=== PATIENT | female | born 1940 | race Caucasian/White ===

== ENCOUNTER → 2016-08-16 | Outpatient (CLI) | payer MEDICARE, BC ==
--- NOTE | 2016-08-18 11:50 | P.ARTDOP ---
Arterial Doppler LOWER EXTREMITY ARTERIAL DOPPLER: DATE OF SERVICE: 08/16/2016 Reason for study: Leg pain. Doppler waveforms: Multiphasic bilaterally throughout. Pulse volume recording: Normal configuration. Pressure gradients: None. Ankle-brachial indices: Greater than 1 bilaterally. Toe pressures: 134 on the right, 131 on the left Impression: Normal study.
== END | disposition home or self-care (01) ==
LOC: RADUSWWP 10:51
PROVIDERS: ATTEND Internal Medicine
DX: M79.662 Pain in left lower leg (principal)
CPT/HCPCS: 93923

== ENCOUNTER 2016-09-02 19:05 | Emergency (ER) | payer MEDICARE, BC ==
[2016-09-02 19:17] VITALS: BP 125/58; PULSE 71; RESP 16; TEMP 98.4
--- NOTE | 2016-09-02 19:45 | ED ---
Extremity Problem HPI - General Chief complaint: Extremity Problem,Nontraumatic Stated complaint: fluid on knee Time Seen by Provider: 09/02/16 19:34 Source: patient, RN notes reviewed Mode of arrival: wheelchair Limitations: no limitations - History of Present Illness Initial comments: 75-year-old female presents emergency Department chief complaint left knee pain. Patient has had ongoing left knee pain and states that she had it drained one week ago by her primary care physician. Patient was diagnosed with pseudogout that time. Patient states that she overdid it today while she was cutting her grass. 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 Patient states that she cannot tolerate the pain and states that she noticed increased swelling. Denies any redness, fever or chills. Patient states that she's had lab work done in the past, x-rays and ultrasound. He states those were all within normal limits. Patient states that she does have tramadol at home though she did not take it. She did chest my Profen with no relief. - Related Data Home Medications Medication Instructions Recorded Confirmed ALPRAZolam [Xanax] 0.5 mg PO DAILY 08/22/13 09/02/16 Aspirin 81 mg PO DAILY 08/22/13 09/02/16 Isosorbide Mononitrate [Imdur] 30 mg PO DAILY 08/22/13 09/02/16 Vit A,C & E/Lutein/Minerals 1 tab PO DAILY 08/24/13 09/02/16 [Ocuvite Tablet] PARoxetine [Paxil] 10 mg PO DAILY 11/02/13 09/02/16 Cholecalciferol [Vitamin D3] 2,000 unit PO DAILY 12/28/15 09/02/16 Losartan/Hydrochlorothiazide 1 tab PO DAILY 09/02/16 09/02/16 [Losartan-Hctz 100-12.5 mg Tab] Allergies Allergy/AdvReac Type Severity Reaction Status Date / Time cyclobenzaprine HCl Allergy Unknown Rash/Hives Verified 09/02/16 19:17 [From Flexeril] Iodinated Contrast Media - Allergy Rash/Hives Verified 09/02/16 19:26 Oral and [Iodinated Contrast Media - IV Dye] TRIPLE DYE Allergy Unknown Rash/Hives Uncoded 09/02/16 19:17 Review of Systems ROS Statement: Those systems with pertinent positive or pertinent negative responses have been documented in the HPI. ROS Other: All systems not noted in ROS Statement are negative. Past Medical History Past Medical History: Chest Pain / Angina, COPD, Eye Disorder, Hypertension Additional Past Medical History / Comment(s): KIDNEY STONES ,POLYPS, HIATAL HERNIA, BACK PAIN, constipation. History of Any Multi-Drug Resistant Organisms: None Reported Additional Past Surgical History / Comment(s): TERENCE CATARACTS , COLONSCOPY, EGD, BREAST BX, LITHOTRIPSY, PAIN CLINIC PROCEDURES. Past Anesthesia/Blood Transfusion Reactions: Motion Sickness Past Psychological History: Anxiety Smoking Status: Current every day smoker Past Alcohol Use History: None Reported Past Drug Use History: None Reported General Exam Limitations: no limitations General appearance: alert, in no apparent distress Respiratory exam: Present: normal lung sounds bilaterally. Absent: respiratory distress, wheezes, rales, rhonchi, stridor Cardiovascular Exam: Present: regular rate, normal rhythm, normal heart sounds. Absent: systolic murmur, diastolic murmur, rubs, gallop, clicks Extremities exam: Present: other (Left knee full range of motion with mild discomfort there is no warmth no erythema noted to the left knee there is no open lesions or sores. Patient does have mild joint effusion /swelling. Leg is neurovascularly intact joint above and below within normal limits) Course Vital Signs 09/02/16 19:11 Temperature 98.4 F Pulse Rate 71 Respiratory 16 Rate Blood Pressure 125/58 O2 Sat by Pulse 98 Oximetry Medical Decision Making - Medical Decision Making 75 show female presented for left knee pain. This is ongoing knee pain. Patient was diagnosed with pseudogout. Patient referred to orthopedics at this time. Patient does have pain medication and advised that she can take that. Return parameters were discussed. There is no evidence of infection at this time. Disposition Clinical Impression: Knee pain Disposition: HOME SELF-CARE Condition: Stable Instructions: Swollen Knee Joint (ED), Knee Pain (ED) Additional Instructions: Please return to the Emergency Department if symptoms worsen or any other concerns. Referrals: Marcie Varma MD [Primary Care Provider] - 1-2 days Jean Pierre Baptiste MD [Medical Doctor] - 1-2 days Time of Disposition: 19:45
== END 2016-09-02 19:51 | disposition home or self-care (01) ==
LOC: EC 19:05
DX: M25.562 Pain in left knee (principal); J44.9 Chronic obstructive pulmonary disease, unspecified; I10 Essential (primary) hypertension; F41.9 Anxiety disorder, unspecified; F17.200 Nicotine dependence, unspecified, uncomplicated; Z79.82 Long term (current) use of aspirin; Z79.899 Other long term (current) drug therapy; Z91.041 Radiographic dye allergy status; Z88.8 Allergy status to other drugs, medicaments and biological substances; Z91.048 Other nonmedicinal substance allergy status
CPT/HCPCS: 99283

== ENCOUNTER → 2017-11-23 | Outpatient (CLI) | payer MEDICARE, BC ==
--- NOTE | 2017-11-23 16:41 | NM ---
EXAMINATION TYPE: NM hepatobiliary w CCK DATE OF EXAM: 11/23/2017 COMPARISON: NONE INDICATION: Abdomen pain TECHNIQUE: After the intravenous administration of 5.33 mCi Tc 99m Mebrofenin hepatobiliary scintigra phy is performed. Images were obtained immediately post injection. FINDINGS: There is prompt uptake and excretion of radiotracer by the liver. Extrahepatic ducts are identified at 3 minutes. The gallbladder is visualized within 3 minutes. Small bowel activity is noted within 18 minutes. At one hour CCK was administered, patient was injected with 1.2 mcg of Kinevac, and gallbladder eject ion fraction is calculated at 66 %, which is in the normal range.. (Normal >35% and <80%.). IMPRESSION: 1. Normal hepatobiliary scan.
== END | disposition home or self-care (01) ==
LOC: RADNMMAIN 06:49
PROVIDERS: ATTEND Surgery
DX: R10.84 Generalized abdominal pain (principal); K21.9 Gastro-esophageal reflux disease without esophagitis
CPT/HCPCS: 78227; A9537; J2805

== ENCOUNTER 2017-12-06 09:29 | Day surgery (SDC) | payer MEDICARE, BC ==
[2017-12-05 09:24] VITALS: BMI 25.4
[~2017-12-06 09:29] MED LIST: LACTATED RINGERS 1,000 ML IV SCH
[2017-12-06 09:59] VITALS: TEMP 98.1
[2017-12-06] MEDS ORDERED: LIDOCAINE 1% 20 ML VIAL (10MG/ML) FOR IV START INTRADERMA ONE (10:05)
[2017-12-06] MEDS ORDERED: PROPOFOL 10 MG/ML 20 ML VIAL IV ONE (10:51)
[2017-12-06] MEDS ORDERED: LIDOCAINE 1% INJ 10MG/ML (20 ML MDV) ONE (10:51)
--- NOTE | 2017-12-06 11:03 | P.GSHP ---
History of Present Illness H&P Date: 12/06/17 Chief Complaint: GERD, constipation This is a 69-year-old female has completed GERD and consultation. Patient presents today for EGD and colonoscopy. Past Medical History Past Medical History: Chest Pain / Angina, COPD, Eye Disorder, Hypertension, Musculoskeletal Disorder Additional Past Medical History / Comment(s): Hx of Kidney stones, hiatal hernia , chronic back pain, polyps History of Any Multi-Drug Resistant Organisms: None Reported Additional Past Surgical History / Comment(s): TERENCE CATARACTS , COLONSCOPY, EGD, BREAST BX, LITHOTRIPSY, PAIN CLINIC PROCEDURES. Past Anesthesia/Blood Transfusion Reactions: Motion Sickness Smoking Status: Current every day smoker - Past Family History Mother Family Medical History: No Reported History Medications and Allergies Home Medications Medication Instructions Recorded Confirmed Type ALPRAZolam [Xanax] 0.5 mg PO DAILY 08/22/13 12/05/17 History Aspirin 81 mg PO DAILY 08/22/13 12/05/17 History Isosorbide Mononitrate [Imdur] 30 mg PO DAILY 08/22/13 12/05/17 History PARoxetine [Paxil] 10 mg PO DAILY 11/02/13 12/05/17 History Cholecalciferol [Vitamin D3] 2,000 unit PO DAILY 12/28/15 12/05/17 History Losartan/Hydrochlorothiazide 1 tab PO DAILY 09/02/16 12/05/17 History [Losartan-Hctz 100-12.5 mg Tab] Vit C/E/Zn/Coppr/Lutein/Zeaxan 1 each PO DAILY 12/05/17 12/05/17 History [Preservision Areds 2 Softgel] Allergies Allergy/AdvReac Type Severity Reaction Status Date / Time cyclobenzaprine HCl Allergy Unknown Rash/Hives Verified 12/06/17 09:47 [From Flexeril] Iodinated Contrast- Oral and Allergy Rash/Hives Verified 12/06/17 09:47 IV Dye [Iodinated Contrast Media - IV Dye] TRIPLE DYE Allergy Unknown Rash/Hives Uncoded 12/06/17 09:47 Surgical - Exam Vital Signs Temp Pulse Resp BP Pulse Ox 98.1 F 77 18 130/76 97 12/06/17 09:58 12/06/17 09:58 12/06/17 09:58 12/06/17 09:58 12/06/17 09:58 - General well developed, no distress - Eyes PERRL - ENT normal pinna - Neck no masses - Respiratory normal expansion - Cardiovascular Rhythm: regular - Abdomen Abdomen: soft, non tender Assessment and Plan Assessment: GERD, constipation. We'll perform EGD and colonoscopy.
--- NOTE | 2017-12-06 11:23 | P.OP ---
Date of Procedure: 12/06/17 Preoperative Diagnosis: GERD Constipation Postoperative Diagnosis: Mild antral gastritis No evidence of hiatal hernia Mild esophagitis Normal colon Procedure(s) Performed: EGD Colonoscopy Anesthesia: MAC Surgeon: Elkin Beckett Pathology: none sent Condition: stable Disposition: PACU Description of Procedure: PROCEDURE: The patient was placed on the endoscopy table in the lateral position. Digital rectal examination was performed which revealed no abnormalities. . Flexible colonoscope was then placed in the patient's anus and passed throughout the entire colon. The ileocecal valve was visualized. The cecum, ascending, transverse, descending and sigmoid colon were normal. The rectum was normal as well. There were no masses, polyps or diverticula noted in the entire colon. Next, the patient's placed in the lateral position and the gastroscope placed oropharynx. The scope was placed into the stomach and through the pylorus. The first second portion of duodenum appeared normal. Scope was then brought back the antrum this was mildly inflamed. A biopsies performed. The scope was then retroflexed and the remainder of the stomach appeared normal. There is no significant hiatal hernia. GE junction was at 40 cm. The distal esophagus appeared minimally inflamed a biopsies performed. The proximal esophagus appeared normal.. Patient.
[2017-12-06 11:27] VITALS: RESP 16
[2017-12-06 11:58] VITALS: BP 118/67; PULSE 72
== END 2017-12-06 12:23 | disposition home or self-care (01) ==
LOC: ORWHC2ENDO 09:29
PROVIDERS: ATTEND Surgery
DX: K20.9 Esophagitis, unspecified (principal); K29.70 Gastritis, unspecified, without bleeding; K59.00 Constipation, unspecified; J44.9 Chronic obstructive pulmonary disease, unspecified; I10 Essential (primary) hypertension; M54.9 Dorsalgia, unspecified; G89.29 Other chronic pain; I25.10 Atherosclerotic heart disease of native coronary artery without angina pectoris; Z79.82 Long term (current) use of aspirin; Z79.899 Other long term (current) drug therapy; Z91.041 Radiographic dye allergy status; Z88.8 Allergy status to other drugs, medicaments and biological substances; Z91.09 Other allergy status, other than to drugs and biological substances; F17.210 Nicotine dependence, cigarettes, uncomplicated; Z87.442 Personal history of urinary calculi
CPT/HCPCS: 88305; 45378; 43239; J2001; J2704

== ENCOUNTER → 2018-01-18 | Outpatient (CLI) | payer MEDICARE, BC ==
--- NOTE | 2018-01-18 15:30 | CT ---
EXAMINATION TYPE: CT lumbar spine wo con DATE OF EXAM: 01/18/2018 1:12 PM COMPARISON: None HISTORY: Pt c/o pain radiating down right leg, pain in lumbosacral region. CT DLP: 933 mGycm Automated exposure control for dose reduction was used. TECHNIQUE: Unenhanced CT of the lumbar spine was performed. Bone and soft tissue window settings are submitted as well as coronal and sagittal reconstructions. FINDINGS: The lumbar spine vertebral bodies maintain normal vertebral body height and alignment. Mode rate multilevel degenerative changes are seen as small anterior osteophytes, intervertebral disc spac e narrowing, multilevel degenerative disc disease, and facet arthropathy. No evidence of acute fractu re of the lumbar spine. Mild sacroiliac joint thickened disc disease and sclerosis is seen. Moderate atherosclerosis of the abdominal aorta is noted. Nonobstructing 3 mm left renal calculus is seen. L1-L2: There is a broad-based disc bulge and facet arthropathy resulting in minimal bilateral neural foraminal narrowing. No spinal canal stenosis. L2-L3: There is a broad-based disc bulge and facet arthropathy resulting in mild spinal canal stenosi s and mild bilateral neural foraminal narrowing. L3-L4: There is a broad-based disc bulge and ligamentum flavum buckling as well as facet arthropathy resulting in moderate bilateral neural foraminal narrowing and mild spinal canal stenosis. L4-L5: There is a broad-based disc bulge, ligamentum flavum buckling and facet arthropathy resulting in moderate to severe bilateral neural foraminal narrowing and moderate spinal canal stenosis. L5-S1: There is a broad-based disc bulge without significant spinal canal stenosis nor neural foramin al narrowing. IMPRESSION: 1. Multilevel moderate degenerative disc disease of the lumbar spine most significant at L3-L4 and L4 -L5 creating moderate spinal canal stenosis at L4-L5 and mild spinal canal stenosis at L3-L4 as well as at L2-L3. Better degree of spinal canal stenosis or neuroforaminal narrowing could be assessed wit h MRI. 2. No evidence of vertebral body height loss.
== END ==
LOC: RADCTMAIN 12:51
PROVIDERS: ATTEND Internal Medicine
DX: M48.061 Spinal stenosis, lumbar region without neurogenic claudication (principal); M51.36 Other intervertebral disc degeneration, lumbar region
CPT/HCPCS: 72131

== ENCOUNTER → 2018-02-21 | Outpatient (CLI) | payer MEDICARE, BC ==
[2018-02-21 14:13] VITALS: BP 147/81; PULSE 77; RESP 18
--- NOTE | 2018-02-22 10:16 | P.PAINCN ---
History of Present Illness - Reason for Consult Consult date: 02/21/18 - History of Present Illness This is initial consultation visit for this 77 years FEMALE with a chronic history of low back pain, pain started 4 years ago she denies any initiating event, intensity of the pain increased over the last 2 months, the pain is constant, with intensity of 7 over 10 increased with any activity , interfering with her ability to do activities of daily livings, she is under physical therapy without any benefit, she tried the Neurontin without any benefit, she described her pain that is located in the low back area with radiation to the right lower extremity, mostly towards the posterior lateral aspect of the right leg , she denies any fever or night sweats she denies any motor or sensory deficit, Past Medical History Past Medical History: Chest Pain / Angina, COPD, Eye Disorder, Hypertension Additional Past Medical History / Comment(s): KIDNEY STONES ,POLYPS, BACK PAIN , constipation. History of Any Multi-Drug Resistant Organisms: None Reported Additional Past Surgical History / Comment(s): TERENCE CATARACTS , COLONSCOPY, EGD, BREAST BX, LITHOTRIPSY, PAIN CLINIC PROCEDURES. Past Anesthesia/Blood Transfusion Reactions: Motion Sickness Past Psychological History: Anxiety Smoking Status: Current every day smoker Past Alcohol Use History: None Reported Past Drug Use History: None Reported Medications and Allergies Home Medications Medication Instructions Recorded Confirmed Type ALPRAZolam [Xanax] 0.5 mg PO DAILY 08/22/13 02/21/18 History Aspirin 81 mg PO DAILY 08/22/13 02/21/18 History Isosorbide Mononitrate [Imdur] 30 mg PO DAILY 08/22/13 02/21/18 History PARoxetine [Paxil] 10 mg PO DAILY 11/02/13 02/21/18 History Cholecalciferol [Vitamin D3] 2,000 unit PO DAILY 12/28/15 02/21/18 History Losartan/Hydrochlorothiazide 50 mg PO DAILY 09/02/16 12/05/17 History [Losartan-Hctz 100-12.5 mg Tab] Cholecalciferol (Vitamin D3) 1 tab PO DAILY 02/21/18 02/21/18 History [Vitamin D3] Vit C/E/Zn/Coppr/Lutein/Zeaxan 1 tab PO DAILY 02/21/18 02/21/18 History [Preservision Areds 2 Softgel] Allergies Allergy/AdvReac Type Severity Reaction Status Date / Time cyclobenzaprine HCl Allergy Unknown Rash/Hives Verified 02/21/18 13:52 [From Flexeril] Iodinated Contrast- Oral and Allergy Rash/Hives Verified 02/21/18 13:52 IV Dye [Iodinated Contrast Media - IV Dye] TRIPLE DYE Allergy Unknown Rash/Hives Uncoded 02/21/18 13:52 Physical Exam Vitals: Vital Signs Pulse Resp BP Pulse Ox 02/21/18 13:58 77 18 147/81 97 Social history : smoker , NO ETOH , NO Illegal drugs use . Review of Systems : 1- Constitutional : no chills , no fever , no night sweats , 2- Ears : no ear discharge , no change in hearing 3-Nose, Mouth ,Throat ; no bleeding gums, no sore throat , no epistaxis , 4-Cardiovascular : Denies chest pain, , no orthopnea , no palpitation 5-Respiratory : Denies cough , no dyspnea , no hemoptysis 6-Gastrointestinal :, no change in bowel habits , no coffee- ground emesis . 7-Genitourinary : No hematuria , no discharge , no incontinence, 8-Musculoskeletal : No gait dysfunction , report low back pain , 9- Neurological : no ataxia , no tremor , no sezure , 10-Psychatric , no suicidal ideation no hallucination 11- Endocrine : no cold intolerence , no polyuria , no polydypsia , 12-Hematologic : no easy bleeding , no easy brusing , 13-Allergic / immunology : no angioedema , no wheezing ,no allergic rhinitis 14-Integumentary : no brttle nails , no change hair / nails , no foot/leg ulcers . Physical Examinations : 1-Constitutional : Cooperative , not in acute distress . 2-HEENT : nech ; supple , no Lymphadenopathy , no Thyromegaly , :eyes , no icterus, no photophobia . ENT : , normal oropharynx , no Thrush 3- Respiratory : Chest clear to auscultations Bilaterally , no wheezing . 4- Cardiovascular : regular rate and rhythem , S1 , S2 , no S3 , no S4. 5- Gastrointestinal: abdomen soft no tenderness , no organomegally . 6- Genitourinary : Defferred . 7-Integumentary : No cellulitis , no ulcers , normal skin turgor , no cyanotic . 8- neurologic : Cranial nerve II to XII intact , no focal neurological deffecit 9-psychatric : alert , oriented X 3 , appropriate affect , intact judgment and insight . 10-Lymphatic : no Lymphadenopathy. 11- musculoskeltal: antalgic gait Lumber spine moter stegnth lower extremities ,thigh and legs 5/5 Right side , 5/5 Left side deep tendon reflexes : normal Knee Jerk , normal ankle Jerk positive lumber facet Loading Test Range of motion of the lumbar spine Flexion 30 degrees, extension 10 degrees strait leg raising test , positive at 30 degree right side ,and it is negative on the left side Fabere test positive RT and negative LT . Results Comments: MRI of the lumbar spine= L3 4 spinal stenosis L2-3 and L3 4 lumbar facet L4 5 lumbar bulging disc disease and facet arthropathy Assessment and Plan Plan: Assessment and plan= chronic low back pain secondary to lumbar degenerative disc disease , lumbar spondylosis with lumbar facet arthropathy The narcotic consent was signed and patient agreed and understood the side effects and complications of opioid treatment. Patient signed the narcotic agreement, and was orally counseled, not to overuse, not to abuse, not to Divert , not tp sell pain medication, and to take it as prescribed only, Patient was counseled not to drive or operate heavy equipment while using narcotic medication, and advised not to use alcohol or any Illicit drugs while using the narcotis. understanding that lack of compliance with any of the above instructions, will likely to cause discharge from, the pain service, not to renew his narcotic prescriptions [facility] Reviwed and it was apropriate . Medication managements= patient given prescription for Ultram 50 mg half to 1 tablet by mouth every 8 hours when necessary dispense 30 no refill. Interventions= patient will be good candidate to have lumbar epidural steroid injections under fluoroscopy guidance SERGEY. Description is leaving on the state in the next couple days we will schedule it when she comes back, if she continued to have pain after the lumbar epidural steroid injection, then we will consider doing diagnostic medial branch block , Time with Patient: Greater than 30 PQRS Measure Charge Sheet Measure #130: Documentation of Current Meds in Medical Chart: Patient's medications documented in chart Measure #226: Tobacco Use: Screen & Cessation Intervention: Pt screened for tobacco use AND intervention given Measure #111: Pneumonia Vaccination: Pneumococcal vaccine administered or previously received Measure #47: Advance Care Plan: Advance care planning discussed & documented, pt chose/unable to give Measure #412: Opioid Treatment Agreement: Documented signed opioid trtmnt agreemnt min once during opioid trtmnt Measure #408: Opioid Therapy Follow-up Evaluation: Patient had f/u eval minimum every 3 months during opioid therapy Measure #317: Preventitive Care & Scrn High Bld Press & F/U: Pre-hypertensive or hypertensive BP documented, pt will f/u with PCP Measure #128: Body Mass Index (BMI) Screening & Follow-up: BMI documented ABOVE normal parameters - f/u documented Measure #131: Pain Assessment & Follow-up: Pain positive & plan documented, Follow-up scheduled Measure #431: Unhealthy Alcohol Use Preventative Care & Scrn: Patient not identified as an unhealthy alcohol user PQRS Narrative: Smoking Status Current every day smoker Do You Want the Pneumonia Yes Vaccine AT THIS TIME? Blood Pressure 147/81 Pain Intensity [Right Back] 10 Scale Used Numeric (1 - 10) Home Medications: Ambulatory Orders ALPRAZolam [Xanax] 0.5 mg PO DAILY 08/22/13 Aspirin 81 mg PO DAILY 08/22/13 Isosorbide Mononitrate [Imdur] 30 mg PO DAILY 08/22/13 PARoxetine [Paxil] 10 mg PO DAILY 11/02/13 Cholecalciferol [Vitamin D3] 2,000 unit PO DAILY 12/28/15 Losartan/Hydrochlorothiazide [Losartan-Hctz 100-12.5 mg Tab] 50 mg PO DAILY 11/11 Cholecalciferol (Vitamin D3) [Vitamin D3] 1 tab PO DAILY 02/21/18 Vit C/E/Zn/Coppr/Lutein/Zeaxan [Preservision Areds 2 Softgel] 1 tab PO DAILY
== END ==
LOC: PNWHC3 13:21
PROVIDERS: ATTEND Specialist
DX: G89.29 Other chronic pain (principal); M51.36 Other intervertebral disc degeneration, lumbar region; M46.96 Unspecified inflammatory spondylopathy, lumbar region; M47.816 Spondylosis without myelopathy or radiculopathy, lumbar region; Z79.891 Long term (current) use of opiate analgesic; Z79.899 Other long term (current) drug therapy; Z79.82 Long term (current) use of aspirin
CPT/HCPCS: 99211

== ENCOUNTER 2018-03-16 07:52 | Day surgery (SDC) | payer MEDICARE, BC ==
[2018-03-15 10:51] VITALS: BMI 25.4
[~2018-03-16 07:52] MED LIST changes: -LACTATED RINGERS 1,000 ML IV SCH; +SODIUM CHLORIDE 0.9% 500 ML 500 ML IV SCH
[2018-03-16 08:18] VITALS: RESP 16; TEMP 97.9
[2018-03-16] MEDS ORDERED: LACTATED RINGERS 1,000 ML IV ONE (08:21)
--- NOTE | 2018-03-16 09:11 | P.PCN ---
Date of Procedure: 03/16/18 Procedure(s) Performed: PREOPERATIVE DIAGNOSIS: 1- Lumbar Degenerative Disc Diseases 2-Lumbar spondylosis with Facet arthropathy without myelopathy POSTOPERATIVE DIAGNOSIS: 1-Lumber Degenerative Disc Diseases 2-Lumbar spondylosis with Facet arthropathy without myelopathy PROCEDURE 1. Lumbar epidural steroid injection under fluoroscopic guidance at the L5-S1 level. ANESTHESIA: Local with 1% lidocaine 3 ml and , moderate sedation with intravenous Versed 2mg . EBL: Minimal PROCEDURE INDICATION: The patient with low back pain and radiculitis symptoms unresponsive to conservative treatment. Fluoroscopy was used to optimize visualization of the needle placement and to maximize safety. PROCEDURE DESCRIPTION / TECHNIQUE: The patient was seen and identified in the preoperative area. Risks, benefits , complications including but not limited to infections ,bleeding ,allergic reaction to the medications ,nerve damage and not complete pain releife , and alternatives were discussed with the patient. The patient agreed to proceed with the procedure and signed the consent. IV was started, and vital signs were stable. Patient was taken to the OR and time out was completed. The patient was placed in the prone position on procedure table and a pillow was placed under the abdomen to reduce lumbar lordosis. The lumbosacral area was prepped and draped in the usual sterile fashion.ere closely monitored during the procedure. Conscious sedation was used during the procedure to decrease patients anxiety. Vital signs was monitered during the entire procedure. Using anterior-posterior fluoroscopy, the L5-S1 interlaminar space was identified and the skin over this site was marked and then infiltrated with 1% lidocaine subcutaneously. Subsequently, a 20-gauge Tuohy epidural needle was inserted and advanced toward the epidural space using the ``Loss of resistance technique and guided by AP and lateral fluoroscopy, after negative aspiration for blood and CSF and in the absence of paresthesias. Again after negative aspiration, a 6 ml mixture containing 40 mg of Depo-medrol , and 2 ml of preservative free Normal Saline, Needle was withdrawn intact, skin was cleansed , and bandages were applied. COMPLICATIONS: None DISPOSITION / PLANS: The patient was placed in a supine position and transferred to the recovery area in a stable condition for observation. There was no evidence of lower extremity motor or sensory deficit after the procedure. Patient was discharged from the recovery room after meeting discharge criteria. Home discharge instructions were given to the patient by the staff. The patient was reexamined prior to discharge. The patient will schedule a follow up in the clinic in 2-4 weeks.
[2018-03-16] MEDS ORDERED: IV FLUID CONTINUATION 850 ML IV ONE (09:20)
--- NOTE | 2018-03-16 09:32 | FL ---
EXAMINATION TYPE: FL guided pain mgmt statistic DATE OF EXAM: 03/16/2018 HISTORY: Pain LESI, 1sec fl time
[2018-03-16 09:37] VITALS: BP 117/54; PULSE 72
== END 2018-03-16 09:57 | disposition home or self-care (01) ==
LOC: ORPAIN 07:52
PROVIDERS: ATTEND Specialist
DX: M47.816 Spondylosis without myelopathy or radiculopathy, lumbar region (principal); M51.36 Other intervertebral disc degeneration, lumbar region; M54.10 Radiculopathy, site unspecified
CPT/HCPCS: 62323; J2250; J1030; Q9966

== ENCOUNTER → 2018-04-13 | Outpatient (CLI) | payer MEDICARE, BC ==
--- NOTE | 2018-04-13 10:17 | US ---
EXAMINATION TYPE: US carotid duplex BILAT DATE OF EXAM: 04/13/2018 COMPARISON: NONE CLINICAL HISTORY: I34.0 Nonrheumatic mitral (valve) insufficiency. EXAM MEASUREMENTS: RIGHT: Peak Systolic Velocity (PSV) cm/sec ----- Right CCA: 66.7 ----- Right ICA: 115.8 ----- Right ECA: 120.6 ICA/CCA ratio: 1.7 RIGHT: End Diastole cm/sec ----- Right CCA: 26.0 ----- Right ICA: 43.0 ----- Right ECA: 20.4 LEFT: Peak Systolic Velocity (PSV) cm/sec ----- Left CCA: 65.6 ----- Left ICA: 218.7 ----- Left ECA: 81.1 ICA/CCA ratio: 3.3 LEFT: End Diastole cm/sec ----- Left CCA: 21.6 ----- Left ICA: 48.1 ----- Left ECA: 11.1 VERTEBRALS (direction of flow): Right Vertebral: Antegrade Left Vertebral: Antegrade Rhythm: Normal Mild atherosclerotic changes on right. Calcified plaque left bulb and left ICA with high flow velocit ies. Tortuous right ECA. IMPRESSION: 1. 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 2. Velocity of the right internal carotid artery approaching criteria for 50-69% stenosis with elevat ed velocity in the external carotid artery on the right suggesting approximately 50% stenosis. Criteria for Assigning % of Stenosis / Diameter reduction (Estimation based on the indirect measurements of the internal carotid artery velocities (ICA PSV). 1. Normal (no stenosis)=ICA PSV < 125 cm/s: ratio < 2.0: ICA EDV<40 cm/s. 2. Less than 50% stenosis=ICA PSV < 125 cm/s: ratio < 2.0: ICA EDV<40 cm/s. 3. 50 to 69% stenosis=ICA PSV of 125 to 230 cm/s: ration 2.0 ? 4.0: ICA EDV 40-100 cm/s. 4. Greater than 70% stenosis to near occlusion= ICA PSV > 230 cm/s: ratio > 4.0: ICA EDV > 100 cm/s. 5. Near occlusion= ICA PSV velocities may be low or undetectable: variable ratio and ICA EDV. 6. Total occlusion=unable to detect flow.
--- NOTE | 2018-04-13 18:07 | ECHOF ---
Referral Reason:I34.0 Nonrheumatic mitral (valve) insufficiency MEASUREMENTS -------- HEIGHT: 152.4 cm WEIGHT: 58.5 kg BP: RVIDd: 2.7 cm (< 3.3) IVSd: 1.1 cm (0.6 - 1.1) LVIDd: 3.4 cm (3.9 - 5.3) LVPWd: 1.1 cm (0.6 - 1.1) IVSs: 1.5 cm LVIDs: 2.6 cm LVPWs: 1.1 cm LAESV Index (A-L): 17.32 ml/m Ao Diam: 2.4 cm (2.0 - 3.7) AV Cusp: 1.5 cm (1.5 - 2.6) LA Diam: 2.8 cm (2.7 - 3.8) MV EXCURSION: 16.659 mm (> 18.000) MV EF SLOPE: 90 mm/s (70 - 150) EPSS: 0.8 cm MV E Jaciel: 0.38 m/s MV DecT: 190 ms MV A Jaciel: 0.72 m/s MV E/A Ratio: 0.53 RAP: 5.00 mmHg RVSP: 23.49 mmHg Chol, family hx heart. FINDINGS -------- Sinus rhythm. This was a technically adequate study. LV size, wall thickness and systolic function are normal, with an EF greater than 55%. The left zofia tricular size is normal. The right ventricle is normal in size. The left atrial size is normal. The right atrial size is normal. There is mild aortic valve sclerosis. There is no evidence of aortic regurgitation. The mitral valve is normal. Mild mitral regurgitation is present. Mild tricuspid regurgitation present. There is no evidence of pulmonary hypertension. The right v entricular systolic pressure, as measured by Doppler, is 23.49mmHg. There is no pulmonic regurgitation present. The aortic root size is normal. There is no pericardial effusion. CONCLUSIONS -------- 1. Sinus rhythm. 2. This was a technically adequate study. 3. LV size, wall thickness and systolic function are normal, with an EF greater than 55%. 4. The left ventricular size is normal. 5. The left atrial size is normal. 6. There is mild aortic valve sclerosis. 7. Mild mitral regurgitation is present. 8. Mild tricuspid regurgitation present. 9. There is no evidence of pulmonary hypertension. 10. There is no pulmonic regurgitation present. 11. The aortic root size is normal. 12. There is no pericardial effusion. TRACK GREASER: Kayla Sherman RDCS
== END ==
LOC: RADUSMAIN 08:22
PROVIDERS: ATTEND Internal Medicine
DX: I65.23 Occlusion and stenosis of bilateral carotid arteries (principal); I08.1 Rheumatic disorders of both mitral and tricuspid valves
CPT/HCPCS: 93306; 93880

== ENCOUNTER → 2018-04-19 | Outpatient (CLI) | payer MEDICARE, BC ==
[2018-04-19 12:17] VITALS: BP 118/68; PULSE 77; RESP 18
--- NOTE | 2018-04-19 12:46 | P.PAINPG ---
Subjective Progress Note Date: 04/19/18 This is Follow up visit for this 77 years FEMALE with a chronic history of low back pain, pain started 4 years ago she diagnosed with lumbar degenerative disc disease and lumbar spondylosis with lumbar facet arthropathy , with done lumbar epidural steroid injections under fluoroscopy guidance 2 , and she had no benefit from it, she continued to have severe low back pain, the pain is constant, with intensity of 7 over 10 increased with any activity , interfering with her ability to do activities of daily livings, she is under physical therapy without any benefit, she tried the Neurontin without any benefit, she described her pain that is located in the low back area with radiation to the right lower extremity, mostly towards the posterior lateral aspect of the right leg , she denies any fever or night sweats she denies any motor or sensory deficit, patient was started on Ultram 50 mg when necessary last visit Physical Exam Physical Examinations : 1-Constitutional : Cooperative , not in acute distress . 2-HEENT : nech ; supple , no Lymphadenopathy , no Thyromegaly , :eyes , no icterus, no photophobia . ENT : , normal oropharynx , no Thrush 3- Respiratory : Chest clear to auscultations Bilaterally , no wheezing . 4- Cardiovascular : regular rate and rhythem , S1 , S2 , no S3 , no S4. 5- Gastrointestinal: abdomen soft no tenderness , no organomegally . 6- Genitourinary : Defferred . 7-Integumentary : No cellulitis , no ulcers , normal skin turgor , no cyanotic . 8- neurologic : Cranial nerve II to XII intact , no focal neurological deffecit 9-psychatric : alert , oriented X 3 , appropriate affect , intact judgment and insight . 10-Lymphatic : no Lymphadenopathy. 11- musculoskeltal: antalgic gait Lumber spine moter stegnth lower extremities ,thigh and legs 5/5 Right side , 5/5 Left side deep tendon reflexes : normal Knee Jerk , normal ankle Jerk positive lumber facet Loading Test Range of motion of the lumbar spine Flexion 30 degrees, extension 10 degrees strait leg raising test , positive at 30 degree right side ,and it is negative on the left side Fabere test positive RT and negative LT . Results Comments: MRI of the lumbar spine= L3 4 spinal stenosis L2-3 and L3 4 lumbar facet L4 5 lumbar bulging disc disease and facet arthropathy Assessment and plan= chronic low back pain secondary to lumbar degenerative disc disease , lumbar spondylosis with lumbar facet arthropathy The narcotic consent was signed and patient agreed and understood the side effects and complications of opioid treatment. Patient signed the narcotic agreement, and was orally counseled, not to overuse, not to abuse, not to Divert , not tp sell pain medication, and to take it as prescribed only, Patient was counseled not to drive or operate heavy equipment while using narcotic medication, and advised not to use alcohol or any Illicit drugs while using the narcotis. understanding that lack of compliance with any of the above instructions, will likely to cause discharge from, the pain service, not to renew his narcotic prescriptions MAPS Reviwed and it was apropriate . Medication managements= 1 discontinue Ultram because, the combination between the Ultram and Paxil could cause serotonin syndrome I will start patient on [place] 5/25 every 8 hours when necessary dispense 60 with no refills Interventions= patients had no benefit from lumbar epidural steroid injection , she will good candidate for diagnostic medial branch block. L3 4/L4 5/L5-S1 X2 ,And if she had a good result and we will proceed with radiofrequency ablation of the medial branch lumbar area Objective - Vital Signs Vital signs: Vital Signs Temp Pulse 77 04/19/18 12:09 Resp 18 04/19/18 12:09 BP 118/68 04/19/18 12:09 Pulse Ox 99 04/19/18 12:09 Intake & Output 04/18/18 04/19/18 04/19/18 18:59 06:59 18:59 Weight 58.967 kg PQRS Measure Charge Sheet Measure #130: Documentation of Current Meds in Medical Chart: Patient's medications documented in chart Measure #226: Tobacco Use: Screen & Cessation Intervention: Pt screened for tobacco use AND intervention given Measure #111: Pneumonia Vaccination: Pneumococcal vaccine administered or previously received Measure #47: Advance Care Plan: Advance care planning discussed & documented, pt chose/unable to give Measure #412: Opioid Treatment Agreement: Documented signed opioid trtmnt agreemnt min once during opioid trtmnt Measure #408: Opioid Therapy Follow-up Evaluation: Patient had f/u eval minimum every 3 months during opioid therapy Measure #317: Preventitive Care & Scrn High Bld Press & F/U: Normal blood pressure, f/u not required Measure #128: Body Mass Index (BMI) Screening & Follow-up: BMI documented within normal parameters Measure #131: Pain Assessment & Follow-up: Pain positive & plan documented, Follow-up scheduled Measure #431: Unhealthy Alcohol Use Preventative Care & Scrn: Patient not identified as an unhealthy alcohol user PQRS Narrative: Smoking Status Former smoker Do You Want the Pneumonia Vaccine Up to Date Vaccine AT THIS TIME? Blood Pressure 118/68 Pain Intensity [Lower Back] 8 Scale Used Numeric (1 - 10) Home Medications: Ambulatory Orders ALPRAZolam [Xanax] 0.5 mg PO DAILY 08/22/13 Aspirin 81 mg PO DAILY 08/22/13 Isosorbide Mononitrate [Imdur] 30 mg PO DAILY 08/22/13 PARoxetine [Paxil] 10 mg PO DAILY 11/02/13 Losartan/Hydrochlorothiazide [Losartan-Hctz 100-12.5 mg Tab] 0.5 tab PO DAILY Cholecalciferol (Vitamin D3) [Vitamin D3] 2,000 units PO DAILY 02/21/18 Vit C/E/Zn/Coppr/Lutein/Zeaxan [Preservision Areds 2 Softgel] 1 tab PO DAILY Calcium Carbonate/Vitamin D3 [Caltrate 600 Plus D3 Tablet] 1 each PO DAILY 03/15 traMADol HCl [Ultram] 25 - 50 mg PO Q8H PRN 03/15/18 Alirocumab [Praluent Pen] 1 injection SQ DIRECTED 04/19/18 Controlled Substance Measures - Controlled Substance Measures Is patient prescribed a controlled substance at discharge?: Yes When asked, does pt state using other controlled substances?: No If prescribed controlled substance>3 days was MAPS reviewed?: Yes If Rx opioid, was Start Talking consent form obtained?: Yes If opioid is for acute pain is fill amount 7 days or less?: No Was information provided regarding opioid addiction?: Yes
== END ==
LOC: PNWHC3 11:57
PROVIDERS: ATTEND Specialist
DX: G89.29 Other chronic pain (principal); M51.36 Other intervertebral disc degeneration, lumbar region; M47.816 Spondylosis without myelopathy or radiculopathy, lumbar region; M46.96 Unspecified inflammatory spondylopathy, lumbar region; Z79.891 Long term (current) use of opiate analgesic; Z79.899 Other long term (current) drug therapy
CPT/HCPCS: 99211

== ENCOUNTER → 2018-07-10 | Outpatient (CLI) | payer MEDICARE, BC ==
--- NOTE | 2018-07-10 15:40 | XR ---
EXAMINATION TYPE: XR KUB DATE OF EXAM: 07/10/2018 CLINICAL DATA: 77-year-old female kidney calculus, PHH COMPARISON: None FINDINGS: Supine imaging limited for assessment of free intraperitoneal air. Nonobstructive bowel gas pattern. Only mild scattered stool. Possible punctate 3 mm calcification at the left kidney. Tiny pelvic phleboliths. Facet arthropathy lower lumbar spine. [id number] degenerative change right hip. IMPRESSION: Possible 3 mm punctate left renal calculus.
== END | disposition home or self-care (01) ==
LOC: RADXRMAIN 10:30
PROVIDERS: ATTEND Urology
DX: N20.0 Calculus of kidney (principal)
CPT/HCPCS: 74018

== ENCOUNTER → 2018-09-05 | Outpatient (CLI) | payer MEDICARE, BC ==
[2018-09-05 10:47] LABS: HCT 36.6 % (34.0-46.0); HGB 11.9 gm/dL (11.4-16.0); MCHC 32.6 g/dL (31.0-37.0); Mean Platelet Volume 6.4; Platelet Count 348 k/uL (150-450); RBC 4.26 m/uL (3.80-5.40); RDW 14.6 % (11.5-15.5); WBC 7.6 k/uL (3.8-10.6)
[2018-09-05 10:58] LABS: African American GFR (CKD) >90 (>60 ml/min/1.73 sqM); Anion Gap 5 mmol/L; Blood Urea Nitrogen 12 mg/dL (7-17); Carbon Dioxide 33 mmol/L (22-30); Chloride 102 mmol/L (98-107); Glucose 91 mg/dL (74-99); Potassium 4.4 mmol/L (3.5-5.1); Sodium 140 mmol/L (137-145)
== END | disposition home or self-care (01) ==
LOC: LABPAT 09:41
PROVIDERS: ATTEND Internal Medicine Cardiovascular Disease
DX: Z01.812 Encounter for preprocedural laboratory examination (principal); I48.1 Persistent atrial fibrillation; I65.23 Occlusion and stenosis of bilateral carotid arteries
CPT/HCPCS: 80051; 82565; 82947; 84520; 85027

== ENCOUNTER 2018-09-14 05:50 | Day surgery (SDC) | payer MEDICARE, BC ==
[2018-09-08 13:25] VITALS: BMI 26.4
[2018-09-14] MEDS ORDERED: ATORVASTATIN 80 MG TAB PO STA (06:39)
[2018-09-14] MEDS ORDERED: ALPRAZolam 0.5 MG TAB PO PRN (06:39)
[2018-09-14] MEDS ORDERED: NITROGLYCERIN SL TABS 0.4 MG TAB SUBLINGUAL PRN (06:39)
[2018-09-14] MEDS ORDERED: SODIUM CHLORIDE 0.9% 1,000 ML in EMPTY BAG 1 BAG IV ONE (06:39)
[2018-09-14] MEDS ORDERED: ALPRAZolam 0.25 MG TAB PO PRN (06:39)
[2018-09-14] MEDS ORDERED: ASPIRIN 325 MG TAB PO STA (06:39)
[2018-09-14 06:56] VITALS: TEMP 98.1
[2018-09-14] MEDS ORDERED: VERAPAMIL 2.5 MG/ML 2 ML AMP ONE (07:14)
[2018-09-14] MEDS ORDERED: LIDOCAINE 1% INJ 10MG/ML (20 ML MDV) ONE (07:14)
[2018-09-14] MEDS ORDERED: fentaNYL (PF) 50 MCG/ML 2 ML AMP ONE (07:22)
[2018-09-14] MEDS ORDERED: HEPARIN SODIUM 1,000 UN/ML (10ML VL) ONE (07:33)
[2018-09-14] MEDS ORDERED: MIDAZOLAM (PF) 2 MG/2 ML VIAL IV ONE ×3 (07:37→07:38)
[2018-09-14] MEDS ORDERED: fentaNYL (PF) 50 MCG/ML 2 ML AMP IV ONE (07:38)
[2018-09-14] MEDS ORDERED: LIDOCAINE 1% (PF) 10 MG/ML (30 ML SDV) SQ ONE (07:42)
[2018-09-14] MEDS: VERAPAMIL SYRINGE (5 MG/10 ML) INTRAARTER ONE ×2 (07:43→07:56)
[2018-09-14] MEDS ORDERED: IOPAMIDOL-370 125ML BTL INJ ONE (07:57)
[2018-09-14] MEDS ORDERED: RX INFO: IV CONTRAST WAS GIVEN 1 EACH MISC MISCELLANE PRN (08:08)
[2018-09-14] MEDS ORDERED: SODIUM CHLORIDE 0.9% 1,000 ML IV SCH (08:15)
--- NOTE | 2018-09-14 08:15 | P.PCN ---
Date of Procedure: 09/14/18 Preoperative Diagnosis: Positive stress test, carotid disease and atrial fibrillation Postoperative Diagnosis: Mild coronary artery disease Description of Procedure: HISTORY: This is a 77-year-old female with history of mild coronary artery disease and carotid disease who was recently admitted to the hospital with atrial fibrillation with rapid ventricular response. Subsequent stress test was suggestive of ischemia in the anteroapical area. Patient is advised to have a cardiac catheterization for definitive diagnosis. CONSENT:I have discussed the risks, benefits and alternative therapies for the above-mentioned procedure and for both sedation/analgesia as well as necessary blood product administration, if indicated, as they pertain to this patient. The patient has indicated understanding and acceptance of the risks and procedures discussed. PROCEDURE: Patient was brought to the lab in a fasting state. Patient was given some IV sedation. The right wrist is infiltrated with lidocaine and right radial artery was entered using Seldinger technique. A 6-Danish catheter was left in place and selective coronary arteriography was performed. Patient tolerated the procedure well. TR band was applied for hemostasis. No immediate complications were noted and patient was transferred to [facility] in a stable condition Conscious Sedation: Versed 0.5mg Fentanyl 25 g Duration 16minutes HEMODYNAMICS: The aortic pressure is about 130/70. The left ventricular end- diastolic pressure is about 16-20 SELECTIVE CORONARY ARTERIOGRAPHY: LEFT MAIN: This is mildly calcified and short. Free of any occlusive disease THE LEFT ANTERIOR DESCENDING CORONARY ARTERY:. This is a small to moderate caliber vessel giving rise to good-sized diagonal branch. There is mild disease involving the proximal portion with about 30% luminal narrowing. The rest of the LAD is free of occlusive disease THE LEFT CIRCUMFLEX AND IS CORONARY ARTERY:. This is a moderate caliber vessel giving rise to moderate caliber OM branch. The circumflex coronary artery and branches are free of occlusive disease THE RIGHT CORONARY ARTERY:. This is also moderate caliber vessel with mild disease in midportion with about 30% luminal narrowing LEFT VENTRICULOGRAPHY: Not performed FINAL IMPRESSION:. Mild coronary artery disease with calcification of the left coronary system and mild disease in the proximal LAD and also mid RCA PLAN: Maximum medical therapy and risk factor modification PROGNOSIS: Fair
[2018-09-14 10:10] VITALS: RESP 16
[2018-09-14 13:01] VITALS: BP 122/72; PULSE 58
== END 2018-09-14 12:15 | disposition home or self-care (01) ==
LOC: CATHCVL 05:50
PROVIDERS: ATTEND Internal Medicine Cardiovascular Disease
DX: I25.10 Atherosclerotic heart disease of native coronary artery without angina pectoris (principal); I25.84 Coronary atherosclerosis due to calcified coronary lesion; I10 Essential (primary) hypertension; Z72.0 Tobacco use; I48.1 Persistent atrial fibrillation; I77.9 Disorder of arteries and arterioles, unspecified; E78.2 Mixed hyperlipidemia; E78.00 Pure hypercholesterolemia, unspecified; Z82.49 Family history of ischemic heart disease and other diseases of the circulatory system; Z79.01 Long term (current) use of anticoagulants; Z79.52 Long term (current) use of systemic steroids; Z79.899 Other long term (current) drug therapy; Z88.8 Allergy status to other drugs, medicaments and biological substances; Z91.048 Other nonmedicinal substance allergy status
CPT/HCPCS: 93458; C1894; J2001; J3010; J1644; Q9967; J2250

== ENCOUNTER → 2019-02-14 | Outpatient (CLI) | payer MEDICARE, BC ==
--- NOTE | 2019-02-14 15:31 | US ---
EXAMINATION TYPE: US kidneys/renal and bladder DATE OF EXAM: 02/14/2019 COMPARISON: KUB dated 07/10/2018 CLINICAL HISTORY: N20.0 Renal Calculus. Frequent UTI's, history of kidney stones EXAM MEASUREMENTS: Right Kidney: 9.9 x 4.4 x 5.0 cm Left Kidney: 9.4 x 4.7 x 4.3 cm Right Kidney: no hydronephrosis or masses seen Left Kidney: no hydronephrosis or masses seen Bladder: wnl Bilateral Jets seen: no There is no evidence for hydronephrosis at this point in time. No nephrolithiasis is seen. No sobeida s are identified. The urinary bladder is anechoic. Bilateral ureteral jets are seen. IMPRESSION: No hydronephrosis or nephrolithiasis seen. Note is made of a possible punctate 3 mm calcu ishan of the left kidney on the KUB of 07/10/2018. This was not seen on today's exam.
== END | disposition home or self-care (01) ==
LOC: RADUSWWP 14:51
PROVIDERS: ATTEND Urology
DX: N20.0 Calculus of kidney (principal); N39.0 Urinary tract infection, site not specified
CPT/HCPCS: 76770

== ENCOUNTER 2019-11-03 19:35 | Inpatient (IN) | payer MEDICARE, BC ==
[2019-11-03] MEDS ORDERED: SODIUM CHLORIDE 0.9% 1,000 ML IV STA (19:51)
--- NOTE | 2019-11-03 19:55 | ED ---
Arrhythmia/Palpitations HPI - General Chief Complaint: Arrhythmia/Palpitations Stated Complaint: Irregular heart beat Time Seen by Provider: 11/03/19 19:50 Source: patient, RN notes reviewed, old records reviewed Mode of arrival: ambulatory Limitations: no limitations - History of Present Illness Initial Comments: This is a 78-year-old male DF for evaluation patient Dese for evaluation in regards to palpate stations and arrhythmias, history of A. fib she isn't taking all medications as prescribed no chest pain. No recent travel history sick contacts no other complaints MD Complaint: "heart racing", palpitations, atrial fibrillation -: hour(s) Context: occurred during rest, occurred during exertion Arrhythmia History: atrial fibrillation Associated Symptoms: denies other symptoms - Related Data Home Medications Medication Instructions Recorded Confirmed Cholecalciferol (Vitamin D3) 2,000 units PO DAILY 02/21/18 11/03/19 [Vitamin D3] Vit C/E/Zn/Coppr/Lutein/Zeaxan 2 tab PO DAILY 02/21/18 11/03/19 [Preservision Areds 2 Softgel] Cranberry Fruit Extract [Cranberry] 500 mg PO DAILY 09/08/18 11/03/19 ALPRAZolam [Xanax] 0.5 mg PO BID PRN 11/03/19 11/03/19 Apixaban [Eliquis] 5 mg PO BID 11/03/19 11/03/19 HYDROcodone/APAP 5-325MG [[place] 1 tab PO Q12H PRN 11/03/19 11/03/19 5-325] Mirabegron [Myrbetriq] 25 mg PO HS 11/03/19 11/03/19 PARoxetine [Paxil] 10 mg PO DAILY 11/03/19 11/03/19 Valsartan/Hydrochlorothiazide 1 tab PO DAILY 11/03/19 11/03/19 [Valsartan-Hctz 160-12.5 mg Tab] Previous Rx's Medication Instructions Recorded Metoprolol Tartrate [Lopressor] 12.5 mg PO BID #30 tablet 11/05/19 Allergies Allergy/AdvReac Type Severity Reaction Status Date / Time cyclobenzaprine HCl Allergy Unknown Rash/Hives Verified 11/03/19 21:02 [From Flexeril] Iodinated Contrast Media Allergy Rash/Hives Verified 11/03/19 21:02 [Iodinated Contrast Media - IV Dye] TRIPLE DYE Allergy Unknown Rash/Hives Uncoded 09/08/18 13:17 Review of Systems ROS Statement: Those systems with pertinent positive or pertinent negative responses have been documented in the HPI. ROS Other: All systems not noted in ROS Statement are negative. Past Medical History Past Medical History: Atrial Fibrillation, Chest Pain / Angina, COPD, Eye Disorder, Hypertension Additional Past Medical History / Comment(s): KIDNEY STONES ,POLYPS, BACK PAIN, constipation,macular degeneration terence eyes History of Any Multi-Drug Resistant Organisms: None Reported Past Surgical History: Heart Catheterization Additional Past Surgical History / Comment(s): TERENCE CATARACTS , COLONSCOPY, EGD, BREAST BX, LITHOTRIPSY, PAIN CLINIC PROCEDURES. Past Anesthesia/Blood Transfusion Reactions: Motion Sickness Past Psychological History: Anxiety Past Alcohol Use History: None Reported Past Drug Use History: None Reported - Past Family History Mother Family Medical History: No Reported History Father Family Medical History: Cancer, Coronary Artery Disease (CAD) Additional Family Medical History / Comment(s): leukemia Brother(s) Family Medical History: Coronary Artery Disease (CAD) (One brother at the age of 83 from CAD/CABG.) Sister(s) Family Medical History: COPD (3 sisters, one twin sister fine, one from COPD and the third one has significant back issues with fentanyl pump.) Daughter(s) Family Medical History: No Reported History (patient has 5 daughters no major medical prblems.) Son(s) Family Medical History: No Reported History (patient has 3 sons no major medical problems.) General Exam Limitations: no limitations General appearance: alert, in no apparent distress Head exam: Present: atraumatic, normocephalic, normal inspection Eye exam: Present: normal appearance, PERRL, EOMI. Absent: scleral icterus, conjunctival injection, periorbital swelling ENT exam: Present: normal exam, mucous membranes moist Neck exam: Present: normal inspection. Absent: tenderness, meningismus, lymphadenopathy Respiratory exam: Present: normal lung sounds bilaterally. Absent: respiratory distress, wheezes, rales, rhonchi, stridor Cardiovascular Exam: Present: regular rate, normal rhythm, normal heart sounds. Absent: systolic murmur, diastolic murmur, rubs, gallop, clicks GI/Abdominal exam: Present: soft, normal bowel sounds. Absent: distended, tenderness, guarding, rebound, rigid Extremities exam: Present: normal inspection, full ROM, normal capillary refill. Absent: tenderness, pedal edema, joint swelling, calf tenderness Back exam: Present: normal inspection Neurological exam: Present: alert, oriented X3, CN II-XII intact Psychiatric exam: Present: normal affect, normal mood Skin exam: Present: warm, dry, intact, normal color. Absent: rash Course Vital Signs 11/03/19 11/03/19 11/03/19 19:41 20:34 20:55 Temperature 98.2 F 98.1 F Pulse Rate 68 59 L Pulse Rate [ 50 L Pulse Oximetery ] Respiratory 18 18 18 Rate Blood Pressure 126/64 114/56 Blood Pressure 109/50 [Right Arm] O2 Sat by Pulse 98 98 96 Oximetry 11/03/19 11/03/19 11/04/19 23:55 23:59 03:48 Temperature 98.6 F 98.2 F Pulse Rate Pulse Rate [ 55 L 55 L 60 Pulse Oximetery ] Respiratory 18 18 16 Rate Blood Pressure Blood Pressure 115/62 107/54 [Right Arm] O2 Sat by Pulse 97 99 Oximetry 11/04/19 03:49 Temperature Pulse Rate Pulse Rate [ 60 Pulse Oximetery ] Respiratory 16 Rate Blood Pressure Blood Pressure [Right Arm] O2 Sat by Pulse Oximetry - Reevaluation(s) Reevaluation #1: 11/03/19 20:19 Medical records reviewed Reevaluation #2: 11/03/19 20:19 Patient remains without chest pain EKG Findings - EKG Comments: EKG Findings:: EKG sinus bradycardia 58 SC 172 QRS 84 QTc 424 Medical Decision Making - Medical Decision Making I female with history of atrial fibrillation presenting a bradycardia found to be profoundly weak. Patient be admitted for cardiology evaluation. Persistent bradycardia and weakness - Lab Data Result diagrams: 11/03/19 20:04 11/03/19 20:04 Lab Results 11/03/19 11/03/19 11/03/19 Range/Units 20:04 20:04 20:04 WBC 5.0 (3.8-10.6) k/uL RBC 4.25 (3.80-5.40) m/uL Hgb 12.0 (11.4-16.0) gm/dL Hct 36.7 (34.0-46.0) % MCV 86.3 (80.0-100.0) fL MCH 28.3 (25.0-35.0) pg MCHC 32.8 (31.0-37.0) g/dL RDW 13.9 (11.5-15.5) % Plt Count 293 (150-450) k/uL Neutrophils % 56 % Lymphocytes % 32 % Monocytes % 7 % Eosinophils % 2 % Basophils % 1 % Neutrophils # 2.8 (1.3-7.7) k/uL Lymphocytes # 1.6 (1.0-4.8) k/uL Monocytes # 0.3 (0-1.0) k/uL Eosinophils # 0.1 (0-0.7) k/uL Basophils # 0.0 (0-0.2) k/uL PT 10.9 (9.0-12.0) sec INR 1.1 (<1.2) APTT 26.7 (22.0-30.0) sec Sodium 138 (137-145) mmol/L Potassium 3.5 (3.5-5.1) mmol/L Chloride 102 (98-107) mmol/L Carbon Dioxide 27 (22-30) mmol/L Anion Gap 9 mmol/L BUN 18 H (7-17) mg/dL Creatinine 0.56 (0.52-1.04) mg/dL Est GFR (CKD-EPI)AfAm >90 (>60 ml/min/1.73 sqM) Est GFR (CKD-EPI)NonAf 89 (>60 ml/min/1.73 sqM) Glucose 90 (74-99) mg/dL Calcium 9.3 (8.4-10.2) mg/dL Magnesium 1.9 (1.6-2.3) mg/dL Total Bilirubin 0.6 (0.2-1.3) mg/dL AST 21 (14-36) U/L ALT 9 (4-34) U/L Alkaline Phosphatase 74 (38-126) U/L Troponin I (0.000-0.034) ng/mL NT-Pro-B Natriuret Pep pg/mL Total Protein 6.2 L (6.3-8.2) g/dL Albumin 3.9 (3.5-5.0) g/dL Lipase 73 (23-300) U/L 11/03/19 11/03/19 Range/Units 20:04 20:04 WBC (3.8-10.6) k/uL RBC (3.80-5.40) m/uL Hgb (11.4-16.0) gm/dL Hct (34.0-46.0) % MCV (80.0-100.0) fL MCH (25.0-35.0) pg MCHC (31.0-37.0) g/dL RDW (11.5-15.5) % Plt Count (150-450) k/uL Neutrophils % % Lymphocytes % % Monocytes % % Eosinophils % % Basophils % % Neutrophils # (1.3-7.7) k/uL Lymphocytes # (1.0-4.8) k/uL Monocytes # (0-1.0) k/uL Eosinophils # (0-0.7) k/uL Basophils # (0-0.2) k/uL PT (9.0-12.0) sec INR (<1.2) APTT (22.0-30.0) sec Sodium (137-145) mmol/L Potassium (3.5-5.1) mmol/L Chloride (98-107) mmol/L Carbon Dioxide (22-30) mmol/L Anion Gap mmol/L BUN (7-17) mg/dL Creatinine (0.52-1.04) mg/dL Est GFR (CKD-EPI)AfAm (>60 ml/min/1.73 sqM) Est GFR (CKD-EPI)NonAf (>60 ml/min/1.73 sqM) Glucose (74-99) mg/dL Calcium (8.4-10.2) mg/dL Magnesium (1.6-2.3) mg/dL Total Bilirubin (0.2-1.3) mg/dL AST (14-36) U/L ALT (4-34) U/L Alkaline Phosphatase (38-126) U/L Troponin I <0.012 (0.000-0.034) ng/mL NT-Pro-B Natriuret Pep 768 pg/mL Total Protein (6.3-8.2) g/dL Albumin (3.5-5.0) g/dL Lipase (23-300) U/L Critical Care Time Critical Care Time: Yes Total Critical Care Time: 31 Disposition Clinical Impression: Bradycardia, Palpitations, Atrial fibrillation, Weakness Disposition: ADMITTED IP TO THIS HOSP Condition: Good Is patient prescribed a controlled substance at d/c from ED?: No
[2019-11-03 20:15] LABS: Basophils % (A) 1 %; Eosinophils # (A) 0.1 k/uL (0-0.7); Eosinophils % (A) 2 %; HCT 36.7 % (34.0-46.0); Lymphocytes # (A) 1.6 k/uL (1.0-4.8); Lymphocytes % (A) 32 %; MCH 28.3 pg (25.0-35.0); MCHC 32.8 g/dL (31.0-37.0); MCV 86.3 fL (80.0-100.0); Mean Platelet Volume 6.9; Monocytes # (A) 0.3 k/uL (0-1.0); Monocytes % (A) 7 %; Neutrophils # (A) 2.8 k/uL (1.3-7.7); Neutrophils % (A) 56 %; Platelet Count 293 k/uL (150-450); RBC 4.25 m/uL (3.80-5.40); RDW 13.9 % (11.5-15.5)
[2019-11-03 20:23] LABS: INR 1.1 (<1.2); Partial Thromboplastin Time 26.7 sec (22.0-30.0); Prothrombin Time 10.9 sec (9.0-12.0)
[2019-11-03] MEDS ORDERED: NITROGLYCERIN SL TABS 0.4 MG TAB SUBLINGUAL PRN (20:31)
[2019-11-03 20:33] LABS: ALT 9 U/L (4-34); AST 21 U/L (14-36); African American GFR (CKD) >90 (>60 ml/min/1.73 sqM); Albumin 3.9 g/dL (3.5-5.0); Alkaline Phosphatase 74 U/L (38-126); Anion Gap 9 mmol/L; Blood Urea Nitrogen 18 mg/dL (7-17); Calcium 9.3 mg/dL (8.4-10.2); Carbon Dioxide 27 mmol/L (22-30); Chloride 102 mmol/L (98-107); Glucose 90 mg/dL (74-99); Lipase 73 U/L (23-300); Magnesium 1.9 mg/dL (1.6-2.3); Non-African American GFR(CKD) 89 (>60 ml/min/1.73 sqM); Potassium 3.5 mmol/L (3.5-5.1); Sodium 138 mmol/L (137-145); Total Bilirubin 0.6 mg/dL (0.2-1.3); Total Protein 6.2 g/dL (6.3-8.2)
[2019-11-03] MEDS ORDERED: ALPRAZolam 0.5 MG TAB PO PRN (22:17)
[2019-11-03] MEDS ORDERED: HYDROcodone/APAP 5-325MG 1 EACH TAB PO PRN (22:17)
[2019-11-03] MEDS: APIXABAN 5 MG TAB PO SCH (22:37)
[2019-11-03] MEDS: NON FORMULARY DRUG (Mirabegron [Myrbetriq] 25 MG) PO SCH (22:39)
[2019-11-04 06:54] LABS: Cholesterol 211 mg/dL (<200); HDL Cholesterol 40 mg/dL (40-60); LDL Cholesterol,Calculated 144 mg/dL (0-99); Triglycerides 133 mg/dL (<150)
--- NOTE | 2019-11-04 08:14 | P.CRDCN ---
History of Present Illness Consult date: 11/04/19 Chief complaint: Dizziness and lightheadedness History of present illness: This is a very pleasant 78-year-old female patient who follows with Dr. Brink are regular basis with a past medical history significant for paroxysmal atrial fibrillation on oral anticoagulation, mild nonobstructive coronary artery disease based on recent heart catheterization, as well as the stent became he presented to the hospital complaining of dizziness and lightheadedness. For the last few days, the patient has been experiencing symptoms of palpitation and lately for the last few days she has been feeling dizzy and lightheaded and about to lose her consciousness. She did not have any syncope. She felt weak and tired. No symptoms of chest pain or chest discomfort or any shortness of breath. When she presented to the hospital the EKG showed sinus rhythm with sinus bradycardia and heart rate in the 50s. Beside that the EKG did not show any significant or ischemic ST or T-wave abnormalities. Otherwise the patient did not have any symptoms of any fever or chills or cough or sputum production. She was diagnosed with bradycardia and we consulted to see the patient for that reason. The patient was receiving metoprolol 25 mg by mouth twice a day which was continued. Also she was on oral anticoagulation and that was continued. The patient underwent a heart catheterization August 2018 and that revealed calcified coronary system with mild nonobstructive coronary artery disease. An echocardiogram was performed in March 2018 and that revealed normal left ventricular systolic function. Past Medical History Past Medical History: Atrial Fibrillation, Chest Pain / Angina, COPD, Eye Disorder, Hypertension Additional Past Medical History / Comment(s): KIDNEY STONES ,POLYPS, BACK PAIN, constipation,macular degeneration terence eyes History of Any Multi-Drug Resistant Organisms: None Reported Past Surgical History: Heart Catheterization Additional Past Surgical History / Comment(s): TERENCE CATARACTS , COLONSCOPY, EGD, BREAST BX, LITHOTRIPSY, PAIN CLINIC PROCEDURES. Past Anesthesia/Blood Transfusion Reactions: No Reported Reaction Past Psychological History: Anxiety Smoking Status: Former smoker Past Alcohol Use History: None Reported Additional Past Alcohol Use History / Comment(s): started smoking 61 yrs ago 1ppd-QUIT SMOKING 03/28/18 Past Drug Use History: None Reported - Past Family History Mother Family Medical History: No Reported History Father Family Medical History: Cancer, Coronary Artery Disease (CAD) Additional Family Medical History / Comment(s): leukemia Medications and Allergies Home Medications Medication Instructions Recorded Confirmed Type Cholecalciferol (Vitamin D3) 2,000 units PO DAILY 02/21/18 11/03/19 History [Vitamin D3] Vit C/E/Zn/Coppr/Lutein/Zeaxan 2 tab PO DAILY 02/21/18 11/03/19 History [Preservision Areds 2 Softgel] Cranberry Fruit Extract [Cranberry] 500 mg PO DAILY 09/08/18 11/03/19 History Metoprolol Tartrate [Lopressor] 25 mg PO BID 09/08/18 11/03/19 History ALPRAZolam [Xanax] 0.5 mg PO BID PRN 11/03/19 11/03/19 History Apixaban [Eliquis] 5 mg PO BID 11/03/19 11/03/19 History HYDROcodone/APAP 5-325MG [[place] 1 tab PO Q12H PRN 11/03/19 11/03/19 History 5-325] Mirabegron [Myrbetriq] 25 mg PO HS 11/03/19 11/03/19 History PARoxetine [Paxil] 10 mg PO DAILY 11/03/19 11/03/19 History Valsartan/Hydrochlorothiazide 1 tab PO DAILY 11/03/19 11/03/19 History [Valsartan-Hctz 160-12.5 mg Tab] Allergies Allergy/AdvReac Type Severity Reaction Status Date / Time cyclobenzaprine HCl Allergy Unknown Rash/Hives Verified 11/03/19 21:02 [From Flexeril] Iodinated Contrast Media Allergy Rash/Hives Verified 11/03/19 21:02 [Iodinated Contrast Media - IV Dye] TRIPLE DYE Allergy Unknown Rash/Hives Uncoded 09/08/18 13:17 Physical Exam Vitals: Vital Signs Temp Pulse Pulse Resp BP BP Pulse Ox 11/04/19 03:49 60 16 11/04/19 03:48 98.2 F 60 16 107/54 99 11/03/19 23:59 55 L 18 11/03/19 23:55 98.6 F 55 L 18 115/62 97 11/03/19 20:55 98.1 F 50 L 18 109/50 96 11/03/19 20:34 59 L 18 114/56 98 11/03/19 19:41 98.2 F 68 18 126/64 98 Intake and Output 11/03/19 11/04/19 11/04/19 22:59 06:59 14:59 Other: Voiding Method Toilet # Voids 2 Weight 56.245 kg 61 kg - Constitutional General appearance: no acute distress - Respiratory Respiratory: bilateral: CTA - Cardiovascular Rhythm: regular Heart sounds: normal: S1, S2 Results 11/03/19 20:04 11/03/19 20:04 Cardiac Enzymes 11/03/19 11/03/19 11/03/19 Range/Units 20:04 20:04 23:42 AST 21 (14-36) U/L Troponin I <0.012 <0.012 (0.000-0.034) ng/mL Coagulation 11/03/19 Range/Units 20:04 PT 10.9 (9.0-12.0) sec APTT 26.7 (22.0-30.0) sec Lipids 11/04/19 Range/Units 05:59 Triglycerides 133 (<150) mg/dL Cholesterol 211 H (<200) mg/dL HDL Cholesterol 40 (40-60) mg/dL CBC 11/03/19 Range/Units 20:04 WBC 5.0 (3.8-10.6) k/uL RBC 4.25 (3.80-5.40) m/uL Hgb 12.0 (11.4-16.0) gm/dL Hct 36.7 (34.0-46.0) % Plt Count 293 (150-450) k/uL Comprehensive Metabolic Panel 11/03/19 Range/Units 20:04 Sodium 138 (137-145) mmol/L Potassium 3.5 (3.5-5.1) mmol/L Chloride 102 (98-107) mmol/L Carbon Dioxide 27 (22-30) mmol/L BUN 18 H (7-17) mg/dL Creatinine 0.56 (0.52-1.04) mg/dL Glucose 90 (74-99) mg/dL Calcium 9.3 (8.4-10.2) mg/dL AST 21 (14-36) U/L ALT 9 (4-34) U/L Alkaline Phosphatase 74 (38-126) U/L Total Protein 6.2 L (6.3-8.2) g/dL Albumin 3.9 (3.5-5.0) g/dL Current Medications Generic Name Dose Route Start Last Admin Trade Name Freq PRN Reason Stop Dose Admin Hydrocodone Bitart/Acetaminophen 1 each 11/03/19 22:17 [place] 5-325 PO Q12H PRN Pain Alprazolam 0.5 mg 11/03/19 22:17 Xanax PO BID PRN Anxiety Apixaban 5 mg 11/03/19 22:30 11/03/19 22:37 Eliquis PO Not Given BID ALIYAH Aspirin 325 mg 11/04/19 09:00 Aspirin PO DAILY [facility] Cholecalciferol 2,000 unit 11/04/19 09:00 Vitamin D3 (25 Mcg = 1000 Iu) PO DAILY ALIYAH Hydrochlorothiazide 12.5 mg 11/04/19 09:00 Hydrodiuril PO DAILY [facility] Metoprolol Tartrate 12.5 mg 11/04/19 09:00 Lopressor PO BID [facility] Multivitamins/Minerals 1 each 11/04/19 09:00 Ivite PO DAILY [facility] Nitroglycerin 0.4 mg 11/03/19 20:31 Nitrostat SUBLINGUAL Q5M PRN Chest Pain Non-Formulary Medication 25 mg 11/03/19 22:30 11/03/19 22:39 Mirabegron [Myrbetriq] PO Not Given HS [facility] Paroxetine HCl 10 mg 11/04/19 09:00 Paxil PO DAILY [facility] Valsartan 160 mg 11/04/19 09:00 Diovan PO DAILY ALIYAH Intake and Output 11/03/19 11/04/19 11/04/19 22:59 06:59 14:59 Other: Voiding Method Toilet # Voids 2 Weight 56.245 kg 61 kg 11/03/19 20:04 11/03/19 20:04 Assessment and Plan Assessment: Assessment #1 symptomatic bradycardia #2 marginal a low blood pressure #3 paroxysmal atrial fibrillation #4 mild coronary artery disease #5 dyslipidemia Plan #1 decrease the dose of metoprolol to 12.5 mg by mouth twice a day #2 continue oral anticoagulation #3 obtain a TSH and free T4 to rule out any thyroid disorder #4 obtain an echocardiogram was Doppler #5 orthostatic blood pressure check #6 follow-up with the patient Thank you for allowing us participate in her care
[2019-11-04] MEDS: CHOLECALCIFEROL 1,000 UNIT TAB PO SCH (08:22)
[2019-11-04] MEDS: VALSARTAN 160 MG TAB PO SCH (08:22)
[2019-11-04] MEDS: APIXABAN 5 MG TAB PO SCH ×2 (08:22→20:25)
[2019-11-04] MEDS: hydroCHLOROthiazide 12.5 MG CAP PO SCH (08:22)
[2019-11-04] MEDS: ASPIRIN 325 MG TAB PO SCH ×2 (08:22→08:29)
[2019-11-04] MEDS: PARoxetine 10 MG TAB PO SCH (08:22)
[2019-11-04] MEDS: VIT A,C & E-LUTEIN-MINERALS 1 EACH TAB PO SCH (08:22)
[2019-11-04] MEDS: METOPROLOL TARTRATE 12.5 MG TAB PO SCH ×2 (08:23→20:25)
[2019-11-04] MEDS ORDERED: NON FORMULARY DRUG (Cranberry Fruit Extract [Cranberry] 500 MG) PO SCH (09:00)
[2019-11-04] MEDS ORDERED: METOPROLOL TARTRATE 25 MG TAB PO SCH (09:00)
--- NOTE | 2019-11-04 09:26 | P.HPIM ---
History of Present Illness H&P Date: 11/04/19 Chief Complaint: dizziness and fatigue. this is a 69-year-old female admitted with a previous medical history significant for hypertension and hypertensive cardiovascular disease, hyperlipidemia, history of coronary artery disease with left heart catheterization that was done in August 2018 that showed a short left main artery with the mild calcification as well as mild disease of the LAD at that time was recommended to continue with the aggressive risk factor modification as well as aggressive medical therapy, patient developed to have a significant paroxysmal atrial fibrillation and she was treated with metoprolol 25 mg orally twice every day as well as Eliquis 5 mg orally twice every day she developed to have a significant palpitation and she felt her heart skipping over the last few days along with dizziness and lightheadedness she did not pass out however she was feeling fatigue and tired, she called me yesterday and I gave her an appointment to come to the office on Tuesday morning for an EKG and she was not complaining of any chest pain or any shortness of breath, patient ended up coming to the emergency department at [facility] yesterday for evaluation she was a bit hypotensive and bradycardic she was taken off metoprolol was admitted to the hospital was seen in consultation by cardiology who recommended to decrease her dose to 12.5 mg orally twice every day and monitor the patient very closely, also recommended to repeat echocardiogram for evaluation of LV function Review of Systems Constitutional: Reports chronic pain, Reports fatigue, Reports malaise, Reports weakness, Denies anorexia, Denies chronic headaches Eyes: bilateral blurred vision, bilateral decreased vision, denies bulging eye Ears: deny: decreased hearing Ears, nose, mouth and throat: Denies dysphagia, Denies neck lump Cardiovascular: Reports lightheadedness, Denies chest pain, Denies decreased exercise tolerance, Denies dyspnea on exertion, Denies rapid heart beat, Denies shortness of breath, Denies syncope Respiratory: Denies congestion, Denies cough, Denies home oxygen, Denies sleep apnea, Denies snoring, Denies wheezing Gastrointestinal: Denies abdominal pain, Denies bloating, Denies BRBPR, Denies heartburn, Denies loss of appetite, Denies melena, Denies nausea, Denies vomiting Genitourinary: Denies dysuria, Denies nocturia Menstruation: Reports postmenopausal Musculoskeletal: Reports muscle cramps, Reports muscle weakness, Denies myalgias Musculoskeletal: bilateral: hip pain, hip stiffness, absent: ankle pain, ankle stiffness, ankle swelling, elbow pain, elbow stiffness, elbow swelling, foot pain, foot stiffness, foot swelling, hand pain, hand stiffness, hand swelling, hip swelling, knee pain, knee stiffness, knee swelling, shoulder pain, shoulder stiffness, shoulder swelling, wrist pain, wrist stiffness, wrist swelling Integumentary: Denies pruritus, Denies rash Neurological: Denies numbness, Denies weakness Psychiatric: Denies anxiety, Denies depression Endocrine: Denies fatigue, Denies weight change Past Medical History Past Medical History: Atrial Fibrillation, Coronary Artery Disease (CAD), Chest Pain / Angina, COPD, Eye Disorder, Hyperlipidemia, Hypertension, Osteoarthritis (OA) Additional Past Medical History / Comment(s): KIDNEY STONES ,POLYPS, BACK PAIN, constipation,macular degeneration terence eyes History of Any Multi-Drug Resistant Organisms: None Reported Past Surgical History: Heart Catheterization Additional Past Surgical History / Comment(s): TERENCE CATARACTS , COLONSCOPY, EGD, BREAST BX, LITHOTRIPSY, PAIN CLINIC PROCEDURES. Past Anesthesia/Blood Transfusion Reactions: No Reported Reaction Past Psychological History: Anxiety Smoking Status: Former smoker Past Alcohol Use History: None Reported Additional Past Alcohol Use History / Comment(s): started smoking 61 yrs ago 1ppd-QUIT SMOKING 03/28/18 Past Drug Use History: None Reported - Past Family History Mother Family Medical History: CVA/TIA (Mother at the age of 99 from CVA) Father Family Medical History: Cancer, Coronary Artery Disease (CAD) (Father at the age of 62 from leukemia and hd CAD) Additional Family Medical History / Comment(s): leukemia Brother(s) Family Medical History: Coronary Artery Disease (CAD) (One brother at the age of 83 from CAD/CABG.) Sister(s) Family Medical History: COPD (3 sisters, one twin sister fine, one from COPD and the third one has significant back issues with fentanyl pump.) Daughter(s) Family Medical History: No Reported History (patient has 5 daughters no major medical prblems.) Son(s) Family Medical History: No Reported History (patient has 3 sons no major medical problems.) Medications and Allergies Home Medications Medication Instructions Recorded Confirmed Type Cholecalciferol (Vitamin D3) 2,000 units PO DAILY 02/21/18 11/03/19 History [Vitamin D3] Vit C/E/Zn/Coppr/Lutein/Zeaxan 2 tab PO DAILY 02/21/18 11/03/19 History [Preservision Areds 2 Softgel] Cranberry Fruit Extract [Cranberry] 500 mg PO DAILY 09/08/18 11/03/19 History Metoprolol Tartrate [Lopressor] 25 mg PO BID 09/08/18 11/03/19 History ALPRAZolam [Xanax] 0.5 mg PO BID PRN 11/03/19 11/03/19 History Apixaban [Eliquis] 5 mg PO BID 11/03/19 11/03/19 History HYDROcodone/APAP 5-325MG [[place] 1 tab PO Q12H PRN 11/03/19 11/03/19 History 5-325] Mirabegron [Myrbetriq] 25 mg PO HS 11/03/19 11/03/19 History PARoxetine [Paxil] 10 mg PO DAILY 11/03/19 11/03/19 History Valsartan/Hydrochlorothiazide 1 tab PO DAILY 11/03/19 11/03/19 History [Valsartan-Hctz 160-12.5 mg Tab] Allergies Allergy/AdvReac Type Severity Reaction Status Date / Time cyclobenzaprine HCl Allergy Unknown Rash/Hives Verified 11/03/19 21:02 [From Flexeril] Iodinated Contrast Media Allergy Rash/Hives Verified 11/03/19 21:02 [Iodinated Contrast Media - IV Dye] TRIPLE DYE Allergy Unknown Rash/Hives Uncoded 09/08/18 13:17 Physical Exam Vitals: Vital Signs Temp Pulse Pulse Resp BP BP Pulse Ox 11/04/19 03:49 60 16 11/04/19 03:48 98.2 F 60 16 107/54 99 11/03/19 23:59 55 L 18 11/03/19 23:55 98.6 F 55 L 18 115/62 97 11/03/19 20:55 98.1 F 50 L 18 109/50 96 11/03/19 20:34 59 L 18 114/56 98 11/03/19 19:41 98.2 F 68 18 126/64 98 Intake and Output 08/11/1411/04/19 11/04/19 22:59 06:59 14:59 Other: Voiding Method Toilet # Voids 2 Weight 56.245 kg 61 kg physical examination: HEENT: Head is atraumatic, normocephalic, pupils were equal round reactive to light and accommodation, extraocular muscle movement intact. Neck: Supple, no JVD. Chest:decreased breath sounds at the bases. Abdomen and extremities, no chest tenderness, no intercostal retractions Heart: First heart sound is depressed, second heart sounds normal, there is systolic ejection murmur 2/60. Left sternal border. Abdomen: Soft, nontender, nondistended, positive bowel sounds. Extremities: There is no edema, no calf tenderness, dorsalis pedis +2 bilaterally. Neurologic examination: patient is awake alert and oriented 3, cranial nerves III through XII appear grossly intact, muscle power 4 out of 5 in upper extremities bilaterally, deep tendon reflexes were normal. Results CBC & Chem 7: 11/03/19 20:04 11/03/19 20:04 Labs: Abnormal Lab Results - Last 24 Hours (Table) 11/03/19 11/04/19 Range/Units 20:04 05:59 BUN 18 H (7-17) mg/dL Total Protein 6.2 L (6.3-8.2) g/dL Cholesterol 211 H (<200) mg/dL LDL Cholesterol, Calc 144 H (0-99) mg/dL Thrombosis Risk Factor Assmnt - DVT/VTE Prophylaxis DVT/VTE Prophylaxis: Pharmacologic Prophylaxis ordered - Choose All That Apply Any of the Below Risk Factors Present?: No Other Risk Factors: Yes Each Risk Factor Represents 3 Points: Age 75 years or older Other congenital or acquired thrombophilia - If yes, enter type in comment: No Thrombosis Risk Factor Assessment Total Risk Factor Score: 3 Thrombosis Risk Factor Assessment Level: Moderate Risk Assessment and Plan Assessment: assessment and plan: 1. Symptomatic bradycardia likely related to the use of beta araceli. Metoprolol was decreased to 12.5 mg orally twice every day, check the patient orthostatic changes, continue IV fluid in the form of normal saline 75 mL an hour for the next 24 hours, check echocardiogram for evaluation of LV function, monitor the patient overnight in the hospital. 2. history of coronary artery disease with mild calcified and short left main and 30% stenosis of the proximal LAD. Continue aggressive medical therapy. 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 Has been following with cardiology regular basis. 3. Hypertension and hypertensive cardiovascular disease. Continue patient on metoprolol 12.5 mg orally twice every day, valsartan 160/12.5 mg orally once every day. 4. Hyperlipidemia. Patient need to go back on Crestor 5 mg orally once every day. 5. Anxiety disorder. Continue Paxil 10 mg orally once every day, continue Xanax as needed. 6. Prior history of tobacco use and dependence patient quit about a year ago. Abstinence from cigarette at this point in time monitor the patient very closely. 7. 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 8. Bilateral macular degeneration. Stable. 9. paroxysmal atrial fibrillation currently in sinus rhythm. Continue patient on Eliquis 5 mg orally twice every day and metoprolol 12.5 mg orally twice every day. 10. DVT prophylaxis. Currently on Eliquis. 11. GI prophylaxis. Continue patient on PPI. 12. Admit to inpatient. Estimate a length of stay 2 midnights. 13. Patient is full code.
[2019-11-04] MEDS: NON FORMULARY DRUG (Mirabegron [Myrbetriq] 25 MG) PO SCH (20:26)
[2019-11-05 06:20] VITALS: RESP 16
[2019-11-05 09:05] VITALS: TEMP 97.6
[2019-11-05] MEDS: CHOLECALCIFEROL 1,000 UNIT TAB PO SCH (09:07)
[2019-11-05] MEDS: VIT A,C & E-LUTEIN-MINERALS 1 EACH TAB PO SCH (09:08)
[2019-11-05] MEDS: APIXABAN 5 MG TAB PO SCH (09:08)
[2019-11-05] MEDS: VALSARTAN 160 MG TAB PO SCH (09:08)
[2019-11-05] MEDS: ASPIRIN 325 MG TAB PO SCH (09:08)
[2019-11-05] MEDS: hydroCHLOROthiazide 12.5 MG CAP PO SCH (09:08)
[2019-11-05] MEDS: METOPROLOL TARTRATE 12.5 MG TAB PO SCH (09:08)
[2019-11-05] MEDS: NON FORMULARY DRUG (Mirabegron [Myrbetriq] 25 MG) PO SCH (09:09)
[2019-11-05] MEDS: PARoxetine 10 MG TAB PO SCH (09:09)
--- NOTE | 2019-11-05 11:04 | ECHOF ---
Referral Reason:bradycardia, hx of afib MEASUREMENTS -------- HEIGHT: 162.6 cm WEIGHT: 60.8 kg BP: 137/77 RVIDd: 2.7 cm (< 3.3) IVSd: 1.0 cm (0.6 - 1.1) LVIDd: 3.7 cm (3.9 - 5.3) LVPWd: 1.0 cm (0.6 - 1.1) IVSs: 1.4 cm LVIDs: 2.3 cm LVPWs: 1.2 cm LAESV Index (A-L): 27.16 ml/m Ao Diam: 2.3 cm (2.0 - 3.7) AV Cusp: 1.5 cm (1.5 - 2.6) MV EXCURSION: 17.658 mm (> 18.000) MV EF SLOPE: 128 mm/s (70 - 150) EPSS: 0.6 cm MV E Jaciel: 0.84 m/s MV DecT: 255 ms MV A Jaciel: 0.65 m/s MV E/A Ratio: 1.29 RAP: 5.00 mmHg RVSP: 28.50 mmHg FINDINGS -------- Resting bradycardia (HR<60bpm). This was a technically adequate study. The left ventricular size is normal. Left ventricular wall thickness is normal. Overall left vent ricular systolic function is low-normal with, an EF between 50 - 55 %. The diastolic filling patter n is normal for the age of the patient 19.24. The right ventricle is normal in size. Normal LA size by volume 22+/-6 ml/m2. The right atrial size is normal. Interatrial and interventricular septum intact. Trace amount of aortic regurgitation. Mild mitral regurgitation is present. Mild tricuspid regurgitation present. There is no evidence of pulmonary hypertension. The right v entricular systolic pressure, as measured by Doppler, is 28.50mmHg. There is no pulmonic regurgitation present. The aortic root size is normal. The inferior vena cava is mildly dilated. There is no pericardial effusion. CONCLUSIONS -------- 1. The left ventricular size is normal. 2. Left ventricular wall thickness is normal. 3. Overall left ventricular systolic function is low-normal with, an EF between 50 - 55 %. 4. The diastolic filling pattern is normal for the age of the patient 19.24 5. Trace amount of aortic regurgitation. 6. Mild mitral regurgitation is present. 7. Mild tricuspid regurgitation present. 8. The inferior vena cava is mildly dilated. MANAGER OF RECRUITING: Janna Talbert RDCS
[2019-11-05 11:24] VITALS: BP 138/83; PULSE 56
--- NOTE | 2019-11-05 11:45 | P.DS ---
Providers Date of admission: 11/03/19 20:33 Expected date of discharge: 11/05/19 Attending physician: Marcie Varma Consults: 11/03/19 20:31 Consult Physician Urgent Consulting Provider: Casie Olivares Consult Reason/Comments: bradycardia Do you want consulting provider notified?: Yes Primary care physician: Marcie Varma Hospital Course: This is a 78-year-old female admitted with a previous medical history significant for hypertension and hypertensive cardiovascular disease, hyperlipidemia, history of coronary artery disease with left heart catheterization that was done in August 2018 that showed a short left main artery with the mild calcification as well as mild disease of the LAD at that time was recommended to continue with the aggressive risk factor modification as well as aggressive medical therapy, patient developed to have a significant paroxysmal atrial fibrillation and she was treated with metoprolol 25 mg orally twice every day as well as Eliquis 5 mg orally twice every day she developed to have a significant palpitation and she felt her heart skipping over the last few days along with dizziness and lightheadedness she did not pass out however she was feeling fatigue and tired, she called me yesterday and I gave her an appointment to come to the office on Tuesday morning for an EKG and she was not complaining of any chest pain or any shortness of breath, patient ended up coming to the emergency department at [facility] yesterday for evaluation she was a bit hypotensive and bradycardic she was taken off metoprolol was admitted to the hospital was seen in consultation by cardiology who recommended to decrease her dose to 12.5 mg orally twice every day and monitor the patient very closely, also recommended to repeat echocardiogram for evaluation of LV function. 11/04: Patient has been afebrile, heart rate running in the 50s and 60s, blood pressure 138/83, pulse ox 97% on room air. TSH 1.090. Triglycerides 133, cholesterol 211, LDL 144, HDL 40. Patient states that she is still feeling palpitations and not feeling that much better. Straight monitor has been a sinus bradycardia with PVCs and PACs. Orthostatic vital signs of been negative. Echocardiogram reveals EF of 50-55%, trace aortic regurgitation, mild mitral regurgitation, mild tricuspid regurgitation. Patient will be discharged home once cleared by cardiology. Discharge diagnoses: 1. Symptomatic bradycardia likely related to the use of beta araceli. 2. History of coronary artery disease with mild calcified and short left main and 30% stenosis of the proximal LAD. 3. Hypertension and hypertensive cardiovascular disease. 4. Hyperlipidemia. 5. Generalized anxiety disorder. 6. Prior history of tobacco use and dependence patient quit about a year ago. 7. 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 8. Bilateral macular degeneration. Stable. 9. paroxysmal atrial fibrillation currently in sinus rhythm. Discharge plan: Home Impression and plan of care have been directed as dictated by the signing physician. Taya Doherty nurse practitioner acting as scribe for signing physician. Patient Condition at Discharge: Good Plan - Discharge Summary Discharge Rx Participant: No New Discharge Prescriptions: New Metoprolol Tartrate [Lopressor] 12.5 mg PO BID #30 tablet Continue Cholecalciferol (Vitamin D3) [Vitamin D3] 2,000 units PO DAILY Vit C/E/Zn/Coppr/Lutein/Zeaxan [Preservision Areds 2 Softgel] 2 tab PO DAILY Cranberry Fruit Extract [Cranberry] 500 mg PO DAILY Mirabegron [Myrbetriq] 25 mg PO HS HYDROcodone/APAP 5-325MG [[place] 5-325] 1 tab PO Q12H PRN PRN Reason: Pain Apixaban [Eliquis] 5 mg PO BID Valsartan/Hydrochlorothiazide [Valsartan-Hctz 160-12.5 mg Tab] 1 tab PO DAILY PARoxetine [Paxil] 10 mg PO DAILY ALPRAZolam [Xanax] 0.5 mg PO BID PRN PRN Reason: Anxiety Discontinued Metoprolol Tartrate [Lopressor] 25 mg PO BID Discharge Medication List Cholecalciferol (Vitamin D3) [Vitamin D3] 2,000 units PO DAILY 02/21/18 [History] Vit C/E/Zn/Coppr/Lutein/Zeaxan [Preservision Areds 2 Softgel] 2 tab PO DAILY 02/21/18 [History] Cranberry Fruit Extract [Cranberry] 500 mg PO DAILY 09/08/18 [History] ALPRAZolam [Xanax] 0.5 mg PO BID PRN 11/03/19 [History] Apixaban [Eliquis] 5 mg PO BID 11/03/19 [History] HYDROcodone/APAP 5-325MG [[place] 5-325] 1 tab PO Q12H PRN 11/03/19 [History] Mirabegron [Myrbetriq] 25 mg PO HS 11/03/19 [History] PARoxetine [Paxil] 10 mg PO DAILY 11/03/19 [History] Valsartan/Hydrochlorothiazide [Valsartan-Hctz 160-12.5 mg Tab] 1 tab PO DAILY 11/03/19 [History] Metoprolol Tartrate [Lopressor] 12.5 mg PO BID #30 tablet 11/05/19 [Rx] Follow up Appointment(s)/Referral(s): Marcie Varma MD [Primary Care Provider] - 1 Week Patrica Brink MD [STAFF PHYSICIAN] - 1 Week Discharge Disposition: HOME SELF-CARE
--- NOTE | 2019-11-05 11:45 | P.PN ---
Subjective Progress Note Date: 11/05/19 This is a pleasant 78-year-old female who follows with Dr. Brink in the office. Has history of paroxysmal A. fib on oral anticoagulation, mild nonobstructive CAD based on a recent heart catheterization. Presented to the hospital with complaints of dizziness and lightheadedness as well as weakness. Found to be bradycardic. Beta araceli was decreased. Heart rates are currently in the 60s. Echocardiogram with Doppler study showed low normal LV systolic function with an ejection fraction between 50-55%, no segmental wall motion abnormalities, trace AR, mild MR and mild TR. Overall she's feeling a bit better today. She's been up walking to the bathroom no issues. Vital signs have been stable. She is maintaining sinus rhythm on the monitor. She does complain of occasional palpitations. Objective - Vital Signs Vital signs: Vital Signs Temp 97.6 F 11/05/19 11:00 Pulse 56 L 11/05/19 11:00 Resp 16 11/05/19 11:00 BP 138/83 11/05/19 11:00 Pulse Ox 97 11/05/19 11:00 Intake & Output 11/04/19 11/05/19 11/05/19 18:59 06:59 18:59 Intake Total 600 20 Output Total 302 Balance 600 -282 Weight 61 kg Intake: IV 20 Invasive Line 1 20 Oral 600 0 Output: Urine 300 Stool 2 Other: Voiding Method Toilet Toilet # Voids 3 1 - Exam PHYSICAL EXAMINATION: HEENT: Head is atraumatic, normocephalic. Pupils equal, round. Neck is supple. There is no elevated jugular venous pressure. HEART EXAMINATION: Heart sounds regular, S1 and S2 with systolic murmur. CHEST EXAMINATION: Lungs are clear to auscultation. No chest wall tenderness is noted on palpation or with deep breathing. ABDOMEN: Soft, nontender. Bowel sounds are heard. No organomegaly noted. EXTREMITIES: 2+ peripheral pulses with no evidence of peripheral edema and no calf tenderness noted. NEUROLOGIC patient is awake, alert and oriented x3. . - Labs CBC & Chem 7: 11/03/19 20:04 11/03/19 20:04 Assessment and Plan Assessment: #1 symptomatic bradycardia #2 paroxysmal atrial fibrillation #3 mild CAD #4 hyperlipidemia Plan: From cardiology's perspective we will decrease aspirin 81 mg daily. We will add a statin. Her perspective patient may be discharged home and follow-up with Dr. Brink in the office as an outpatient. We recommend outpatient Holter monitor. CODING ADVISOR note has been reviewed, I agree with a documented findings and plan of care. Patient was seen and examined.
[2019-11-06] MEDS ORDERED: ATORVASTATIN 40 MG TAB PO SCH (09:00)
[2019-11-06] MEDS ORDERED: ASPIRIN 81 MG PO SCH (09:00)
== END 2019-11-05 14:10 | disposition home or self-care (01) | DRG 310 ==
LOC: EC 19:35 → 3SCARD 20:33
PROVIDERS: ADMIT Internal Medicine; ATTEND Internal Medicine
DX: R00.1 Bradycardia, unspecified (principal); T44.7X5A Adverse effect of beta-adrenoreceptor antagonists, initial encounter; E78.5 Hyperlipidemia, unspecified; F41.1 Generalized anxiety disorder; H35.30 Unspecified macular degeneration; I11.9 Hypertensive heart disease without heart failure; I25.10 Atherosclerotic heart disease of native coronary artery without angina pectoris; I48.0 Paroxysmal atrial fibrillation; J44.9 Chronic obstructive pulmonary disease, unspecified; M47.816 Spondylosis without myelopathy or radiculopathy, lumbar region; M47.814 Spondylosis without myelopathy or radiculopathy, thoracic region; Z79.01 Long term (current) use of anticoagulants; Z79.82 Long term (current) use of aspirin; Z79.899 Other long term (current) drug therapy; Z80.6 Family history of leukemia; Z82.3 Family history of stroke; Z82.49 Family history of ischemic heart disease and other diseases of the circulatory system; Z82.5 Family history of asthma and other chronic lower respiratory diseases; Z87.442 Personal history of urinary calculi; Z87.891 Personal history of nicotine dependence; Z86.010 Personal history of colon polyps; M19.90 Unspecified osteoarthritis, unspecified site; Z91.041 Radiographic dye allergy status; Z91.09 Other allergy status, other than to drugs and biological substances; K59.00 Constipation, unspecified; Z98.42 Cataract extraction status, left eye; Z98.41 Cataract extraction status, right eye
CPT/HCPCS: 36415; 80053; 80061; 83690; 83735; 83880; 84443; 84484; 85025; 85610; 85730; 93005; 93306; 96360; 99285

== ENCOUNTER → 2019-12-17 | Outpatient (CLI) | payer MEDICARE, BC ==
[2019-12-17 10:09] LABS: HCT 39.6 % (34.0-46.0); HGB 12.7 gm/dL (11.4-16.0); MCV 87.4 fL (80.0-100.0); Mean Platelet Volume 6.7; Platelet Count 301 k/uL (150-450); RBC 4.53 m/uL (3.80-5.40); WBC 7.8 k/uL (3.8-10.6)
[2019-12-17 10:17] LABS: ALT 10 U/L (4-34); AST 24 U/L (14-36); African American GFR (CKD) >90 (>60 ml/min/1.73 sqM); Albumin 4.2 g/dL (3.5-5.0); Alkaline Phosphatase 79 U/L (38-126); Anion Gap 6 mmol/L; Blood Urea Nitrogen 12 mg/dL (7-17); Calcium 9.8 mg/dL (8.4-10.2); Carbon Dioxide 33 mmol/L (22-30); Chloride 98 mmol/L (98-107); Glucose 101 mg/dL (74-99); Non-African American GFR(CKD) 80 (>60 ml/min/1.73 sqM); Potassium 4.9 mmol/L (3.5-5.1); Sodium 137 mmol/L (137-145); Total Bilirubin 0.6 mg/dL (0.2-1.3); Total Protein 6.9 g/dL (6.3-8.2)
[2019-12-17 10:21] LABS: Partial Thromboplastin Time 25.7 sec (22.0-30.0); Prothrombin Time 10.4 sec (9.0-12.0)
[2019-12-17 10:30] LABS: Appearance,Urine Clear (Clear); Bilirubin,Urine Negative (Negative); Blood,Urine Negative (Negative); Color,Urine Yellow; Glucose,Urine (UA) Negative (Negative); Ketones,Urine Negative (Negative); Leukocyte Esterase,Urine Large (Negative); Mucus,Urine Occasional /hpf; Nitrite,Urine Negative (Negative); Protein,Urine Negative (Negative); Specific Gravity,Urine 1.017 (1.001-1.035); Squamous Epithelial Cell,Urine 4 /hpf (0-4); Urobilinogen,Urine <2.0 mg/dL (<2.0); WBC,Urine 2 /hpf (0-5)
== END | disposition home or self-care (01) ==
LOC: LABPAT 08:38
PROVIDERS: ATTEND Orthopaedic Surgery
DX: Z01.818 Encounter for other preprocedural examination (principal); Z79.01 Long term (current) use of anticoagulants; Z01.812 Encounter for preprocedural laboratory examination
CPT/HCPCS: 36415; 80053; 81001; 85027; 85610; 85730; 87070

== ENCOUNTER 2019-12-24 07:43 | Day surgery (SDC) | payer MEDICARE, BC ==
[2019-12-17 15:28] VITALS: BMI 25.7
[~2019-12-24 07:43] MED LIST changes: +ACETAMINOPHEN TAB 500 MG TAB PO ONE; +DEXAMETHASONE SOD PHOSPHATE 10 MG/ML 1 ML VIAL IV ONE; +GABAPENTIN 300 MG CAP PO ONE; +HYDROmorphone 0.5 MG/0.5 ML SYRINGE IVP PRN; +MELOXICAM 7.5 MG TAB PO ONE; +ONDANSETRON 4 MG/2 ML VIAL IVP ONE; +SCOPOLAMINE 1.5MG/72HR PATCH TRANSDERM ONE; -SODIUM CHLORIDE 0.9% 500 ML 500 ML IV SCH; +TRANEXAMIC ACID 1,000 MG in SODIUM CHLORIDE 0.9% 100 ML IVPB ONE; +VANCOMYCIN 1,000 MG in SODIUM CHLORIDE 0.9% 250 ML IVPB ONE
[2019-12-24] MEDS ORDERED: LIDOCAINE 1% (10MG/ML) FOR IV START INTRADERMA ONE (08:50)
[2019-12-24] MEDS ORDERED: NALOXONE 0.4 MG/ML 1 ML VIAL IV PRN (08:54)
[2019-12-24] MEDS ORDERED: HYDROmorphone 0.5 MG/0.5 ML SYRINGE IVP PRN ×2 (08:54)
[2019-12-24] MEDS ORDERED: HYDROmorphone 1 MG/ML 1 ML SYRINGE IVP PRN (08:54)
[2019-12-24] MEDS ORDERED: ONDANSETRON 4 MG/2 ML VIAL IVP PRN (08:54)
[2019-12-24] MEDS ORDERED: MAGNESIUM HYDROXIDE 2,400 MG/10 ML CUP PO PRN (08:54)
[2019-12-24] MEDS ORDERED: SODIUM CHLORIDE 0.9% IVPB ONE (08:54)
[2019-12-24] MEDS ORDERED: HYDROcodone/APAP 5-325MG 1 EACH TAB PO PRN ×2 (08:54)
[2019-12-24] MEDS ORDERED: VANCOMYCIN IVPB ONE (08:54)
[2019-12-24] MEDS: LACTATED RINGERS 1,000 ML IV SCH ×2 (09:00→23:51)
[2019-12-24] MEDS ORDERED: HEPARIN SODIUM,PORCINE 10,000 UNIT/ML 1 ML VIAL ONE (09:15)
[2019-12-24] MEDS ORDERED: SODIUM CHLORIDE 0.9% 100 ML BAG ONE ×2 (09:15)
[2019-12-24] MEDS ORDERED: ePHEDrine SULFATE/0.9% NACL/PF 50 MG/5 ML SYRINGE IV ONE (09:15)
[2019-12-24] MEDS ORDERED: WATER FOR INJECTION, STERILE 10 ML VIAL IV ONE (09:15)
[2019-12-24] MEDS ORDERED: MIDAZOLAM 2 MG/2 ML VIAL ONE (09:15)
[2019-12-24] MEDS ORDERED: TRANEXAMIC ACID 1,000 MG/10 ML VIAL ONE (09:15)
[2019-12-24] MEDS ORDERED: SODIUM CHLORIDE 0.9% IRRIG 1,000 ML BTL IRRIGATION ONE (09:15)
[2019-12-24] MEDS ORDERED: PROPOFOL 10 MG/ML 20 ML VIAL IV ONE (09:15)
[2019-12-24] MEDS ORDERED: fentaNYL (PF) 50 MCG/ML 2 ML AMP ONE (09:15)
[2019-12-24] MEDS ORDERED: ceFAZolin 1,000 MG VIAL ONE (09:15)
[2019-12-24] MEDS ORDERED: ceFAZolin 3,000 MG in SODIUM CHLORIDE 0.9% IRRIGATIO 3,000 ML IRRIGATION ONE (09:50)
[2019-12-24] MEDS: ROPIVACAINE 246.25 MG, EPINEPHrine 0.5 MG, KETOROLAC 30 MG, cloNIDine HCL/PF 80 MCG, WA... MISCELLANE ONE ×10 (09:50→10:28)
--- NOTE | 2019-12-24 10:28 | P.OP ---
Date of Procedure: 12/24/19 Preoperative Diagnosis: Severe osteoarthritis right hip Postoperative Diagnosis: Severe osteoarthritis right hip Procedure(s) Performed: Right total hip arthroplasty with a direct anterior approach Implants: Gutierrez and nephew Polarstem size 3 standard Gutierrez & Nephew R3, 3 hole acetabular shell, 50 mm Gutierrez [employer] Nephew reflection 6.5 mm cancellus screw, 20 mm 2 Gutierrez [employer] Nephew R3, XLPE 20 acetabular liner Gutierrez & Nephew Oxinium femoral head 32 m, +0 All components were press-fit. The articulation is Oxinium on polyethylene. Anesthesia: spinal Surgeon: Glenn Boggs Pack Master #1: Stephanie Medel Estimated Blood Loss (ml): 200 (63 mL returned with Cell Saver) Pathology: other (Femoral head) Condition: stable Disposition: PACU Indications for Procedure: After failure of conservative treatment we discussed the surgical and nonsurgical treatment options at length. Patient wishes to proceed with a total hip arthroplasty with a direct anterior approach. Complications specific to this procedure were discussed at length, including but not limited to infection, leg length discrepancy, dislocation, and nerve injury. Covid-19 was also discussed at length with the patient, and they are aware of the current policies and procedures. The patient was given the option of delaying surgery, but they elect to proceed knowing these risks. Patient is aware of all these complications and informed consent was obtained Operative Findings: The operative findings are consistent with severe osteoarthritis of the right hip Description of Procedure: Patient was seen and evaluated in the preoperative area, consent was reviewed, and the surgical site was marked with a skin marker. Patient was then brought to the operating room and given prophylactic antibiotics intravenously. 1 g of Tranexamic acid was also given. A spinal anesthetic was administered by the anesthesia department. The patient was then placed on the [place] table with the bony prominences well-padded. The hip area was then prepped and draped in usual sterile fashion. A universal timeout was then performed, which confirmed the patient's name, surgical site, ALLERGIES, and procedure being performed. Next the incision site was located at 1 cm distal and 1 cm lateral to the anterior superior iliac spine. The skin and subcutaneous tissues were sharply incised. Incision was carefully dissected down to the fascia overlying the tensor fascia rekha muscle. This fascia was then incised in line with the incision. Next, using blunt finger dissection, the tensor fascia rekha muscle was dissected off its investing fascia. The muscle was then carefully retracted laterally with a cobra retractor over the lateral neck of the femur. Next, the circumflex vessels were identified and cauterized using the AquaMantis device. The anterior hip capsule was then exposed. The capsule was then opened and an inverted T fashion. Cobra retractors were then placed intracapsularly. The proximal femur was then visualized. The femoral neck was then osteotomized appropriate level above the lesser trochanter. Small amount of traction was placed with the [place] table. A small wedge of bone was then removed from the remaining femoral head. Next, using a corkscrew femoral head was easily removed from the acetabulum. On gross visual inspection, the femoral head had complete loss of articular cartilage in multiple periarticular osteophytes. Attention was then turned to the acetabulum. the acetabulum was exposed and any remaining labrum was excised. Sequential reaming of the acetabulum was performed using fluoroscopic guidance. When the appropriate size was reached, a trial was then placed. The position and fit of the trial was checked with fluoroscopy. The trial was then removed. Then, using fluoroscopic guidance, the final implant was impacted at 20 of anteversion and 40 of abduction, and fully seated in the acetabulum. 2 screws were then placed in the acetabulum. Again fluoroscopy was used to check position of the screws. Next, the liner was then impacted, with a 20 elevated liner located in the anterior superior quadrant. Component locking was confirmed. Attention was then directed to the femur. With the aid of the [place] table, the femur was externally rotated to approximately 130, extended, and abducted under the opposite leg. A side hook was then placed under the proximal femur, and the side hook elevator was used to elevate the proximal femur. Retractors were then placed. A capsular release was performed, as well as a release of the conjoined tendon, which afforded excellent visualization of the proximal femur. Next, a box osteotome was used to lateralize the proximal femur. A merchandising intern was then used to locate the femoral canal. Sequential broaching was then performed with appropriate size which afforded excellent fixation in the proximal femur. A trial was then placed with appropriate head and neck, and the hip was gently reduced with the aid of the [place] table. Fluoroscopy was then used to check position of the components, as well as to ensure equal leg lengths. The hip was then gently dislocated and the trials were then removed. Final implants were then impacted and the hip was again reduced. Final fluoroscopic x-rays confirmed that the components were in anatomic position, as well as equal leg lengths. The hip was also taken through range of motion, and found to be stable. The hip was then copiously irrigated with antibiotic solution with pulsatile lavage. The hip was then irrigated with Irrisept solution. The soft tissues were then injected with a ropivacaine solution, which consisted of 246.25 mg of ropivacaine, 0.5 mg of epinephrine, 30 mg of Toradol, 80 g of clonidine, and 48.45 mL of sterile water, for a total of 100 mL of fluid injected. A second dose of 1 g of Tranexamic acid was also given. the fascia was then closed with 2-0 strata fix suture. The subcutaneous tissue was closed with 3-0 Vicryl. The subcuticular tissue was closed with 3-0 strata fix suture. The skin was then closed with Dermabond glue and a sterile silver dressing. The patient was then transferred to the recovery room in stable condition. The assistant child care teacher AMA Mcintosh was required due to the complexity of surgery, and the need for skilled ophthalmic surgical assistant for positioning, draping, exposure, retraction, and closure of the wound.
--- NOTE | 2019-12-24 11:30 | XR ---
EXAMINATION TYPE: XR Hip Limited RT DATE OF EXAM: 12/24/2019 COMPARISON: None HISTORY: Status post hip surgery TECHNIQUE: Single AP right hip FINDINGS: Femoral component and acetabular components are present. No acute fractures are evident. Po stsurgical changes are within soft tissues. Remaining visualized osseous structures are unremarkable. IMPRESSION: 1. No acute fracture post right hip replacement.
--- NOTE | 2019-12-24 11:35 | FL ---
Fluoroscopy INDICATION: Pain FINDINGS: Fluoroscopy time: 55 seconds. Images obtained: 2. IMPRESSIONS: 1. Documentation of fluoroscopy.
[2019-12-24] MEDS: SODIUM CHLORIDE 0.9% 1,000 ML IV SCH ×2 (15:03→23:51)
[2019-12-24] MEDS ORDERED: ALPRAZolam 0.5 MG TAB PO PRN (18:07)
[2019-12-24] MEDS ORDERED: SODIUM CHLORIDE 0.9% 500 ML 500 ML IV ONE ×2 (19:07→23:37)
[2019-12-24] MEDS ORDERED: NON FORMULARY DRUG (Mirabegron [Myrbetriq] 25 MG Tab.Er.24h) PO SCH (21:00)
[2019-12-24] MEDS ORDERED: SENNOSIDES-DOCUSATE SODIUM 1 EACH TAB PO SCH (21:00)
[2019-12-24] MEDS: METOPROLOL TARTRATE 12.5 MG TAB PO SCH (23:34)
[2019-12-25] MEDS: ACETAMINOPHEN TAB 325 MG TAB PO PRN ×2 (02:36→09:27)
--- NOTE | 2019-12-25 08:10 | P.CONS ---
History of Present Illness - Reason for Consult Consult date: 12/24/19 Medical management Requesting physician: Glenn Boggs - Chief Complaint Post right total hip arthroplasty. - History of Present Illness this is a 69-year-old female admitted with a previous medical history significant for hypertension and hypertensive cardiovascular disease, hyperlipidemia, history of coronary artery disease with left heart catheterization that was done in August 2018 that showed a short left main artery with the mild calcification as well as mild disease of the LAD at that time was recommended to continue with the aggressive risk factor modification as well as aggressive medical therapy, patient developed to have a significant paroxysmal atrial fibrillation and she was treated with metoprolol 25 mg orally twice every day as well as Eliquis 5 mg orally twice every day, patient underwent right total hip arthroplasty that was done successfully by and we were asked to see the patient for post operative medical management, patient was seen for pre-operative care as well, she denies any chest pain or shortness of breath, she denies any coughing or hemoptysis, her pain is controlled. Review of Systems Constitutional: Reports fatigue, Denies anorexia, Denies malaise, Denies weakness, Denies weight gain Eyes: bilateral blurred vision, bilateral decreased vision, denies bulging eye Ears: deny: decreased hearing Ears, nose, mouth and throat: Denies dysphagia, Denies neck lump, Denies sore throat Cardiovascular: Denies chest pain, Denies decreased exercise tolerance, Denies dyspnea on exertion, Denies leg edema, Denies lightheadedness, Denies rapid heart beat, Denies shortness of breath Respiratory: Denies congestion, Denies cough, Denies cough with sputum, Denies home oxygen, Denies sleep apnea, Denies snoring, Denies wheezing Gastrointestinal: Denies abdominal pain, Denies bloating, Denies excessive gas, Denies heartburn, Denies melena, Denies nausea, Denies vomiting Genitourinary: Denies dysuria, Denies nocturia Menstruation: Reports postmenopausal Musculoskeletal: Denies myalgias Musculoskeletal: right: hip pain, absent: ankle pain, ankle stiffness, ankle swelling, elbow pain, elbow stiffness, elbow swelling, foot pain, foot stiffness, foot swelling, hand pain, hand stiffness, hand swelling, hip stiffness, hip swelling, knee pain, knee stiffness, knee swelling, shoulder pain, shoulder stiffness, shoulder swelling, wrist pain, wrist stiffness, wrist swelling Integumentary: Denies pruritus, Denies rash Neurological: Denies numbness, Denies weakness Psychiatric: Reports anxiety, Reports depression, Denies sadness/tearfulness, Denies sleep disturbances, Denies suicidal ideation Endocrine: Denies fatigue, Denies weight change Past Medical History Past Medical History: Atrial Fibrillation, Chest Pain / Angina, COPD, Eye Disorder, GERD/Reflux, Hyperlipidemia, Hypertension, Osteoarthritis (OA) Additional Past Medical History / Comment(s): hx KIDNEY STONES, macular degeneration terence eyes, frequent UTI's, History of Any Multi-Drug Resistant Organisms: None Reported Past Surgical History: Heart Catheterization, Tubal Ligation Additional Past Surgical History / Comment(s): TERENCE CATARACTS , RT BREAST BX, LITHOTRIPSY, PAIN CLINIC PROCEDURES. Past Anesthesia/Blood Transfusion Reactions: Motion Sickness Past Psychological History: Anxiety Smoking Status: Former smoker Past Alcohol Use History: None Reported Additional Past Alcohol Use History / Comment(s): started smoking 61 yrs ago [id number] SMOKING 03/28/18 Past Drug Use History: None Reported - Past Family History Mother Family Medical History: No Reported History Father Family Medical History: Cancer Additional Family Medical History / Comment(s): leukemia Brother(s) Family Medical History: Coronary Artery Disease (CAD) Sister(s) Family Medical History: COPD Daughter(s) Family Medical History: No Reported History Son(s) Family Medical History: No Reported History Medications and Allergies Home Medications Medication Instructions Recorded Confirmed Type Cholecalciferol (Vitamin D3) 2,000 units PO DAILY 02/21/18 12/24/19 History [Vitamin D3] Vit C/E/Zn/Coppr/Lutein/Zeaxan 1 tab PO DAILY 02/21/18 12/24/19 History [Preservision Areds 2 Softgel] Cranberry Fruit Extract [Cranberry] 4,200 mg PO DAILY 09/08/18 12/24/19 History ALPRAZolam [Xanax] 0.5 mg PO BID PRN 11/03/19 12/24/19 History Apixaban [Eliquis] 5 mg PO BID 11/03/19 12/24/19 History Mirabegron [Myrbetriq] 25 mg PO HS 11/03/19 12/24/19 History PARoxetine [Paxil] 10 mg PO DAILY 11/03/19 12/24/19 History Valsartan/Hydrochlorothiazide 0.5 - 1 tab PO DAILY 11/03/19 12/24/19 History [Valsartan-Hctz 160-12.5 mg Tab] Metoprolol Tartrate [Lopressor] 12.5 mg PO BID #30 tablet 11/05/19 12/24/19 Rx HYDROcodone/APAP 7.5-325MG [[place] 1 tab PO Q12HR PRN 12/17/19 12/24/19 History 7.5-325] Allergies Allergy/AdvReac Type Severity Reaction Status Date / Time cyclobenzaprine HCl Allergy Unknown Rash/Hives Verified 12/24/19 08:31 [From Flexeril] Iodinated Contrast Media Allergy Rash/Hives Verified 12/24/19 08:31 [Iodinated Contrast Media - IV Dye] [id number] Reductase Allergy leg pain Verified 12/24/19 08:31 Inhibitor TRIPLE DYE Allergy Unknown Rash/Hives Uncoded 12/24/19 08:31 NSAIDS Allergy Unknown Uncoded 12/24/19 08:31 Physical Exam Vitals: Vital Signs Temp Pulse Resp BP Pulse Ox 12/24/19 15:06 97.4 F L 64 18 96/59 96 12/24/19 13:30 59 L 16 116/59 100 12/24/19 13:02 58 L 16 114/55 100 12/24/19 12:30 57 L 16 111/56 98 12/24/19 12:00 58 L 16 114/55 98 12/24/19 11:45 57 L 16 113/59 99 12/24/19 11:30 66 16 112/55 93 L 12/24/19 11:15 63 16 136/60 100 12/24/19 11:01 57 L 16 145/64 100 12/24/19 10:48 97.6 F 64 16 144/63 100 12/24/19 09:00 123/55 12/24/19 08:13 98.3 F 60 16 93/55 97 Intake and Output 12/24/19 12/24/19 12/24/19 06:59 14:59 22:59 Intake Total 1251 20 Output Total 200 Balance 1051 20 Intake: IV 1251 20 Output: Estimated Blood Loss 200 Other: Weight 54.6 kg 54.6 kg physical examination: HEENT: Head is atraumatic, normocephalic, pupils were equal round reactive to light and accommodation, extraocular muscle movement intact. Neck: Supple, no JVD. Chest:decreased breath sounds at the bases. Abdomen and extremities, no chest tenderness, no intercostal retractions Heart: First heart sound is depressed, second heart sounds normal, there is syst olic ejection murmur 2/60. Left sternal border. Abdomen: Soft, nontender, nondistended, positive bowel sounds. Extremities: There is no edema, no calf tenderness, dorsalis pedis +2 bilaterally. Neurologic examination: patient is awake alert and oriented 3, cranial nerves III through XII appear grossly intact, muscle power 4 out of 5 in upper extremities bilaterally, deep tendon reflexes were normal. Assessment and Plan Assessment: assessment and plan: 1. Post -Op day #0 post right total hip arthroplasty. she was advised to use incentive spirometer to reduce the incidence of atelectasis and health care associated pneumonia,we will continue with current pain management as outlined by orthopedic service, and we will continue with DVT prophylaxis with Eliquis 5 mg orally bid, PT evaluation in Am. 2. history of coronary artery disease with mild calcified and short left main and 30% stenosis of the proximal LAD. Continue aggressive medical therapy. 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 Has been following with cardiology regular basis. 3. Hypertension and hypertensive cardiovascular disease. Continue patient on metoprolol 12.5 mg orally twice every day, valsartan 1/2 tablet 160/12.5 mg orally once every day. 4. Hyperlipidemia. Patient was not able to tolerate either STATINS or PCSK9- INH. 5. Anxiety disorder. Continue Paxil 10 mg orally once every day, continue Xanax as needed. 6. Prior history of tobacco use and dependence patient quit about a year ago. Abstinence from cigarette at this point in time monitor the patient very closely. 7. 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 8. Bilateral macular degeneration. Stable. 9. paroxysmal atrial fibrillation currently in sinus rhythm. Continue patient on Eliquis 5 mg orally twice every day and metoprolol 12.5 mg orally twice every day. 10. DVT prophylaxis. Currently on Eliquis 5 mg orally bid. 11. GI prophylaxis. Continue patient on PPI. 12. Thank you for allowing me to participate in the care of your patient , we will follow the patient along with you.
[2019-12-25 08:16] LABS: Basophils % (A) 0 %; Eosinophils % (A) 0 %; HCT 25.6 % (34.0-46.0); Lymphocytes # (A) 0.5 k/uL (1.0-4.8); Lymphocytes % (A) 7 %; MCH 27.7 pg (25.0-35.0); MCHC 32.2 g/dL (31.0-37.0); MCV 86.2 fL (80.0-100.0); Mean Platelet Volume 6.7; Monocytes # (A) 0.6 k/uL (0-1.0); Monocytes % (A) 8 %; Neutrophils % (A) 84 %; Platelet Count 215 k/uL (150-450); RBC 2.97 m/uL (3.80-5.40); RDW 12.7 % (11.5-15.5); WBC 7.2 k/uL (3.8-10.6)
[2019-12-25 08:22] LABS: HGB 8.2 gm/dL (11.4-16.0)
[2019-12-25] MEDS: METOPROLOL TARTRATE 12.5 MG TAB PO SCH (08:53)
[2019-12-25 08:59] VITALS: PULSE 69
[2019-12-25] MEDS ORDERED: VALSARTAN 80 MG TAB PO SCH (09:00)
[2019-12-25] MEDS ORDERED: VALSARTAN 160 MG TAB PO SCH (09:00)
[2019-12-25] MEDS ORDERED: PARoxetine 10 MG TAB PO SCH (09:00)
[2019-12-25] MEDS ORDERED: CHOLECALCIFEROL 1,000 UNIT TAB PO SCH (09:00)
[2019-12-25] MEDS ORDERED: NON FORMULARY DRUG (Cranberry Fruit Extract [Cranberry] 500 MG Tablet) PO SCH (09:00)
[2019-12-25] MEDS ORDERED: APIXABAN 5 MG TAB PO SCH (09:00)
[2019-12-25] MEDS ORDERED: hydroCHLOROthiazide 12.5 MG CAP PO SCH (09:00)
[2019-12-25] MEDS ORDERED: VIT A,C & E-LUTEIN-MINERALS 1 EACH TAB PO SCH (09:00)
--- NOTE | 2019-12-25 09:02 | P.DS ---
Providers Expected date of discharge: 12/25/19 Attending physician: Glenn Boggs Consults: 12/24/19 08:54 Consult Physician Routine Consulting Provider: Marcie Varma Consult Reason/Comments: medical management Do you want consulting provider notified?: Yes Primary care physician: Marcie Varma - Discharge Diagnosis(es) (1) S/P total hip arthroplasty Current Visit: Yes Status: Acute (2) Osteoarthritis of right hip Current Visit: Yes Status: Acute Hospital Course: This is a 79-year-old female with known history of degenerative arthritis of the right hip. The patient presents for evaluation. After discussion and consideration patient elects to proceed with total hip arthroplasty. The patient is seen preoperatively by Dr. Boggs and medically cleared for surgery by their primary care physician. Patient is admitted to [facility] on 12/24/2019 for total hip arthroplasty. The procedures performed without complication or sequelae. The patient is doing well postoperatively. Labs and vital signs are stable on day of discharge. On day of discharge patient's hip incision is healing well. There is minimal erythema. There is no drainage noted at this time. There is minimal soft tissue swelling to the hip and thigh. Patient has full foot and ankle motion without difficulty or pain. Calf is soft and nontender to palpation. Neurovascular status to the right lower extremity is intact. Patient is disch arged home in good condition. Opioid start talking form is reviewed and signed at patient bedside. Please see med rec for accurate list of home medications. Plan - Discharge Summary Discharge Rx Participant: Yes New Discharge Prescriptions: New HYDROcodone/APAP 5-325MG [[place] 5-325] 1 - 2 tab PO Q6HR PRN #48 tab PRN Reason: Pain Sennosides [Senokot] 2 tab PO DAILY PRN #60 tablet PRN Reason: Constipation No Action Cholecalciferol (Vitamin D3) [Vitamin D3] 2,000 units PO DAILY Vit C/E/Zn/Coppr/Lutein/Zeaxan [Preservision Areds 2 Softgel] 1 tab PO DAILY Cranberry Fruit Extract [Cranberry] 4,200 mg PO DAILY Mirabegron [Myrbetriq] 25 mg PO HS Apixaban [Eliquis] 5 mg PO BID Valsartan/Hydrochlorothiazide [Valsartan-Hctz 160-12.5 mg Tab] 0.5 - 1 tab PO DAILY PARoxetine [Paxil] 10 mg PO DAILY ALPRAZolam [Xanax] 0.5 mg PO BID PRN PRN Reason: Anxiety Metoprolol Tartrate [Lopressor] 12.5 mg PO BID #30 tablet HYDROcodone/APAP 7.5-325MG [[place] 7.5-325] 1 tab PO Q12HR PRN PRN Reason: Pain Discharge Medication List Cholecalciferol (Vitamin D3) [Vitamin D3] 2,000 units PO DAILY 02/21/18 [History] Vit C/E/Zn/Coppr/Lutein/Zeaxan [Preservision Areds 2 Softgel] 1 tab PO DAILY 02/21/18 [History] Cranberry Fruit Extract [Cranberry] 4,200 mg PO DAILY 09/08/18 [History] ALPRAZolam [Xanax] 0.5 mg PO BID PRN 11/03/19 [History] Apixaban [Eliquis] 5 mg PO BID 11/03/19 [History] Mirabegron [Myrbetriq] 25 mg PO HS 11/03/19 [History] PARoxetine [Paxil] 10 mg PO DAILY 11/03/19 [History] Valsartan/Hydrochlorothiazide [Valsartan-Hctz 160-12.5 mg Tab] 0.5 - 1 tab PO DAILY 11/03/19 [History] Metoprolol Tartrate [Lopressor] 12.5 mg PO BID #30 tablet 11/05/19 [Rx] HYDROcodone/APAP 7.5-325MG [[place] 7.5-325] 1 tab PO Q12HR PRN 12/17/19 [History] HYDROcodone/APAP 5-325MG [[place] 5-325] 1 - 2 tab PO Q6HR PRN #48 tab 12/25/19 [Rx] Sennosides [Senokot] 2 tab PO DAILY PRN #60 tablet 12/25/19 [Rx] Follow up Appointment(s)/Referral(s): Glenn Boggs DO [Doctor of Osteopathic Medicine] - 2 Weeks Activity/Diet/Wound Care/Special Instructions: Weightbearing as tolerated with walker. Leave dressing intact. Dressing may be removed by home care nurse or by patient in 10 days. May shower with dressing on. Continue Eliquis for DVT prophylaxis. Recommend use of compression stockings daily until follow up to help prevent swelling and blood clots. May remove at night before sleeping. Please follow-up with [facility] in 2 weeks and call with any questions or concerns, . Discharge Disposition: HOME WITH HOME HEALTH SERVICES
[2019-12-25 12:35] LABS: African American GFR (CKD) 99.8 (60.0-200.0); Albumin 3.1 g/dL (3.80-4.90); Albumin/Globulin Ratio 2.58 (1.60-3.17); Anion Gap 5.9 mmol/L (4.00-12.00); BUN/Creat Ratio 21.67 Ratio (12.00-20.00); Calcium 7.9 mg/dL (8.7-10.3); Carbon Dioxide 26.1 mmol/L (21.6-31.8); Globulin 1.2 g/dL (1.6-3.3); Non-African American GFR(CKD) 86.1 (60.0-200.0); Potassium 3.9 mmol/L (3.5-5.5); Total Bilirubin 0.3 mg/dL (0.2-1.2); Total Protein 4.3 g/dL (6.2-8.2)
[2019-12-25 13:19] VITALS: BP 105/55; RESP 16; TEMP 98.6
== END 2019-12-25 14:28 | disposition home health service (06) ==
LOC: OR 07:43 → 4SSUR 10:48 → OR 12-25 14:28
PROVIDERS: ATTEND Orthopaedic Surgery
DX: M16.11 Unilateral primary osteoarthritis, right hip (principal); I10 Essential (primary) hypertension; J44.9 Chronic obstructive pulmonary disease, unspecified; E78.5 Hyperlipidemia, unspecified; K21.9 Gastro-esophageal reflux disease without esophagitis; F41.9 Anxiety disorder, unspecified; I48.0 Paroxysmal atrial fibrillation; M47.815 Spondylosis without myelopathy or radiculopathy, thoracolumbar region; Z88.6 Allergy status to analgesic agent; Z88.8 Allergy status to other drugs, medicaments and biological substances; Z79.01 Long term (current) use of anticoagulants; Z79.899 Other long term (current) drug therapy; Z98.41 Cataract extraction status, right eye; Z98.42 Cataract extraction status, left eye; Z87.442 Personal history of urinary calculi; Z87.440 Personal history of urinary (tract) infections; Z98.51 Tubal ligation status; Z87.891 Personal history of nicotine dependence; Z80.6 Family history of leukemia; Z82.49 Family history of ischemic heart disease and other diseases of the circulatory system
CPT/HCPCS: 97110; 97161; 97165; 86891; 80053; 85025; 88300; 73501 ×2; 27130; C1776; J2250; J0171; J3370; J1644; J1100; J0690 ×2; J2405; J3010; J1885; J2795; J2704; J0735; 86850; 86900; 86901

== ENCOUNTER 2019-12-30 03:12 | Observation (INO) | payer MEDICARE, BC ==
[2019-12-30] MEDS ORDERED: DILTIAZEM DRIP BOLUS FROM BAG 1 MG SOLN IV ONE (03:49)
[2019-12-30] MEDS ORDERED: MORPHINE SULFATE 4 MG/ML SYRINGE IV STA (03:49)
[2019-12-30 04:16] LABS: ALT 17 U/L (4-34); AST 28 U/L (14-36); African American GFR (CKD) >90 (>60 ml/min/1.73 sqM); Albumin 2.9 g/dL (3.5-5.0); Alkaline Phosphatase 93 U/L (38-126); Anion Gap 6 mmol/L; Blood Urea Nitrogen 12 mg/dL (7-17); Calcium 8.4 mg/dL (8.4-10.2); Carbon Dioxide 26 mmol/L (22-30); Chloride 104 mmol/L (98-107); Glucose 104 mg/dL (74-99); Magnesium 1.8 mg/dL (1.6-2.3); Non-African American GFR(CKD) >90 (>60 ml/min/1.73 sqM); Potassium 3.4 mmol/L (3.5-5.1); Sodium 136 mmol/L (137-145); Total Bilirubin 0.6 mg/dL (0.2-1.3); Total Protein 5.3 g/dL (6.3-8.2)
[2019-12-30 04:22] LABS: Basophils % (A) 0 %; Eosinophils # (A) 0.1 k/uL (0-0.7); Eosinophils % (A) 2 %; HCT 26.8 % (34.0-46.0); HGB 8.6 gm/dL (11.4-16.0); Lymphocytes # (A) 1.4 k/uL (1.0-4.8); Lymphocytes % (A) 26 %; MCH 27.5 pg (25.0-35.0); MCHC 32.1 g/dL (31.0-37.0); MCV 85.7 fL (80.0-100.0); Mean Platelet Volume 6.9; Monocytes # (A) 0.6 k/uL (0-1.0); Monocytes % (A) 11 %; Neutrophils # (A) 3.4 k/uL (1.3-7.7); Neutrophils % (A) 60 %; Platelet Count 422 k/uL (150-450); RBC 3.12 m/uL (3.80-5.40); RDW 13.3 % (11.5-15.5); WBC 5.6 k/uL (3.8-10.6)
[2019-12-30] MEDS: DILTIAZEM 125 MG in SODIUM CHLORIDE 0.9% 100 ML IV SCH (04:22)
--- NOTE | 2019-12-30 04:40 | XR ---
EXAMINATION TYPE: XR chest 2V DATE OF EXAM: 12/30/2019 COMPARISON: December 28, 2015 HISTORY: Chest pain TECHNIQUE: FINDINGS: There is no heart failure nor confluent pneumonic infiltrate. Costophrenic angles are clear . There are chest leads. IMPRESSION: No active cardiopulmonary disease. Normal heart. No change.
[2019-12-30 04:53] LABS: Partial Thromboplastin Time 27.7 sec (22.0-30.0); Prothrombin Time 10.4 sec (9.0-12.0)
[2019-12-30] MEDS ORDERED: POTASSIUM CHLORIDE ER 20 MEQ TAB.ER PO STA (05:04)
[2019-12-30] MEDS ORDERED: NITROGLYCERIN SL TABS 0.4 MG TAB SUBLINGUAL PRN (05:07)
--- NOTE | 2019-12-30 05:11 | ED ---
Chest Pain HPI - General Chief Complaint: Chest Pain Stated Complaint: Afib Time Seen by Provider: 12/30/19 03:23 Source: patient Mode of arrival: EMS - History of Present Illness Initial Comments: This patient is an 79-year-old woman who presents to be evaluated for back and chest pain. The patient states that she had been lying down in bed and she noticed onset of pain between the scapula and also in the upper chest. She states that it felt like her heart was pounding out of control. She was a little short of breath. MD Complaint: chest pain -: minutes(s) Onset: awoke with symptoms Pain Location: left chest Pain Radiation: back Severity: moderate Quality: heaviness Consistency: constant Improves With: nothing Worsens With: nothing Treatments Prior to Arrival: oxygen - Related Data Home Medications Medication Instructions Recorded Confirmed Cholecalciferol (Vitamin D3) 2,000 units PO DAILY 02/21/18 12/24/19 [Vitamin D3] Vit C/E/Zn/Coppr/Lutein/Zeaxan 1 tab PO DAILY 02/21/18 12/24/19 [Preservision Areds 2 Softgel] Cranberry Fruit Extract [Cranberry] 4,200 mg PO DAILY 09/08/18 12/24/19 ALPRAZolam [Xanax] 0.5 mg PO BID PRN 11/03/19 12/24/19 Apixaban [Eliquis] 5 mg PO BID 11/03/19 12/24/19 Mirabegron [Myrbetriq] 25 mg PO HS 11/03/19 12/24/19 PARoxetine [Paxil] 10 mg PO DAILY 11/03/19 12/24/19 Valsartan/Hydrochlorothiazide 0.5 - 1 tab PO DAILY 11/03/19 12/24/19 [Valsartan-Hctz 160-12.5 mg Tab] HYDROcodone/APAP 7.5-325MG [[place] 1 tab PO Q12HR PRN 12/17/19 12/24/19 7.5-325] Previous Rx's Medication Instructions Recorded Metoprolol Tartrate [Lopressor] 12.5 mg PO BID #30 tablet 11/05/19 HYDROcodone/APAP 5-325MG [[place] 1 - 2 tab PO Q6HR PRN #48 tab 12/25/19 5-325] Sennosides [Senokot] 2 tab PO DAILY PRN #60 tablet 12/25/19 Allergies Allergy/AdvReac Type Severity Reaction Status Date / Time cyclobenzaprine HCl Allergy Unknown Rash/Hives Verified 12/24/19 08:31 [From Flexeril] Iodinated Contrast Media Allergy Rash/Hives Verified 12/24/19 08:31 [Iodinated Contrast Media - IV Dye] Quyupdi-Ove-Egs Reductase Allergy leg pain Verified 12/24/19 08:31 Inhibitor TRIPLE DYE Allergy Unknown Rash/Hives Uncoded 12/24/19 08:31 NSAIDS Allergy Unknown Uncoded 12/24/19 08:31 Review of Systems ROS Statement: Those systems with pertinent positive or pertinent negative responses have been documented in the HPI. ROS Other: All systems not noted in ROS Statement are negative. Constitutional: Denies: fever, chills Respiratory: Reports: dyspnea. Denies: cough Cardiovascular: Reports: as per HPI, chest pain, palpitations. Denies: orthopnea, edema, syncope Gastrointestinal: Denies: abdominal pain, nausea, vomiting, melena, hematochezia Genitourinary: Denies: dysuria Musculoskeletal: Reports: as per HPI, back pain Skin: Denies: rash Neurological: Denies: headache, weakness, numbness EKG Findings - EKG Results: EKG: interpreted by ERMD, normal axis EKG shows: tachycardia (Rate approximately 156), atrial fibrillation - Blocks, [place], Hypertrophy, ST Abn: Repolarization changes or abnormalities: ST or T wave suggestive of ischemia (Lateral leads) Past Medical History Past Medical History: Atrial Fibrillation, Chest Pain / Angina, COPD, Eye Disorder, Hypertension Additional Past Medical History / Comment(s): KIDNEY STONES ,POLYPS, BACK PAIN, constipation,macular degeneration terence eyes History of Any Multi-Drug Resistant Organisms: None Reported Past Surgical History: Heart Catheterization Additional Past Surgical History / Comment(s): TERENCE CATARACTS , COLONSCOPY, EGD, BREAST BX, LITHOTRIPSY, PAIN CLINIC PROCEDURES. Past Anesthesia/Blood Transfusion Reactions: Motion Sickness Past Psychological History: Anxiety Smoking Status: Former smoker Past Alcohol Use History: None Reported Past Drug Use History: None Reported - Past Family History Mother Family Medical History: No Reported History Father Family Medical History: Cancer Additional Family Medical History / Comment(s): leukemia Brother(s) Family Medical History: Coronary Artery Disease (CAD) Sister(s) Family Medical History: COPD Daughter(s) Family Medical History: No Reported History Son(s) Family Medical History: No Reported History General Exam General appearance: alert, in no apparent distress Head exam: Present: atraumatic, normocephalic Eye exam: Present: normal appearance. Absent: scleral icterus, conjunctival injection ENT exam: Present: normal oropharynx Neck exam: Present: normal inspection Respiratory exam: Present: normal lung sounds bilaterally. Absent: respiratory distress, wheezes, rales, rhonchi, stridor Cardiovascular Exam: Present: tachycardia, irregular rhythm, systolic murmur. Absent: diastolic murmur, rubs, gallop GI/Abdominal exam: Present: soft. Absent: distended, tenderness, guarding, rebound, rigid, mass Extremities exam: Present: normal inspection, normal capillary refill. Absent: pedal edema, calf tenderness Back exam: Present: normal inspection. Absent: CVA tenderness (R), CVA tenderness (L) Neurological exam: Present: alert Skin exam: Present: warm, dry, intact, normal color. Absent: rash Course Vital Signs 12/30/19 12/30/19 12/30/19 03:13 03:16 03:20 Temperature 98.1 F Pulse Rate 79 Respiratory 18 Rate Blood Pressure 101/84 101/84 O2 Sat by Pulse 100 93 L Oximetry 12/30/19 12/30/19 12/30/19 03:30 03:40 03:50 Temperature Pulse Rate 147 H 163 H 156 H Respiratory 7 L 0 L 11 L Rate Blood Pressure 101/84 101/84 101/84 O2 Sat by Pulse Oximetry 12/30/19 12/30/19 12/30/19 04:00 04:10 04:20 Temperature Pulse Rate 140 H 95 90 Respiratory 12 10 L 11 L Rate Blood Pressure 101/84 89/69 108/57 O2 Sat by Pulse 100 100 Oximetry 12/30/19 12/30/19 12/30/19 04:30 04:40 04:50 Temperature Pulse Rate 89 90 86 Respiratory 16 19 14 Rate Blood Pressure 108/57 108/57 108/57 O2 Sat by Pulse 100 100 100 Oximetry 12/30/19 12/30/19 12/30/19 05:00 05:10 05:20 Temperature Pulse Rate 84 84 84 Respiratory 13 14 14 Rate Blood Pressure 108/57 115/63 115/63 O2 Sat by Pulse 100 100 99 Oximetry Chest Pain MDM - MDM Patient is an 79-year-old woman presenting with back and chest pain and found to be in atrial fibrillation with rapid ventricular rate. We were just about to start Cardizem when the patient's reverted to sinus rhythm and her symptoms did improve markedly. Discussed the findings with the patient and she will be admitted to have telemetry monitoring, serial cardiac enzymes and cardiology consultation. Critical Care Time Critical Care Time: Yes (30 minutes) Disposition Clinical Impression: Chest pain, Atrial fibrillation, Anemia, Atrial fibrillation with rapid ventricular response Disposition: ADMITTED IP TO THIS HOSP Condition: Fair
[2019-12-30] MEDS ORDERED: SENNOSIDES 8.6 MG TAB PO PRN (07:00)
[2019-12-30] MEDS ORDERED: METOPROLOL TARTRATE 12.5 MG TAB PO SCH (09:00)
[2019-12-30] MEDS: APIXABAN 5 MG TAB PO SCH ×2 (09:12→20:32)
[2019-12-30] MEDS: hydroCHLOROthiazide 25 MG TAB PO SCH (09:13)
[2019-12-30] MEDS: VALSARTAN 160 MG TAB PO SCH (09:16)
[2019-12-30] MEDS: PARoxetine 10 MG TAB PO SCH (09:16)
--- NOTE | 2019-12-30 10:15 | P.CRDCN ---
History of Present Illness Consult date: 12/30/19 Requesting physician: Marcie Varma Reason for Consult (text): AF w/RVR Chief complaint: rapid heart beat, back pain History of present illness: This a pleasant 79-year-old female who follows with Dr. Brink in the office. Has a history of paroxysmal atrial fibrillation on and coagulation, mild nonobstructive CAD based on her catheterization from August 2018 and a recent right total hip arthroplasty. She was recently hospitalized in October of this year with bradycardia, symptomatic and her beta araceli was decreased. Presented to the emergency department after waking in the middle of night around 2 AM with a rapid heartbeat and pain between her shoulder blades. She got up to check her blood pressure and noted her heart rate to be quite high. She called EMS. When she presented to the emergency department she was noted to be in atrial fibrillation with rapid ventricular response. Converted spontaneously to sinus mechanism prior to starting Cardizem drip. Patient is currently maintaining sinus rhythm with a heart rate in the 80s to 90s. Her vital signs have been stable. Laboratory values show hemoglobin 8.6 which is down from 12.7 following surgery. Labs also show sodium 136, potassium 3.4, BUN 12, creatinine 0.5 to and troponins negative 3. During her admission and October TSH was normal at 1.09. Upon examination patient is resting in bed. Complains of right hip pain. Appears patient does have a small hematoma around the surgical site. Her vital signs have been stable. No further complaints of pain between her shoulder blades. Past Medical History Past Medical History: Atrial Fibrillation, Chest Pain / Angina, COPD, Eye Disorder, Hypertension Additional Past Medical History / Comment(s): KIDNEY STONES ,POLYPS, BACK PAIN, constipation,macular degeneration terence eyes History of Any Multi-Drug Resistant Organisms: None Reported Past Surgical History: Heart Catheterization Additional Past Surgical History / Comment(s): TERENCE CATARACTS , COLONSCOPY, EGD, BREAST BX, LITHOTRIPSY, PAIN CLINIC PROCEDURES. Past Anesthesia/Blood Transfusion Reactions: Motion Sickness Past Psychological History: Anxiety Smoking Status: Former smoker Past Alcohol Use History: None Reported Past Drug Use History: None Reported - Past Family History Mother Family Medical History: No Reported History Father Family Medical History: Cancer Additional Family Medical History / Comment(s): leukemia Brother(s) Family Medical History: Coronary Artery Disease (CAD) Sister(s) Family Medical History: COPD Daughter(s) Family Medical History: No Reported History Son(s) Family Medical History: No Reported History Medications and Allergies Home Medications Medication Instructions Recorded Confirmed Type Cholecalciferol (Vitamin D3) 2,000 units PO DAILY 02/21/18 12/30/19 History [Vitamin D3] Vit C/E/Zn/Coppr/Lutein/Zeaxan 1 tab PO DAILY 02/21/18 12/30/19 History [Preservision Areds 2 Softgel] Cranberry Fruit Extract [Cranberry] 4,200 mg PO DAILY 09/08/18 12/30/19 History ALPRAZolam [Xanax] 0.5 mg PO BID PRN 11/03/19 12/30/19 History Apixaban [Eliquis] 5 mg PO BID 11/03/19 12/30/19 History Mirabegron [Myrbetriq] 25 mg PO HS 11/03/19 12/30/19 History PARoxetine [Paxil] 10 mg PO DAILY 11/03/19 12/30/19 History Valsartan/Hydrochlorothiazide 0.5 - 1 tab PO DAILY 11/03/19 12/30/19 History [Valsartan-Hctz 160-12.5 mg Tab] Metoprolol Tartrate [Lopressor] 12.5 mg PO BID #30 tablet 11/05/19 12/30/19 Rx HYDROcodone/APAP 5-325MG [[place] 1 - 2 tab PO Q6HR PRN #48 tab 12/25/19 12/30/19 Rx 5-325] Allergies Allergy/AdvReac Type Severity Reaction Status Date / Time cyclobenzaprine HCl Allergy Unknown Rash/Hives Verified 12/30/19 09:37 [From Flexeril] Iodinated Contrast Media Allergy Rash/Hives Verified 12/30/19 09:37 [Iodinated Contrast Media - IV Dye] Bawikfy-Rua-Kiz Reductase Allergy leg pain Verified 12/30/19 09:37 Inhibitor TRIPLE DYE Allergy Unknown Rash/Hives Uncoded 12/24/19 08:31 NSAIDS Allergy Unknown Uncoded 12/24/19 08:31 Physical Exam Vitals: Vital Signs Temp Pulse Pulse Resp BP BP Pulse Ox 12/30/19 05:54 97.9 F 83 16 127/58 97 12/30/19 05:20 84 14 115/63 99 12/30/19 05:10 84 14 115/63 100 12/30/19 05:00 84 13 108/57 100 12/30/19 04:50 86 14 108/57 100 12/30/19 04:40 90 19 108/57 100 12/30/19 04:30 89 16 108/57 100 12/30/19 04:20 90 11 L 108/57 100 12/30/19 04:10 95 10 L 89/69 100 12/30/19 04:00 140 H 12 101/84 12/30/19 03:50 156 H 11 L 101/84 12/30/19 03:40 163 H 0 L 101/84 12/30/19 03:30 147 H 7 L 101/84 12/30/19 03:20 101/84 12/30/19 03:16 93 L 12/30/19 03:13 98.1 F 79 18 101/84 100 Intake and Output 12/29/19 12/30/19 12/30/19 22:59 06:59 14:59 Intake Total 0 135 Output Total 0 Balance 0 135 Intake: Oral 0 135 Output: Urine 0 Other: Weight 55.338 kg PHYSICAL EXAMINATION: This is a 79-year-old female in no apparent distress at the time of my examination. VITAL SIGNS: Blood pressure 116/62, heart rate 89, respirations 16, temp 97.1F. Patient is 89 % on room air. HEENT: Head is atraumatic, normocephalic. Pupils are equal, round. Sclerae anicteric. Conjunctivae are clear. Mucous membranes of the mouth are moist. Neck is supple. There is no elevated jugular venous pressure. No carotid bruit is heard. CHEST EXAMINATION: Clear to auscultation bilaterally. No wheezes rales or rhonchi. Respirations even and nonlabored. HEART EXAMINATION: Heart regular, positive S1 and S2. No S3. No S4. No clicks, rubs or murmurs. ABDOMEN: Soft, nontender. Bowel sounds are heard. No organomegaly noted. EXTREMITIES: 2+ peripheral pulses with evidence of mild right lower extremity peripheral edema and no calf tenderness noted. Dressing clean and dry in the right anterior hip with hematoma noted. NEUROLOGIC EXAMINATION: Patient is awake, alert and oriented x3. Results 12/30/19 03:47 12/30/19 03:47 Cardiac Enzymes 12/30/19 12/30/19 12/30/19 Range/Units 03:47 03:47 07:08 AST 28 (14-36) U/L Troponin I <0.012 <0.012 (0.000-0.034) ng/mL Coagulation 12/30/19 Range/Units 04:29 PT 10.4 (9.0-12.0) sec APTT 27.7 (22.0-30.0) sec CBC 12/30/19 Range/Units 03:47 WBC 5.6 (3.8-10.6) k/uL RBC 3.12 L (3.80-5.40) m/uL Hgb 8.6 L (11.4-16.0) gm/dL Hct 26.8 L (34.0-46.0) % Plt Count 422 (150-450) k/uL Comprehensive Metabolic Panel 12/30/19 Range/Units 03:47 Sodium 136 L (137-145) mmol/L Potassium 3.4 L (3.5-5.1) mmol/L Chloride 104 (98-107) mmol/L Carbon Dioxide 26 (22-30) mmol/L BUN 12 (7-17) mg/dL Creatinine 0.52 (0.52-1.04) mg/dL Glucose 104 H (74-99) mg/dL Calcium 8.4 (8.4-10.2) mg/dL AST 28 (14-36) U/L ALT 17 (4-34) U/L Alkaline Phosphatase 93 (38-126) U/L Total Protein 5.3 L (6.3-8.2) g/dL Albumin 2.9 L (3.5-5.0) g/dL Current Medications Generic Name Dose Route Start Last Admin Trade Name Freq PRN Reason Stop Dose Admin Hydrocodone Bitart/Acetaminophen 1 each 12/30/19 05:09 Hydrocodone/Apap 7.5-325mg 1 Each Tab PO Q12HR PRN Pain Apixaban 5 mg 12/30/19 09:00 12/30/19 09:12 Apixaban 5 Mg Tab PO 5 mg BID ALIYAH Administration Aspirin 81 mg 12/31/19 09:00 Aspirin 81 Mg PO DAILY ALIYAH Hydrochlorothiazide 6.25 mg 12/30/19 09:00 12/30/19 09:13 Hydrochlorothiazide 25 Mg Tab PO 6.25 mg DAILY ALIYAH Administration Diltiazem HCl 125 mg/ Sodium 125 mls @ 5 mls/hr 12/30/19 04:00 12/30/19 04:22 Chloride IV Not Given .Q24H ALIYAH 5 MG/HR Metoprolol Tartrate 12.5 mg 12/30/19 09:00 12/30/19 09:12 Metoprolol Tartrate 12.5 Mg Tab PO 12.5 mg BID ALIYAH Administration Nitroglycerin 0.4 mg 12/30/19 05:07 Nitroglycerin Sl Tabs 0.4 Mg Tab SUBLINGUAL Q5M PRN Chest Pain Non-Formulary Medication 25 mg 12/30/19 21:00 Mirabegron [Myrbetriq] PO HS ALIYAH Paroxetine HCl 10 mg 12/30/19 09:00 12/30/19 09:16 Paroxetine 10 Mg Tab PO 10 mg DAILY ALIYAH Administration Senna 8.6 mg 12/30/19 07:00 Sennosides 8.6 Mg Tab PO DAILY PRN Constipation Valsartan 80 mg 12/30/19 09:00 12/30/19 09:16 Valsartan 160 Mg Tab PO 80 mg DAILY ALIYAH Administration Intake and Output 12/29/19 12/30/19 12/30/19 22:59 06:59 14:59 Intake Total 0 135 Output Total 0 Balance 0 135 Intake: Oral 0 135 Output: Urine 0 Other: Weight 55.338 kg 12/30/19 03:47 12/30/19 03:47 EKG Interpretations (text) Initial EKG showed atrial fibrillation with rapid ventricular response with s ubsequent EKG showing sinus rhythm. Assessment and Plan Assessment: #1 paroxysmal atrial fibrillation with rapid ventricular response, currently maintaining sinus mechanism, anticoagulated #2 recent symptomatic bradycardia while on metoprolol 25 mg by mouth twice a day #3 mild CAD #4 status post right total hip arthroplasty #5 hypertension #6 hyperlipidemia Plan: From cardiology's perspective, we will increase metoprolol to 12.5 mg by mouth 3 times a day. Continue to monitor the patient. 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 We will continue to monitor the patient and provide further recommendations accordingly. 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 Patient was seen and examined.
[2019-12-30] MEDS: ONDANSETRON 4 MG/2 ML VIAL IVP PRN ×2 (11:00→19:41)
[2019-12-30] MEDS: HYDROcodone/APAP 7.5-325MG 1 EACH TAB PO PRN (14:20)
[2019-12-30] MEDS: METOPROLOL TARTRATE 12.5 MG TAB PO SCH ×2 (15:53→20:33)
--- NOTE | 2019-12-30 15:56 | P.HPIM ---
History of Present Illness H&P Date: 12/30/19 Chief Complaint: Chest pain 79-year-old woman who presents to be evaluated for back and chest pain. The patient states that she had been lying down in bed and she noticed onset of pain between the scapula and also in the upper chest. She states that it felt like her heart was pounding out of control. She was a little short of breath. Workup in ED revealed patient to be in atrial fibrillation with RVR; patient was seen initially started on IV Cardizem but reverted to normal sinus rhythm and Cardizem was stopped; patient is admitted to the hospital for further cardiac evaluation and treatment Review of Systems REVIEW OF SYSTEMS: CONSTITUTIONAL: No fever, no malaise, no fatigue. HEENT: No recent visual problems or hearing problems. Denied any sore throat. CARDIOVASCULAR: Per HPI. PULMONARY: No shortness of breath, no cough, no hemoptysis. GASTROINTESTINAL: No diarrhea, no nausea, no vomiting, no abdominal pain. NEUROLOGICAL: No headaches, no weakness, no numbness. HEMATOLOGICAL: Denies any bleeding or petechiae. GENITOURINARY: Denies any burning micturition, frequency, or urgency. MUSCULOSKELETAL/RHEUMATOLOGICAL: Denies any joint pain, swelling, or any muscle pain. ENDOCRINE: Denies any polyuria or polydipsia. The rest of the 14-point review of systems is negative. Past Medical History Past Medical History: Atrial Fibrillation, Chest Pain / Angina, COPD, Eye Disorder, Hypertension Additional Past Medical History / Comment(s): KIDNEY STONES ,POLYPS, BACK PAIN, constipation,macular degeneration terence eyes History of Any Multi-Drug Resistant Organisms: None Reported Past Surgical History: Heart Catheterization Additional Past Surgical History / Comment(s): TERENCE CATARACTS , COLONSCOPY, EGD, BREAST BX, LITHOTRIPSY, PAIN CLINIC PROCEDURES. Past Anesthesia/Blood Transfusion Reactions: Motion Sickness Past Psychological History: Anxiety Smoking Status: Former smoker Past Alcohol Use History: None Reported Past Drug Use History: None Reported - Past Family History Mother Family Medical History: No Reported History Father Family Medical History: Cancer Additional Family Medical History / Comment(s): leukemia Brother(s) Family Medical History: Coronary Artery Disease (CAD) Sister(s) Family Medical History: COPD Daughter(s) Family Medical History: No Reported History Son(s) Family Medical History: No Reported History Medications and Allergies Home Medications Medication Instructions Recorded Confirmed Type Cholecalciferol (Vitamin D3) 2,000 units PO DAILY 02/21/18 12/30/19 History [Vitamin D3] Vit C/E/Zn/Coppr/Lutein/Zeaxan 1 tab PO DAILY 02/21/18 12/30/19 History [Preservision Areds 2 Softgel] Cranberry Fruit Extract [Cranberry] 4,200 mg PO DAILY 09/08/18 12/30/19 History ALPRAZolam [Xanax] 0.5 mg PO BID PRN 11/03/19 12/30/19 History Apixaban [Eliquis] 5 mg PO BID 11/03/19 12/30/19 History Mirabegron [Myrbetriq] 25 mg PO HS 11/03/19 12/30/19 History PARoxetine [Paxil] 10 mg PO DAILY 11/03/19 12/30/19 History Valsartan/Hydrochlorothiazide 0.5 - 1 tab PO DAILY 11/03/19 12/30/19 History [Valsartan-Hctz 160-12.5 mg Tab] Metoprolol Tartrate [Lopressor] 12.5 mg PO BID #30 tablet 11/05/19 12/30/19 Rx HYDROcodone/APAP 5-325MG [[place] 1 - 2 tab PO Q6HR PRN #48 tab 12/25/19 12/30/19 Rx 5-325] Allergies Allergy/AdvReac Type Severity Reaction Status Date / Time cyclobenzaprine HCl Allergy Unknown Rash/Hives Verified 12/30/19 09:37 [From Flexeril] Iodinated Contrast Media Allergy Rash/Hives Verified 12/30/19 09:37 [Iodinated Contrast Media - IV Dye] Cipdsqk-[id number]-Fqq Reductase Allergy leg pain Verified 12/30/19 09:37 Inhibitor TRIPLE DYE Allergy Unknown Rash/Hives Uncoded 12/24/19 08:31 NSAIDS Allergy Unknown Uncoded 12/24/19 08:31 Physical Exam Vitals: Vital Signs Temp Pulse Pulse Resp BP BP Pulse Ox 12/30/19 05:54 97.9 F 83 16 127/58 97 12/30/19 05:20 84 14 115/63 99 12/30/19 05:10 84 14 115/63 100 12/30/19 05:00 84 13 108/57 100 12/30/19 04:50 86 14 108/57 100 12/30/19 04:40 90 19 108/57 100 12/30/19 04:30 89 16 108/57 100 12/30/19 04:20 90 11 L 108/57 100 12/30/19 04:10 95 10 L 89/69 100 12/30/19 04:00 140 H 12 101/84 12/30/19 03:50 156 H 11 L /84 12/30/19 03:40 163 H 0 L 84 12/30/19 03:30 147 H 7 L 101/84 12/30/19 03:20 101/84 12/30/19 03:16 93 L 12/30/19 03:13 98.1 F 79 18 101/84 100 Intake and Output 12/29/19 12/30/19 12/30/19 22:59 06:59 14:59 Intake Total 0 135 Output Total 0 Balance 0 135 Intake: Oral 0 135 Output: Urine 0 Other: Weight 55.338 kg General appearance: alert, in no apparent distress Head exam: Present: atraumatic, normocephalic Eye exam: Present: normal appearance. Absent: scleral icterus, conjunctival injection ENT exam: Present: normal oropharynx Neck exam: Present: normal inspection Respiratory exam: Present: normal lung sounds bilaterally. Absent: respiratory distress, wheezes, rales, rhonchi, stridor Cardiovascular Exam: Present: tachycardia, irregular rhythm, systolic murmur. Absent: diastolic murmur, rubs, gallop GI/Abdominal exam: Present: soft. Absent: distended, tenderness, guarding, rebound, rigid, mass Extremities exam: Present: normal inspection, normal capillary refill. Absent: pedal edema, calf tenderness Back exam: Present: normal inspection. Absent: CVA tenderness (R), CVA tenderness (L) Neurological exam: Present: alert Skin exam: Present: warm, dry, intact, normal color. Absent: rash Results CBC & Chem 7: 12/30/19 03:47 12/30/19 03:47 Labs: Abnormal Lab Results - Last 24 Hours (Table) 12/30/19 12/30/19 Range/Units 03:47 03:47 RBC 3.12 L (3.80-5.40) m/uL Hgb 8.6 L (11.4-16.0) gm/dL Hct 26.8 L (34.0-46.0) % Sodium 136 L (137-145) mmol/L Potassium 3.4 L (3.5-5.1) mmol/L Glucose 104 H (74-99) mg/dL Total Protein 5.3 L (6.3-8.2) g/dL Albumin 2.9 L (3.5-5.0) g/dL Thrombosis Risk Factor Assmnt - Choose All That Apply Each Risk Factor Represents 3 Points: Age 75 years or older Thrombosis Risk Factor Assessment Total Risk Factor Score: 3 Thrombosis Risk Factor Assessment Level: Moderate Risk Assessment and Plan Assessment: 1. Chest pain rule out acute coronary syndrome - Patient is admitted to cardiac telemetry; monitor EKG and trend troponin; consult cardiology for further recommendations 2. Paroxysmal atrial fibrillation with RVR - Cardiology recommending to change metoprolol to 12.5 mg 3 times a day and monitor closely; patient likely has tachybradycardia syndrome and might benefit from ablation or pacemaker implantation 3. Recent symptomatic bradycardia; possible tachybradycardia syndrome 4. Recent right hip arthroplasty; ambulation with physical therapy 5. Hypertension; metoprolol as indicated above and was 160 mg daily 6. CAD; continue with aspirin, beta blockers and statin therapy DVT prophylaxis; SCDs/systemic anticoagulation CODE STATUS; full code
[2019-12-30] MEDS ORDERED: NON FORMULARY DRUG (Mirabegron [Myrbetriq] 25 MG Tab.Er.24h) PO SCH (21:00)
[2019-12-31] MEDS: DILTIAZEM 125 MG in SODIUM CHLORIDE 0.9% 100 ML IV SCH (02:33)
[2019-12-31] MEDS: HYDROcodone/APAP 7.5-325MG 1 EACH TAB PO PRN ×2 (06:12→14:11)
[2019-12-31 08:07] LABS: Basophils % (A) 0 %; Eosinophils # (A) 0.1 k/uL (0-0.7); Eosinophils % (A) 2 %; HCT 27.4 % (34.0-46.0); HGB 8.6 gm/dL (11.4-16.0); Hypochromasia Slight; Lymphocytes % (A) 20 %; MCH 27.1 pg (25.0-35.0); MCHC 31.4 g/dL (31.0-37.0); MCV 86.1 fL (80.0-100.0); Mean Platelet Volume 6.3; Monocytes # (A) 0.3 k/uL (0-1.0); Monocytes % (A) 5 %; Neutrophils # (A) 3.8 k/uL (1.3-7.7); Neutrophils % (A) 72 %; Platelet Count 467 k/uL (150-450); RBC 3.19 m/uL (3.80-5.40); RDW 13.4 % (11.5-15.5); WBC 5.2 k/uL (3.8-10.6)
[2019-12-31 08:24] VITALS: RESP 16
[2019-12-31 08:27] LABS: African American GFR (CKD) >90 (>60 ml/min/1.73 sqM); Anion Gap 5 mmol/L; Blood Urea Nitrogen 8 mg/dL (7-17); Calcium 8.5 mg/dL (8.4-10.2); Carbon Dioxide 33 mmol/L (22-30); Chloride 99 mmol/L (98-107); Cholesterol 170 mg/dL (<200); Glucose 170 mg/dL (74-99); HDL Cholesterol 34 mg/dL (40-60); LDL Cholesterol,Calculated 102 mg/dL (0-99); Non-African American GFR(CKD) 88 (>60 ml/min/1.73 sqM); Potassium 3.9 mmol/L (3.5-5.1); Sodium 137 mmol/L (137-145); Triglycerides 170 mg/dL (<150)
[2019-12-31] MEDS ORDERED: ASPIRIN 81 MG PO SCH (09:00)
[2019-12-31] MEDS ORDERED: ASPIRIN 325 MG TAB PO SCH (09:00)
[2019-12-31] MEDS: APIXABAN 5 MG TAB PO SCH (09:18)
[2019-12-31] MEDS: VALSARTAN 160 MG TAB PO SCH (09:18)
[2019-12-31] MEDS: hydroCHLOROthiazide 25 MG TAB PO SCH (09:19)
[2019-12-31] MEDS: METOPROLOL TARTRATE 12.5 MG TAB PO SCH (09:19)
[2019-12-31] MEDS: PARoxetine 10 MG TAB PO SCH (09:19)
--- NOTE | 2019-12-31 11:42 | P.PN ---
Subjective This is a pleasant 79-year-old female past medical history significant for paroxysmal atrial fibrillation on long-term anticoagulation, mild nonobstructive coronary artery disease, hypertension and recent total right hip arthroplasty. She follows my office with Dr. Dr. Brink. She is seen and examined resting comfortably lying flat in bed in no acute distress. She has converted to sinus mechanism. She has no symptoms of chest discomfort, shortness of breath, dizziness or palpitations. She is complaining of pain in the right hip. Blood pressure 112/53 heart rate 86 afebrile maintaining oxygen saturation on room air. Laboratory data reviewed, WBC 5.2, hemoglobin 8.6, platelets 467, sodium 137, potassium 3.9, creatinine 0.56, LDL 102 and HDL 34. Currently maintained on Eliquis 5 mg twice a day, aspirin 81 mg daily, h ydrochlorothiazide 6.25 mg daily, metoprolol 12.5 mg 3 times a day and valsartan 80 mg daily. GENERAL: Well-appearing, well-nourished and in no acute distress. NECK: Supple without JVD or thyromegaly. LUNGS: Breath sounds clear to auscultation bilaterally. Respiration equal and unlabored. No wheezes, rales or rhonchi. HEART: Regular rate and rhythm without murmurs, rubs or gallops. S1 and S2 hea rd. EXTREMITIES: Normal range of motion, no edema. No clubbing or cyanosis. Peripheral pulses intact. ASSESSMENT Paroxysmal atrial fibrillation with rapid ventricular response, currently maintaining sinus mechanism and anticoagulated appropriately Recent history of symptomatic bradycardia while on metoprolol 25 mg twice a day. Nonobstructive coronary artery disease Status post right total hip arthroplasty Hypertension Dyslipidemia PLAN Maintaining sinus mechanism with heart rates in the 80s. Decrease metoprolol to 12.5 mg twice a day. Recommend outpatient heart monitoring for evidence of tachy-rohini syndrome. stable for discharge. Nurse Practitioner note has been reviewed, I agree with a documented findings and plan of care. Patient was seen and examined. Objective - Vital Signs Vital signs: Vital Signs Temp 98.5 F 12/31/19 07:55 Pulse 86 12/31/19 07:55 Resp 16 12/31/19 07:55 BP 112/53 12/31/19 07:55 Pulse Ox 95 12/31/19 07:55 Intake & Output 12/30/19 12/31/19 12/31/19 18:59 06:59 18:59 Intake Total 645 10 Balance 645 10 Weight 56.2 kg Intake: IV 10 0.9 10 Oral 645 Other: Voiding Method Toilet # Voids 1 1 # Bowel Movements 0 - Labs CBC & Chem 7: 12/31/19 07:48 12/31/19 07:48 Labs: Abnormal Lab Results - Last 24 Hours (Table) 12/31/19 12/31/19 Range/Units 07:48 07:48 RBC 3.19 L (3.80-5.40) m/uL Hgb 8.6 L (11.4-16.0) gm/dL Hct 27.4 L (34.0-46.0) % Plt Count 467 H (150-450) k/uL Carbon Dioxide 33 H (22-30) mmol/L Glucose 170 H (74-99) mg/dL Triglycerides 170 H (<150) mg/dL LDL Cholesterol, Calc 102 H (0-99) mg/dL HDL Cholesterol 34 L (40-60) mg/dL
[2019-12-31] MEDS ORDERED: INFLUENZA VACCINE (6 MOS+) 60 MCG/0.5 ML SYRINGE IM ONE (12:08)
[2019-12-31 13:30] VITALS: BP 142/63; PULSE 78; TEMP 98.1
--- NOTE | 2019-12-31 13:46 | P.DS ---
Providers Date of admission: 12/30/19 05:09 Expected date of discharge: 12/31/19 Attending physician: Marcie Varma Consults: 12/30/19 05:07 Consult Physician Routine Consulting Provider: Patrica Brink Consult Reason/Comments: Paroxysmal atrial fibrillation. Chest pain. Do you want consulting provider notified?: Yes Primary care physician: Marcie Varma Hospital Course: This is a 69-year-old female admitted with a previous medical history significant for hypertension and hypertensive cardiovascular disease, hyperlipidemia, history of coronary artery disease with left heart catheterization that was done in August 2018 that showed a short left main artery with the mild calcification as well as mild disease of the LAD at that time was recommended to continue with the aggressive risk factor modification as well as aggressive medical therapy, patient developed to have a significant paroxysmal atrial fibrillation and she was treated with metoprolol 25 mg orally twice every day as well as Eliquis 5 mg orally twice every day. Patient presented to the hospital with A. fib RVR and admitted to the cardiac stepdown unit. Patient converted to sinus rhythm and heart rate has been controlled. Cardiology has been following and outpatient monitoring has been applied to rule out tachybradycardia syndrome. Patient denies any new complaints. She denies any palpitations, lightheadedness or dizziness. Heart rate is 78, blood pressure 142/63, pulse ox 94% on room air, afebrile. [employer] sinus rhythm. Repeat blood work reveals W BC 5.2, hemoglobin 8.6, platelet count 467. Electrolytes normal except for CO2 of 33, BUN 18 creatinine 0.56. Troponins were negative on 3 draws. Patient will be discharged home today in stable condition. Discharge diagnoses: 1. Chest pain ruled out acute coronary syndrome 2. Paroxysmal atrial fibrillation with RVR 3. Recent symptomatic bradycardia; possible tachybradycardia syndrome 4. Recent right hip arthroplasty 5. Hypertension and hypertensive cardio vascular disease 6. CAD 7. Hyperlipidemia 8. Generalized anxiety disorder 9. Prior history of tobacco use and dependence patient quit about a year ago. 10. 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 11. Bilateral macular degeneration. Stable. Discharge plan: Home with home care. Impression and plan of care have been directed as dictated by the signing physician. Taya Doherty nurse practitioner acting as scribe for signing physician. Patient Condition at Discharge: Good Plan - Discharge Summary Discharge Rx Participant: Yes New Discharge Prescriptions: Continue Cholecalciferol (Vitamin D3) [Vitamin D3] 2,000 units PO DAILY Vit C/E/Zn/Coppr/Lutein/Zeaxan [Preservision Areds 2 Softgel] 1 tab PO DAILY Cranberry Fruit Extract [Cranberry] 4,200 mg PO DAILY Mirabegron [Myrbetriq] 25 mg PO HS Apixaban [Eliquis] 5 mg PO BID PARoxetine [Paxil] 10 mg PO DAILY ALPRAZolam [Xanax] 0.5 mg PO BID PRN PRN Reason: Anxiety Metoprolol Tartrate [Lopressor] 12.5 mg PO BID #30 tablet HYDROcodone/APAP 5-325MG [[place] 5-325] 1 - 2 tab PO Q6HR PRN #48 tab PRN Reason: Pain Changed Valsartan/Hydrochlorothiazide [Valsartan-Hctz 160-12.5 mg Tab] 0.5 tab PO DAILY #0 Discharge Medication List Cholecalciferol (Vitamin D3) [Vitamin D3] 2,000 units PO DAILY 02/21/18 [History] Vit C/E/Zn/Coppr/Lutein/Zeaxan [Preservision Areds 2 Softgel] 1 tab PO DAILY 02/21/18 [History] Cranberry Fruit Extract [Cranberry] 4,200 mg PO DAILY 09/08/18 [History] ALPRAZolam [Xanax] 0.5 mg PO BID PRN 11/03/19 [History] Apixaban [Eliquis] 5 mg PO BID 11/03/19 [History] Mirabegron [Myrbetriq] 25 mg PO HS 11/03/19 [History] PARoxetine [Paxil] 10 mg PO DAILY 11/03/19 [History] Metoprolol Tartrate [Lopressor] 12.5 mg PO BID #30 tablet 11/05/19 [Rx] HYDROcodone/APAP 5-325MG [[place] 5-325] 1 - 2 tab PO Q6HR PRN #48 tab 12/25/19 [Rx] Valsartan/Hydrochlorothiazide [Valsartan-Hctz 160-12.5 mg Tab] 0.5 tab PO DAILY #0 12/31/19 [Rx] Follow up Appointment(s)/Referral(s): Marcie Varma MD [Primary Care Provider] - 1 Week Patrica Brink MD [STAFF PHYSICIAN] - 2 Weeks Patient Instructions/Handouts: A-fib (Atrial Fibrillation) (DC) Discharge Disposition: HOME WITH HOME HEALTH SERVICES
[2019-12-31] MEDS ORDERED: METOPROLOL TARTRATE 12.5 MG TAB PO SCH (21:00)
== END 2019-12-31 15:07 | disposition home health service (06) ==
LOC: EC 03:12 → 3SCARD 05:09 → INTOOBSV 05:09
PROVIDERS: ADMIT Internal Medicine; ATTEND Internal Medicine
DX: R07.9 Chest pain, unspecified (principal); D64.9 Anemia, unspecified; E78.5 Hyperlipidemia, unspecified; F41.1 Generalized anxiety disorder; H35.30 Unspecified macular degeneration; I10 Essential (primary) hypertension; I25.10 Atherosclerotic heart disease of native coronary artery without angina pectoris; I48.0 Paroxysmal atrial fibrillation; I49.5 Sick sinus syndrome; J44.9 Chronic obstructive pulmonary disease, unspecified; M47.814 Spondylosis without myelopathy or radiculopathy, thoracic region; Z79.01 Long term (current) use of anticoagulants; Z79.82 Long term (current) use of aspirin; Z79.899 Other long term (current) drug therapy; Z80.6 Family history of leukemia; Z82.49 Family history of ischemic heart disease and other diseases of the circulatory system; Z82.5 Family history of asthma and other chronic lower respiratory diseases; Z87.442 Personal history of urinary calculi; Z87.891 Personal history of nicotine dependence; Z96.641 Presence of right artificial hip joint
CPT/HCPCS: 96376; 96374; 93005 ×2; 99285; 36415; 93270; 97110; 97161; 97535; 97165; 80061; 80053; 80048; 83735; 84484; 85025 ×2; 85610; 85730; 71046; 90686; G0378 ×2; G0008; J2405

== ENCOUNTER 2020-01-25 09:07 | Emergency (ER) | payer MEDICARE, BC ==
[2020-01-25] MEDS ORDERED: PANTOPRAZOLE 40 MG/10 ML VIAL IVP STA (09:31)
[2020-01-25] MEDS ORDERED: ONDANSETRON 4 MG/2 ML VIAL IVP STA (09:31)
[2020-01-25] MEDS ORDERED: SODIUM CHLORIDE 0.9% 1,000 ML IV STA ×2 (09:31)
--- NOTE | 2020-01-25 09:43 | ED ---
Abdominal Pain HPI - General Chief Complaint: Abdominal Pain Stated Complaint: sick/nausea Time Seen by Provider: 01/25/20 09:25 Source: patient, family, RN notes reviewed, old records reviewed Mode of arrival: ambulatory Limitations: no limitations - History of Present Illness Initial Comments: Patient is an 79-year-old female presents to return today with feeling "sick". Her stomach. Patient states that she has no reducible pain. She does complain of the nausea feeling. She saw her PCP who prescribed her nausea medication which does not help. She reports that she had hip replacement surgery in November and had been taking a lot of pain medication afterwards which then caused her to be constipated. She reports that she is now having several bowel movements a did have a bowel movement today. Denies change in urination. - Related Data Home Medications Medication Instructions Recorded Confirmed Cholecalciferol (Vitamin D3) 2,000 units PO DAILY 02/21/18 01/25/20 [Vitamin D3] Vit C/E/Zn/Coppr/Lutein/Zeaxan 1 tab PO DAILY 02/21/18 01/25/20 [Preservision Areds 2 Softgel] Cranberry Fruit Extract [Cranberry] 4,200 mg PO DAILY 09/08/18 01/25/20 ALPRAZolam [Xanax] 0.5 mg PO BID PRN 11/03/19 01/25/20 Apixaban [Eliquis] 5 mg PO BID 11/03/19 01/25/20 Mirabegron [Myrbetriq] 25 mg PO HS 11/03/19 01/25/20 PARoxetine [Paxil] 10 mg PO DAILY 11/03/19 01/25/20 Previous Rx's Medication Instructions Recorded Metoprolol Tartrate [Lopressor] 12.5 mg PO BID #30 tablet 11/05/19 HYDROcodone/APAP 5-325MG [[employer] 1 - 2 tab PO Q6HR PRN #48 tab 12/25/19 5-325] Valsartan/Hydrochlorothiazide 0.5 tab PO DAILY #0 12/31/19 [Valsartan-Hctz 160-12.5 mg Tab] Ondansetron Odt [Zofran Odt] 4 mg PO Q12HR PRN #12 tab 01/25/20 Pantoprazole [Protonix] 40 mg PO DAILY #20 tablet. 01/25/20 Allergies Allergy/AdvReac Type Severity Reaction Status Date / Time cyclobenzaprine HCl Allergy Unknown Rash/Hives Verified 01/25/20 10:56 [From Flexeril] Iodinated Contrast Media Allergy Rash/Hives Verified 01/25/20 10:56 [Iodinated Contrast Media - IV Dye] Crmxquw-Pcz-Sjk Reductase Allergy leg pain Verified 01/25/20 10:56 Inhibitor TRIPLE DYE Allergy Unknown Rash/Hives Uncoded 01/25/20 10:56 NSAIDS AdvReac Unknown Uncoded 01/25/20 10:56 Review of Systems ROS Statement: Those systems with pertinent positive or pertinent negative responses have been documented in the HPI. ROS Other: All systems not noted in ROS Statement are negative. Past Medical History Past Medical History: Atrial Fibrillation, Chest Pain / Angina, COPD, Eye Disorder, Hypertension Additional Past Medical History / Comment(s): KIDNEY STONES ,POLYPS, BACK PAIN, constipation,macular degeneration terence eyes History of Any Multi-Drug Resistant Organisms: None Reported Past Surgical History: Heart Catheterization Additional Past Surgical History / Comment(s): TERENCE CATARACTS , COLONSCOPY, EGD, BREAST BX, LITHOTRIPSY, PAIN CLINIC PROCEDURES. Past Anesthesia/Blood Transfusion Reactions: Motion Sickness Past Psychological History: Anxiety Smoking Status: Former smoker Past Alcohol Use History: None Reported Past Drug Use History: None Reported - Past Family History Mother Family Medical History: No Reported History Father Family Medical History: Cancer Additional Family Medical History / Comment(s): leukemia Brother(s) Family Medical History: Coronary Artery Disease (CAD) Sister(s) Family Medical History: COPD Daughter(s) Family Medical History: No Reported History Son(s) Family Medical History: No Reported History General Exam - General Exam Comments Initial Comments: 79-year-old female. No distress. Limitations: no limitations General appearance: alert, in no apparent distress Head exam: Present: atraumatic, normocephalic, normal inspection Eye exam: Present: normal appearance, PERRL, EOMI. Absent: scleral icterus, conjunctival injection, periorbital swelling ENT exam: Present: normal exam, mucous membranes moist Neck exam: Present: normal inspection. Absent: tenderness, meningismus, lymphadenopathy Respiratory exam: Present: normal lung sounds bilaterally. Absent: respiratory distress, wheezes, rales, rhonchi, stridor Cardiovascular Exam: Present: regular rate, normal rhythm, normal heart sounds. Absent: systolic murmur, diastolic murmur, rubs, gallop, clicks GI/Abdominal exam: Present: soft, normal bowel sounds. Absent: distended, tenderness, guarding, rebound, rigid Extremities exam: Present: normal inspection, full ROM, normal capillary refill. Absent: tenderness, pedal edema, joint swelling, calf tenderness Back exam: Present: normal inspection Neurological exam: Present: alert, oriented X3, CN II-XII intact Psychiatric exam: Present: normal affect, normal mood Skin exam: Present: warm, dry, intact, normal color. Absent: rash Course Vital Signs 01/25/20 01/25/20 09:11 11:13 Temperature 98.6 F Pulse Rate 67 60 Respiratory 20 18 Rate Blood Pressure 133/83 129/54 O2 Sat by Pulse 99 98 Oximetry Medical Decision Making - Medical Decision Making 79-year-old female. Alert and oriented 3. No significant distress. She presents for 3 weeks of upper abdominal pain feeling "sick". Patient states it seems after eating things get stuck. Patient was given IV fluids upper obtained. CT on pelvis read negative for acute process. Labs reviewed and unremarkable. Patient will be discharged at this time with Protonix and Zofran. Discussed following up with primary care doctor and GI ultrasound applications specialist - Lab Data Result diagrams: 01/25/20 09:36 01/25/20 09:36 Lab Results 01/25/20 01/25/20 01/25/20 Range/Units 09:36 09:36 09:36 WBC 7.0 (3.8-10.6) k/uL RBC 4.39 (3.80-5.40) m/uL Hgb 11.6 D (11.4-16.0) gm/dL Hct 36.8 (34.0-46.0) % MCV 83.8 (80.0-100.0) fL MCH 26.4 (25.0-35.0) pg MCHC 31.5 (31.0-37.0) g/dL RDW 13.7 (11.5-15.5) % Plt Count 392 (150-450) k/uL Neutrophils % 66 % Lymphocytes % 24 % Monocytes % 7 % Eosinophils % 1 % Basophils % 0 % Neutrophils # 4.6 (1.3-7.7) k/uL Lymphocytes # 1.7 (1.0-4.8) k/uL Monocytes # 0.5 (0-1.0) k/uL Eosinophils # 0.1 (0-0.7) k/uL Basophils # 0.0 (0-0.2) k/uL Hypochromasia Moderate PT 11.0 (9.0-12.0) sec INR 1.1 (<1.2) APTT 22.9 (22.0-30.0) sec Sodium 133 L (137-145) mmol/L Potassium 4.0 (3.5-5.1) mmol/L Chloride 98 (98-107) mmol/L Carbon Dioxide 29 (22-30) mmol/L Anion Gap 6 mmol/L BUN 16 (7-17) mg/dL Creatinine 0.83 (0.52-1.04) mg/dL Est GFR (CKD-EPI)AfAm 77 (>60 ml/min/1.73 sqM) Est GFR (CKD-EPI)NonAf 67 (>60 ml/min/1.73 sqM) Glucose 82 (74-99) mg/dL Calcium 9.1 (8.4-10.2) mg/dL Total Bilirubin 0.6 (0.2-1.3) mg/dL AST 22 (14-36) U/L ALT 13 (4-34) U/L Alkaline Phosphatase 87 (38-126) U/L Total Protein 6.5 (6.3-8.2) g/dL Albumin 3.8 (3.5-5.0) g/dL Amylase 75 (30-110) U/L Lipase 164 (23-300) U/L Urine Color Urine Appearance (Clear) Urine pH (5.0-8.0) Ur Specific [place] (1.001-1.035) Urine Protein (Negative) Urine Glucose (UA) (Negative) Urine Ketones (Negative) Urine Blood (Negative) Urine Nitrite (Negative) Urine Bilirubin (Negative) Urine Urobilinogen (<2.0) mg/dL Ur Leukocyte Esterase (Negative) Urine RBC (0-5) /hpf Urine WBC (0-5) /hpf Ur Squamous Epith Cells (0-4) /hpf Amorphous Sediment (None) /hpf Hyaline Casts (0-2) /lpf Urine Mucus (None) /hpf 01/25/20 Range/Units 09:54 WBC (3.8-10.6) k/uL RBC (3.80-5.40) m/uL Hgb (11.4-16.0) gm/dL Hct (34.0-46.0) % MCV (80.0-100.0) fL MCH (25.0-35.0) pg MCHC (31.0-37.0) g/dL RDW (11.5-15.5) % Plt Count (150-450) k/uL Neutrophils % % Lymphocytes % % Monocytes % % Eosinophils % % Basophils % % Neutrophils # (1.3-7.7) k/uL Lymphocytes # (1.0-4.8) k/uL Monocytes # (0-1.0) k/uL Eosinophils # (0-0.7) k/uL Basophils # (0-0.2) k/uL Hypochromasia PT (9.0-12.0) sec INR (<1.2) APTT (22.0-30.0) sec Sodium (137-145) mmol/L Potassium (3.5-5.1) mmol/L Chloride (98-107) mmol/L Carbon Dioxide (22-30) mmol/L Anion Gap mmol/L BUN (7-17) mg/dL Creatinine (0.52-1.04) mg/dL Est GFR (CKD-EPI)AfAm (>60 ml/min/1.73 sqM) Est GFR (CKD-EPI)NonAf (>60 ml/min/1.73 sqM) Glucose (74-99) mg/dL Calcium (8.4-10.2) mg/dL Total Bilirubin (0.2-1.3) mg/dL AST (14-36) U/L ALT (4-34) U/L Alkaline Phosphatase (38-126) U/L Total Protein (6.3-8.2) g/dL Albumin (3.5-5.0) g/dL Amylase (30-110) U/L Lipase (23-300) U/L Urine Color Light Yellow Urine Appearance Clear (Clear) Urine pH 7.5 (5.0-8.0) Ur Specific [place] 1.014 (1.001-1.035) Urine Protein Negative (Negative) Urine Glucose (UA) Negative (Negative) Urine Ketones Trace H (Negative) Urine Blood Negative (Negative) Urine Nitrite Negative (Negative) Urine Bilirubin Negative (Negative) Urine Urobilinogen <2.0 (<2.0) mg/dL Ur Leukocyte Esterase Large H (Negative) Urine RBC 1 (0-5) /hpf Urine WBC 18 H (0-5) /hpf Ur Squamous Epith Cells 3 (0-4) /hpf Amorphous Sediment Rare H (None) /hpf Hyaline Casts 1 (0-2) /lpf Urine Mucus Occasional H (None) /hpf 01/25/20 11:09 Patient EKG performed at 9:43 AM shows normal sinus rhythm normal ECG. Ventricular rate of 61 bpm. Intervals 152 ms. QS duration is 76 most seconds. QT QTc is 42/44 ms. - Radiology Data Radiology results: report reviewed No acute abdominal pelvic findings expanded patient's abdominal pain. Numerous to small to characterize hypodense lesions of the liver may represent hepatic cysts. Disposition Clinical Impression: Gastritis Disposition: HOME SELF-CARE Condition: Good Instructions (If sedation given, give patient instructions): Gastritis (ED) Additional Instructions: Please use medication as discussed. Please follow up with family doctor if symptoms have not improved over the next two days. Please return to the emergency room if your symptoms increase or worsen or for any other concerns. Prescriptions: Pantoprazole [Protonix] 40 mg PO DAILY #20 tablet. Ondansetron Odt [Zofran Odt] 4 mg PO Q12HR PRN #12 tab PRN Reason: Pain Is patient prescribed a controlled substance at d/c from ED?: No Referrals: Marcie Varma MD [Primary Care Provider] - 1-2 days Nivia Zhang MD [STAFF PHYSICIAN] - 1-2 days Time of Disposition: 12:40
[2020-01-25 09:45] LABS: Basophils % (A) 0 %; Eosinophils # (A) 0.1 k/uL (0-0.7); Eosinophils % (A) 1 %; HCT 36.8 % (34.0-46.0); Hypochromasia Moderate; Lymphocytes # (A) 1.7 k/uL (1.0-4.8); Lymphocytes % (A) 24 %; MCH 26.4 pg (25.0-35.0); MCHC 31.5 g/dL (31.0-37.0); MCV 83.8 fL (80.0-100.0); Mean Platelet Volume 6.7; Monocytes # (A) 0.5 k/uL (0-1.0); Monocytes % (A) 7 %; Neutrophils # (A) 4.6 k/uL (1.3-7.7); Neutrophils % (A) 66 %; Platelet Count 392 k/uL (150-450); RBC 4.39 m/uL (3.80-5.40); RDW 13.7 % (11.5-15.5)
[2020-01-25 09:53] LABS: HGB 11.6 gm/dL (11.4-16.0)
[2020-01-25 09:58] LABS: Albumin 3.8 g/dL (3.5-5.0); Calcium 9.1 mg/dL (8.4-10.2); INR 1.1 (<1.2); Total Bilirubin 0.6 mg/dL (0.2-1.3); Total Protein 6.5 g/dL (6.3-8.2)
[2020-01-25 09:59] LABS: Partial Thromboplastin Time 22.9 sec (22.0-30.0)
[2020-01-25 10:11] LABS: Amorphous Sediment,Urine Rare /hpf; Appearance,Urine Clear (Clear); Bilirubin,Urine Negative (Negative); Blood,Urine Negative (Negative); Color,Urine Light Yellow; Glucose,Urine (UA) Negative (Negative); Hyaline Casts,Urine 1 /lpf (0-2); Ketones,Urine Trace (Negative); Leukocyte Esterase,Urine Large (Negative); Mucus,Urine Occasional /hpf; Nitrite,Urine Negative (Negative); PH, Urine 7.5 (5.0-8.0); Protein,Urine Negative (Negative); RBC,Urine 1 /hpf (0-5); Specific Gravity,Urine 1.014 (1.001-1.035); Squamous Epithelial Cell,Urine 3 /hpf (0-4); Urobilinogen,Urine <2.0 mg/dL (<2.0); WBC,Urine 18 /hpf (0-5)
[2020-01-25] MEDS ORDERED: diphenhydrAMINE 50 MG/ML 1 ML VIAL IVP STA (11:03)
[2020-01-25] MEDS ORDERED: methylPREDNISolone SOD SUCCI 125 MG/2 ML VIAL IV STA (11:03)
[2020-01-25] MEDS ORDERED: FAMOTIDINE 20 MG/2 ML VIAL IV STA (11:04)
[2020-01-25 11:20] VITALS: RESP 18
--- NOTE | 2020-01-25 12:08 | CT ---
EXAMINATION TYPE: CT abdomen pelvis w con DATE OF EXAM: 01/25/2020 COMPARISON: None HISTORY: Abd pain CT DLP: 676.6 mGycm Automated exposure control for dose reduction was used. TECHNIQUE: Helical acquisition of images was performed from the lung bases through the pelvis. CONTRAST: Performed without Oral Contrast and with IV Contrast, patient injected with 100 mL of Isovue 300. FINDINGS: LUNG BASES: Normal. LIVER: Numerous too small to characterize hepatic hypodensities all, largest measuring up to 7 mm. BILIARY SYSTEM: Normal. PANCREAS: Normal. SPLEEN: Normal. ADRENALS: Normal. KIDNEYS: No hydronephrosis or hydroureter. Too small to characterize hypodensity on the right. BOWEL: No obstruction or thickening. 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 Urszula l appendix. PERITONEUM: No pneumoperitoneum. No free fluid. LYMPH NODES: No lymphadenopathy. PELVIS: Normal. VASCULATURE: No abdominal aortic aneurysm. Moderate atherosclerotic disease. 4 mm calcified splenic artery aneurysm. MUSCULOSKELETAL: Incompletely visualized right hip prosthesis with streak artifact. Degenerative manuel nges of the spine. IMPRESSION: 1. No acute abdominopelvic findings to explain patient's abdominal pain. 2. Numerous too small to characterize hypodense lesions of the liver, many of which may represent hep atic cysts.
[2020-01-25 13:02] VITALS: BP 136/59; PULSE 64; TEMP 98.1
== END 2020-01-25 12:55 | disposition home or self-care (01) ==
LOC: EC 09:07
DX: K29.70 Gastritis, unspecified, without bleeding (principal); F41.9 Anxiety disorder, unspecified; Z79.899 Other long term (current) drug therapy; I48.91 Unspecified atrial fibrillation; I20.9 Angina pectoris, unspecified; I10 Essential (primary) hypertension; Z79.01 Long term (current) use of anticoagulants; Z88.6 Allergy status to analgesic agent; Z88.8 Allergy status to other drugs, medicaments and biological substances; Z91.041 Radiographic dye allergy status; Z87.891 Personal history of nicotine dependence; Z95.5 Presence of coronary angioplasty implant and graft; Z98.42 Cataract extraction status, left eye; Z98.41 Cataract extraction status, right eye
CPT/HCPCS: 36415; 93005; 80053; 82150; 83690; 85025; 85610; 85730; 81001; 87086; 74177; 99285; 96374; 96375 ×4; 96361; J1200; J2930; J2405; C9113; Q9967

== ENCOUNTER 2020-01-27 18:22 | Observation (INO) | payer MEDICARE, BC ==
[2020-01-27] MEDS ORDERED: SODIUM CHLORIDE 0.9% 1,000 ML IV STA (18:44)
--- NOTE | 2020-01-27 18:47 | ED ---
General Adult HPI - General Chief complaint: Headache Stated complaint: not feeling well-revisit Time Seen by Provider: 01/27/20 18:35 Source: patient Mode of arrival: ambulatory Limitations: no limitations - History of Present Illness Initial comments: Dictation was produced using [employer] ([employer] / [employer]) dictation software. please excuse any grammatical, word or spelling errors. This patient was cared for during a federal and state declared state of emergency secondary to Covid 19 Chief Complaint: 79-year-old female with past medical history of A. fib, COPD hypertension presents with "abnormal feeling to my head" History of Present Illness: Is 79-year-old female she was dropped off by her daughter. Patient states that she's been having a strange feeling to her head. States she just does not feel right patient denies any pain. She denies any vision loss. She does complain of a little bit of nausea. Patient was seen here in emergency department 2 or 3 days ago for abdominal symptoms. She had CT and blood work done sent home with prescription for antiemetics and Protonix. She states those medications didn't really help her. She has a difficulty ambulating. She states she doesn't have any vision changes. She has no pain complaints. She is not have any trouble walking. No nausea vomiting or diarrhea. She did his Xanax one hour before coming to the emergency department with improvement of her symptoms. Patient not sure if that she is feeling anxious. The ROS documented in this emergency department record has been reviewed and confirmed by me. Those systems with pertinent positive or negative responses have been documented in the HPI. All other systems are other negative and/or noncontributory. PHYSICAL EXAM: General Impression: Alert and oriented x3, not in acute distress HEENT: Normocephalic atraumatic, extra-ocular movements intact, pupils equal and reactive to light bilaterally, mucous membranes moist. Cardiovascular: Heart regular rate and rhythm Chest: Able to complete full sentences, no retractions, no tachypnea Abdomen: abdomen soft, non-tender, non-distended, no organomegaly Musculoskeletal: Pulses present and equal in all extremities, no peripheral edema Motor: no focal deficits noted Neurological: CN II-XII grossly intact, no focal motor or sensory deficits noted Skin: Intact with no visualized rashes Psych: Normal affect and mood ED course: 79 yo female presents with multiple complaints. Her main complaint is feeling "not right in the head." She does have a pain complaints. Physical examination is benign. Well-appearing.Patient again complaining of epigastric discomfort. Discussed with patient that her symptoms could be cardiac in nature and although her symptoms seem rather atypical. Troponin was negative. Patient be admitted for surgical history case is discussed with Dr. Dr. Avani liao except patient's care. Patient was recommended to take aspirin however she refused. Patient will be admitted for suture troponins. EKG interpretation: Ventricular rate 65, normal sinus rhythm,. 148 DE interval, QRS 78, QTC 418. No DE prolongation, no QTC prolongation, no ST or T-wave changes noted. Compared to EKG from 01/25/2020 with no changes. Overall, this EKG is unremarkable - Related Data Home Medications Medication Instructions Recorded Confirmed Cholecalciferol (Vitamin D3) 2,000 units PO DAILY 02/21/18 01/25/20 [Vitamin D3] Vit C/E/Zn/Coppr/Lutein/Zeaxan 1 tab PO DAILY 02/21/18 01/25/20 [Preservision Areds 2 Softgel] Cranberry Fruit Extract [Cranberry] 4,200 mg PO DAILY 09/08/18 01/25/20 ALPRAZolam [Xanax] 0.5 mg PO BID PRN 11/03/19 01/25/20 Apixaban [Eliquis] 5 mg PO BID 11/03/19 01/25/20 Mirabegron [Myrbetriq] 25 mg PO HS 11/03/19 01/25/20 PARoxetine [Paxil] 10 mg PO DAILY 11/03/19 01/25/20 Previous Rx's Medication Instructions Recorded Metoprolol Tartrate [Lopressor] 12.5 mg PO BID #30 tablet 11/05/19 HYDROcodone/APAP 5-325MG [[place] 1 - 2 tab PO Q6HR PRN #48 tab 12/25/19 5-325] Valsartan/Hydrochlorothiazide 0.5 tab PO DAILY #0 12/31/19 [Valsartan-Hctz 160-12.5 mg Tab] Ondansetron Odt [Zofran Odt] 4 mg PO Q12HR PRN #12 tab 01/25/20 Pantoprazole [Protonix] 40 mg PO DAILY #20 tablet. 01/25/20 Allergies Allergy/AdvReac Type Severity Reaction Status Date / Time cyclobenzaprine HCl Allergy Unknown Rash/Hives Verified 01/27/20 18:32 [From Flexeril] Iodinated Contrast Media Allergy Rash/Hives Verified 01/27/20 18:32 [Iodinated Contrast Media - IV Dye] Ytxkqti-[id number]-Kzx Reductase Allergy leg pain Verified 01/27/20 18:32 Inhibitor TRIPLE DYE Allergy Unknown Rash/Hives Uncoded 01/27/20 18:32 NSAIDS AdvReac Unknown Uncoded 01/27/20 18:32 Review of Systems ROS Statement: Those systems with pertinent positive or pertinent negative responses have been documented in the HPI. ROS Other: All systems not noted in ROS Statement are negative. Past Medical History Past Medical History: Atrial Fibrillation, Chest Pain / Angina, COPD, Eye Disorder, Hypertension Additional Past Medical History / Comment(s): KIDNEY STONES ,POLYPS, BACK PAIN, constipation,macular degeneration terence eyes History of Any Multi-Drug Resistant Organisms: None Reported Past Surgical History: Heart Catheterization Additional Past Surgical History / Comment(s): TERENCE CATARACTS , COLONSCOPY, EGD, BREAST BX, LITHOTRIPSY, PAIN CLINIC PROCEDURES. Past Anesthesia/Blood Transfusion Reactions: Motion Sickness Past Psychological History: Anxiety Smoking Status: Former smoker Past Alcohol Use History: None Reported Past Drug Use History: None Reported - Past Family History Mother Family Medical History: No Reported History Father Family Medical History: Cancer Additional Family Medical History / Comment(s): leukemia Brother(s) Family Medical History: Coronary Artery Disease (CAD) Sister(s) Family Medical History: COPD Daughter(s) Family Medical History: No Reported History Son(s) Family Medical History: No Reported History General Exam Limitations: no limitations Course Vital Signs 01/27/20 01/27/20 01/27/20 18:24 19:36 20:00 Temperature 98.5 F Pulse Rate 72 61 57 L Respiratory 18 18 18 Rate Blood Pressure 112/75 108/71 114/71 O2 Sat by Pulse 99 100 100 Oximetry Medical Decision Making - Lab Data Result diagrams: 01/27/20 19:03 01/27/20 19:03 Lab Results 01/27/20 01/27/20 01/27/20 Range/Units 19:03 19:03 21:13 WBC 10.4 (3.8-10.6) k/uL RBC 4.18 (3.80-5.40) m/uL Hgb 11.1 L (11.4-16.0) gm/dL Hct 35.0 (34.0-46.0) % MCV 83.6 (80.0-100.0) fL MCH 26.4 (25.0-35.0) pg MCHC 31.6 (31.0-37.0) g/dL RDW 14.2 (11.5-15.5) % Plt Count 333 (150-450) k/uL Neutrophils % 68 % Lymphocytes % 24 % Monocytes % 6 % Eosinophils % 1 % Basophils % 1 % Neutrophils # 7.1 (1.3-7.7) k/uL Lymphocytes # 2.5 (1.0-4.8) k/uL Monocytes # 0.6 (0-1.0) k/uL Eosinophils # 0.1 (0-0.7) k/uL Basophils # 0.1 (0-0.2) k/uL Hypochromasia Slight Sodium 132 L (137-145) mmol/L Potassium 3.8 (3.5-5.1) mmol/L Chloride 99 (98-107) mmol/L Carbon Dioxide 28 (22-30) mmol/L Anion Gap 5 mmol/L BUN 18 H (7-17) mg/dL Creatinine 0.76 (0.52-1.04) mg/dL Est GFR (CKD-EPI)AfAm 86 (>60 ml/min/1.73 sqM) Est GFR (CKD-EPI)NonAf 75 (>60 ml/min/1.73 sqM) Glucose 84 (74-99) mg/dL Calcium 8.8 (8.4-10.2) mg/dL Troponin I <0.012 (0.000-0.034) ng/mL Disposition Clinical Impression: Epigastric discomfort Disposition: ADMITTED IP TO THIS [facility] Condition: Fair Decision Time: 22:14
[2020-01-27 19:09] LABS: Basophils # (A) 0.1 k/uL (0-0.2); Basophils % (A) 1 %; Eosinophils # (A) 0.1 k/uL (0-0.7); Eosinophils % (A) 1 %; HGB 11.1 gm/dL (11.4-16.0); Hypochromasia Slight; Lymphocytes # (A) 2.5 k/uL (1.0-4.8); Lymphocytes % (A) 24 %; MCH 26.4 pg (25.0-35.0); MCHC 31.6 g/dL (31.0-37.0); MCV 83.6 fL (80.0-100.0); Mean Platelet Volume 6.6; Monocytes # (A) 0.6 k/uL (0-1.0); Monocytes % (A) 6 %; Neutrophils # (A) 7.1 k/uL (1.3-7.7); Neutrophils % (A) 68 %; Platelet Count 333 k/uL (150-450); RBC 4.18 m/uL (3.80-5.40); RDW 14.2 % (11.5-15.5); WBC 10.4 k/uL (3.8-10.6)
[2020-01-27 19:19] LABS: Calcium 8.8 mg/dL (8.4-10.2); Potassium 3.8 mmol/L (3.5-5.1)
[2020-01-27] MEDS ORDERED: MAG HYDROX/AL HYDROX/SIMETH 30 ML, HYOSCYAMINE ELIXIR 10 ML, LIDOCAINE VISCOUS 2% 10 ML PO STA ×3 (20:37)
[2020-01-27] MEDS ORDERED: ASPIRIN 81 MG PO STA (21:02)
[2020-01-27] MEDS ORDERED: NALOXONE 0.4 MG/ML 1 ML VIAL IV PRN (21:20)
[2020-01-28] MEDS: SODIUM CHLORIDE 0.9% 1,000 ML IV SCH ×2 (00:44→21:18)
[2020-01-28] MEDS ORDERED: NON FORMULARY DRUG (Famotidine/Ca Carb/Mag Hydrox [Pepcid Complete Tablet Chew] 1 EACH Tab PO PRN (06:16)
[2020-01-28] MEDS ORDERED: HYDROcodone/APAP 5-325MG 1 EACH TAB PO PRN (06:16)
[2020-01-28] MEDS ORDERED: SENNOSIDES 8.6 MG TAB PO STA (07:59)
[2020-01-28] MEDS: METOPROLOL TARTRATE 12.5 MG TAB PO SCH ×2 (08:06→21:17)
[2020-01-28] MEDS: CHOLECALCIFEROL 1,000 UNIT TAB PO SCH (08:07)
[2020-01-28] MEDS: ALPRAZolam 0.5 MG TAB PO PRN ×2 (08:07→21:17)
[2020-01-28] MEDS: hydroCHLOROthiazide 12.5 MG CAP PO SCH (08:07)
[2020-01-28] MEDS: PANTOPRAZOLE 40 MG TABLET PO SCH (08:07)
[2020-01-28] MEDS: ONDANSETRON 4 MG/2 ML VIAL IVP PRN ×2 (08:15→19:58)
[2020-01-28] MEDS: SENNOSIDES 8.6 MG TAB PO SCH (08:18)
[2020-01-28] MEDS: PARoxetine 10 MG TAB PO SCH (08:18)
[2020-01-28] MEDS: polyethylene glycoL 3350 17 GM POWD.PACK PO SCH (08:18)
[2020-01-28] MEDS: VALSARTAN 80 MG TAB PO SCH (08:18)
[2020-01-28] MEDS: VIT A,C & E-LUTEIN-MINERALS 1 EACH TAB PO SCH (08:18)
[2020-01-28] MEDS ORDERED: NON FORMULARY DRUG (Cranberry Fruit Extract [Cranberry] 500 MG Tablet) PO SCH (09:00)
[2020-01-28] MEDS ORDERED: PROMETHAZINE 25 MG TAB PO PRN (10:10)
--- NOTE | 2020-01-28 12:38 | P.HPIM ---
History of Present Illness H&P Date: 01/28/20 Chief Complaint: epigastric pain this is a 79-year-old female admitted with a previous medical history significant for hypertension and hypertensive cardiovascular disease, hyperlipidemia, history of coronary artery disease with left heart catheterization that was done in August 2018 that showed a short left main artery with the mild calcification as well as mild disease of the LAD at that time was recommended to continue with the aggressive risk factor modification as well as aggressive medical therapy, also history of paroxysmal atrial fibrillation currently on chronic anticoagulation with Eliquis, significant history of anxiety disorder, she presented to the Emergency department at [facility] on 01/25/2020 with epigastric pain associated with feeling "like her food is getting stuck" and has been taking [place] post recent hip replacement which ma ke her constipated, had CT scan of the abdomen and pelvis that was negative and she was supposed to see me as outpatient but she showed up to the ER yesterday with epigastric/chest pain and her troponins were negative but because of her symptoms the ER physician decided to put her n and ask for GI consultation for EGD. Review of Systems Constitutional: Reports fatigue, Reports weight loss, Denies anorexia, Denies chronic pain, Denies weakness Eyes: bilateral blurred vision Ears, nose, mouth and throat: Reports dysphagia, Denies neck lump, Denies sore throat Cardiovascular: Denies chest pain, Denies decreased exercise tolerance, Denies dyspnea on exertion, Denies lightheadedness, Denies rapid heart beat, Denies shortness of breath, Denies syncope Respiratory: Denies congestion, Denies cough with sputum, Denies home oxygen, Denies sleep apnea, Denies snoring, Denies wheezing Gastrointestinal: Reports abdominal pain, Reports change in bowel habits, Reports constipation, Reports early satiety, Reports loss of appetite, Reports nausea, Denies bloating, Denies BRBPR, Denies diarrhea, Denies dyspepsia, Denies heartburn, Denies hematemesis, Denies hematochezia, Denies indigestion, Denies jaundice, Denies lactose intolerance, Denies melena, Denies vomiting Genitourinary: Denies dysuria, Denies nocturia Menstruation: Reports postmenopausal Musculoskeletal: Denies myalgias Musculoskeletal: right: hip pain, absent: ankle pain, ankle stiffness, ankle swelling, elbow pain, elbow stiffness, elbow swelling, foot pain, foot st iffness, foot swelling, hand pain, hand stiffness, hand swelling, hip stiffness, hip swelling, knee pain, knee stiffness, knee swelling, shoulder pain, shoulder stiffness, shoulder swelling, wrist pain, wrist stiffness, wrist swelling Integumentary: Denies pruritus, Denies rash Neurological: Denies numbness, Denies weakness Psychiatric: Reports anxiety, Reports depression, Denies sadness/tearfulness, Denies sleep disturbances, Denies suicidal ideation Endocrine: Denies fatigue, Denies weight change Past Medical History Past Medical History: Atrial Fibrillation, Coronary Artery Disease (CAD), Chest Pain / Angina, COPD, Eye Disorder, Hypertension, Osteoarthritis (OA) Additional Past Medical History / Comment(s): KIDNEY STONES ,POLYPS, BACK PAIN, constipation,macular degeneration terence eyes History of Any Multi-Drug Resistant Organisms: None Reported Past Surgical History: Heart Catheterization Additional Past Surgical History / Comment(s): TERNECE CATARACTS , COLONSCOPY, EGD, BREAST BX, LITHOTRIPSY, PAIN CLINIC PROCEDURES. Past Anesthesia/Blood Transfusion Reactions: No Reported Reaction Past Psychological History: Anxiety Smoking Status: Former smoker Past Alcohol Use History: None Reported Additional Past Alcohol Use History / Comment(s): started smoking 61 yrs ago [id number] SMOKING 03/28/18 Past Drug Use History: None Reported - Past Family History Mother Family Medical History: No Reported History Father Family Medical History: Cancer Additional Family Medical History / Comment(s): leukemia Brother(s) Family Medical History: Coronary Artery Disease (CAD) Sister(s) Family Medical History: COPD Daughter(s) Family Medical History: No Reported History Son(s) Family Medical History: No Reported History Medications and Allergies Home Medications Medication Instructions Recorded Confirmed Type Cholecalciferol (Vitamin D3) 2,000 units PO DAILY 02/21/18 01/27/20 History [Vitamin D3] Vit C/E/Zn/Coppr/Lutein/Zeaxan 1 tab PO DAILY 02/21/18 01/27/20 History [Preservision Areds 2 Softgel] Cranberry Fruit Extract [Cranberry] 4,200 mg PO DAILY 09/08/18 01/27/20 History ALPRAZolam [Xanax] 0.5 mg PO BID PRN 11/03/19 01/27/20 History Apixaban [Eliquis] 5 mg PO BID 11/03/19 01/27/20 History Mirabegron [Myrbetriq] 25 mg PO HS 11/03/19 01/27/20 History PARoxetine [Paxil] 10 mg PO DAILY 11/03/19 01/27/20 History Metoprolol Tartrate [Lopressor] 12.5 mg PO BID #30 tablet 11/05/19 01/27/20 Rx HYDROcodone/APAP 5-325MG [[place] 1 - 2 tab PO Q6HR PRN #48 tab 12/25/19 01/27/20 Rx 5-325] Valsartan/Hydrochlorothiazide 0.5 tab PO DAILY #0 12/31/19 01/27/20 Rx [Valsartan-Hctz 160-12.5 mg Tab] Pantoprazole [Protonix] 40 mg PO DAILY #20 tablet. 01/25/20 01/27/20 Rx Famotidine/Ca Carb/Mag Hydrox 1 tab PO ONCE PRN 01/27/20 01/27/20 History [Pepcid Complete Tablet Chew] Allergies Allergy/AdvReac Type Severity Reaction Status Date / Time cyclobenzaprine HCl Allergy Unknown Rash/Hives Verified 01/27/20 22:23 [From Flexeril] Iodinated Contrast Media Allergy Rash/Hives Verified 01/27/20 22:23 [Iodinated Contrast Media - IV Dye] Zzuvdbm-Tbo-Rnc Reductase Allergy leg pain Verified 01/27/20 22:23 Inhibitor TRIPLE DYE Allergy Unknown Rash/Hives Uncoded 01/27/20 22:23 NSAIDS AdvReac Unknown Uncoded 01/27/20 22:23 Physical Exam Vitals: Vital Signs Temp Pulse Pulse Resp BP BP Pulse Ox 01/28/20 03:25 18 01/28/20 00:41 97.8 F 72 18 107/69 97 01/28/20 00:30 18 01/27/20 23:39 97.6 F 72 16 112/68 99 01/27/20 22:00 80 18 01/27/20 21:00 57 L 18 100 01/27/20 20:00 57 L 18 114/71 100 01/27/20 19:36 61 18 108/71 100 01/27/20 18:24 98.5 F 72 18 112/75 99 Intake and Output 1101/27/20 01/28/20 14:59 22:59 06:59 Other: Voiding Method Toilet # Voids 2 Weight 54.431 kg 54.431 kg physical examination: HEENT: Head is atraumatic, normocephalic, pupils were equal round reactive to light and accommodation, extraocular muscle movement intact. Neck: Supple, no JVD. Chest:decreased breath sounds at the bases. Abdomen and extremities, no chest tenderness, no intercostal retractions Heart: First heart sound is depressed, second heart sounds normal, there is systolic ejection murmur 2/60. Left sternal border. Abdomen: Soft,mild epigastric tenderness nondistended, positive bowel sounds, no hepatosplenomegaly. Extremities: There is no edema, no calf tenderness, dorsalis pedis +2 bilaterally. Neurologic examination: patient is awake alert and oriented 3, cranial nerves III through XII appear grossly intact, muscle power 4 out of 5 in upper extremities bilaterally, deep tendon reflexes were normal. Results CBC & Chem 7: 01/27/20 19:03 01/27/20 19:03 Labs: Abnormal Lab Results - Last 24 Hours (Table) 01/27/20 01/27/20 Range/Units 19:03 19:03 Hgb 11.1 L (11.4-16.0) gm/dL Sodium 132 L (137-145) mmol/L BUN 18 H (7-17) mg/dL Thrombosis Risk Factor Assmnt - DVT/VTE Prophylaxis DVT/VTE Prophylaxis: Pharmacologic Prophylaxis ordered - Choose All That Apply Any of the Below Risk Factors Present?: Yes Each Factor Represents 1 point: Abnormal pulmonary function (COPD) Other Risk Factors: Yes Each Risk Factor Represents 3 Points: Age 75 years or older, Family history of DVT/PE Thrombosis Risk Factor Assessment Total Risk Factor Score: 7 Thrombosis Risk Factor Assessment Level: High Risk Assessment and Plan Assessment: assessment and plan: 1. Epigasric abdominal pain with feeling of food getting stuck. we will start Protonix 40 mg orally daily and we will ask for GI consultation for EGD, she had CT scan of the abdomen and pelvis that was negative 2 days ago. 2. history of coronary artery disease with mild calcified and short left main and 30% stenosis of the proximal LAD. Continue aggressive medical therapy. 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 Has been following with cardiology regular basis. 3. Hypertension and hypertensive cardiovascular disease. Continue patient on metoprolol 12.5 mg orally twice every day, valsartan 1/2 tablet 160/12.5 mg orally once every day. 4. Hyperlipidemia. Patient was not able to tolerate either STATINS or PCSK9- INH. 5. Anxiety disorder. Continue Paxil 10 mg orally once every day, continue Xanax as needed. 6. Prior history of tobacco use and dependence patient quit about a year ago. 7. 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 8. Bilateral macular degeneration. Stable. 9. paroxysmal atrial fibrillation currently in sinus rhythm. Hold Eliquis in anticipation of EGD. and continue metoprolol 12.5 mg orally twice every day. 10. DVT prophylaxis. Currently on Eliquis 5 mg orally bid. 11. GI prophylaxis. Continue patient on PPI. 12. admit to inpatient, estimated length of stay 2 midnights. 13. Full code.
--- NOTE | 2020-01-28 14:09 | P.CRDCN ---
History of Present Illness History of present illness: HISTORY OF PRESENTING ILLNESS This is a pleasant 79-year-old past medical history significant for hypertension, dyslipidemia, paroxysmal atrial fibrillation on long-term anticoagulation and mild nonobstructive coronary artery disease. She follows in the office with Dr. Brink. We have been asked to see in consultation for chest pain. The patient is seen and examined resting comfortably laying flat in bed in no acute distress. She is complaining of epigastric pain and tenderness associated with nausea and inability to eat. She has no chest pain, arm pain, shortness of breath, dizziness or palpitations. She underwent cardiac catheterization August 2018 revealing mild nonobstructive coronary artery disease with a plaque in the proximal LAD approximately 30% in the mid RCA approximately 30% as well. Most recent echocardiogram obtained October 2019 reveals preserved LV systolic function with ejection fraction 50-55%. DIAGNOSTICS EKG reveals sinus mechanism with no acute changes. Laboratory reviewed, WBC 10.4, hemoglobin 11.1, platelets 333, sodium 132, potassium 3.8, creatinine 0.76, cardiac enzymes negative 3. Current cardiac medications include Eliquis 5 mg twice a day, Lopressor 12.5 mg twice a day and valsartan/hydrochlorothiazide 160/12.5 mg take half a tablet daily. REVIEW OF SYSTEMS At the time of my exam: CONSTITUTIONAL: Denies fever or chills. CARDIOVASCULAR: Denies chest pain, shortness of breath, orthopnea, PND or palpitations. RESPIRATORY: Denies cough. GASTROINTESTINAL: Complains of epigastric pain and tenderness. Denies abdominal pain, diarrhea, constipation, nausea or vomiting. MUSCULOSKELETAL: Denies myalgias. NEUROLOGIC: Denies numbness, tingling or weakness. ENDOCRINE: Denies fatigue, weight change, polydipsia or polyurina. GENITOURINARY: Denies burning, hematuria or urgency with micturation. HEMATOLOGIC: Denies history of anemia or bleeding. PHYSICAL EXAMINATION Blood pressure 116/66 heart rate 64 afebrile and maintaining oxygen saturation on room air. CONSTITUTIONAL: No apparent distress. HEENT: Head is normocephalic. Pupils are equal, round. Sclerae anicteric. Mucous membranes of the mouth are moist. No JVD. No carotid bruit. CHEST EXAMINATION: Lungs are clear to auscultation. No chest wall tenderness is noted on palpation or with deep breathing. HEART EXAMINATION: Regular rate and rhythm. S1, S2 heard. No murmurs, gallops or rub. ABDOMEN: Soft, nontender. Positive bowel sounds. EXTREMITIES: 2+ peripheral pulses, no lower extremity edema and no calf tenderness. NEUROLOGIC EXAMINATION: Patient is awake, alert and oriented x3. ASSESSMENT Epigastric pain and tenderness Hypertension Paroxysmal atrial fibrillation on long-term anticoagulation, currently maintaining sinus mechanism Nonobstructive coronary artery disease PLAN An acute coronary event has been ruled out. Pain is atypical for angina and recent catheterization revealing mild non- obstructive disease. She is intolerant to statins and adequately anti-coagulated with eliquis. No further cardiac work-up required at this time. Follow up with Dr. Brink upon discharge. We will follow along as needed. Thank you kindly for this consultation. Nurse Practitioner note has been reviewed, I agree with a documented findings and plan of care. Patient was seen and examined. Past Medical History Past Medical History: Atrial Fibrillation, Coronary Artery Disease (CAD), Chest Pain / Angina, COPD, Eye Disorder, Hypertension, Osteoarthritis (OA) Additional Past Medical History / Comment(s): KIDNEY STONES ,POLYPS, BACK PAIN, constipation,macular degeneration terence eyes History of Any Multi-Drug Resistant Organisms: None Reported Past Surgical History: Heart Catheterization Additional Past Surgical History / Comment(s): TERENCE CATARACTS , COLONSCOPY, EGD, BREAST BX, LITHOTRIPSY, PAIN CLINIC PROCEDURES. Past Anesthesia/Blood Transfusion Reactions: No Reported Reaction Past Psychological History: Anxiety Smoking Status: Former smoker Past Alcohol Use History: None Reported Additional Past Alcohol Use History / Comment(s): started smoking 61 yrs ago 1ppd-QUIT SMOKING 03/28/18 Past Drug Use History: None Reported - Past Family History Mother Family Medical History: No Reported History Father Family Medical History: Cancer Additional Family Medical History / Comment(s): leukemia Brother(s) Family Medical History: Coronary Artery Disease (CAD) Sister(s) Family Medical History: COPD Daughter(s) Family Medical History: No Reported History Son(s) Family Medical History: No Reported History Medications and Allergies Home Medications Medication Instructions Recorded Confirmed Type Cholecalciferol (Vitamin D3) 2,000 units PO DAILY 02/21/18 01/27/20 History [Vitamin D3] Vit C/E/Zn/Coppr/Lutein/Zeaxan 1 tab PO DAILY 02/21/18 01/27/20 History [Preservision Areds 2 Softgel] Cranberry Fruit Extract [Cranberry] 4,200 mg PO DAILY 09/08/18 01/27/20 History ALPRAZolam [Xanax] 0.5 mg PO BID PRN 11/03/19 01/27/20 History Apixaban [Eliquis] 5 mg PO BID 11/03/19 01/27/20 History Mirabegron [Myrbetriq] 25 mg PO HS 11/03/19 01/27/20 History PARoxetine [Paxil] 10 mg PO DAILY 11/03/19 01/27/20 History Metoprolol Tartrate [Lopressor] 12.5 mg PO BID #30 tablet 11/05/19 01/27/20 Rx HYDROcodone/APAP 5-325MG [[place] 1 - 2 tab PO Q6HR PRN #48 tab 12/25/19 01/27/20 Rx 5-325] Valsartan/Hydrochlorothiazide 0.5 tab PO DAILY #0 12/31/19 01/27/20 Rx [Valsartan-Hctz 160-12.5 mg Tab] Pantoprazole [Protonix] 40 mg PO DAILY #20 tablet. 01/25/20 01/27/20 Rx Famotidine/Ca Carb/Mag Hydrox 1 tab PO ONCE PRN 01/27/20 01/27/20 History [Pepcid Complete Tablet Chew] Allergies Allergy/AdvReac Type Severity Reaction Status Date / Time cyclobenzaprine HCl Allergy Unknown Rash/Hives Verified 01/27/20 22:23 [From Flexeril] Iodinated Contrast Media Allergy Rash/Hives Verified 01/27/20 22:23 [Iodinated Contrast Media - IV Dye] Bnchoji-Zer-Aem Reductase Allergy leg pain Verified 01/27/20 22:23 Inhibitor TRIPLE DYE Allergy Unknown Rash/Hives Uncoded 01/27/20 22:23 NSAIDS AdvReac Unknown Uncoded 01/27/20 22:23 Physical Exam Vitals: Vital Signs Temp Pulse Pulse Resp BP BP Pulse Ox 01/28/20 08:05 18 01/28/20 07:00 98.6 F 64 18 116/66 99 01/28/20 03:25 18 01/28/20 00:41 97.8 F 72 18 107/69 97 01/28/20 00:30 18 01/27/20 23:39 97.6 F 72 16 112/68 99 01/27/20 22:00 80 18 01/27/20 21:00 57 L 18 100 01/27/20 20:00 57 L 18 114/71 100 01/27/20 19:36 61 18 108/71 100 01/27/20 18:24 98.5 F 72 18 112/75 99 Intake and Output 01/27/20 01/28/20 01/28/20 22:59 06:59 14:59 Intake Total 120 Balance 120 Intake: Intake, IV Titration 120 Amount Sodium Chloride 0.9% 1, 120 000 ml @ 20 mls/hr IV . Q24H [facility] Rx#:[id number] Other: Voiding Method Toilet Toilet # Voids 2 Weight 54.431 kg 54.431 kg Results 01/27/20 19:03 01/27/20 19:03 Cardiac Enzymes 01/27/20 01/28/20 01/28/20 Range/Units 21:13 00:09 02:58 Troponin I <0.012 <0.012 <0.012 (0.000-0.034) ng/mL CBC 01/27/20 Range/Units 19:03 WBC 10.4 (3.8-10.6) k/uL RBC 4.18 (3.80-5.40) m/uL Hgb 11.1 L (11.4-16.0) gm/dL Hct 35.0 (34.0-46.0) % Plt Count 333 (150-450) k/uL Comprehensive Metabolic Panel 01/27/20 Range/Units 19:03 Sodium 132 L (137-145) mmol/L Potassium 3.8 (3.5-5.1) mmol/L Chloride 99 (98-107) mmol/L Carbon Dioxide 28 (22-30) mmol/L BUN 18 H (7-17) mg/dL Creatinine 0.76 (0.52-1.04) mg/dL Glucose 84 (74-99) mg/dL Calcium 8.8 (8.4-10.2) mg/dL Current Medications Generic Name Dose Route Start Last Admin Trade Name Freq PRN Reason Stop Dose Admin Alprazolam 0.5 mg 01/28/20 06:16 11/02/20 08:07 Alprazolam 0.5 Mg Tab PO 0.5 mg BID PRN Administration Anxiety Cholecalciferol 2,000 unit 01/28/20 09:00 01/28/20 08:07 Cholecalciferol 1,000 Unit Tab PO 2,000 unit DAILY ALIYAH Administration Hydrochlorothiazide 12.5 mg 01/28/20 09:00 01/28/20 08:07 Hydrochlorothiazide 12.5 Mg Cap PO 12.5 mg DAILY ALIYAH Administration Sodium Chloride 1,000 mls @ 20 mls/hr 01/27/20 21:30 01/28/20 00:44 Saline 0.9% IV Not Given .Q24H ALIYAH Metoprolol Tartrate 12.5 mg 01/28/20 09:00 01/28/20 08:06 Metoprolol Tartrate 12.5 Mg Tab PO 12.5 mg BID ALIYAH Administration Multivitamins/Minerals 1 each 01/28/20 09:00 01/28/20 08:18 Vit A,C & D-Daujta-Cekqvmqf 1 Each Tab PO 1 each DAILY ALIYAH Administration Naloxone HCl 0.2 mg 01/27/20 21:20 Naloxone 0.4 Mg/Ml 1 Ml Vial IV Q2M PRN Opioid Reversal Non-Formulary Medication 25 mg 01/28/20 21:00 Mirabegron [Myrbetriq] PO HS ALIYAH Ondansetron HCl 4 mg 01/28/20 08:00 01/28/20 08:15 Ondansetron 4 Mg/2 Ml Vial IVP 4 mg Q6HR PRN Administration Nausea And Vomiting Pantoprazole Sodium 40 mg 01/28/20 09:00 01/28/20 08:07 Pantoprazole 40 Mg Tablet PO 40 mg DAILY ALIYAH Administration Paroxetine HCl 10 mg 01/28/20 09:00 01/28/20 08:18 Paroxetine 10 Mg Tab PO 10 mg DAILY ALIYAH Administration Polyethylene Glycol 17 gm 01/28/20 09:00 01/28/20 08:18 Polyethylene Glycol 3350 17 Gm Powd.Pack PO 17 gm DAILY ALIYAH Administration Promethazine HCl 12.5 mg 01/28/20 10:10 Promethazine 25 Mg Tab PO Q6HR PRN Nausea Senna 8.6 mg 01/28/20 09:00 01/28/20 08:18 Sennosides 8.6 Mg Tab PO 8.6 mg DAILY ALIYAH Administration Valsartan 80 mg 01/28/20 09:00 01/28/20 08:18 Valsartan 80 Mg Tab PO 80 mg DAILY ALIYAH Administration Intake and Output 01/27/20 01/28/20 01/28/20 22:59 06:59 14:59 Intake Total 120 Balance 120 Intake: Intake, IV Titration 120 Amount Sodium Chloride 0.9% 1, 120 000 ml @ 20 mls/hr IV . Q24H [facility] Rx#:[id number] Other: Voiding Method Toilet Toilet # Voids 2 Weight 54.431 kg 54.431 kg 01/27/20 19:03 01/27/20 19:03
[2020-01-28] MEDS: NON FORMULARY DRUG (Mirabegron [Myrbetriq] 25 MG Tab.Er.24h) PO SCH (20:08)
[2020-01-28] MEDS ORDERED: DICYCLOMINE 20 MG TAB PO PRN (21:50)
[2020-01-29 06:53] LABS: Basophils % (A) 0 %; Eosinophils % (A) 1 %; HCT 36.5 % (34.0-46.0); HGB 11.2 gm/dL (11.4-16.0); Hypochromasia Moderate; Lymphocytes # (A) 1.7 k/uL (1.0-4.8); Lymphocytes % (A) 23 %; MCH 25.8 pg (25.0-35.0); MCHC 30.6 g/dL (31.0-37.0); MCV 84.4 fL (80.0-100.0); Mean Platelet Volume 6.2; Monocytes # (A) 0.5 k/uL (0-1.0); Monocytes % (A) 7 %; Neutrophils # (A) 5.1 k/uL (1.3-7.7); Neutrophils % (A) 69 %; Platelet Count 307 k/uL (150-450); RBC 4.32 m/uL (3.80-5.40); WBC 7.4 k/uL (3.8-10.6)
[2020-01-29] MEDS: VIT A,C & E-LUTEIN-MINERALS 1 EACH TAB PO SCH (09:05)
[2020-01-29] MEDS: VALSARTAN 80 MG TAB PO SCH (09:06)
[2020-01-29] MEDS: CHOLECALCIFEROL 1,000 UNIT TAB PO SCH (09:07)
[2020-01-29] MEDS: hydroCHLOROthiazide 12.5 MG CAP PO SCH (09:09)
[2020-01-29] MEDS: PANTOPRAZOLE 40 MG TABLET PO SCH (09:09)
[2020-01-29] MEDS: polyethylene glycoL 3350 17 GM POWD.PACK PO SCH (09:10)
[2020-01-29 09:11] LABS: African American GFR (CKD) 80.7 (60.0-200.0); Albumin 3.7 g/dL (3.80-4.90); Albumin/Globulin Ratio 2.06 (1.60-3.17); Anion Gap 7.9 mmol/L (4.00-12.00); BUN/Creat Ratio 18.75 Ratio (12.00-20.00); Calcium 9.1 mg/dL (8.7-10.3); Carbon Dioxide 30.1 mmol/L (21.6-31.8); Globulin 1.8 g/dL (1.6-3.3); Non-African American GFR(CKD) 69.6 (60.0-200.0); Potassium 4.5 mmol/L (3.5-5.5); Total Bilirubin 0.5 mg/dL (0.2-1.2); Total Protein 5.5 g/dL (6.2-8.2)
[2020-01-29] MEDS: SENNOSIDES 8.6 MG TAB PO SCH (09:11)
[2020-01-29] MEDS: METOPROLOL TARTRATE 12.5 MG TAB PO SCH ×2 (09:21→23:22)
[2020-01-29] MEDS: PARoxetine 10 MG TAB PO SCH (09:33)
--- NOTE | 2020-01-29 09:39 | P.CONS ---
History of Present Illness - Reason for Consult Consult date: 01/28/20 Dysphagia Requesting physician: Marcie Varma - Chief Complaint Dysphagia - History of Present Illness 69-year-old female with a medical history significant for hypertension, coronary artery disease, hyperlipidemia, atrial fibrillation who presents to the hospital due to complaints of epigastric pain and dysphagia. The patient had a computed tomography scan of the abdomen showing numerous hypodense lesions in the liver possible hepatic cysts, laboratory evaluation significant for hemoglobin 11.1, WBC 10.4, platelet count 333,000 with total bilirubin 0.6, alkaline phosphatase 87, AST 22 and ALT 13. The patient denies any history of peptic ulcer disease. She denies any abdominal pain but does report nausea since her hip replacement in November. No vomiting reported. She does report constipation at baseline. Last endoscopic evaluation in 12/06/2017 with gastritis and esophagitis found on EGD and normal colonoscopy. She reports a sensation of dysphagia and food sticking. Review of Systems REVIEW OF SYSTEMS: CONSTITUTIONAL: Denies any fevers, chills, or fatigue but does report weight change and loss of some weight. CARDIOVASCULAR: Denies any chest pain, palpitations high or low blood pressures RESPIRATORY: Denies any shortness of breath, hemoptysis or cough. GENITOURINARY: No dysuria or hematuria. MUSCULOSKELETAL: No weakness reported. SKIN: Denies any new rashes or lesions, jaundice or pallor. PSYCHIATRIC: Denies any depression or anxiety. NEUROLOGY: Denies headache, denies any new focal deficits. EARS/NOSE/THROAT: No recent hearing change, congestion, nasal discharge or sore throat. EYES: No pain in eyes, discharge or change in vision. GASTROINTESTINAL: As per HPI. Past Medical History Past Medical History: Atrial Fibrillation, Coronary Artery Disease (CAD), Chest Pain / Angina, COPD, Eye Disorder, Hypertension, Osteoarthritis (OA) Additional Past Medical History / Comment(s): KIDNEY STONES ,POLYPS, BACK PAIN, constipation,macular degeneration terence eyes History of Any Multi-Drug Resistant Organisms: None Reported Past Surgical History: Heart Catheterization Additional Past Surgical History / Comment(s): TERENCE CATARACTS , COLONSCOPY, EGD, BREAST BX, LITHOTRIPSY, PAIN CLINIC PROCEDURES. Past Anesthesia/Blood Transfusion Reactions: No Reported Reaction Past Psychological History: Anxiety Smoking Status: Former smoker Past Alcohol Use History: None Reported Additional Past Alcohol Use History / Comment(s): started smoking 61 yrs ago 1ppd-QUIT SMOKING 03/28/18 Past Drug Use History: None Reported - Past Family History Mother Family Medical History: No Reported History Father Family Medical History: Cancer Additional Family Medical History / Comment(s): leukemia Brother(s) Family Medical History: Coronary Artery Disease (CAD) Sister(s) Family Medical History: COPD Daughter(s) Family Medical History: No Reported History Son(s) Family Medical History: No Reported History Medications and Allergies Home Medications Medication Instructions Recorded Confirmed Type Cholecalciferol (Vitamin D3) 2,000 units PO DAILY 02/21/18 01/27/20 History [Vitamin D3] Vit C/E/Zn/Coppr/Lutein/Zeaxan 1 tab PO DAILY 02/21/18 01/27/20 History [Preservision Areds 2 Softgel] Cranberry Fruit Extract [Cranberry] 4,200 mg PO DAILY 09/08/18 01/27/20 History ALPRAZolam [Xanax] 0.5 mg PO BID PRN 11/03/19 01/27/20 History Apixaban [Eliquis] 5 mg PO BID 11/03/19 01/27/20 History Mirabegron [Myrbetriq] 25 mg PO HS 11/03/19 01/27/20 History PARoxetine [Paxil] 10 mg PO DAILY 11/03/19 01/27/20 History Metoprolol Tartrate [Lopressor] 12.5 mg PO BID #30 tablet 11/05/19 01/27/20 Rx HYDROcodone/APAP 5-325MG [[place] 1 - 2 tab PO Q6HR PRN #48 tab 12/25/19 01/27/20 Rx 5-325] Valsartan/Hydrochlorothiazide 0.5 tab PO DAILY #0 12/31/19 01/27/20 Rx [Valsartan-Hctz 160-12.5 mg Tab] Pantoprazole [Protonix] 40 mg PO DAILY #20 tablet.dr 01/25/20 01/27/20 Rx Famotidine/Ca Carb/Mag Hydrox 1 tab PO ONCE PRN 01/27/20 01/27/20 History [Pepcid Complete Tablet Chew] Allergies Allergy/AdvReac Type Severity Reaction Status Date / Time cyclobenzaprine HCl Allergy Unknown Rash/Hives Verified 01/27/20 22:23 [From Flexeril] Iodinated Contrast Media Allergy Rash/Hives Verified 01/27/20 22:23 [Iodinated Contrast Media - IV Dye] Ktuxrkn-Vsa-Hnc Reductase Allergy leg pain Verified 01/27/20 22:23 Inhibitor TRIPLE DYE Allergy Unknown Rash/Hives Uncoded 01/27/20 22:23 NSAIDS AdvReac Unknown Uncoded 01/27/20 22:23 Physical Exam Vitals: Vital Signs Temp Pulse Pulse Resp BP BP Pulse Ox 01/28/20 14:36 98.3 F 67 18 96/58 97 01/28/20 08:05 18 01/28/20 07:00 98.6 F 64 18 116/66 99 01/28/20 03:25 18 01/28/20 00:41 97.8 F 72 18 107/69 97 01/28/20 00:30 18 01/27/20 23:39 97.6 F 72 16 112/68 99 01/27/20 22:00 80 18 01/27/20 21:00 57 L 18 100 01/27/20 20:00 57 L 18 114/71 100 01/27/20 19:36 61 18 108/71 100 01/27/20 18:24 98.5 F 72 18 112/75 99 Intake and Output 01/28/20 01/28/20 01/28/20 06:59 14:59 22:59 Intake Total 120 Balance 120 Intake: Intake, IV Titration 120 Amount Sodium Chloride 0.9% 1, 120 000 ml @ 20 mls/hr IV . Q24H [facility] Rx#:[id number] Other: Voiding Method Toilet Toilet # Voids 2 Weight 54.431 kg On physical examination, patient appears comfortable in no apparent distress. HEAD: Normocephalic, atraumatic. EYES: No scleral icterus. No conjunctival injection. MOUTH: No lesions, tongue midline. NECK: Trachea midline, no gross abnormalities. CHEST: Clear to auscultation with no wheezing or rhonchi appreciated. HEART: S1-S2 appreciated. ABDOMEN: Soft, thin. Bowel sounds are positive. No organomegaly. No guarding or rigidity. EXTREMITIES: No pedal edema. SKIN: No rashes, no jaundice. NEUROLOGIC: Alert and oriented x3. No focal deficits. Results CBC & Chem 7: 01/29/20 06:28 01/27/20 19:03 Labs: Abnormal Lab Results - Last 24 Hours (Table) 01/27/20 01/27/20 Range/Units 19:03 19:03 Hgb 11.1 L (11.4-16.0) gm/dL Sodium 132 L (137-145) mmol/L BUN 18 H (7-17) mg/dL CT scan - abdomen: report reviewed (Computed tomography scan of the abdomen with multiple hepatic cysts seen.) Assessment and Plan (1) Esophageal dysphagia Narrative/Plan: 79-year-old female presenting with complaints of esophageal dysphagia and nausea since surgery in November. She reports associated decreased oral intake and weight loss. Occasional solid food dysphagia. EGD and colonoscopy in 2018 with esophagitis and gastritis found and normal colonoscopy. Unknown etiology, may be related to esophagitis, motility disorder, uncontrolled reflux or other etiology. Current Visit: Yes Status: Acute Code(s): R13.10 - DYSPHAGIA, UNSPECIFIED SNOMED Code(s): 62941851 (2) Gastritis Current Visit: No Status: Acute Code(s): K29.70 - GASTRITIS, UNSPECIFIED, WITHOUT BLEEDING SNOMED Code(s): 0106323 Plan: Supportive care Okay for diet as tolerated Continue Protonix daily Continue MiraLAX and senna for bowel regimen Continue to monitor her symptomatically CT scan reviewed Can plan on EGD for further evaluation on 01/30/2020 Thank you for allowing us to participate in the care of the patient
--- NOTE | 2020-01-29 13:05 | P.PN ---
Subjective Progress Note Date: 01/29/20 This is a 79-year-old female admitted with a previous medical history significant for hypertension and hypertensive cardiovascular disease, hyperlipidemia, history of coronary artery disease with left heart catheterization that was done in August 2018 that showed a short left main artery with the mild calcification as well as mild disease of the LAD at that time was recommended to continue with the aggressive risk factor modification as well as aggressive medical therapy, also history of paroxysmal atrial fibrillation currently on chronic anticoagulation with Eliquis, significant history of anxiety disorder, she presented to the Emergency department at [facility] on 01/25/2020 with epigastric pain associated with feeling "like her food is getting stuck" and has been taking Purdy post recent hip replacement which make her constipated, had CT scan of the abdomen and pelvis that was negative and she was supposed to see me as outpatient but she showed up to the ER yesterday with epigastric/chest pain and her troponins were negative but because of her symptoms the ER physician decided to put her n and ask for GI consultation for EGD. 01/28: sitting up in bed , feeling a bit better, no chest pain or shortness of breath, no abdominal pain , nausea, still have dysphagia, no hematemesis or hematochezia, hopfully will do her EGD so she can be discharged home in AM Objective - Vital Signs Vital signs: Vital Signs Temp 98.1 F 01/29/20 00:37 Pulse 68 01/29/20 00:37 Resp 16 01/29/20 00:37 BP 96/59 01/29/20 00:37 Pulse Ox 97 01/29/20 00:37 Intake & Output 01/28/20 01/28/20 01/29/20 06:59 18:59 06:59 Intake Total 120 Balance 120 Weight 54.431 kg Intake: Intake, IV Titration 120 Amount Sodium Chloride 0.9% 1, 120 000 ml @ 20 mls/hr IV . Q24H [facility] Rx#:[id number] Other: Voiding Method Toilet Toilet # Voids 2 1 - Exam Review of Systems Constitutional: Reports fatigue, Reports weight loss, Denies anorexia, Denies chronic pain, Denies weakness Eyes: bilateral blurred vision Ears, nose, mouth and throat: Reports dysphagia, Denies neck lump, Denies sore throat Cardiovascular: Denies chest pain, Denies decreased exercise tolerance, Denies dyspnea on exertion, Denies lightheadedness, Denies rapid heart beat, Denies shortness of breath, Denies syncope Respiratory: Denies congestion, Denies cough with sputum, Denies home oxygen, Denies sleep apnea, Denies snoring, Denies wheezing Gastrointestinal: Reports abdominal pain, Reports change in bowel habits, Reports constipation, Reports early satiety, Reports loss of appetite, Reports nausea, Denies bloating, Denies BRBPR, Denies diarrhea, Denies dyspepsia, Denies heartburn, Denies hematemesis, Denies hematochezia, Denies indigestion, Denies jaundice, Denies lactose intolerance, Denies melena, Denies vomiting Genitourinary: Denies dysuria, Denies nocturia Menstruation: Reports postmenopausal Musculoskeletal: Denies myalgias Musculoskeletal: right: hip pain, absent: ankle pain, ankle stiffness, ankle swelling, elbow pain, elbow stiffness, elbow swelling, foot pain, foot stiffness, foot swelling, hand pain, hand stiffness, hand swelling, hip stiffness, hip swelling, knee pain, knee stiffness, knee swelling, shoulder pain, shoulder stiffness, shoulder swelling, wrist pain, wrist stiffness, wrist swelling Integumentary: Denies pruritus, Denies rash Neurological: Denies numbness, Denies weakness Psychiatric: Reports anxiety, Reports depression, Denies sadness/tearfulness, De nies sleep disturbances, Denies suicidal ideation Endocrine: Denies fatigue, Denies weight change physical examination: HEENT: Head is atraumatic, normocephalic, pupils were equal round reactive to light and accommodation, extraocular muscle movement intact. Neck: Supple, no JVD. Chest:decreased breath sounds at the bases. Abdomen and extremities, no chest tenderness, no intercostal retractions Heart: First heart sound is depressed, second heart sounds normal, there is systolic ejection murmur 2/60. Left sternal border. Abdomen: Soft,mild epigastric tenderness nondistended, positive bowel sounds, no hepatosplenomegaly. Extremities: There is no edema, no calf tenderness, dorsalis pedis +2 bilaterally. Neurologic examination: patient is awake alert and oriented 3, cranial nerves III through XII appear grossly intact, muscle power 4 out of 5 in upper ext remities bilaterally, deep tendon reflexes were normal. - Labs CBC & Chem 7: 01/29/20 06:28 01/29/20 06:28 Assessment and Plan Assessment: assessment and plan: 1. Epigasric abdominal pain with feeling of food getting stuck. we will continue Protonix 40 mg orally daily and Zofran 4 mg IVP Q 6 ours as needed, a wait GI input for EGD. 2. history of coronary artery disease with mild calcified and short left main and 30% stenosis of the proximal LAD. Continue aggressive medical therapy. 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 Has been following with cardiology regular basis. 3. Hypertension and hypertensive cardiovascular disease. Continue patient on metoprolol 12.5 mg orally twice every day, valsartan 1/2 tablet 160/12.5 mg orally once every day. 4. Hyperlipidemia. Patient was not able to tolerate either STATINS or PCSK9- INH. 5. Anxiety disorder. Continue Paxil 10 mg orally once every day, continue Xanax as needed. 6. Prior history of tobacco use and dependence patient quit about a year ago. 7. 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 8. Bilateral macular degeneration. Stable. 9. paroxysmal atrial fibrillation currently in sinus rhythm. Hold Eliquis in anticipation of EGD. and continue metoprolol 12.5 mg orally twice every day. 10. DVT prophylaxis. Currently on Eliquis 5 mg orally bid. 11. GI prophylaxis. Continue patient on PPI. 12. increase activity. 13. Await GI input for EGD.
[2020-01-29] MEDS: ALPRAZolam 0.5 MG TAB PO PRN (20:08)
[2020-01-29] MEDS: NON FORMULARY DRUG (Mirabegron [Myrbetriq] 25 MG Tab.Er.24h) PO SCH (23:23)
[2020-01-30] MEDS: SODIUM CHLORIDE 0.9% 1,000 ML IV SCH (00:59)
--- NOTE | 2020-01-30 07:30 | P.PN ---
Subjective Progress Note Date: 01/29/20 Principal diagnosis: Esophageal dysphagia Patient lying in bed. No abdominal pain, nausea or vomiting noted. No acute complains at this time. Objective - Vital Signs Vital signs: Vital Signs Temp 98.7 F 01/29/20 12:26 Pulse 75 01/29/20 12:26 Resp 24 01/29/20 12:26 BP 110/66 01/29/20 07:41 Pulse Ox 98 01/29/20 12:26 Intake & Output 01/28/20 01/29/20 01/29/20 18:59 06:59 18:59 Intake Total 120 Balance 120 Intake: Intake, IV Titration 120 Amount Sodium Chloride 0.9% 1, 120 000 ml @ 20 mls/hr IV . Q24H [facility] Rx#:[id number] Other: Voiding Method Toilet # Voids 1 - Exam On physical examination, patient appears comfortable in no apparent distress. HEAD: Normocephalic, atraumatic. EYES: No scleral icterus. No conjunctival injection. MOUTH: No lesions, tongue midline. NECK: Trachea midline, no gross abnormalities. CHEST: Clear to auscultation with no wheezing or rhonchi appreciated. HEART: S1-S2 appreciated. ABDOMEN: Soft. Bowel sounds are positive. No organomegaly. No guarding or rigidity. EXTREMITIES: No rashes noted, or pallor or jaundice. SKIN: No rashes, no jaundice. NEUROLOGIC: Alert and oriented x3. No focal deficits. - Labs CBC & Chem 7: 01/29/20 06:28 01/29/20 06:28 Labs: Abnormal Lab Results - Last 24 Hours (Table) 01/29/20 01/29/20 Range/Units 06:28 06:28 Hgb 11.2 L (11.4-16.0) gm/dL MCHC 30.6 L (31.0-37.0) g/dL Total Protein 5.5 L (6.2-8.2) g/dL Albumin 3.70 L (3.80-4.90) g/dL Assessment and Plan (1) Esophageal dysphagia Narrative/Plan: 79-year-old female presenting with complaints of esophageal dysphagia and nausea since surgery in November. She reports associated decreased oral intake and weight loss. Occasional solid food dysphagia. EGD and colonoscopy in 2018 with esophagitis and gastritis found and normal colonoscopy. Unknown etiology, may be related to esophagitis, motility disorder, uncontrolled reflux or other etiology. Current Visit: Yes Status: Acute Code(s): R13.10 - DYSPHAGIA, UNSPECIFIED SNOMED Code(s): 28837586 (2) Gastritis Current Visit: No Status: Acute Code(s): K29.70 - GASTRITIS, UNSPECIFIED, WITHOUT BLEEDING SNOMED Code(s): 7053683 Plan: Supportive care Okay for diet as tolerated Continue Protonix therapy N.p.o. after midnight Plan for EGD tomorrow for further evaluation Continue to hold anticoagulation at this time Further recommendations pending findings of EGD Thank you for allowing us to participate in the care of the patient
[2020-01-30] MEDS: SENNOSIDES 8.6 MG TAB PO SCH (07:52)
[2020-01-30] MEDS: PARoxetine 10 MG TAB PO SCH (07:52)
[2020-01-30] MEDS: polyethylene glycoL 3350 17 GM POWD.PACK PO SCH (07:52)
[2020-01-30] MEDS: VIT A,C & E-LUTEIN-MINERALS 1 EACH TAB PO SCH (07:52)
[2020-01-30] MEDS: CHOLECALCIFEROL 1,000 UNIT TAB PO SCH (07:52)
[2020-01-30] MEDS: PANTOPRAZOLE 40 MG TABLET PO SCH (07:52)
[2020-01-30 07:57] VITALS: RESP 16
[2020-01-30] MEDS: hydroCHLOROthiazide 12.5 MG CAP PO SCH (08:00)
[2020-01-30] MEDS: VALSARTAN 80 MG TAB PO SCH (08:00)
[2020-01-30] MEDS: METOPROLOL TARTRATE 12.5 MG TAB PO SCH (08:00)
[2020-01-30] MEDS: ONDANSETRON 4 MG/2 ML VIAL IVP PRN (08:01)
[2020-01-30] MEDS ORDERED: PROPOFOL 10 MG/ML 20 ML VIAL IV ONE (13:26)
[2020-01-30] MEDS ORDERED: LIDOCAINE 1% INJ 10MG/ML (20 ML MDV) ONE (13:26)
[2020-01-30] MEDS ORDERED: IV FLUID CONTINUATION 1,000 ML IV ONE (13:27)
--- NOTE | 2020-01-30 13:38 | P.PCN ---
Date of Procedure: 01/30/20 Description of Procedure: BRIEF HISTORY: 79-year-old female with a medical history significant for hypertension, coronary artery disease, hyperlipidemia, atrial fibrillation who presents to the hospital due to complaints of epigastric pain and dysphagia. The patient had a computed tomography scan of the abdomen showing numerous hypodense lesions in the liver possible hepatic cysts, laboratory evaluation significant for hemoglobin 11.1, WBC 10.4, platelet count 333,000 with total bilirubin 0.6, alkaline phosphatase 87, AST 22 and ALT 13. The patient denies any history of peptic ulcer disease. She denies any abdominal pain but does report nausea since her hip replacement in November. No vomiting reported. She does report constipation at baseline. Last endoscopic evaluation in 12/06/2017 with gastritis and esophagitis found on EGD and normal colonoscopy. She reports a sensation of dysphagia and food sticking. PROCEDURE PERFORMED: Esophagogastroduodenoscopy with biopsy. PREOPERATIVE DIAGNOSIS: Esophageal dysphagia, nausea, unintentional weight loss. ESTIMATED BLOOD LOSS: Minimal. IV sedation per anesthesia. PROCEDURE: After informed consent was obtained, the patient was brought into the endoscopy unit. IV sedation was administered by Anesthesia under continuous monitoring. Initially the Olympus GIF-190 video endoscope was inserted into the mouth. Esophagus intubated without any difficulty. It was gradually advanced into the stomach and duodenum and carefully examined. The bulb and the second part of the duodenum appeared normal, with biopsies taken of the duodenum to rule out celiac sprue. The scope at this time was withdrawn to the stomach, adequately insufflated with air, and upon careful examination, mucosa of the antrum, body, cardia and the fundus appeared normal, except for some mild scattered punctate erythema suggestive of mild gastritis with biopsies taken. The scope was then withdrawn into the esophagus. The GE junction was located at 35 cm from the incisors, with biopsies taken to rule out reflux esophagitis. The esophagus appeared normal., With mid esophageal biopsies taken to rule out eosinophilic esophagitis There were no erosions or ulcerations seen and the patient tolerated the procedure well. IMPRESSION: 1. Mild gastritis. 2. Biopsies of the duodenum, antrum body, GE junction and mid esophagus. RECOMMENDATIONS: The findings of this examination were discussed with the patient and medical team. Okay to resume diet. Okay to resume medications including anticoagulation therapy. Okay for discharge when otherwise medically stable. Await pathology from biopsies. Patient would likely benefit from PPI therapy daily for symptoms of dysphagia and follow-up for further evaluation if symptoms persist.
[2020-01-30 14:05] VITALS: BP 106/55; PULSE 68; TEMP 97.6
--- NOTE | 2020-01-30 14:42 | P.DS ---
Providers Date of admission: 01/27/20 21:20 Expected date of discharge: 01/30/20 Attending physician: Marcie Varma Consults: 01/27/20 21:02 Consult Physician Routine Consulting Provider: José Luis Cat Consult Reason/Comments: possible acs Do you want consulting provider notified?: Yes Consult Physician Routine Consulting Provider: Nivia Zhang Consult Reason/Comments: gi symptoms Do you want consulting provider notified?: Yes Primary care physician: Marcie Varma Hospital Course: This is a 79-year-old female admitted with a previous medical history significant for hypertension and hypertensive cardiovascular disease, hyperlipidemia, history of coronary artery disease with left heart catheterization that was done in August 2018 that showed a short left main artery with the mild calcification as well as mild disease of the LAD at that time was recommended to continue with the aggressive risk factor modification as well as aggressive medical therapy, also history of paroxysmal atrial fibrillation currently on chronic anticoagulation with Eliquis, significant history of anxiety disorder, she presented to the Emergency department at [facility] on 01/25/2020 with epigastric pain associated with feeling "like her food is getting stuck" and has been taking [place] post recent hip replacement which make her constipated, had CT scan of the abdomen and pelvis that was negative and she was supposed to see me as outpatient but she showed up to the ER yesterday with epigastric/chest pain and her troponins were negative but because of her symptoms the ER physician decided to put her n and ask for GI consultation for EGD. 01/28: sitting up in bed , feeling a bit better, no chest pain or shortness of breath, no abdominal pain , nausea, still have dysphagia, no hematemesis or hematochezia, hopfully will do her EGD so she can be discharged home in AM Discharge diagnoses: 1. Epigasric abdominal pain with feeling of food getting stuck. Psot EGD that showed mild gastritis. 2. history of coronary artery disease with mild calcified and short left main and 30% stenosis of the proximal LAD. . 3. Hypertension and hypertensive cardiovascular disease. 4. Hyperlipidemia. 5. Anxiety disorder. 6. Prior history of tobacco use and dependence patient quit about a year ago. 7. 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 Bilateral macular degeneration. 9. paroxysmal atrial fibrillation currently in sinus rhythm. Patient Condition at Discharge: Fair Plan - Discharge Summary Discharge Rx Participant: No New Discharge Prescriptions: New Dicyclomine [Bentyl] 20 mg PO QID PRN #120 tab PRN Reason: Dyspepsia polyethylene glycoL 3350 [Miralax] 17 gm PO DAILY powd.pack Promethazine [Phenergan] 12.5 mg PO Q6HR PRN #60 tab PRN Reason: Nausea Sennosides [Senokot] 8.6 mg PO DAILY tab Continue Cholecalciferol (Vitamin D3) [Vitamin D3] 2,000 units PO DAILY Vit C/E/Zn/Coppr/Lutein/Zeaxan [Preservision Areds 2 Softgel] 1 tab PO DAILY Cranberry Fruit Extract [Cranberry] 4,200 mg PO DAILY Mirabegron [Myrbetriq] 25 mg PO HS Apixaban [Eliquis] 5 mg PO BID PARoxetine [Paxil] 10 mg PO DAILY ALPRAZolam [Xanax] 0.5 mg PO BID PRN PRN Reason: Anxiety Metoprolol Tartrate [Lopressor] 12.5 mg PO BID #30 tablet Valsartan/Hydrochlorothiazide [Valsartan-Hctz 160-12.5 mg Tab] 0.5 tab PO DAILY #0 Pantoprazole [Protonix] 40 mg PO DAILY #20 tablet.dr Discontinued HYDROcodone/APAP 5-325MG [Wind[place] 5-325] 1 - 2 tab PO Q6HR PRN #48 tab PRN Reason: Pain Famotidine/Ca Carb/Mag Hydrox [Pepcid Complete Tablet Chew] 1 tab PO ONCE PRN PRN Reason: Gi Upset Discharge Medication List Cholecalciferol (Vitamin D3) [Vitamin D3] 2,000 units PO DAILY 02/21/18 [History] Vit C/E/Zn/Coppr/Lutein/Zeaxan [Preservision Areds 2 Softgel] 1 tab PO DAILY 02/21/18 [History] Cranberry Fruit Extract [Cranberry] 4,200 mg PO DAILY 09/08/18 [History] ALPRAZolam [Xanax] 0.5 mg PO BID PRN 11/03/19 [History] Apixaban [Eliquis] 5 mg PO BID 11/03/19 [History] Mirabegron [Myrbetriq] 25 mg PO HS 11/03/19 [History] PARoxetine [Paxil] 10 mg PO DAILY 11/03/19 [History] Metoprolol Tartrate [Lopressor] 12.5 mg PO BID #30 tablet 11/05/19 [Rx] Valsartan/Hydrochlorothiazide [Valsartan-Hctz 160-12.5 mg Tab] 0.5 tab PO DAILY #0 12/31/19 [Rx] Pantoprazole [Protonix] 40 mg PO DAILY #20 tablet.dr 01/25/20 [Rx] Dicyclomine [Bentyl] 20 mg PO QID PRN #120 tab 01/30/20 [Rx] Promethazine [Phenergan] 12.5 mg PO Q6HR PRN #60 tab 01/30/20 [Rx] Sennosides [Senokot] 8.6 mg PO DAILY tab 01/30/20 [Rx] polyethylene glycoL 3350 [Miralax] 17 gm PO DAILY powd.pack 01/30/20 [Rx] Follow up Appointment(s)/Referral(s): Marcie Varma MD [Primary Care Provider] - 1-2 days Patrica Brink MD [STAFF PHYSICIAN] - 2 Weeks Discharge Disposition: HOME SELF-CARE
== END 2020-01-30 16:06 | disposition home or self-care (01) ==
LOC: EC 18:22 → 4SSUR 21:20 → 1SOBS 01-29 16:27
PROVIDERS: ADMIT Internal Medicine; ATTEND Internal Medicine
DX: K29.50 Unspecified chronic gastritis without bleeding (principal); K20.90 Esophagitis, unspecified without bleeding; R13.14 Dysphagia, pharyngoesophageal phase; K59.00 Constipation, unspecified; E78.5 Hyperlipidemia, unspecified; F41.9 Anxiety disorder, unspecified; H35.30 Unspecified macular degeneration; I11.9 Hypertensive heart disease without heart failure; I25.10 Atherosclerotic heart disease of native coronary artery without angina pectoris; I48.0 Paroxysmal atrial fibrillation; J44.9 Chronic obstructive pulmonary disease, unspecified; M47.814 Spondylosis without myelopathy or radiculopathy, thoracic region; Z79.01 Long term (current) use of anticoagulants; Z79.82 Long term (current) use of aspirin; Z79.899 Other long term (current) drug therapy; Z80.6 Family history of leukemia; Z82.49 Family history of ischemic heart disease and other diseases of the circulatory system; Z82.5 Family history of asthma and other chronic lower respiratory diseases; Z87.442 Personal history of urinary calculi; Z87.891 Personal history of nicotine dependence; Z96.649 Presence of unspecified artificial hip joint
CPT/HCPCS: 43239; 96376 ×2; 96361 ×2; 96374; 99285; 36415; 93005; 88305; 80053; 80048; 84484 ×2; 85025 ×2; G0378 ×5; J2405 ×2; J2001; J2704

== ENCOUNTER 2020-07-25 13:00 | Emergency (ER) | payer MEDICARE, BC ==
[2020-07-25 13:18] VITALS: TEMP 98.5
--- NOTE | 2020-07-25 13:53 | ED ---
General Adult HPI - General Chief complaint: Recheck/Abnormal Lab/Rx Stated complaint: post vaccine pain in shoulders Time Seen by Provider: 07/25/20 13:26 Source: patient Mode of arrival: wheelchair Limitations: no limitations - History of Present Illness Initial comments: Dictation was produced using [employer] dictation software. please excuse any g rammatical, word or spelling errors. This patient was cared for during a federal and state declared state of emergency secondary to Covid 19 Chief Complaint: 79-year-old female past medical history of A. fib, coronary artery disease hypertension presents today with myalgias History of Present Illness: An is an 79-year-old female she has multiple comorbidities. Over the last 4 days she is developed symptoms of myalgias. One week ago she had the first dose of her Pfizer Covid vaccine. Colace later she began developing symptoms of myalgias. She did have some sore throat however her symptoms improved. Patient's only complaint is diffuse myalgias of her arms legs and back. He says his shortness of breath. No sore throat. She denies any obvious exposure to anybody with respiratory symptoms or Covid The ROS documented in this emergency department record has been reviewed and confirmed by me. Those systems with pertinent positive or negative responses have been documented in the HPI. All other systems are other negative and/or noncontributory. PHYSICAL EXAM: General Impression: Alert and oriented x3, not in acute distress HEENT: Normocephalic atraumatic, extra-ocular movements intact, pupils equal and reactive to light bilaterally, mucous membranes moist. Cardiovascular: Heart regular rate and rhythm Chest: Able to complete full sentences, no retractions, no tachypnea Abdomen: abdomen soft, non-tender, non-distended, no organomegaly Musculoskeletal: Pulses present and equal in all extremities, no peripheral edema Motor: no focal deficits noted Neurological: CN II-XII grossly intact, no focal motor or sensory deficits noted Skin: Intact with no visualized rashes Psych: Normal affect and mood ED course: 79-year-old female with chief complaint of myalgias. Vital signs upon arrival are within acceptable limits. Laboratory evaluation obtained. CBC Nicho. Metabolic panel is negative. No rhabdomyolysis. Urinalysis positive for urinary tract infection. 4 panel virus is negative. Chest x-ray is nonacute. Patient given prescription for by mouth Biaxin for urinary tract infection. Advised follow-up with primary care physician. Patient's symptoms likely secondary to vaccine adverse effect. - Related Data Home Medications Medication Instructions Recorded Confirmed Cholecalciferol (Vitamin D3) 2,000 units PO DAILY 02/21/18 01/27/20 [Vitamin D3] Vit C/E/Zn/Coppr/Lutein/Zeaxan 1 tab PO DAILY 02/21/18 01/27/20 [Preservision Areds 2 Softgel] Cranberry Fruit Extract [Cranberry] 4,200 mg PO DAILY 09/08/18 01/27/20 ALPRAZolam [Xanax] 0.5 mg PO BID PRN 11/03/19 01/27/20 Apixaban [Eliquis] 5 mg PO BID 11/03/19 01/27/20 Mirabegron [Myrbetriq] 25 mg PO HS 11/03/19 01/27/20 PARoxetine [Paxil] 10 mg PO DAILY 11/03/19 01/27/20 Previous Rx's Medication Instructions Recorded Metoprolol Tartrate [Lopressor] 12.5 mg PO BID #30 tablet 11/05/19 Valsartan/Hydrochlorothiazide 0.5 tab PO DAILY #0 12/31/19 [Valsartan-Hctz 160-12.5 mg Tab] Pantoprazole [Protonix] 40 mg PO DAILY #20 tablet.dr 01/25/20 Dicyclomine [Bentyl] 20 mg PO QID PRN #120 tab 01/30/20 Promethazine [Phenergan] 12.5 mg PO Q6HR PRN #60 tab 01/30/20 Sennosides [Senokot] 8.6 mg PO DAILY tab 01/30/20 polyethylene glycoL 3350 [Miralax] 17 gm PO DAILY powd.pack 01/30/20 Cephalexin [Keflex] 500 mg PO Q6HR 7 Days #28 cap 07/25/20 Allergies Allergy/AdvReac Type Severity Reaction Status Date / Time cyclobenzaprine HCl Allergy Unknown Rash/Hives Verified 07/25/20 13:18 [From Flexeril] Iodinated Contrast Media Allergy Rash/Hives Verified 07/25/20 13:18 [Iodinated Contrast Media - IV Dye] Afcnauj-Tqh-Nnf Reductase Allergy leg pain Verified 07/25/20 13:18 Inhibitor TRIPLE DYE Allergy Unknown Rash/Hives Uncoded 07/25/20 13:18 NSAIDS AdvReac Unknown Uncoded 07/25/20 13:18 Review of Systems ROS Statement: Those systems with pertinent positive or pertinent negative responses have been documented in the HPI. ROS Other: All systems not noted in ROS Statement are negative. Past Medical History Past Medical History: Atrial Fibrillation, Coronary Artery Disease (CAD), Chest Pain / Angina, COPD, Eye Disorder, Hypertension, Osteoarthritis (OA) Additional Past Medical History / Comment(s): KIDNEY STONES ,POLYPS, BACK PAIN, constipation,macular degeneration terence eyes History of Any Multi-Drug Resistant Organisms: None Reported Past Surgical History: Heart Catheterization Additional Past Surgical History / Comment(s): TERENCE CATARACTS , COLONSCOPY, EGD, BREAST BX, LITHOTRIPSY, PAIN CLINIC PROCEDURES. Past Anesthesia/Blood Transfusion Reactions: No Reported Reaction Past Psychological History: Anxiety Smoking Status: Former smoker Past Alcohol Use History: None Reported Past Drug Use History: None Reported - Past Family History Mother Family Medical History: No Reported History Father Family Medical History: Cancer Additional Family Medical History / Comment(s): leukemia Brother(s) Family Medical History: Coronary Artery Disease (CAD) Sister(s) Family Medical History: COPD Daughter(s) Family Medical History: No Reported History Son(s) Family Medical History: No Reported History General Exam Limitations: no limitations Course Vital Signs 07/25/20 13:16 Temperature 98.5 F Pulse Rate 78 Respiratory 18 Rate Blood Pressure 132/74 O2 Sat by Pulse 98 Oximetry Medical Decision Making - Lab Data Result diagrams: 07/25/20 14:19 07/25/20 14:19 Lab Results 07/25/20 07/25/20 07/25/20 Range/Units 13:51 14:19 14:19 WBC 7.3 (3.8-10.6) k/uL RBC 5.10 (3.80-5.40) m/uL Hgb 13.2 (11.4-16.0) gm/dL Hct 39.8 (34.0-46.0) % MCV 78.1 L (80.0-100.0) fL MCH 25.8 (25.0-35.0) pg MCHC 33.1 (31.0-37.0) g/dL RDW 16.4 H (11.5-15.5) % Plt Count 308 (150-450) k/uL MPV 6.5 Neutrophils % 66 % Lymphocytes % 23 % Monocytes % 8 % Eosinophils % 2 % Basophils % 1 % Neutrophils # 4.8 (1.3-7.7) k/uL Lymphocytes # 1.7 (1.0-4.8) k/uL Monocytes # 0.6 (0-1.0) k/uL Eosinophils # 0.2 (0-0.7) k/uL Basophils # 0.0 (0-0.2) k/uL Anisocytosis Slight Microcytosis Slight Sodium 139 (137-145) mmol/L Potassium 3.9 (3.5-5.1) mmol/L Chloride 103 (98-107) mmol/L Carbon Dioxide 29 (22-30) mmol/L Anion Gap 7 mmol/L BUN 13 (7-17) mg/dL Creatinine 0.66 (0.52-1.04) mg/dL Est GFR (CKD-EPI)AfAm >90 (>60 ml/min/1.73 sqM) Est GFR (CKD-EPI)NonAf 84 (>60 ml/min/1.73 sqM) Glucose 91 (74-99) mg/dL Calcium 9.5 (8.4-10.2) mg/dL Creatine Kinase 27 L (30-135) U/L Urine Color Urine Appearance (Clear) Urine pH (5.0-8.0) Ur Specific [place] (1.001-1.035) Urine Protein (Negative) Urine Glucose (UA) (Negative) Urine Ketones (Negative) Urine Blood (Negative) Urine Nitrite (Negative) Urine Bilirubin (Negative) Urine Urobilinogen (<2.0) mg/dL Ur Leukocyte Esterase (Negative) Urine RBC (0-5) /hpf Urine WBC (0-5) /hpf Ur Squamous Epith Cells (0-4) /hpf Urine Mucus (None) /hpf Influenza Type A (PCR) Not Detected (Not Detectd) Influenza Type B (PCR) Not Detected (Not Detectd) RSV (PCR) Not Detected (Not Detectd) SARS-CoV-2 (PCR) Not Detected (Not Detectd) 07/25/20 Range/Units 16:25 WBC (3.8-10.6) k/uL RBC (3.80-5.40) m/uL Hgb (11.4-16.0) gm/dL Hct (34.0-46.0) % MCV (80.0-100.0) fL MCH (25.0-35.0) pg MCHC (31.0-37.0) g/dL RDW (11.5-15.5) % Plt Count (150-450) k/uL MPV Neutrophils % % Lymphocytes % % Monocytes % % Eosinophils % % Basophils % % Neutrophils # (1.3-7.7) k/uL Lymphocytes # (1.0-4.8) k/uL Monocytes # (0-1.0) k/uL Eosinophils # (0-0.7) k/uL Basophils # (0-0.2) k/uL Anisocytosis Microcytosis Sodium (137-145) mmol/L Potassium (3.5-5.1) mmol/L Chloride (98-107) mmol/L Carbon Dioxide (22-30) mmol/L Anion Gap mmol/L BUN (7-17) mg/dL Creatinine (0.52-1.04) mg/dL Est GFR (CKD-EPI)AfAm (>60 ml/min/1.73 sqM) Est GFR (CKD-EPI)NonAf (>60 ml/min/1.73 sqM) Glucose (74-99) mg/dL Calcium (8.4-10.2) mg/dL Creatine Kinase (30-135) U/L Urine Color Yellow Urine Appearance Clear (Clear) Urine pH 5.5 (5.0-8.0) Ur Specific [place] 1.018 (1.001-1.035) Urine Protein Negative (Negative) Urine Glucose (UA) Negative (Negative) Urine Ketones Negative (Negative) Urine Blood Negative (Negative) Urine Nitrite Negative (Negative) Urine Bilirubin Negative (Negative) Urine Urobilinogen <2.0 (<2.0) mg/dL Ur Leukocyte Esterase Large H (Negative) Urine RBC 4 (0-5) /hpf Urine WBC 44 H (0-5) /hpf Ur Squamous Epith Cells 5 H (0-4) /hpf Urine Mucus Few H (None) /hpf Influenza Type A (PCR) (Not Detectd) Influenza Type B (PCR) (Not Detectd) RSV (PCR) (Not Detectd) SARS-CoV-2 (PCR) (Not Detectd) Disposition Clinical Impression: Myalgia Disposition: HOME SELF-CARE Condition: Good Instructions (If sedation given, give patient instructions): Musculoskeletal P ain (ED), Urinary Tract Infection in Women (DC) Prescriptions: Cephalexin [Keflex] 500 mg PO Q6HR 7 Days #28 cap Is patient prescribed a controlled substance at d/c from ED?: No Referrals: Marcie Varma MD [Primary Care Provider] - 1-2 days Time of Disposition: 17:02
--- NOTE | 2020-07-25 14:11 | XR ---
EXAMINATION TYPE: XR chest 1V portable DATE OF EXAM: 07/25/2020 HISTORY: Shortness of breath. COMPARISON: 12/30/19 TECHNIQUE: Single view of the chest is submitted. FINDINGS: Demonstrated are scattered senescent parenchymal change. There is no evidence for focal infiltrate. The heart is stable. Hilar and mediastinal structures are within normal limits. Degenerative changes are seen of the dorsal spine. IMPRESSION: 1. Chronic changes without evidence for acute pulmonary disease.
[2020-07-25 14:37] LABS: Anisocytosis Slight; Basophils % (A) 1 %; Eosinophils # (A) 0.2 k/uL (0-0.7); Eosinophils % (A) 2 %; HCT 39.8 % (34.0-46.0); HGB 13.2 gm/dL (11.4-16.0); Lymphocytes # (A) 1.7 k/uL (1.0-4.8); Lymphocytes % (A) 23 %; MCH 25.8 pg (25.0-35.0); MCHC 33.1 g/dL (31.0-37.0); MCV 78.1 fL (80.0-100.0); Mean Platelet Volume 6.5; Microcytosis Slight; Monocytes # (A) 0.6 k/uL (0-1.0); Monocytes % (A) 8 %; Neutrophils # (A) 4.8 k/uL (1.3-7.7); Neutrophils % (A) 66 %; Platelet Count 308 k/uL (150-450); RDW 16.4 % (11.5-15.5); WBC 7.3 k/uL (3.8-10.6)
[2020-07-25 14:42] LABS: African American GFR (CKD) >90 (>60 ml/min/1.73 sqM); Anion Gap 7 mmol/L; Blood Urea Nitrogen 13 mg/dL (7-17); Calcium 9.5 mg/dL (8.4-10.2); Carbon Dioxide 29 mmol/L (22-30); Chloride 103 mmol/L (98-107); Creatine Kinase 27 U/L (30-135); Glucose 91 mg/dL (74-99); Non-African American GFR(CKD) 84 (>60 ml/min/1.73 sqM); Potassium 3.9 mmol/L (3.5-5.1); Sodium 139 mmol/L (137-145)
[2020-07-25 16:33] LABS: Appearance,Urine Clear (Clear); Bilirubin,Urine Negative (Negative); Blood,Urine Negative (Negative); Color,Urine Yellow; Glucose,Urine (UA) Negative (Negative); Ketones,Urine Negative (Negative); Leukocyte Esterase,Urine Large (Negative); Mucus,Urine Few /hpf; Nitrite,Urine Negative (Negative); PH, Urine 5.5 (5.0-8.0); Protein,Urine Negative (Negative); RBC,Urine 4 /hpf (0-5); Specific Gravity,Urine 1.018 (1.001-1.035); Squamous Epithelial Cell,Urine 5 /hpf (0-4); Urobilinogen,Urine <2.0 mg/dL (<2.0); WBC,Urine 44 /hpf (0-5)
[2020-07-25] MEDS ORDERED: CEPHALEXIN 500MG STARTER PACK 4 CAP BTL PO STA (17:00)
[2020-07-25 17:20] VITALS: BP 128/78; PULSE 89; RESP 16
== END 2020-07-25 17:17 | disposition home or self-care (01) ==
LOC: EC 13:00
DX: M79.10 Myalgia, unspecified site (principal); R06.02 Shortness of breath; I10 Essential (primary) hypertension; I25.10 Atherosclerotic heart disease of native coronary artery without angina pectoris; I48.91 Unspecified atrial fibrillation; J44.9 Chronic obstructive pulmonary disease, unspecified; M19.90 Unspecified osteoarthritis, unspecified site; Z87.891 Personal history of nicotine dependence; Z87.442 Personal history of urinary calculi; Z79.01 Long term (current) use of anticoagulants
CPT/HCPCS: 36415; 71045; 80048; 81001; 82550; 85025; 87086; 87636; 99285

== ENCOUNTER → 2020-09-04 | Outpatient (CLI) | payer MEDICARE, BC ==
[2020-09-04 13:26] LABS: HCT 34.4 % (34.0-46.0); HGB 11.5 gm/dL (11.4-16.0); MCH 26.8 pg (25.0-35.0); MCHC 33.5 g/dL (31.0-37.0); MCV 80.1 fL (80.0-100.0); Mean Platelet Volume 6.8; Platelet Count 317 k/uL (150-450); RBC 4.29 m/uL (3.80-5.40); RDW 15.8 % (11.5-15.5); WBC 5.3 k/uL (3.8-10.6)
[2020-09-04 13:43] LABS: ALT 10 U/L (4-34); AST 22 U/L (14-36); African American GFR (CKD) >90 (>60 ml/min/1.73 sqM); Albumin 4.1 g/dL (3.5-5.0); Alkaline Phosphatase 82 U/L (38-126); Anion Gap 7 mmol/L; Blood Urea Nitrogen 14 mg/dL (7-17); Calcium 9.5 mg/dL (8.4-10.2); Carbon Dioxide 29 mmol/L (22-30); Chloride 103 mmol/L (98-107); Glucose 91 mg/dL (74-99); Non-African American GFR(CKD) 78 (>60 ml/min/1.73 sqM); Potassium 4.1 mmol/L (3.5-5.1); Sodium 139 mmol/L (137-145); Total Bilirubin 0.4 mg/dL (0.2-1.3); Total Protein 6.5 g/dL (6.3-8.2)
[2020-09-04 13:46] LABS: INR 1.1 (<1.2); Partial Thromboplastin Time 24.5 sec (22.0-30.0); Prothrombin Time 11.1 sec (9.0-12.0)
[2020-09-04 13:55] LABS: Appearance,Urine Clear (Clear); Bacteria,Urine Rare /hpf; Bilirubin,Urine Negative (Negative); Blood,Urine Negative (Negative); Color,Urine Yellow; Glucose,Urine (UA) Negative (Negative); Ketones,Urine Negative (Negative); Leukocyte Esterase,Urine Moderate (Negative); Mucus,Urine Many /hpf; Nitrite,Urine Negative (Negative); PH, Urine 5.5 (5.0-8.0); Protein,Urine Trace (Negative); Specific Gravity,Urine 1.024 (1.001-1.035); Squamous Epithelial Cell,Urine 4 /hpf (0-4); Urobilinogen,Urine <2.0 mg/dL (<2.0); WBC,Urine 2 /hpf (0-5)
== END | disposition home or self-care (01) ==
LOC: LABPAT 12:45
PROVIDERS: ATTEND Orthopaedic Surgery
DX: Z01.812 Encounter for preprocedural laboratory examination (principal); Z79.01 Long term (current) use of anticoagulants
CPT/HCPCS: 36415; 80053; 81001; 85027; 85610; 85730; 87070

== ENCOUNTER 2020-09-16 05:31 | Day surgery (SDC) | payer MEDICARE, OTHER, BC ==
[2020-09-11 10:33] VITALS: BMI 24.6
[~2020-09-16 05:31] MED LIST changes: -ACETAMINOPHEN TAB 500 MG TAB PO ONE; +ACETAMINOPHEN TAB 500 MG TAB PO PRN; -DEXAMETHASONE SOD PHOSPHATE 10 MG/ML 1 ML VIAL IV ONE; +DEXAMETHASONE SOD PHOSPHATE 4 MG/ML 1 ML VIAL IV ONE; -GABAPENTIN 300 MG CAP PO ONE; +GABAPENTIN 300 MG CAP PO PRN; -HYDROmorphone 0.5 MG/0.5 ML SYRINGE IVP PRN; +LACTATED RINGERS 1,000 ML IV SCH; -MELOXICAM 7.5 MG TAB PO ONE; +MELOXICAM 7.5 MG TAB PO PRN; +MIDAZOLAM 2 MG/2 ML VIAL IV PRN; -SCOPOLAMINE 1.5MG/72HR PATCH TRANSDERM ONE; -TRANEXAMIC ACID 1,000 MG in SODIUM CHLORIDE 0.9% 100 ML IVPB ONE; +TRANEXAMIC ACID 1,000 MG in SODIUM CHLORIDE 0.9% 100 ML IVPB PRN; -VANCOMYCIN 1,000 MG in SODIUM CHLORIDE 0.9% 250 ML IVPB ONE; +VANCOMYCIN 1,000 MG in SODIUM CHLORIDE 0.9% 250 ML IVPB PRN
[2020-09-16] MEDS ORDERED: LIDOCAINE 1% (10MG/ML) FOR IV START INTRADERMA ONE (06:20)
[2020-09-16] MEDS ORDERED: HEPARIN SODIUM,PORCINE 10,000 UNIT/ML 1 ML VIAL ONE (06:55)
[2020-09-16] MEDS ORDERED: fentaNYL (PF) 50 MCG/ML 2 ML AMP ONE (06:55)
[2020-09-16] MEDS ORDERED: SUCCINYLCHOLINE CHLORIDE 100 MG/5 ML SYR IV ONE (06:55)
[2020-09-16] MEDS ORDERED: SODIUM CHLORIDE 0.9% IRRIG 1,000 ML BTL IRRIGATION ONE (06:55)
[2020-09-16] MEDS ORDERED: LIDOCAINE 1% INJ 10MG/ML (20 ML MDV) ONE (06:55)
[2020-09-16] MEDS ORDERED: GLYCOPYRROLATE 0.2 MG/ML 2 ML VIAL ONE (06:55)
[2020-09-16] MEDS ORDERED: SODIUM CHLORIDE 0.9% 100 ML BAG ONE (06:55)
[2020-09-16] MEDS ORDERED: TRANEXAMIC ACID 1,000 MG/10 ML VIAL ONE (06:55)
[2020-09-16] MEDS ORDERED: NEOSTIGMINE 1 MG/ML 10 ML VIAL ONE (06:55)
[2020-09-16] MEDS ORDERED: ROCURONIUM 10 MG/ML (5 ML VIAL) IV ONE (06:55)
[2020-09-16] MEDS ORDERED: PROPOFOL 10 MG/ML 20 ML VIAL IV ONE (06:55)
[2020-09-16] MEDS ORDERED: ceFAZolin 3,000 MG in SODIUM CHLORIDE 0.9% IRRIGATIO 3,000 ML IRRIGATION ONE (06:57)
[2020-09-16] MEDS: ROPIVACAINE/EPI/CLONIDINE/KET 50 ML SYRINGE MISCELLANE PRN ×2 (07:26→07:56)
--- NOTE | 2020-09-16 08:16 | P.OP ---
Date of Procedure: 09/16/20 Preoperative Diagnosis: Severe osteoarthritis left hip Postoperative Diagnosis: Severe osteoarthritis left hip Procedure(s) Performed: Left total hip arthroplasty with a direct anterior approach Implants: Gut[employer] Nephew Polarstem standard size 3 [employer] R3, 3 hole hemispherical acetabular shell, 48 mm [employer] Reflection 6.5 mm cancellus screw, 20 mm 2 [employer] R3, XLPE 20 acetabular liner [employer]hew Oxinium femoral head 32 m, +0 All components were press-fit. The articulation is Oxinium on polyethylene. Anesthesia: GETA Surgeon: Glenn Boggs Cosmetic Sales Advisor #1: Stephanie Medel Estimated Blood Loss (ml): 100 Pathology: other (Femoral head) Condition: stable Disposition: PACU Indications for Procedure: After failure of conservative treatment we discussed the surgical and nonsurgical treatment options at length. Patient wishes to proceed with a total hip arthroplasty with a direct anterior approach. Complications specific to this procedure were discussed at length, including but not limited to infection, leg length discrepancy, dislocation, nerve injury, and fracture. Covid-19 was also discussed at length with the patient, and they are aware of the current policies and procedures. The patient was given the option of delaying surgery, but they elect to proceed knowing these risks. Patient is aware of all these complications and informed consent was obtained Operative Findings: The operative findings are consistent with severe osteoarthritis of the left hip Description of Procedure: Patient was seen and evaluated in the preoperative area and the consent was reviewed. The operative site was marked with a skin marker. The patient was then brought to the operating room and given preoperative antibiotics int ravenously. 1 g of Tranexamic acid was also given intravenously. A general anesthetic was administered by the anesthesia department. The patient was then placed on the Campbell table with the bony prominences well-padded. The hip area was then prepped with a ChloraPrep solution and draped in the usual sterile fashion. A universal timeout was then performed, which confirmed the patient's name, gilmore rgical site, ALLERGIES, and procedure being performed on the consent. Next the incision site was located at 1 cm distal to the anterior superior iliac spine along the flexion crease of the hip. The skin and subcutaneous tissues were sharply incised. Incision was carefully dissected down to the fascia overlying the tensor fascia rekha muscle. This fascia was then incised in line with the incision. Care was taken to stay laterally in order to avoid injuring the lateral femoral cutaneous nerve. Next, using blunt finger dissection, the tensor fascia rekha muscle was dissected off its investing fascia. The muscle was then carefully retracted laterally with a cobra retractor over the lateral neck of the femur. Next, the circumflex vessels were identified and cauterized using the AquaMantis device. The anterior hip capsule was then exposed. The capsule was then opened and an inverted T fashion. Cobra retractors were then placed intracapsularly. The retractors were maintained intracapsular throughout the procedure. The proximal femur was then visualized. A small amount of traction was placed on the leg. The femoral neck was then osteotomized appropriate level above the lesser trochanter. A small wedge of bone was then removed from the remaining femoral head. Next, using a corkscrew the femoral head was removed from the acetabulum. On gross visual inspection, the femoral head had complete loss of articular cartilage and multiple periarticular osteophytes. The femoral head was then measured. Attention was then turned to the acetabulum. The acetabulum was exposed and any remaining labrum was excised. Sequential reaming of the acetabulum was performed using fluoroscopic guidance until there was a good bed of bleeding cancellus bone. When the appropriate size was reached, a trial was then placed. The position and fit of the trial was checked with fluoroscopy. The trial was then removed. Then, using fluoroscopic guidance, the final implant was impacted at 20 of anteversion and 40 of abduction, and fully seated in the acetabulum. 2 screws were then placed in the acetabulum. Again fluoroscopy was used to check position of the screws. Next, the liner was then impacted, with a 20 elevated liner located in the anterior superior quadrant. Component locking was confirmed. Attention was then directed to the femur. With the aid of the Campbell table, the femur was externally rotated to approximately 130, extended, and adducted under the opposite leg. A side hook was then placed under the proximal femur, and the side hook elevator was used to elevate the proximal femur while releasing the capsule. Retractors were then placed. A capsular release was performed, as well as a release of the conjoined tendon, which afforded excellent visualizatio n of the proximal femur. Next, a box osteotome was used to lateralize the proximal femur. A re dye hand was then used to locate the femoral canal. Sequential broaching was then performed with appropriate size which afforded excellent fixation in the proximal femur. A trial was then placed with appropriate head and neck, and the hip was gently reduced with the aid of the Campbell table. Fluoroscopy was then used to check position of the components, as well as to ensure equal leg lengths. The hip was then gently dislocated and the trials were then removed. Final implants were then impacted and the hip was again reduced. Final fluoroscopic x-rays confirmed that the components were in anatomic position, as well as equal leg lengths. The hip was also taken through range of motion, and found to be stable. The hip was then copiously irrigated with antibiotic solution with pulsatile lavage. The hip was then irrigated with Irrisept solution. The soft tissues were then injected with a ropivacaine solution, which consisted of 246.25 mg of ropivacaine, 0.5 mg of epinephrine, 30 mg of Toradol, 80 g of clonidine, and 48.45 mL of sterile water, for a total of 100 mL of fluid injected. A second dose of 1 g of Tranexamic acid was also given intravenously. Any blood collected by Cell Saver was then returned to the patient at this time. The fascia was then closed with 2-0 strata fix suture. The subcutaneous tissue was closed with 3-0 Vicryl. The subcuticular tissue was closed with 3-0 strata fix suture. The skin was then closed with Exofin skin glue. After the glue and dried, and Optifoam silver impregnated dressing was applied. The patient was then transferred to the recovery room in stable condition. The construction assistant AMA Mcintosh was required due to the complexity of surgery, and the need for skilled surgical supplies sterilizer for positioning, draping, exposure, retraction, and closure of the wound.
[2020-09-16] MEDS: HYDROmorphone 0.5 MG/0.5 ML SYRINGE IVP PRN ×3 (08:29→08:54)
[2020-09-16 08:31] VITALS: TEMP 97.1
[2020-09-16] MEDS ORDERED: ONDANSETRON 4 MG/2 ML VIAL IVP PRN (08:42)
[2020-09-16] MEDS ORDERED: NALOXONE 0.4 MG/ML 1 ML VIAL IV PRN (08:42)
[2020-09-16] MEDS ORDERED: HYDROmorphone 0.2 MG/1 ML SYRINGE IVP PRN (08:42)
[2020-09-16] MEDS ORDERED: HYDROmorphone 0.5 MG/0.5 ML SYRINGE IVP PRN ×2 (08:42)
[2020-09-16] MEDS ORDERED: HYDROcodone/APAP 7.5-325MG 1 EACH TAB PO PRN ×2 (08:43)
[2020-09-16] MEDS ORDERED: SODIUM CHLORIDE 0.9% 1,000 ML IV SCH (08:45)
--- NOTE | 2020-09-16 09:03 | XR ---
Fluoroscopy HISTORY: Left Hip replacement 14 seconds fluoroscopy time supplied to the referring clinician. 2 intraoperative C-arm images docum ent the procedure. See dictated report from orthopedic surgery.
--- NOTE | 2020-09-16 09:22 | XR ---
EXAMINATION TYPE: XR Hip Limited LT DATE OF EXAM: 09/16/2020 CLINICAL HISTORY: Status post hip surgery TECHNIQUE: Single view left hip COMPARISON: None. FINDINGS: The patient is status post left total hip replacement with acetabular screws. Soft tissue swelling an d soft tissue gas are indicative of recent postoperative status. IMPRESSION: Status post left hip replacement.
[2020-09-16] MEDS ORDERED: LACTATED RINGERS 1,000 ML IV ONE ×2 (10:30→13:30)
[2020-09-16 14:03] VITALS: RESP 18
[2020-09-16 14:16] VITALS: BP 100/58; PULSE 60
[2020-09-16] MEDS ORDERED: ONDANSETRON 4 MG/2 ML VIAL IVP ONE (14:30)
== END 2020-09-16 16:00 | disposition home health service (06) ==
LOC: OR 05:31
PROVIDERS: ATTEND Orthopaedic Surgery
DX: M16.12 Unilateral primary osteoarthritis, left hip (principal); I10 Essential (primary) hypertension; E78.5 Hyperlipidemia, unspecified; R00.2 Palpitations; M25.752 Osteophyte, left hip; E78.00 Pure hypercholesterolemia, unspecified; Z72.0 Tobacco use; Z88.8 Allergy status to other drugs, medicaments and biological substances; Z91.048 Other nonmedicinal substance allergy status; E78.2 Mixed hyperlipidemia; I65.23 Occlusion and stenosis of bilateral carotid arteries; I48.19 Other persistent atrial fibrillation; I49.5 Sick sinus syndrome; Z79.899 Other long term (current) drug therapy
CPT/HCPCS: 97110; 97161; 97165; 86891; 88300; 73501; 27130; C1776; J3370; J1644; J1100; J2710; J0690 ×2; J2405; J2001; J3010; J0330; J2704; J1170; 86850; 86900; 86901

== ENCOUNTER 2020-09-22 | Inpatient (IN) | payer MEDICARE, BC | END 2020-09-24 17:10 | disposition home or self-care (01) | DRG 287 | PROVIDERS: ADMIT Internal Medicine | PROC: 4A023N7 Measurement of Cardiac Sampling and Pressure, Left Heart, Percutaneous Approach (ICD-10-PCS; principal; 2020-09-24) | PROC: B2111ZZ Fluoroscopy of Multiple Coronary Arteries using Low Osmolar Contrast (ICD-10-PCS; 2020-09-24) | PROC: B2151ZZ Fluoroscopy of Left Heart using Low Osmolar Contrast (ICD-10-PCS; 2020-09-24) | CPT/HCPCS: 36415; 70450; 70553; 71046; 80048; 80053; 81003; 82272; 83880; 84484; 85025; 85027; 87040; 87635; 93005; 93306; 93454; 96361; 96365; 96366; 99285 ==

== ENCOUNTER 2021-10-20 11:10 | Inpatient (IN) | payer MEDICARE, BC ==
[2021-10-20] MEDS ORDERED: ALPRAZolam 0.5 MG TAB ONE (11:55)
[2021-10-20] MEDS ORDERED: SODIUM CHLORIDE 0.9% 1,000 ML IV ONE (12:00)
[2021-10-20] MEDS ORDERED: fentaNYL (PF) 50 MCG/ML 2 ML AMP ONE (12:55)
[2021-10-20] MEDS ORDERED: VERAPAMIL 2.5 MG/ML 2 ML AMP ONE (12:55)
[2021-10-20] MEDS ORDERED: HEPARIN SODIUM 1,000 UN/ML (10ML VL) ONE (12:55)
[2021-10-20] MEDS ORDERED: fentaNYL (PF) 50 MCG/ML 2 ML AMP IV ONE (13:00)
[2021-10-20] MEDS ORDERED: LIDOCAINE 1% INJ 10MG/ML (5 ML VIAL-PF) SQ ONE (13:01)
[2021-10-20] MEDS ORDERED: VERAPAMIL SYRINGE (5 MG/10 ML) INTRAARTER ONE (13:03)
[2021-10-20] MEDS ORDERED: MIDAZOLAM 2 MG/2 ML VIAL IV ONE (13:09)
[2021-10-20] MEDS ORDERED: HEPARIN SODIUM 1,000 UN/ML (10ML VL) IV ONE (13:18)
[2021-10-20] MEDS ORDERED: IOPAMIDOL-370 125ML BTL INJ ONE (13:23)
[2021-10-20] MEDS ORDERED: RX INFO: IV CONTRAST WAS GIVEN 1 EACH MISC MISCELLANE PRN (13:33)
--- NOTE | 2021-10-20 13:42 | P.CRDCN ---
History of Present Illness Consult date: 10/20/21 History of present illness: History of Present Illness: The patient is an 80-year-old female with a history of hypertension, hyperlipidemia, intolerant to statin and history of mild CAD as well as paroxysmal atrial fibrillation who presented to the emergency room at [facility] with severe back discomfort. Her d-dimer was elevated and her CT angiogram of the chest showed no evidence of pulmonary embolism. On subsequent lab evaluation and repeat EKG she had significant elevation of high sensitivity troponin and new T-wave inversion in the lateral precordial leads. Patient had no chest discomfort but predominantly back discomfort that subsequently resolved. She has mild dyspnea on exertion. She denies any dizziness, palpitations or syncope. She has no history of PND or orthopnea. She underwent a cardiac catheterization 2020 that showed mild obstructive disease. She has been anticoagulated for ablation but she was in sinus mechanism on presentation. She has a known history of moderate obstructive carotid disease but no history of stroke. She has a history of hypertension and hyperlipidemia, she stopped smoking about 4 years ago. Medications:Eliquis, Praluent, metoprolol succinate, valsartan- HCT. Paxil Review of Systems: Respiratory: No history of asthma, bronchitis or recent cough. GI: No nausea or vomiting . No history of peptic ulcer disease. No recent GI bleed. : No hematuria or dysuria. Nervous System: No stroke or seizure. Physical Examination: 80-year-old female, alert and oriented no apparent distress ,Blood pressure 120/70, Heart rate 80 Head: Normocephalic. Eyes: Sclerae nonicteric. Neck: Good carotid upstroke, no bruit, no jugular venous distention. Lungs: Clear to auscultation. Heart: Regular rate and rhythm, S1-S2, no S3, no rub. Systolic murmur at the base . Abdomen: Soft nontender, positive bowel sounds no organomegaly. Extremities: No edema, intact distal pulses. Labs: Pending from [facility] EKG: EKG shows a sinus mechanism with subsequent T-wave inversion in lead V5 and V6 compared to the initial EKG Impression: 1. Evidence suggestive of non-STEMI with EKG changes and elevation of high sensitivity troponin 2. History of hypertension 3. History of hyperlipidemia 4. Paroxysmal atrial fibrillation Plan: 1. Proceed with cardiac catheterization, the risks and the complications were discussed with the patient and her family 2. Obtain an echocardiogram with Doppler 3. Continue present therapy and hold anticoagulation for now 4. Depending on the results of the testing further recommendations will be made 5. Thank you for this consult we will follow with you. Past Medical History Past Medical History: Atrial Fibrillation, Coronary Artery Disease (CAD), Chest Pain / Angina, COPD, Eye Disorder, Hypertension, Osteoarthritis (OA) Additional Past Medical History / Comment(s): KIDNEY STONES ,POLYPS, BACK PAIN, constipation,macular degeneration terence eyes History of Any Multi-Drug Resistant Organisms: None Reported Past Surgical History: Heart Catheterization, Orthopedic Surgery Additional Past Surgical History / Comment(s): TERENCE CATARACTS , COLONSCOPY, EGD, BREAST BX, LITHOTRIPSY, PAIN CLINIC PROCEDURES. Past Anesthesia/Blood Transfusion Reactions: No Reported Reaction Past Psychological History: Anxiety Smoking Status: Former smoker Past Alcohol Use History: None Reported Past Drug Use History: None Reported - Past Family History Mother Family Medical History: No Reported History Father Family Medical History: Cancer Additional Family Medical History / Comment(s): leukemia Brother(s) Family Medical History: Coronary Artery Disease (CAD) Sister(s) Family Medical History: COPD Daughter(s) Family Medical History: No Reported History Son(s) Family Medical History: No Reported History Medications and Allergies Home Medications Medication Instructions Recorded Confirmed Type ALPRAZolam [Xanax] 0.5 mg PO BID PRN 11/03/19 10/20/21 History Apixaban [Eliquis] 5 mg PO BID 11/03/19 10/20/21 History PARoxetine [Paxil] 10 mg PO DAILY 11/03/19 10/20/21 History Valsartan/Hydrochlorothiazide 0.5 tab PO DAILY #0 12/31/19 10/20/21 Rx [Valsartan-Hctz 160-12.5 mg Tab] Cholecalciferol [Vitamin D3 (25 25 mcg PO DAILY 09/20/20 10/20/21 History Mcg = 1000 Iu)] Alirocumab [Praluent Pen] 75 mg SQ DIRECTED 10/20/21 10/20/21 History Metoprolol Succinate (ER) [Toprol 25 mg PO DAILY 10/20/21 10/20/21 History Xl] Allergies Allergy/AdvReac Type Severity Reaction Status Date / Time cyclobenzaprine HCl Allergy Unknown Rash/Hives Verified 09/20/20 11:30 [From Flexeril] Iodinated Contrast Media Allergy Rash/Hives Verified 09/20/20 11:30 [Iodinated Contrast Media - IV Dye] Kstqvmd-XBN-UvI Reductase Allergy leg pain Verified 09/20/20 11:30 Inhibitor [Qetbwfb-Mev-Att Reductase Inhibitor] TRIPLE DYE Allergy Unknown Rash/Hives Uncoded 09/20/20 07:15 NSAIDS AdvReac Unknown Uncoded 09/20/20 07:15 Physical Exam Vitals: Vital Signs Temp Pulse Resp BP Pulse Ox 10/20/21 12:04 97.8 F 84 16 109/66 100 Intake and Output 10/19/21 10/20/21 10/20/21 22:59 06:59 14:59 Intake Total 600 Balance 600 Intake: IV 600 Other: Weight 59 kg Results Current Medications Generic Name Dose Route Start Last Admin Trade Name Freq PRN Reason Stop Dose Admin Aspirin 81 mg 10/21/21 09:00 Aspirin 81 Mg PO DAILY [facility] Clopidogrel Bisulfate 75 mg 10/20/21 13:45 Clopidogrel 75 Mg Tab PO DAILY [facility] Sodium Chloride 1,000 mls @ 75 mls/hr 10/20/21 13:45 Saline 0.9% IV 10/20/21 16:46 .[id number] [facility] Isosorbide Mononitrate 30 mg 10/20/21 13:45 Isosorbide Mononitrate Er 30 Mg Tab.Er.24h PO DAILY [facility] Metoprolol Succinate 25 mg 10/21/21 09:00 Metoprolol Succinate (Er) 25 Mg Tab.Er.24h PO DAILY [facility] Miscellaneous Information 1 each 10/20/21 13:33 Rx Info: Iv Contrast Was Given 1 Each Misc MISCELLANE 10/22/21 13:33 DAILY PRN Per Protocol Non-Formulary Medication 0.5 tab 10/21/21 09:00 Valsartan/Hydrochlorothiazide [Valsartan-Hctz 160-12.5 Mg Tab] PO DAILY [facility] Non-Formulary Medication 75 mg 10/20/21 13:45 Alirocumab [Praluent Pen] SQ DIRECTED [facility] Paroxetine HCl 10 mg 10/21/21 09:00 Paroxetine 20 Mg Tab PO DAILY [facility] Intake and Output 10/19/21 10/20/21 10/20/21 22:59 06:59 14:59 Intake Total 600 Balance 600 Intake: IV 600 Other: Weight 59 kg Patient Weight 10/21/21 06:59 Weight 59 kg
[2021-10-20] MEDS ORDERED: SODIUM CHLORIDE 0.9% 1,000 ML IV SCH (13:45)
--- NOTE | 2021-10-20 13:46 | P.CARDCATH ---
Date of Procedure: 10/20/21 Description of Procedure: Cardiac Catheterization: The patient is an 80-year-old female who presented with back discomfort, troponin elevation and new EKG changes. Recommendations were made regarding cardiac catheterization, the risks and the complications were discussed with the patient who is in full understanding and agreement. 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 Using Xylocaine Anesthesia and Seldinger technique, a 6-Greek sheath was introduced in the left radial artery . Subsequently, selective coronary angiography was performed using a 5-Greek 4 bend Armond catheter. Multiple views of the coronary artery including hemiaxial views were obtained. The and right Armond catheter was used to cross the aortic valve and LVEDP was calculated. Following that, catheter and sheath were removed. Hemostasis was obtained with deployment of TR band . There was no immediate complication. Patient was returned to room in stable condition. Of note, the patient received a total of 3000 units of intravenous heparin as well as intra-arterial verapamil. Findings: Left main: This is a short sized vessel bifurcating into LAD and circumflex, left main has no high-grade stenosis LAD: This is a moderately sized vessel, giving rise to small diagonal branch. The proximal LAD has a 50% eccentric lesion, the rest of the vessel has no high- grade stenosis Left circumflex: This is a large nondominant vessel giving rise to 3 obtuse marginal branch, the left circumflex has 10-20% plaque in the mid segment with no high-grade stenosis RCA: This is a dominant vessel moderate caliber giving rise to a PDA and a PLV, the RCA has 20% plaque in the midsegment Left Ventriculogram: Not performed Hemodynamics: There was no gradient across the aortic valve, LVEDP was 20 mmHg Conclusion: 1. Mild triple-vessel disease 2. No significant progression compared to August 2020 3. Elevated LVEDP Recommendations: I have recommended to maximize his medical therapy, the patient appears to have a non-STEMI high-grade stenosis, could be related to vasospastic disease or ruptured plaque. The findings and the recommendations were discussed with the patient and the family and they were in full understanding and agreement. Duration of sedation is 27 minutes.
[2021-10-20] MEDS ORDERED: SODIUM CHLORIDE 0.9% 1,000 ML in EMPTY BAG 1 BAG IV ONE (14:55)
[2021-10-20] MEDS ORDERED: ASPIRIN 325 MG TAB PO STA (14:55)
[2021-10-20] MEDS ORDERED: ALPRAZolam 0.25 MG TAB PO PRN (14:55)
[2021-10-20] MEDS ORDERED: ATORVASTATIN 80 MG TAB PO STA (14:55)
[2021-10-20] MEDS ORDERED: NITROGLYCERIN SL TABS 0.4 MG TAB SUBLINGUAL PRN (14:55)
[2021-10-20] MEDS: CLOPIDOGREL 75 MG TAB PO SCH (15:28)
[2021-10-20] MEDS: ISOSORBIDE MONONITRATE ER 30 MG TAB.ER.24H PO SCH (17:32)
[2021-10-20 23:12] LABS: HDL Cholesterol 54.4 mg/dL (40.00-60.00); Triglycerides 49.8 mg/dL (0.00-149.00)
[2021-10-20 23:25] LABS: Chol/HDL Ratio 3.27 Ratio
[2021-10-21] MEDS ORDERED: HEPARIN SODIUM,PORCINE 10,000 UNIT in SODIUM CHLORIDE 0.9% 1,000 ML IRRIGATION PRN (07:00)
[2021-10-21] MEDS ORDERED: HEPARIN SODIUM,PORCINE 2,500 UNIT in SODIUM CHLORIDE 0.9% 250 ML IRRIGATION PRN (07:00)
[2021-10-21] MEDS: METOPROLOL SUCCINATE (ER) 25 MG TAB.ER.24H PO SCH (08:59)
[2021-10-21] MEDS: ASPIRIN 81 MG PO SCH (08:59)
[2021-10-21] MEDS: CLOPIDOGREL 75 MG TAB PO SCH (08:59)
[2021-10-21] MEDS: VALSARTAN 80 MG TAB PO SCH (08:59)
[2021-10-21] MEDS: ISOSORBIDE MONONITRATE ER 30 MG TAB.ER.24H PO SCH (08:59)
[2021-10-21] MEDS ORDERED: HEPARIN SODIUM,PORCINE/PF 5,000 UNIT/0.5 ML SYRINGE SQ SCH (09:00)
[2021-10-21] MEDS ORDERED: FAMOTIDINE 20 MG/2 ML VIAL IV SCH (09:00)
[2021-10-21] MEDS: PARoxetine 10 MG TAB PO SCH (09:00)
--- NOTE | 2021-10-21 09:09 | P.HPIM ---
History of Present Illness This is a pleasant 80 years old female with past medical history of atrial fibrillation on Eliquis at home, hypertension, hyperlipidemia Presents because of chest pain/back pain underwent cardiac cath yesterday by busher helper showing no significant progression and only mild triple vessel coronary artery disease. Patient originally presented to [facility] before she was transferred to this facility for cardiac cath. Which was unremarkable for significant coronary artery disease. Currently she states her back pain has resolved and denies any other symptoms and that she is back to normal self. Denies chest pain or dyspnea. No coughing. No headache or weakness or numbness. No change in urine or bowel habits. No fever Patient vitals are stable. Troponin were elevated BMP is unremarkable. Liver enzymes not elevated. Sodium 142, potassium 3.6, creatinine 1.0. AST 15, ALT 21, bilirubin 0.5. CBC is normal. D-dimer is 524, with reference 0-500 CTA of the chest showing no acute pulmonary embolism there is 0.3 cm density may be small calcified granuloma in the posterior right upper lung field present previously. Possible atelectasis Chest x-ray: No active cardiopulmonary process. Review of Systems Review of systems CONSTITUTIONAL: No fever, no malaise, no fatigue. HEENT: No recent visual problems or hearing problems. Denied any sore throat. CARDIOVASCULAR: No orthopnea, PND, no palpitations, no syncope. PULMONARY: No shortness of breath, no cough, no hemoptysis. GASTROINTESTINAL: No diarrhea, no nausea, no vomiting, no abdominal pain. Normoactive bowel sounds. NEUROLOGICAL: No headaches, no weakness, no numbness. HEMATOLOGICAL: Denies any bleeding or petechiae. GENITOURINARY: Denies any burning micturition, frequency, or urgency. MUSCULOSKELETAL/RHEUMATOLOGICAL: Denies any joint pain, swelling, or any muscle pain. ENDOCRINE: Denies any polyuria or polydipsia. Past Medical History Past Medical History: Atrial Fibrillation, Coronary Artery Disease (CAD), Chest Pain / Angina, COPD, Eye Disorder, Hypertension, Osteoarthritis (OA) Additional Past Medical History / Comment(s): KIDNEY STONES ,POLYPS, BACK PAIN, constipation,macular degeneration terence eyes History of Any Multi-Drug Resistant Organisms: None Reported Past Surgical History: Heart Catheterization, Orthopedic Surgery Additional Past Surgical History / Comment(s): TERENCE CATARACTS , COLONSCOPY, EGD, BREAST BX, LITHOTRIPSY, PAIN CLINIC PROCEDURES. Past Anesthesia/Blood Transfusion Reactions: No Reported Reaction Past Psychological History: Anxiety Smoking Status: Former smoker Past Alcohol Use History: None Reported Additional Past Alcohol Use History / Comment(s): started smoking 61 yrs ago [id number] SMOKING 03/28/18 Past Drug Use History: None Reported - Past Family History Mother Family Medical History: No Reported History Father Family Medical History: Cancer Additional Family Medical History / Comment(s): leukemia Brother(s) Family Medical History: Coronary Artery Disease (CAD) Sister(s) Family Medical History: COPD Daughter(s) Family Medical History: No Reported History Son(s) Family Medical History: No Reported History Medications and Allergies Home Medications Medication Instructions Recorded Confirmed Type ALPRAZolam [Xanax] 0.5 mg PO BID PRN 11/03/19 10/20/21 History Apixaban [Eliquis] 5 mg PO BID 11/03/19 10/20/21 History PARoxetine [Paxil] 10 mg PO DAILY 11/03/19 10/20/21 History Valsartan/Hydrochlorothiazide 0.5 tab PO DAILY #0 12/31/19 10/20/21 Rx [Valsartan-Hctz 160-12.5 mg Tab] Cholecalciferol [Vitamin D3 (25 25 mcg PO DAILY 09/20/20 10/20/21 History Mcg = 1000 Iu)] Evolocumab [Repatha Syringe] 140 mg SQ Q14D 10/20/21 10/20/21 History Metoprolol Tartrate [Lopressor] 12.5 mg PO BID 10/20/21 10/20/21 History Allergies Allergy/AdvReac Type Severity Reaction Status Date / Time cyclobenzaprine HCl Allergy Unknown Rash/Hives Verified 10/20/21 15:53 [From Flexeril] Iodinated Contrast Media Allergy Rash/Hives Verified 10/20/21 15:53 [Iodinated Contrast Media - IV Dye] Jksdahb-ISL-GvI Reductase Allergy leg pain Verified 10/20/21 15:53 Inhibitor [Bmjrnqq-Zdg-Lwz Reductase Inhibitor] TRIPLE DYE Allergy Unknown Rash/Hives Uncoded 09/20/20 07:15 NSAIDS AdvReac Unknown Uncoded 09/20/20 07:15 Physical Exam Vitals: Vital Signs Temp Pulse Pulse Pulse Resp BP BP 07/27/22 03:47 98.2 F 89 18 10/20/21 23:36 98.3 F 92 18 10/20/21 19:24 98.5 F 82 18 10/20/21 17:18 86 16 10/20/21 15:18 85 16 10/20/21 14:48 80 16 10/20/21 14:25 89 16 102/63 10/20/21 14:10 77 16 95/55 10/20/21 13:55 84 16 103/68 10/20/21 13:40 82 16 130/67 10/20/21 12:04 97.8 F 84 16 109/66 BP Pulse Ox 10/21/21 03:47 93/56 95 10/20/21 23:36 106/54 96 10/20/21 19:24 103/64 95 10/20/21 17:18 91/59 95 10/20/21 15:18 103/60 96 10/20/21 14:48 94/53 96 10/20/21 14:25 93 L 10/20/21 14:10 93 L 10/20/21 13:55 93 L 10/20/21 13:40 94 L 10/20/21 12:04 100 Intake and Output 10/20/21 10/20/21 10/21/21 14:59 22:59 06:59 Intake Total 675 240 480 Balance 675 240 480 Intake: IV 675 Oral 240 480 Other: Voiding Method Toilet Toilet # Voids 1 3 Weight 59 kg GENERAL: The patient is alert and oriented x3, not in any acute distress. Well developed, well nourished. HEENT: Pupils are round and equally reacting to light. EOMI. No scleral icterus. No conjunctival pallor. Normocephalic, atraumatic. No pharyngeal erythema. No thyromegaly. CARDIOVASCULAR: S1 and S2 present. No murmurs, rubs, or gallops. PULMONARY: Chest is clear to auscultation, no wheezing or crackles. ABDOMEN: Soft, nontender, nondistended, normoactive bowel sounds. No palpable organomegaly. MUSCULOSKELETAL: No joint swelling or deformity. EXTREMITIES: No cyanosis, clubbing, or pedal edema. NEUROLOGICAL: Gross neurological examination did not reveal any focal deficits. SKIN: No rashes. no petechiae. Results Labs: Abnormal Lab Results - Last 24 Hours (Table) 10/20/21 10/20/21 Range/Units 15:14 18:12 Troponin I 1.280 H* 1.170 H* (0.000-0.034) ng/mL Assessment and Plan Assessment: Elevated troponin, with unremarkable cardiac cath Mildly elevated d-dimer with negative CTA of the chest for PE Hypertension Hyperlipidemia Plan: This is a pleasant 80 years old female who presents with chest pain/back pain with negative CTPA for PE and negative cardiac cath Continue with busher helper on the case follow-up echocardiogram Labs and medication were reviewed.. Continue same treatment. Continue with symptomatic treatment. Resume home medication. Monitor lytes and vitals. DVT and GI prophylaxis. Further recommendations as per clinical course of the patient DVT prophylaxis: Subcutaneous heparin GI Prophylaxis: Pepcid We'll keep monitoring for now
--- NOTE | 2021-10-21 09:39 | CA ---
Transthoracic Echo Report Name: Nancy Demarco Age: 80 Gender: F : 1940 Exam Date: 10/20/2021 13:55 Exam Location: [place] [facility] Ht (in): 60 Wt (lb): 130 Ordering Physician: Casie Olivares MD ([id number]) Attending/Referring Phys: Director Search Kayla Sherman RDCS Procedure CPT: Indications: nstemi Cardiac Hx: Technical Quality: Technically difficult study Contrast 1: Lumason Total Dose (mL): 3 Contrast 2: Total Dose (mL): MEASUREMENTS (Male / Female) Normal Values 2D ECHO LV Diastolic Diameter PLAX 4.3 cm 4.2 - 5.9 / 3.9 - 5.3 cm LV Systolic Diameter PLAX 2.5 cm IVS Diastolic Thickness 1.0 cm 0.6 - 1.0 / 0.6 - 0.9 cm LVPW Diastolic Thickness 1.2 cm 0.6 - 1.0 / 0.6 - 0.9 cm LV Relative Wall Thickness 0.5 RV Internal Dim ED PLAX 2.8 cm LA Volume 60.1 cm??? 18 - 58 / 22 - 52 cm??? M-MODE Aortic Root Diameter MM 2.5 cm LA Systolic Diameter MM 3.6 cm LA Ao Ratio MM 1.4 MV E Point Septal Separation 0.7 cm AV Cusp Separation MM 1.8 cm DOPPLER MV Area PHT 4.7 cm??? Mitral E Point Velocity 48.6 cm/s Mitral A Point Velocity 56.2 cm/s Mitral E to A Ratio 0.9 MV Deceleration Time 162.6 ms MV E' Velocity 2.7 cm/s Mitral E to MV E' Ratio 18.2 TR Peak Velocity 207.8 cm/s TR Peak Gradient 17.3 mmHg Right Ventricular Systolic Press 22.3 mmHg FINDINGS Left Ventricle Left ventricular ejection fraction is estimated at 30-35 Apical, anterseptel, posterior, inferior/lateral hypokinesis. Base of the ventricle contracts well. Consider apical ballooning syndrome Right Ventricle Normal right ventricular size and function. Right ventricular systolic pressure within normal limits. Right Atrium Normal right atrial size. Left Atrium Mildly increased left atrial volume. Mildly increased left atrial area. Mitral Valve Structurally normal mitral valve. Mild mitral regurgitation. Aortic Valve Aortic valve sclerosis. Tricuspid Valve Structurally normal tricuspid valve. Pulmonic Valve Pulmonic valve not well visualized. Pericardium Echo free space anterior to the right ventricle likely represents a fat pad. Aorta Normal size aortic root and proximal ascending aorta. CONCLUSIONS Base of the left ventricle contracts well possible apical ballooning syndrome. Ejection fraction is about 30%. Small echo free space anteriorly may be a fat pad. No significant Doppler abnormality Previewed by: Dr. Nayely Estevez MD (Electronically Signed) Final Date: 21 October 2021 09:38
[2021-10-21 10:11] LABS: Albumin 3.7 g/dL (3.5-5.0); Calcium 8.7 mg/dL (8.4-10.2); Potassium 4.4 mmol/L (3.5-5.1); Total Bilirubin 0.2 mg/dL (0.2-1.3)
[2021-10-21] MEDS: APIXABAN 5 MG TAB PO SCH ×2 (10:31→20:31)
--- NOTE | 2021-10-21 12:40 | P.PN ---
Subjective This is an 80-year-old female with history of paroxysmal atrial fibrillation on Eliquis, hypertension, dyslipidemia, intolerant to statin therapy, mild nonobstructive coronary artery disease. Patient followed previously with Dr. Brink, now fallen with Dr. Olivares. Patient presents emergency department at [facility] concerning for an NSTEMI with elevated troponins and EKG abnormalities. Patient was transferred to [facility] for cardiac catheterization and possible intervention. Patient underwent cardiac catheterization with Dr. Olivares which revealed mild triple vessel disease, no significant progression compared to cardiac cath in August 2020, elevated LVEDP. Per Dr. Olivares, patient appeared to have a non-STEMI high-grade stenosis, could be related to vasospastic disease or ruptured plaque. 10/21/2021 Patient seen and examined at bedside, distress. She denies any chest pain or shortness of breath. Vital signs are stable. No complaints Echocardiogram revealed an EF of 30%, basal left ventricle contracts for possible apical ballooning syndrome Labs: Sodium 135, potassium 4.4, BUN 23, serum creatinine 0.8 Meds: Eliquis 5 mg twice a day, aspirin 81 mg daily, Plavix 75 mg daily, metoprolol succinate 25 mg daily, valsartan 80 mg daily Blood pressure 101/64, heart rate 80, afebrile, oxygen saturations 96% on room air GENERAL: Well-appearing, well-nourished and in no acute distress. NECK: Supple without JVD or thyromegaly. LUNGS: Breath sounds clear to auscultation bilaterally. Respiration equal and unlabored. No wheezes, rales or rhonchi. HEART: Regular rate and rhythm without murmurs, rubs or gallops. S1 and S2 heard. EXTREMITIES: Normal range of motion, no edema. No clubbing or cyanosis. Peripheral pulses intact. SKIN: Left radial cath site clean dry, 2+ pulses no hematoma ASSESSMENT NSTEMI s/p cardiac catheterization on 10/20/2021 which revealed mild triple vessel disease Cardiomyopathy, non-ischemic with EF 30% Paroxysmal atrial fibrillation on Eliquis Hypertension Dyslipidemia Intolerant to statin therapy PLAN Continue aspirin and Plavix Continue Eliquis Continue metoprolol succinate and Valsartan Hopefully discharge in next 24 hours Further recommendations based on clinical course Nurse Practitioner note has been reviewed, I agree with a documented findings and plan of care. Patient was seen and examined. Objective - Vital Signs Vital signs: Vital Signs Temp 98.3 F 10/21/21 08:55 Pulse 80 10/21/21 08:55 Resp 18 10/21/21 08:55 BP 101/64 10/21/21 08:55 Pulse Ox 96 10/21/21 08:55 FiO2 Intake & Output 10/20/21 10/21/21 10/21/21 18:59 06:59 18:59 Intake Total 795 600 Balance 795 600 Weight 59 kg Intake: IV 675 Oral 120 600 Other: Voiding Method Toilet Toilet Toilet # Voids 3 1 - Labs CBC & Chem 7: 10/21/21 08:31 Labs: Abnormal Lab Results - Last 24 Hours (Table) 10/20/21 10/20/21 10/21/21 Range/Units 15:14 18:12 08:31 Sodium 135 L (137-145) mmol/L BUN 23 H (7-17) mg/dL Glucose 152 H (74-99) mg/dL Troponin I 1.280 H* 1.170 H* (0.000-0.034) ng/mL Total Protein 6.0 L (6.3-8.2) g/dL
[2021-10-21] MEDS: ALPRAZolam 0.5 MG TAB PO PRN (21:23)
[2021-10-22] MEDS: METOPROLOL SUCCINATE (ER) 25 MG TAB.ER.24H PO SCH (08:02)
[2021-10-22] MEDS: PARoxetine 10 MG TAB PO SCH (08:02)
[2021-10-22] MEDS: VALSARTAN 80 MG TAB PO SCH (08:02)
[2021-10-22] MEDS: ALPRAZolam 0.5 MG TAB PO PRN ×2 (08:02→20:18)
[2021-10-22] MEDS: APIXABAN 5 MG TAB PO SCH ×2 (08:02→20:17)
[2021-10-22] MEDS: CLOPIDOGREL 75 MG TAB PO SCH (08:03)
[2021-10-22] MEDS: ASPIRIN 81 MG PO SCH (08:03)
[2021-10-22] MEDS: FAMOTIDINE 20 MG TAB PO SCH (08:03)
[2021-10-22] MEDS: SPIRONOLACTONE 25 MG TAB PO SCH (08:03)
[2021-10-22] MEDS ORDERED: ACETAMINOPHEN TAB 325 MG TAB PO PRN (08:08)
[2021-10-22] MEDS ORDERED: traMADol 50 MG TAB PO PRN (08:09)
[2021-10-22] MEDS: ISOSORBIDE MONONITRATE ER 30 MG TAB.ER.24H PO SCH (09:39)
--- NOTE | 2021-10-22 10:40 | P.PN ---
Subjective This is a pleasant 80 years old female with past medical history of atrial fibrillation on Eliquis at home, hypertension, hyperlipidemia Presents because of chest pain/back pain underwent cardiac cath yesterday by commercial real estate appraiser showing no significant progression and only mild triple vessel coronary artery disease. Patient originally presented to [facility] before she was transferred to this facility for cardiac cath. Which was unremarkable for significant coronary artery disease. Currently she states her back pain has resolved and denies any other symptoms and that she is back to normal self. Denies chest pain or dyspnea. No coughing. No headache or weakness or numbness. No change in urine or bowel habits. No fever Patient vitals are stable. Troponin were elevated BMP is unremarkable. Liver enzymes not elevated. Sodium 142, potassium 3.6, creatinine 1.0. AST 15, ALT 21, bilirubin 0.5. CBC is normal. D-dimer is 524, with reference 0-500 CTA of the chest showing no acute pulmonary embolism there is 0.3 cm density may be small calcified granuloma in the posterior right upper lung field present previously. Possible atelectasis Chest x-ray: No active cardiopulmonary process. 10/22/2021 Patient underwent cardiac cath which showing mild triple coronary artery disease and also she has atrial fibrillation which is paroxysmal. She is currently kept on aspirin Plavix and Eliquis. Looks like her pain is noncardiac in origin. Also she had EGD on 01/30/2020 showing mild gastritis which was than at that time because of weight loss. Patient complaining of from difficulty of swallowing water but sometimes solid food therefore we are going to recheck a swallow evaluation. Also she has history of thoracic spondylosis which might contribute to her back pain therefore we going to consult orthopedic team. Other than that she is hemodynamically stable. Objective - Vital Signs Vital signs: Vital Signs Temp 98.1 F 10/22/21 07:55 Pulse 90 10/22/21 07:55 Resp 20 10/22/21 07:55 BP 127/70 10/22/21 07:55 Pulse Ox 99 10/22/21 07:55 FiO2 Intake & Output 10/21/21 10/22/21 10/22/21 18:59 06:59 18:59 Output Total 4 Balance -4 Output: Urine 3 Stool 1 Other: Voiding Method Toilet Toilet Toilet # Voids 1 - Exam GENERAL: The patient is alert and oriented x3, not in any acute distress. Well developed, well nourished. HEENT: Pupils are round and equally reacting to light. EOMI. No scleral icterus. No conjunctival pallor. Normocephalic, atraumatic. No pharyngeal erythema. No thyromegaly. CARDIOVASCULAR: S1 and S2 present. No murmurs, rubs, or gallops. PULMONARY: Chest is clear to auscultation, no wheezing or crackles. ABDOMEN: Soft, nontender, nondistended, normoactive bowel sounds. No palpable organomegaly. MUSCULOSKELETAL: No joint swelling or deformity. EXTREMITIES: No cyanosis, clubbing, or pedal edema. NEUROLOGICAL: Gross neurological examination did not reveal any focal deficits. SKIN: No rashes. no petechiae. - Labs CBC & Chem 7: 10/21/21 08:31 Labs: Abnormal Lab Results - Last 24 Hours (Table) 10/21/21 Range/Units 08:31 Sodium 135 L (137-145) mmol/L BUN 23 H (7-17) mg/dL Glucose 152 H (74-99) mg/dL Total Protein 6.0 L (6.3-8.2) g/dL Assessment and Plan Assessment: Back pain suspected to thoracic spondylosis Difficulty swallowing water mainly. We will check swallow evaluation Elevated troponin, with unremarkable cardiac cath except for multiple coronary artery disease Mildly elevated d-dimer with negative CTA of the chest for PE Hypertension Hyperlipidemia Plan: This is a pleasant 80 years old female who presents with chest pain/back pain with negative CTPA for PE and negative cardiac cath Continue with aspirin, Plavix and Eliquis per commercial real estate appraiser who cleared her for discharge most likely. We'll check swallow evaluation Consults orthopedic team *Pain medication with Tylenol and Ultram when necessary Labs and medication were reviewed.. Continue same treatment. Continue with symptomatic treatment. Resume home medication. Monitor lytes and vitals. DVT and GI prophylaxis. Further recommendations as per clinical course of the patient DVT prophylaxis: On Eliquis GI Prophylaxis: Pepcid PT/OT, pending
--- NOTE | 2021-10-22 11:42 | P.PN ---
Subjective This is an 80-year-old female with history of paroxysmal atrial fibrillation on Eliquis, hypertension, dyslipidemia, intolerant to statin therapy, mild nonobstructive coronary artery disease. Patient followed previously with Dr. Brink, now fallen with Dr. Olivares. Patient presents emergency department at [facility] concerning for an NSTEMI with elevated troponins and EKG abnormalities. Patient was transferred to [facility] for cardiac catheterization and possible intervention. Patient underwent cardiac catheterization with Dr. Olivares which revealed mild triple vessel disease, no significant progression compared to cardiac cath in August 2020, elevated LVEDP. Per Dr. Olivares, patient appeared to have a non-STEMI high-grade stenosis, could be related to vasospastic disease or ruptured plaque. 10/22/2021 Patient seen and examined at bedside, distress. She had some chest pain this morning, with back pain. She cannot endorse what brings it on. Sometimes it occurs with lying and other times with activity. She denies any shortness of breath. Nitro does not relieve the pain. It resolves within a few seconds prior to Nitro being given. EKG was performed which revealed some ST changes from prior Echocardiogram revealed an EF of 30%, basal left ventricle contracts for possible apical ballooning syndrome Meds: Eliquis 5 mg twice a day, aspirin 81 mg daily, Plavix 75 mg daily, meto prolol succinate 25 mg daily, valsartan 80 mg daily, spironolactone 25 mg daily Blood pressure 101/64, heart rate 80, afebrile, oxygen saturations 96% on room air GENERAL: Well-appearing, well-nourished and in no acute distress. NECK: Supple without JVD or thyromegaly. LUNGS: Breath sounds clear to auscultation bilaterally. Respiration equal and unlabored. No wheezes, rales or rhonchi. HEART: Regular rate and rhythm without murmurs, rubs or gallops. S1 and S2 heard. EXTREMITIES: Normal range of motion, no edema. No clubbing or cyanosis. Peripheral pulses intact. SKIN: Left radial cath site clean dry, 2+ pulses no hematoma ASSESSMENT NSTEMI s/p cardiac catheterization on 10/20/2021 which revealed mild triple vessel disease Cardiomyopathy, non-ischemic with EF 30% Paroxysmal atrial fibrillation on Eliquis Hypertension Dyslipidemia Intolerant to statin therapy PLAN Patient with increased chest pain this morning, atypical, somes back pain as well that appears to be musculoskeletal in etiology, we will continue to monitor patient additional 24 hours. Start imdur 30mg daily. Continue aspirin and Plavix Continue Eliquis Continue metoprolol succinate and Valsartan and spironolactone Hopefully discharge in next 24 hours Further recommendations based on clinical course Nurse Practitioner note has been reviewed, I agree with a documented findings and plan of care. Patient was seen and examined. Objective - Vital Signs Vital signs: Vital Signs Temp 98.1 F 10/22/21 07:55 Pulse 71 10/22/21 11:06 Resp 18 10/22/21 11:06 BP 94/56 10/22/21 11:06 Pulse Ox 96 10/22/21 11:06 FiO2 Intake & Output 10/21/21 10/22/21 10/22/21 18:59 06:59 18:59 Output Total 4 Balance -4 Output: Urine 3 Stool 1 Other: Voiding Method Toilet Toilet Toilet # Voids 1 - Labs CBC & Chem 7: 10/21/21 08:31
[2021-10-23] MEDS: ALPRAZolam 0.5 MG TAB PO PRN ×2 (03:05→20:15)
--- NOTE | 2021-10-23 08:52 | P.CNOR ---
History of Present Illness - [facility] Consult date: 10/23/21 Requesting physician: Gautam E Sheet Consult reason: back pain (Thoracic back pain) History of present illness: Patient is a very pleasant 80-year-old female who is seen and examined at bedside for further evaluation of her thoracic spine. Patient states she has been experiencing some chest pain at the sternum and thoracic back pain that has been ongoing just prior to her admission to the hospital on 10/20/2021. She denies any specific injury to her thoracic spine. She denies any lower extremity weakness or radiculopathy bilaterally. She does have a history of total hip arthroplasty performed bilaterally by Dr. Glenn Boggs. She denies any radicular pain in her thoracic spine. She states her pain is at her mid thoracic spine and can be severe. It is intermittent. She does not specifically have increased pain with coughing or sneezing. Nothing specifically exacerbates or alleviates her pain. She does continue to have some difficulty with taking a deep breath as it does cause some increased sternal pain. She is known to have paroxysmal atrial fibrillation and mild coronary artery disease. She's been seen and examined by cardiology who does not feel she has had significant change from a cardiac standpoint. She has a history of hypertension and hyperlipidemia. She did undergo a heart catheterization without significant progression as compared to previous catheterization performed in August 2020. She is being seen and examined by medicine. They are planning for discharge home today. She has not had any imaging regards to her thoracic spine. Patient is discussed with medicine in detail today. Past Medical History Past Medical History: Atrial Fibrillation, Coronary Artery Disease (CAD), Chest Pain / Angina, COPD, Eye Disorder, Hypertension, Osteoarthritis (OA) Additional Past Medical History / Comment(s): KIDNEY STONES ,POLYPS, BACK PAIN, constipation,macular degeneration terence eyes History of Any Multi-Drug Resistant Organisms: None Reported Past Surgical History: Heart Catheterization, Orthopedic Surgery Additional Past Surgical History / Comment(s): TERENCE CATARACTS , COLONSCOPY, EGD, BREAST BX, LITHOTRIPSY, PAIN CLINIC PROCEDURES. Past Anesthesia/Blood Transfusion Reactions: No Reported Reaction Past Psychological History: Anxiety Smoking Status: Former smoker Past Alcohol Use History: None Reported Additional Past Alcohol Use History / Comment(s): started smoking 61 yrs ago [id number] SMOKING 03/28/18 Past Drug Use History: None Reported - Past Family History Mother Family Medical History: No Reported History Father Family Medical History: Cancer Additional Family Medical History / Comment(s): leukemia Brother(s) Family Medical History: Coronary Artery Disease (CAD) Sister(s) Family Medical History: COPD Daughter(s) Family Medical History: No Reported History Son(s) Family Medical History: No Reported History Medications and Allergies Home Medications Medication Instructions Recorded Confirmed Type ALPRAZolam [Xanax] 0.5 mg PO BID PRN 11/03/19 10/20/21 History Apixaban [Eliquis] 5 mg PO BID 11/03/19 10/20/21 History PARoxetine [Paxil] 10 mg PO DAILY 11/03/19 10/20/21 History Cholecalciferol [Vitamin D3 (25 25 mcg PO DAILY 09/20/20 10/20/21 History Mcg = 1000 Iu)] Evolocumab [Repatha Syringe] 140 mg SQ Q14D 10/20/21 10/20/21 History Clopidogrel [Plavix] 75 mg PO DAILY #90 tab 10/22/21 Rx Isosorbide Mononitrate ER [Imdur] 30 mg PO DAILY #60 tab 10/22/21 Rx Metoprolol Succinate (ER) [Toprol 25 mg PO DAILY #90 tab 10/22/21 Rx XL] Nitroglycerin Sl Tabs [Nitrostat] 0.4 mg SUBLINGUAL Q5M PRN #25 tab 10/22/21 Rx Spironolactone [Aldactone] 25 mg PO DAILY #90 tab 10/22/21 Rx Valsartan [Diovan] 80 mg PO DAILY #90 tab 10/22/21 Rx Allergies Allergy/AdvReac Type Severity Reaction Status Date / Time cyclobenzaprine HCl Allergy Unknown Rash/Hives Verified 10/20/21 15:53 [From Flexeril] Iodinated Contrast Media Allergy Rash/Hives Verified 10/20/21 15:53 [Iodinated Contrast Media - IV Dye] Osaxcta-HAZ-UzH Reductase Allergy leg pain Verified 10/20/21 15:53 Inhibitor [Nvywjgq-Xoz-Dba Reductase Inhibitor] TRIPLE DYE Allergy Unknown Rash/Hives Uncoded 09/20/20 07:15 NSAIDS AdvReac Unknown Uncoded 09/20/20 07:15 Physical Examination Physical exam: Patient is awake, alert, and oriented 3 Vital signs stable Good chest excursion with deep inspiration and expiration Examination of thoracic and lumbar spine reveals skin is intact with no abrasions, lacerations, or bruises; no erythema, purulence or signs of infection Some pain on palpation over the mid thoracic spine Increased thoracic kyphosis No pain with palpation over the lower lumbar spine Dorsiflexion, plantarflexion, and extensor hallucis longus positive sustained bilaterally Lower extremity strength 5/5 bilaterally Patient is sitting at the bedside and is able to perform good active range of motion of bilateral lower extremities independently without difficulty Straight leg test negative bilateral lower extremities No signs or symptoms of DVT; no calf pain No pain with internal and external rotation of the hips bilaterally Neurovascularly intact Results - Labs Result Diagrams: 10/21/21 08:31 Assessment and Plan Assessment: Assessment: Acute thoracic back pain without injury Sternal pain with a deep breath Coronary artery disease Mild triple-vessel disease Paroxysmal atrial fibrillation Hypertension Hyperlipidemia History of total hip arthroplasty performed bilaterally (1) Acute thoracic back pain Current Visit: Yes Status: Acute Code(s): M54.6 - PAIN IN THORACIC SPINE SNOMED Code(s): 649668009 (2) Hypertension Current Visit: Yes Status: Acute Code(s): I10 - ESSENTIAL (PRIMARY) HYPERTENSION SNOMED Code(s): 30625938 (3) Hyperlipidemia Current Visit: Yes Status: Acute Code(s): E78.5 - HYPERLIPIDEMIA, UNSPECIFIED SNOMED Code(s): 30330903 (4) Coronary artery disease Current Visit: Yes Status: Acute Code(s): I25.10 - ATHSCL HEART DISEASE OF [place] CORONARY ARTERY W/O ANG PCTRS SNOMED Code(s): 67241487 (5) Atrial fibrillation Current Visit: No Status: Acute Code(s): I48.91 - UNSPECIFIED ATRIAL FIBRILLATION SNOMED Code(s): 96374396 (6) Chest pain Current Visit: No Status: Acute Code(s): R07.9 - CHEST PAIN, UNSPECIFIED SNOMED Code(s): 69979480 (7) S/P total hip arthroplasty Current Visit: No Status: Acute Code(s): Z96.649 - PRESENCE OF UNSPECIFIED ARTIFICIAL HIP JOINT SNOMED Code(s): 450547464307 Plan: Plan: 1. Patient has been experiencing increased midthoracic back pain over the past several days without injury. She has not had any imaging during her admission to the hospital regards to her thoracic spine. She is known to have cardiac changes and has undergone further evaluation with cardiology. Heart catheterization showed changes without significant progression as compared to previous catheterization performed in August 2020. Patient is not experiencing any lower extremity weakness or radiculopathy bilaterally. She is not experiencing any thoracic radiculopathy. Her pain is centered at the mid thoracic spine. These symptoms are intermittent. Nothing specifically exacerbates her symptoms are alleviates her symptoms. At this time, though currently planned to obtain x-ray imaging of the thoracic spine for further evaluation. We will plan to review this imaging. If the imaging is negative for fracture, we will plan to clear the patient for discharge home today. We plan to have the patient follow-up in the outpatient setting for further evaluation. Patient and medicine feels this is a good plan of care. We did discuss if imaging does show evidence of fracture we plan to obtain TLSO bracing for the patient. If the patient did have a fracture requiring bracing, we would clear the patient for discharge following delivery and fitting of this brace. We'll plan to review her thoracic x-ray imaging and will proceed forward with a plan of care depending on the x-ray imaging results. Once cleared, patient may follow-up with Won Lyle PA-C or Dr. Ceferino Mann at [facility] in 2-3 weeks following discharge. 2. Patient will continue be seeing exam by medicine Time with Patient: Greater than 30 (Including obtaining history, physical examination, reviewing of imaging, and dictation.)
[2021-10-23] MEDS: APIXABAN 5 MG TAB PO SCH ×2 (09:18→20:15)
[2021-10-23] MEDS: PARoxetine 10 MG TAB PO SCH (09:18)
[2021-10-23] MEDS: ASPIRIN 81 MG PO SCH (09:18)
[2021-10-23] MEDS: METOPROLOL SUCCINATE (ER) 25 MG TAB.ER.24H PO SCH (09:18)
[2021-10-23] MEDS: VALSARTAN 80 MG TAB PO SCH (09:18)
[2021-10-23] MEDS: ISOSORBIDE MONONITRATE ER 30 MG TAB.ER.24H PO SCH (09:18)
[2021-10-23] MEDS: SPIRONOLACTONE 25 MG TAB PO SCH (09:18)
[2021-10-23] MEDS: CLOPIDOGREL 75 MG TAB PO SCH (09:18)
[2021-10-23] MEDS: FAMOTIDINE 20 MG TAB PO SCH (09:18)
--- NOTE | 2021-10-23 11:14 | P.PN ---
Subjective This is an 80-year-old female with history of paroxysmal atrial fibrillation on Eliquis, hypertension, dyslipidemia, intolerant to statin therapy, mild nonobstructive coronary artery disease. Patient followed previously with Dr. Brink, now fallen with Dr. Olivares. Patient presents emergency department at [facility] concerning for an NSTEMI with elevated troponins and EKG abnormalities. Patient was transferred to [facility] for cardiac catheterization and possible intervention. Patient underwent cardiac catheterization with Dr. Olivares which revealed mild triple vessel disease, no significant progression compared to cardiac cath in August 2020, elevated LVEDP. Per Dr. Olivares, patient appeared to have a non-STEMI high-grade stenosis, could be related to vasospastic disease or ruptured plaque. 10/23/2021 Patient seen and examined at bedside, distress. She had some chest pain this morning, with back pain. Her pain appears atypical on exam. She is no longer having chest pain. Nitro does no relieve her pain. She also has some back pain with movement. Her Echocardiogram revealed an EF of 30%, basal left ventricle contracts for possible apical ballooning syndrome Meds: Eliquis 5 mg twice a day, aspirin 81 mg daily, Plavix 75 mg daily, metoprolol succinate 25 mg daily, valsartan 80 mg daily, spironolactone 25 mg daily Blood pressure 101/64, heart rate 80, afebrile, oxygen saturations 96% on room air GENERAL: Well-appearing, well-nourished and in no acute distress. NECK: Supple without JVD or thyromegaly. LUNGS: Breath sounds clear to auscultation bilaterally. Respiration equal and unlabored. No wheezes, rales or rhonchi. HEART: Regular rate and rhythm without murmurs, rubs or gallops. S1 and S2 heard. EXTREMITIES: Normal range of motion, no edema. No clubbing or cyanosis. Peripheral pulses intact. SKIN: Left radial cath site clean dry, 2+ pulses no hematoma ASSESSMENT NSTEMI s/p cardiac catheterization on 10/20/2021 which revealed mild triple vessel disease Cardiomyopathy, non-ischemic with EF 30% Paroxysmal atrial fibrillation on Eliquis Hypertension Dyslipidemia Intolerant to statin therapy PLAN From cardiology perspective, patient stable and discharged home. Patient chest pain and back pain continues to be intermittent. Chest pain is atypical, somes back pain as well that appears to be musculoskeletal in etiology. Continue aspirin and Plavix Continue Eliquis Continue metoprolol succinate and Valsartan and spironolactone Follow up in [address] Olivares Nurse Practitioner note has been reviewed, I agree with a documented findings and plan of care. Patient was seen and examined. Objective - Vital Signs Vital signs: Vital Signs Temp 97.8 F 10/23/21 09:12 Pulse 82 10/23/21 09:12 Resp 16 10/23/21 09:12 BP 92/59 10/23/21 09:12 Pulse Ox 99 10/23/21 09:12 FiO2 Intake & Output 10/22/21 10/23/21 10/23/21 18:59 06:59 18:59 Intake Total 250 Balance 250 Intake: IV 10 Invasive Line 1 10 Oral 240 Other: Voiding Method Toilet Toilet # Voids 1 1 - Labs CBC & Chem 7: 10/21/21 08:31
[2021-10-23] MEDS: LIDOCAINE 5% PATCH TOPICAL SCH (11:55)
--- NOTE | 2021-10-23 12:21 | P.PN ---
Subjective This is a pleasant 80 years old female with past medical history of atrial fibrillation on Eliquis at home, hypertension, hyperlipidemia Presents because of chest pain/back pain underwent cardiac cath yesterday by fabric worker leader showing no significant progression and only mild triple vessel coronary artery disease. Patient originally presented to [facility] before she was transferred to this facility for cardiac cath. Which was unremarkable for significant coronary artery disease. Currently she states her back pain has resolved and denies any other symptoms and that she is back to normal self. Denies chest pain or dyspnea. No coughing. No headache or weakness or numbness. No change in urine or bowel habits. No fever Patient vitals are stable. Troponin were elevated BMP is unremarkable. Liver enzymes not elevated. Sodium 142, potassium 3.6, creatinine 1.0. AST 15, ALT 21, bilirubin 0.5. CBC is normal. D-dimer is 524, with reference 0-500 CTA of the chest showing no acute pulmonary embolism there is 0.3 cm density may be small calcified granuloma in the posterior right upper lung field present previously. Possible atelectasis Chest x-ray: No active cardiopulmonary process. 10/22/2021 Patient underwent cardiac cath which showing mild triple coronary artery disease and also she has atrial fibrillation which is paroxysmal. She is currently kept on aspirin Plavix and Eliquis. Looks like her pain is noncardiac in origin. Also she had EGD on 01/30/2020 showing mild gastritis which was than at that time because of weight loss. Patient complaining of from difficulty of swallowing water but sometimes solid food therefore we are going to recheck a swallow evaluation. Also she has history of thoracic spondylosis which might contribute to her back pain therefore we going to consult orthopedic team. Other than that she is hemodynamically stable. 10/23/2021 Patient chest pain has resolved but still complaining of from middle back pain in the mid thoracic area which happens in episodes. Patient denies trauma. 3:00 in the morning she had a severe bout of back pain that lasted about 1 hour as she states but now she feels better. Given patient feels that her pain started in the back and going to the chest. Cardiology already cleared the patient for discharge.. Patient already on Eliquis and she says she had it at home. Also she is on aspirin and Plavix added by fabric worker leader. Risk of bleeding are spent for the patient extensively and she verbalized understanding and acceptance. Orthopedic team evaluated the patient and I discussed the case with them. They going to order an x-ray of the thoracic region which is pending now. Objective - Vital Signs Vital signs: Vital Signs Temp 97.8 F 10/23/21 09:12 Pulse 82 10/23/21 09:12 Resp 16 10/23/21 09:12 BP 92/59 10/23/21 09:12 Pulse Ox 99 10/23/21 09:12 FiO2 Intake & Output 10/22/21 10/23/21 10/23/21 18:59 06:59 18:59 Intake Total 250 Balance 250 Intake: IV 10 Invasive Line 1 10 Oral 240 Other: Voiding Method Toilet Toilet # Voids 1 1 - Exam GENERAL: The patient is alert and oriented x3, not in any acute distress. Well developed, well nourished. HEENT: Pupils are round and equally reacting to light. EOMI. No scleral icterus. No conjunctival pallor. Normocephalic, atraumatic. No pharyngeal erythema. No thyromegaly. CARDIOVASCULAR: S1 and S2 present. No murmurs, rubs, or gallops. PULMONARY: Chest is clear to auscultation, no wheezing or crackles. ABDOMEN: Soft, nontender, nondistended, normoactive bowel sounds. No palpable or ganomegaly. MUSCULOSKELETAL: No joint swelling or deformity. EXTREMITIES: No cyanosis, clubbing, or pedal edema. NEUROLOGICAL: Gross neurological examination did not reveal any focal deficits. SKIN: No rashes. no petechiae. - Labs CBC & Chem 7: 10/21/21 08:31 Assessment and Plan Assessment: Acute Back pain suspected to thoracic spondylosis. No trauma Difficulty swallowing water mainly. Completely resolved and patient is doing well Elevated troponin, with unremarkable cardiac cath except for multiple coronary artery disease Mildly elevated d-dimer with negative CTA of the chest for PE. Patient is already on Eliquis Hypertension Hyperlipidemia Plan: This is a pleasant 80 years old female who presents with chest pain/back pain with negative CTPA for PE and negative cardiac cath Continue with aspirin, Plavix and Eliquis per fabric worker leader who cleared her for discharge most likely. Consults orthopedic team, input is appreciated and the recommended x-ray of the spine which is pending Labs and medication were reviewed.. Continue same treatment. Continue with symptomatic treatment. Resume home medication. Monitor lytes and vitals. DVT and GI prophylaxis. Further recommendations as per clinical course of the patient DVT prophylaxis: On Eliquis GI Prophylaxis: Pepcid
--- NOTE | 2021-10-23 12:27 | XR ---
EXAMINATION TYPE: XR thoracic spine complete DATE OF EXAM: 10/23/2021 COMPARISON: None HISTORY: Thoracic pain TECHNIQUE: 3 view thoracic spine FINDINGS: There is a scoliosis to the thoracic spine. There are 12 thoracic type vertebral bodies. Pe dicles are intact. Disc heights appear preserved. Minimal spondylosis present. There is prominence of the descending thoracic aorta on the lateral view. This area does not appear a bnormal on the recent 10/20/2021 CT. IMPRESSION: 1. A scoliosis of the thoracic spine.
[2021-10-24 03:42] VITALS: RESP 16
[2021-10-24] MEDS: APIXABAN 5 MG TAB PO SCH (08:58)
[2021-10-24] MEDS: VALSARTAN 80 MG TAB PO SCH (08:58)
[2021-10-24] MEDS: FAMOTIDINE 20 MG TAB PO SCH (08:58)
[2021-10-24] MEDS: METOPROLOL SUCCINATE (ER) 25 MG TAB.ER.24H PO SCH (08:58)
[2021-10-24] MEDS: ISOSORBIDE MONONITRATE ER 30 MG TAB.ER.24H PO SCH (08:58)
[2021-10-24] MEDS: SPIRONOLACTONE 25 MG TAB PO SCH (08:58)
[2021-10-24] MEDS: PARoxetine 10 MG TAB PO SCH (08:58)
[2021-10-24] MEDS: CLOPIDOGREL 75 MG TAB PO SCH (08:58)
[2021-10-24] MEDS: ASPIRIN 81 MG PO SCH (08:58)
[2021-10-24] MEDS: LIDOCAINE 5% PATCH TOPICAL SCH (08:59)
--- NOTE | 2021-10-24 10:03 | P.PN ---
Progress Note - Text Progress Note Date: 10/24/21 The patient is seen and examined today at bedside. I reviewed the thoracic x- ray imaging as well as the note from our physician housekeeping assistant and I am in agreement. The patient feels her pain at her mid back is improving. She is getting around better. She denies any shortness of breath. She denies any changes in bowel bladder function. She denies any changes in her lower extremities or neurologic function. She is afebrile stable vital signs Her back is nontender to palpation over the midline. There is no open wounds lacerations or abrasions in her back. She has 5 out of 5 strength with her lower extremities. She is able to sit up in bed and mobilize but she does so somewhat slow because she says it is sore to her back X-rays of the thoracic spine do not show any fracture or dislocation. There is no obvious instability. There is some mild diffuse degenerative changes and there is a gentle scoliosis which appears chronic. I do not see any acute changes at the thoracic spine. There is some calcification of her descending aorta Assessment and plan Patient admitted with chest pain and workup for cardiac etiology Thoracic back pain of uncertain etiology without any obvious instability or fracture I do not see obvious instability at her back or evidence of fracture. She did not have any injury but does have some mild to moderate degenerative changes. I do not plan any bracing or further imaging further spread thoracic spine specifically. She does not need bracing for her thoracic spine. It is okay for her to mobilize to tolerance in terms of her spine. The patient feels she is making improvement in terms of her overall pain and is interested in going home. It is okay from a spine standpoint for her to be discharged to follow-up on an as-needed basis. She will need medical clearance and evaluation before discharge
[2021-10-24 12:35] VITALS: BP 106/66; PULSE 89; TEMP 97.6
--- NOTE | 2021-10-25 00:33 | P.DS ---
Providers Date of admission: 10/20/21 13:28 Attending physician: Marcie Varma Consults: 10/21/21 07:07 Consult Physician Routine Consulting Provider: Casie Olivares Consult Reason/Comments: perviously seen Do you want consulting provider notified?: Already Contacted 10/22/21 10:36 Consult Physician Routine Consulting Provider: Miko Mann Consult Reason/Comments: Thoracic spondylosis with pain Do you want consulting provider notified?: Yes Primary care physician: Marcie Varma Hospital Course: diagnoses: Back pain suspected to thoracic scoliosis and degenerative disc disease. Thoracic spine showing scoliosis of the thoracic spine with no obvious fracture. Difficulty swallowing water mainly. Resolved Elevated troponin, with unremarkable cardiac cath except for mild coronary artery disease, which is been treated medically, she is on aspirin and Plavix added to her regimen Paroxysmal atrial fibrillation on Eliquis at home Mildly elevated d-dimer with negative CTA of the chest for PE Hypertension Hyperlipidemia hospital course This is a pleasant 80 years old female with past medical history of atrial fibrillation on Eliquis at home, hypertension, hyperlipidemia Presents because of chest pain/back pain underwent cardiac cath yesterday by maitre d' showing no significant progression and only mild triple vessel coronary artery disease. That because her pain originated from the back orthopedic team were consulted and thoracic spine was requested which shows scoliosis of the thoracic spine with no fracture noted. Orthopedic team recommended conservative management and follow-up as an outpatient. On the day of discharge patient is fully awake and oriented, she denies chest pain or dyspnea. Gait is normal. She eats well. Denies change in urine or bowel habits. No fever. Patient was cleared for discharge by maitre d' and orthopedic spine surgeon. Patient will be discharged on liquids, aspirin and Plavix, risk of bleeding and benefits are explained for the patient extensively and she agrees. Problems and management plan were discussed with the patient and he verbalized understanding and acceptance Patient was found stable and can be discharged home in guarded prognosis however he needs follow-up as an outpatient. Patient was instructed to follow up with PCP Dr. Varma within one week and patient agrees Patient was instructed to follow up with Won or Dr. Mann from spine surgery in 1-2 weeks and with maitre d' Dr. Olivares in one week and she agrees to call and make appointments as today is very weakened Physical exam Gen: patient is a AAOx3, no distress CVS: S1-S2, RRR, no murmur Lungs: B/L CTA, no wheezing Abdomen: soft, no distention, no tenderness, positive bowel sounds Extremity: no leg edema or induration Time spent more than 35 minutes Plan - Discharge Summary New Discharge Prescriptions: New Clopidogrel [Plavix] 75 mg PO DAILY #90 tab Spironolactone [Aldactone] 25 mg PO DAILY #90 tab Isosorbide Mononitrate ER [Imdur] 30 mg PO DAILY #60 tab Metoprolol Succinate (ER) [Toprol XL] 25 mg PO DAILY #90 tab Valsartan [Diovan] 80 mg PO DAILY #90 tab Lidocaine 5% Patch [Lidoderm 5% Patch] 1 patch TOPICAL DAILY 5 Days #5 patch Famotidine [Pepcid] 20 mg PO DAILY #30 tab Aspirin 81 mg PO DAILY #30 tab Continue Apixaban [Eliquis] 5 mg PO BID PARoxetine [Paxil] 10 mg PO DAILY Cholecalciferol [Vitamin D3 (25 Mcg = 1000 Iu)] 25 mcg PO DAILY Evolocumab [Repatha Syringe] 140 mg SQ Q14D Discontinued Valsartan/Hydrochlorothiazide [Valsartan-Hctz 160-12.5 mg Tab] 0.5 tab PO DAILY #0 Metoprolol Tartrate [Lopressor] 12.5 mg PO BID No Action ALPRAZolam [Xanax] 0.5 mg PO BID PRN PRN Reason: Anxiety Discharge Medication List ALPRAZolam [Xanax] 0.5 mg PO BID PRN 11/03/19 [History] Apixaban [Eliquis] 5 mg PO BID 11/03/19 [History] PARoxetine [Paxil] 10 mg PO DAILY 11/03/19 [History] Cholecalciferol [Vitamin D3 (25 Mcg = 1000 Iu)] 25 mcg PO DAILY 09/20/20 [History] Evolocumab [Repatha Syringe] 140 mg SQ Q14D 10/20/21 [History] Clopidogrel [Plavix] 75 mg PO DAILY #90 tab 10/22/21 [Rx] Isosorbide Mononitrate ER [Imdur] 30 mg PO DAILY #60 tab 10/22/21 [Rx] Metoprolol Succinate (ER) [Toprol XL] 25 mg PO DAILY #90 tab 10/22/21 [Rx] Spironolactone [Aldactone] 25 mg PO DAILY #90 tab 10/22/21 [Rx] Valsartan [Diovan] 80 mg PO DAILY #90 tab 10/22/21 [Rx] Aspirin 81 mg PO DAILY #30 tab 10/24/21 [Rx] Famotidine [Pepcid] 20 mg PO DAILY #30 tab 10/24/21 [Rx] Lidocaine 5% Patch [Lidoderm 5% Patch] 1 patch TOPICAL DAILY 5 Days #5 patch 10/24/21 [Rx] Follow up Appointment(s)/Referral(s): Casie Olivares MD [STAFF PHYSICIAN] - 1 Week (Office closed, call Tuesday to make apt.) Marcie Varma MD [Primary Care Provider] - 1 Week (Office closed, call Tuesday to make apt.) Miko Mann DO [Doctor of Osteopathic Medicine] - 2 Weeks Won Lyle PAC [PHYSICIAN HIGH SCHOOL BAND DIRECTOR] - 2 Weeks (Patient may follow-up with Won Lyle PA-C or Dr. Ceferino Mann at [facility] in 2-3 weeks following discharge. (spine surgery team) Office closed, call Tuesday to make apt. 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 Olivares in the office, follow up in the office in 1 week. Discharge Disposition: HOME SELF-CARE
[2021-10-27] MEDS ORDERED: ALIROCUMAB 75 MG/ML SQ SCH (09:00)
--- NOTE | 2021-10-27 12:31 | CDI ---
Documentation Clarification Form Date: 10/27/21 From: Ani Ybarra Admit Date: 10/20/2021 01:28:00 PM Patient Name: Nancy Demarco Visit Number: [id number] Discharge Date: 10/24/2021 03:40:00 PM ATTENTION: The Clinical Documentation Specialists (CDI) and [facility] Coding Staff appreciate your assistance in clarifying documentation. Please respond to the clarification below the line at the bottom and electronically sign. The CDI & [facility] Coding staff will review the response and follow-up if needed. Please note: Queries are made part of the Legal Health Record. If you have any questions, please contact the author of this message via ITS. Dr. Florez E Sheet, Non-STEMI high grade stenosis is documented in the heart cath procedure note, but is not noted in subsequent documentation. Clarification is requested. History/Risk Factors: non-ischemic cardiomyopathy, degenerative thoracic scoliosis, PAF, COPD , HLD, OA Clinical Indicators: Presents because of chest pain/back pain underwent cardiac cath yesterday by deicer tester showing no significant progression and only mild triple vessel coronary artery disease. Troponin I: 1.280, 1.170 Treatment: Left heart cath, medical Rx Please clarify if the non-STEMI is: [ ] Non-STEMI confirmed, remains under treatment [ ] Non-STEMI ruled out [ ] Other condition, please specify [ ] Unable to determine no non-stemi MTDD
== END 2021-10-24 15:40 | disposition home or self-care (01) | DRG 552 ==
LOC: 3SCARD 13:28
PROVIDERS: ADMIT Internal Medicine; ATTEND Internal Medicine
PROC: 4A023N7 Measurement of Cardiac Sampling and Pressure, Left Heart, Percutaneous Approach (ICD-10-PCS; principal; 2021-10-20 13:30)
PROC: B2111ZZ Fluoroscopy of Multiple Coronary Arteries using Low Osmolar Contrast (ICD-10-PCS; principal; 2021-10-20 13:30)
DX: M41.84 Other forms of scoliosis, thoracic region (principal); I42.8 Other cardiomyopathies; J84.10 Pulmonary fibrosis, unspecified; I48.0 Paroxysmal atrial fibrillation; J44.9 Chronic obstructive pulmonary disease, unspecified; Z20.822 Contact with and (suspected) exposure to COVID-19; M47.814 Spondylosis without myelopathy or radiculopathy, thoracic region; M51.34 Other intervertebral disc degeneration, thoracic region; I25.10 Atherosclerotic heart disease of native coronary artery without angina pectoris; I65.29 Occlusion and stenosis of unspecified carotid artery; E78.5 Hyperlipidemia, unspecified; I10 Essential (primary) hypertension; R13.10 Dysphagia, unspecified; F41.9 Anxiety disorder, unspecified; H35.30 Unspecified macular degeneration; M19.90 Unspecified osteoarthritis, unspecified site; R77.8 Other specified abnormalities of plasma proteins; Z79.01 Long term (current) use of anticoagulants; Z79.899 Other long term (current) drug therapy; Z87.891 Personal history of nicotine dependence; Z96.643 Presence of artificial hip joint, bilateral; Z87.442 Personal history of urinary calculi; Z88.8 Allergy status to other drugs, medicaments and biological substances; Z88.6 Allergy status to analgesic agent; Z91.041 Radiographic dye allergy status; Z80.6 Family history of leukemia; Z82.49 Family history of ischemic heart disease and other diseases of the circulatory system; Z82.5 Family history of asthma and other chronic lower respiratory diseases
CPT/HCPCS: 72072; 80053; 80061; 83721; 84484; 87635; 93306; 93458

== ENCOUNTER → 2021-12-28 | Outpatient (CLI) | payer MEDICARE, BC ==
[2021-12-28 14:45] LABS: ALT 10 U/L (8-44); AST 16 U/L (13-35); African American GFR (CKD) 67.8 (60.0-200.0); Albumin 4.4 g/dL (3.8-4.9); Albumin/Globulin Ratio 2.04 (1.60-3.17); Alkaline Phosphatase 76 U/L (41-126); BUN/Creat Ratio 18.62 Ratio (12.00-20.00); Calcium 9.3 mg/dL (8.7-10.3); Carbon Dioxide 27.3 mmol/L (20.0-27.5); Chloride 101 mmol/L (96-109); Chol/HDL Ratio 3.34 Ratio; Globulin 2.2 g/dL (1.6-3.3); Glucose 105 mg/dL (70-110); LDL Cholesterol,Calculated 118.6 mg/dL (0.0-131.0); Non-African American GFR(CKD) 58.5 (60.0-200.0); Potassium 5.1 mmol/L (3.5-5.5); Sodium 139 mmol/L (135-145); Total Protein 6.6 g/dL (6.2-8.2)
== END | disposition home or self-care (01) ==
LOC: LABWHC1 08:31
PROVIDERS: ATTEND Internal Medicine Interventional Cardiology
DX: E78.2 Mixed hyperlipidemia (principal)
CPT/HCPCS: 36415; 80053; 80061

== ENCOUNTER 2022-02-22 10:22 | Inpatient (IN) | payer MEDICARE, BC ==
[2022-02-22] MEDS ORDERED: SODIUM CHLORIDE 0.9% 1,000 ML IV STA (11:04)
--- NOTE | 2022-02-22 11:22 | XR ---
EXAMINATION TYPE: XR chest 1V portable DATE OF EXAM: 02/22/2022 COMPARISON: Outside Chest x-ray October 20, 2021 HISTORY: Chest pain. TECHNIQUE: Single AP portable frontal upright view of the chest is obtained. FINDINGS: There is no suspicious new focal air space opacity, pleural effusion, or pneumothorax seen . The cardiac silhouette size is stable and within normal limits. Overlying EKG leads are redemonstr ated. Overlying bra strap noted. The osseous structures are intact. IMPRESSION: No acute process. No significant change from prior.
--- NOTE | 2022-02-22 11:22 | ED ---
General Adult HPI - General Chief complaint: Arrhythmia/Palpitations Stated complaint: Chest Pain Time Seen by Provider: 02/22/22 11:02 Source: patient Mode of arrival: ambulatory Limitations: no limitations - History of Present Illness Initial comments: Dictation was produced using [employer] dictation software. please excuse any grammatical, word or spelling errors. Chief Complaint: 81-year-old female presents to the emergency department for generalized weakness History of Present Illness: 81-year-old female she felt fine last night. She woke this morning had an ache in her back. States it was a pressure-like sensation. Patient states after several minutes and resolved on its own. Patient states that the only symptom that she is having now is weakness. She didn't report palpitations. Patient's history of atrial fibrillation. 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 Denies any abdominal pain. No nausea or vomiting. No shortness of breath. No cough or runny nose. No obvious sick contacts. The ROS documented in this emergency department record has been reviewed and confirmed by me. Those systems with pertinent positive or negative responses h ave been documented in the HPI. All other systems are other negative and/or noncontributory. PHYSICAL EXAM: General Impression: Alert and oriented x3, not in acute distress HEENT: Normocephalic atraumatic, extra-ocular movements intact, pupils equal and reactive to light bilaterally, mucous membranes moist. Cardiovascular: Heart regular rate and rhythm Chest: Able to complete full sentences, no retractions, no tachypnea Abdomen: abdomen soft, non-tender, non-distended, no organomegaly Musculoskeletal: Pulses present and equal in all extremities, no peripheral edema Motor: no focal deficits noted Neurological: CN II-XII grossly intact, no focal motor or sensory deficits noted Skin: Intact with no visualized rashes Psych: Normal affect and mood ED course: He 1-year-old female past medical history atrial fibrillation hypertension presents to the emergency room for generalized weakness. Earlier today she had episode of pain to her upper back that was pressure-like. Vital signs upon arrival shows heart rate 136, blood pressure 92/55. Repeat vital signs when patient is arrival shows heart rate of 77. Blood pressure still however slightly low. Nursing notes and chart review was performed Laboratory evaluation obtained. Hemoglobin 7.2 which appears to be decreased from June of this year which was 13.3. Patient has history of anemia in the past according to chart review. Coag panel is negative. Metabolic panel is within acceptable limits. Lactic acid level is 2.5. Sacral blood is negative. 4 panel PCR is negative. Chest x-ray is nonacute. Patient evaluated bedside at 1:40 PM finally stable medical condition. Case discussed with Dr. russell went except patient's care. We do have GI services this week and they will be consulted. My EKG interpretation: Ventricular rate 151, atrial flutter, QRS 90, QTC 322. no QTC prolongation Overall, this EKG is unremarkable Critical Care: Yes Critical Care time: 33 minutes - Related Data Home Medications Medication Instructions Recorded Confirmed ALPRAZolam [Xanax] 0.5 mg PO BID PRN 11/03/19 10/20/21 Apixaban [Eliquis] 5 mg PO BID 11/03/19 10/20/21 PARoxetine [Paxil] 10 mg PO DAILY 11/03/19 10/20/21 Cholecalciferol [Vitamin D3 (25 25 mcg PO DAILY 09/20/20 10/20/21 Mcg = 1000 Iu)] Evolocumab [Repatha Syringe] 140 mg SQ Q14D 10/20/21 10/20/21 Previous Rx's Medication Instructions Recorded Clopidogrel [Plavix] 75 mg PO DAILY #90 tab 10/22/21 Isosorbide Mononitrate ER [Imdur] 30 mg PO DAILY #60 tab 10/22/21 Metoprolol Succinate (ER) [Toprol 25 mg PO DAILY #90 tab 10/22/21 XL] Spironolactone [Aldactone] 25 mg PO DAILY #90 tab 10/22/21 Valsartan [Diovan] 80 mg PO DAILY #90 tab 10/22/21 Aspirin 81 mg PO DAILY #30 tab 10/24/21 Famotidine [Pepcid] 20 mg PO DAILY #30 tab 10/24/21 Lidocaine 5% Patch [Lidoderm 5% 1 patch TOPICAL DAILY 5 Days #5 10/24/21 Patch] patch Allergies Allergy/AdvReac Type Severity Reaction Status Date / Time cyclobenzaprine HCl Allergy Unknown Rash/Hives Verified 02/22/22 13:35 [From Flexeril] Iodinated Contrast Media Allergy Rash/Hives Verified 02/22/22 13:35 [Iodinated Contrast Media - IV Dye] Gmhvimv-YSM-CbP Reductase Allergy leg pain Verified 02/22/22 13:35 Inhibitor [Kvspean-Shd-Ncf Reductase Inhibitor] TRIPLE DYE Allergy Unknown Rash/Hives Uncoded 02/22/22 13:35 NSAIDS AdvReac Unknown Uncoded 02/22/22 13:35 Review of Systems ROS Statement: Those systems with pertinent positive or pertinent negative responses have been documented in the HPI. ROS Other: All systems not noted in ROS Statement are negative. Past Medical History Past Medical History: Atrial Fibrillation, Coronary Artery Disease (CAD), Chest Pain / Angina, COPD, Eye Disorder, Hypertension, Osteoarthritis (OA) Additional Past Medical History / Comment(s): KIDNEY STONES ,POLYPS, BACK PAIN, constipation,macular degeneration terence eyes History of Any Multi-Drug Resistant Organisms: None Reported Past Surgical History: Heart Catheterization, Orthopedic Surgery Additional Past Surgical History / Comment(s): TERENCE CATARACTS , COLONSCOPY, EGD, BREAST BX, LITHOTRIPSY, PAIN CLINIC PROCEDURES. Past Anesthesia/Blood Transfusion Reactions: No Reported Reaction Past Psychological History: Anxiety Smoking Status: Former smoker Past Alcohol Use History: None Reported Past Drug Use History: None Reported - Past Family History Mother Family Medical History: No Reported History Father Family Medical History: Cancer Additional Family Medical History / Comment(s): leukemia Brother(s) Family Medical History: Coronary Artery Disease (CAD) Sister(s) Family Medical History: COPD Daughter(s) Family Medical History: No Reported History Son(s) Family Medical History: No Reported History General Exam Limitations: no limitations Course Vital Signs 02/22/22 02/22/22 02/22/22 10:29 11:02 12:31 Temperature 98 F Pulse Rate 136 H 72 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 ] Respiratory 18 18 Rate Blood Pressure 92/55 102/56 O2 Sat by Pulse 100 99 Oximetry Medical Decision Making - Lab Data Result diagrams: 02/22/22 11:02/22/22 11: Lab Results 02/22/22 02/22/22 02/22/22 Range/Units 11: 11: 11:22 WBC 5.2 (3.8-10.6) k/uL RBC 3.76 L (3.80-5.40) m/uL Hgb 7.2 L (11.4-16.0) gm/dL Hct 25.5 L (34.0-46.0) % MCV 67.7 L (80.0-100.0) fL MCH 19.2 L (25.0-35.0) pg MCHC 28.3 L (31.0-37.0) g/dL RDW 18.7 H (11.5-15.5) % Plt Count 388 (150-450) k/uL MPV 8.0 Neutrophils % 63 % Lymphocytes % 23 % Monocytes % 10 % Eosinophils % 2 % Basophils % 1 % Neutrophils # 3.3 (1.3-7.7) k/uL Lymphocytes # 1.2 (1.0-4.8) k/uL Monocytes # 0.5 (0-1.0) k/uL Eosinophils # 0.1 (0-0.7) k/uL Basophils # 0.0 (0-0.2) k/uL Hypochromasia Marked Poikilocytosis Moderate Anisocytosis Slight Microcytosis Marked PT 10.6 (9.0-12.0) sec INR 1.0 (<1.2) APTT 22.7 (22.0-30.0) sec Sodium 140 (137-145) mmol/L Potassium 4.1 (3.5-5.1) mmol/L Chloride 104 (98-107) mmol/L Carbon Dioxide 28 (22-30) mmol/L Anion Gap 8 mmol/L BUN 24 H (7-17) mg/dL Creatinine 0.92 (0.52-1.04) mg/dL Est GFR (CKD-EPI)AfAm 67 (>60 ml/min/1.73 sqM) Est GFR (CKD-EPI)NonAf 58 (>60 ml/min/1.73 sqM) Glucose 104 H (74-99) mg/dL Plasma Lactic Acid Vijay (0.7-2.0) mmol/L Calcium 8.8 (8.4-10.2) mg/dL Magnesium 2.1 (1.6-2.3) mg/dL Total Bilirubin 0.4 (0.2-1.3) mg/dL AST 18 (14-36) U/L ALT 12 (4-34) U/L Alkaline Phosphatase 68 (38-126) U/L Troponin I (0.000-0.034) ng/mL Total Protein 6.7 (6.3-8.2) g/dL Albumin 4.3 (3.5-5.0) g/dL Stool Occult Blood (Negative) Influenza Type A (PCR) (Not Detectd) Influenza Type B (PCR) (Not Detectd) RSV (PCR) (Not Detectd) SARS-CoV-2 (PCR) (Not Detectd) 02/22/22 02/22/22 02/22/22 Range/Units 11: 11: 11: WBC (3.8-10.6) k/uL RBC (3.80-5.40) m/uL Hgb (11.4-16.0) gm/dL Hct (34.0-46.0) % MCV (80.0-100.0) fL MCH (25.0-35.0) pg MCHC (31.0-37.0) g/dL RDW (11.5-15.5) % Plt Count (150-450) k/uL MPV Neutrophils % % Lymphocytes % % Monocytes % % Eosinophils % % Basophils % % Neutrophils # (1.3-7.7) k/uL Lymphocytes # (1.0-4.8) k/uL Monocytes # (0-1.0) k/uL Eosinophils # (0-0.7) k/uL Basophils # (0-0.2) k/uL Hypochromasia Poikilocytosis Anisocytosis Microcytosis PT (9.0-12.0) sec INR (<1.2) APTT (22.0-30.0) sec Sodium (137-145) mmol/L Potassium (3.5-5.1) mmol/L Chloride (98-107) mmol/L Carbon Dioxide (22-30) mmol/L Anion Gap mmol/L BUN (7-17) mg/dL Creatinine (0.52-1.04) mg/dL Est GFR (CKD-EPI)AfAm (>60 ml/min/1.73 sqM) Est GFR (CKD-EPI)NonAf (>60 ml/min/1.73 sqM) Glucose (74-99) mg/dL Plasma Lactic Acid Vijay 2.5 H* (0.7-2.0) mmol/L Calcium (8.4-10.2) mg/dL Magnesium (1.6-2.3) mg/dL Total Bilirubin (0.2-1.3) mg/dL AST (14-36) U/L ALT (4-34) U/L Alkaline Phosphatase (38-126) U/L Troponin I <0.012 (0.000-0.034) ng/mL Total Protein (6.3-8.2) g/dL Albumin (3.5-5.0) g/dL Stool Occult Blood (Negative) Influenza Type A (PCR) Not Detected (Not Detectd) Influenza Type B (PCR) Not Detected (Not Detectd) RSV (PCR) Not Detected (Not Detectd) SARS-CoV-2 (PCR) Not Detected (Not Detectd) 02/22/22 Range/Units 12:35 WBC (3.8-10.6) k/uL RBC (3.80-5.40) m/uL Hgb (11.4-16.0) gm/dL Hct (34.0-46.0) % MCV (80.0-100.0) fL MCH (25.0-35.0) pg MCHC (31.0-37.0) g/dL RDW (11.5-15.5) % Plt Count (150-450) k/uL MPV Neutrophils % % Lymphocytes % % Monocytes % % Eosinophils % % Basophils % % Neutrophils # (1.3-7.7) k/uL Lymphocytes # (1.0-4.8) k/uL Monocytes # (0-1.0) k/uL Eosinophils # (0-0.7) k/uL Basophils # (0-0.2) k/uL Hypochromasia Poikilocytosis Anisocytosis Microcytosis PT (9.0-12.0) sec INR (<1.2) APTT (22.0-30.0) sec Sodium (137-145) mmol/L Potassium (3.5-5.1) mmol/L Chloride (98-107) mmol/L Carbon Dioxide (22-30) mmol/L Anion Gap mmol/L BUN (7-17) mg/dL Creatinine (0.52-1.04) mg/dL Est GFR (CKD-EPI)AfAm (>60 ml/min/1.73 sqM) Est GFR (CKD-EPI)NonAf (>60 ml/min/1.73 sqM) Glucose (74-99) mg/dL Plasma Lactic Acid Vijay (0.7-2.0) mmol/L Calcium (8.4-10.2) mg/dL Magnesium (1.6-2.3) mg/dL Total Bilirubin (0.2-1.3) mg/dL AST (14-36) U/L ALT (4-34) U/L Alkaline Phosphatase (38-126) U/L Troponin I (0.000-0.034) ng/mL Total Protein (6.3-8.2) g/dL Albumin (3.5-5.0) g/dL Stool Occult Blood Negative (Negative) Influenza Type A (PCR) (Not Detectd) Influenza Type B (PCR) (Not Detectd) RSV (PCR) (Not Detectd) SARS-CoV-2 (PCR) (Not Detectd) Disposition Clinical Impression: Anemia Disposition: ADMITTED IP TO THIS HOSP Condition: Fair Referrals: Marcie Varma MD [Primary Care Provider] - 1-2 days Decision Time: 13:39
[2022-02-22 11:35] LABS: Anisocytosis Slight; Basophils % (A) 1 %; Eosinophils # (A) 0.1 k/uL (0-0.7); Eosinophils % (A) 2 %; HCT 25.5 % (34.0-46.0); HGB 7.2 gm/dL (11.4-16.0); Hypochromasia Marked; Lymphocytes # (A) 1.2 k/uL (1.0-4.8); Lymphocytes % (A) 23 %; MCH 19.2 pg (25.0-35.0); MCHC 28.3 g/dL (31.0-37.0); MCV 67.7 fL (80.0-100.0); Microcytosis Marked; Monocytes # (A) 0.5 k/uL (0-1.0); Monocytes % (A) 10 %; Neutrophils # (A) 3.3 k/uL (1.3-7.7); Neutrophils % (A) 63 %; Platelet Count 388 k/uL (150-450); Poikilocytosis Moderate; RBC 3.76 m/uL (3.80-5.40); RDW 18.7 % (11.5-15.5); WBC 5.2 k/uL (3.8-10.6)
[2022-02-22 11:45] LABS: Albumin 4.3 g/dL (3.5-5.0); Calcium 8.8 mg/dL (8.4-10.2); Magnesium 2.1 mg/dL (1.6-2.3); Potassium 4.1 mmol/L (3.5-5.1); Total Bilirubin 0.4 mg/dL (0.2-1.3); Total Protein 6.7 g/dL (6.3-8.2)
[2022-02-22 11:48] LABS: Partial Thromboplastin Time 22.7 sec (22.0-30.0); Prothrombin Time 10.6 sec (9.0-12.0)
[2022-02-22] MEDS ORDERED: NALOXONE 0.4 MG/ML 1 ML VIAL IV PRN (13:35)
[2022-02-22] MEDS: SODIUM CHLORIDE 0.9% 1,000 ML IV SCH (15:06)
[2022-02-22] MEDS ORDERED: ALPRAZolam 0.5 MG TAB PO PRN (20:28)
[2022-02-22] MEDS: METOPROLOL SUCCINATE (ER) 25 MG TAB.ER.24H PO SCH (21:29)
[2022-02-23] MEDS: SODIUM CHLORIDE 0.9% 1,000 ML IV SCH ×2 (02:12→19:48)
[2022-02-23] MEDS: PANTOPRAZOLE 40 MG/10 ML VIAL IVP SCH (08:32)
[2022-02-23] MEDS: PARoxetine 20 MG TAB PO SCH (08:38)
[2022-02-23] MEDS: ALPRAZolam 0.5 MG TAB PO SCH (08:38)
[2022-02-23] MEDS: ISOSORBIDE MONONITRATE ER 60 MG TAB.ER.24H PO SCH (08:38)
[2022-02-23] MEDS: CHOLECALCIFEROL 25 MCG (1000 IU) TABLET PO SCH (08:38)
[2022-02-23 09:18] LABS: Protein, Total 5.4 g/dL (6.2-8.2)
[2022-02-23 09:40] LABS: % Iron Saturation 1.88 (12.00-45.00); ALT 9 U/L (8-44); AST 12 U/L (13-35); African American GFR (CKD) 79.6 (60.0-200.0); Albumin 3.8 g/dL (3.8-4.9); Alkaline Phosphatase 65 U/L (41-126); BUN/Creat Ratio 20.88 Ratio (12.00-20.00); Blood Urea Nitrogen 16.7 mg/dL (9.0-27.0); Calcium 8.6 mg/dL (8.7-10.3); Carbon Dioxide 24.1 mmol/L (20.0-27.5); Chloride 109 mmol/L (96-109); Ferritin 6.5 ng/mL (10.0-291.0); Glucose 84 mg/dL (70-110); Iron 8 ug/dL (50-170); LDH 117 U/L (120-246); Non-African American GFR(CKD) 68.7 (60.0-200.0); Potassium 4.2 mmol/L (3.5-5.5); Sodium 142 mmol/L (135-145); Total Bilirubin <0.15 mg/dL (0.30-1.20); Total Iron Binding Capacity 434 ug/dL (228-460); Total Protein 5.8 g/dL (6.2-8.2)
[2022-02-23] MEDS ORDERED: PEG 3350 (236 GM/BTL) + LYTES 4,000 ML BOTTLE PO ONE (10:00)
[2022-02-23 10:14] LABS: Basophils # (A) 0.02 X 10*3/uL (0.00-0.10); Basophils % (A) 0.5 %; Eosinophils # (A) 0.12 X 10*3/uL (0.04-0.35); HCT 20.1 % (37.2-46.3); HGB 5.5 g/dL (12.0-15.0); Hypochromasia (M) 3+; Immature Grans, Automated 0.2 %; Lymphocytes # (A) 1.35 X 10*3/uL (0.90-5.00); Lymphocytes % (A) 33.7 %; MCH 18.7 pg (27.0-32.0); MCHC 27.4 g/dL (32.0-37.0); MCV 68.4 fL (80.0-97.0); Mean Platelet Volume 9.9 fL (9.5-12.2); Microcytosis (M) 3+; NRBC Per 100 WBC 0 /100 WBCS (0.0-0.0); Neutrophils # (A) 2.11 X 10*3/uL (1.80-7.70); Neutrophils % (A) 52.6 %; Platelet Count 315 X 10*3/uL (140-440); RBC 2.94 X 10*6/uL (4.10-5.20); RDW 21.2 % (11.5-14.5); Reticulocyte % 0.89 % (0.10-1.80); Schistocytes 1+; WBC 4.01 X 10*3/uL (4.50-10.00)
[2022-02-23 13:55] LABS: Free Kappa Lt Chain Qnt, Serum 2.58 mg/dL (0.33-1.94); Free Lambda Lt Chain Qnt, Seru 1.95 mg/dL (0.57-2.63)
--- NOTE | 2022-02-23 13:58 | P.CONS ---
History of Present Illness - Reason for Consult Consult date: 02/23/22 Anemia, possible GI bleed Requesting physician: Marcie Varma - Chief Complaint Heart racing, atrial fibrillation - History of Present Illness This is a pleasant 81-year-old female who presented to the emergency department yesterday with complaints of palpitations, racing heart which she states is related to her atrial fibrillation. She has past medical history including coronary artery disease, atrial fibrillationon Eliquis and hypertension. Patient came in and presented with a hemoglobin of 7.2 with an elevated BUN. Gastroenterology is consulted for anemia, possible GI bleed. Patient denies any black stool or blood in her stool. Denies any abdominal pain, nausea or vomiting. She denies any NSAID use, states only uses Tylenol. Patient has had some issues with dysphagia in the past and has undergone EGD on 01/30/[address] Shirley that showed mild gastritis. Previous to that she's had a EGD colonoscopy in November [address] Beckett. EGD showed mild gastritis and mild esophagitis, colonoscopy was normal. Patient had a negative stool for occult blood this admission. Eliquis is currently on hold. Patient had a drop in her hemoglobin today to 5.5, 2 units of blood have been ordered. Review of Systems REVIEW OF SYSTEMS: CARDIOPULMONARY: No chest pain or shortness of breath. Patient complaints of racing heart, now mostly with ambulation. Gastrointestinal: No abdominal pain or epigastric pain. No nausea or vomiting. No hematemesis, coffee-ground emesis. No rectal bleeding, or melena. GENITOURINARY: No dysuria or hematuria. MUSCULOSKELETAL: Reports normal range of motion., Joint pain. SKIN: No rashes. No jaundice. ENDOCRINE: No chills, fevers. No excessive weight gain or loss. No polydipsia or polyuria. PSYCHIATRIC: Unremarkable. NEUROLOGY: No change in mental status. Denies dizziness, headache. ENT: Vision unremarkable. CONSTITUTIONAL: No recent weight loss. No fever, chills, night sweats. Past Medical History Past Medical History: Atrial Fibrillation, Coronary Artery Disease (CAD), Chest Pain / Angina, COPD, Eye Disorder, Hypertension, Osteoarthritis (OA) Additional Past Medical History / Comment(s): KIDNEY STONES ,POLYPS, BACK PAIN, constipation,macular degeneration terence eyes History of Any Multi-Drug Resistant Organisms: None Reported Past Surgical History: Heart Catheterization, Orthopedic Surgery Additional Past Surgical History / Comment(s): TERENCE CATARACTS , COLONSCOPY, EGD, BREAST BX, LITHOTRIPSY, PAIN CLINIC PROCEDURES. Past Anesthesia/Blood Transfusion Reactions: No Reported Reaction Past Psychological History: Anxiety Smoking Status: Former smoker Past Alcohol Use History: None Reported Additional Past Alcohol Use History / Comment(s): started smoking 61 yrs ago [id number] SMOKING 03/28/18 Past Drug Use History: None Reported - Past Family History Mother Family Medical History: No Reported History Father Family Medical History: Cancer Additional Family Medical History / Comment(s): leukemia Brother(s) Family Medical History: Coronary Artery Disease (CAD) Sister(s) Family Medical History: COPD Daughter(s) Family Medical History: No Reported History Son(s) Family Medical History: No Reported History Medications and Allergies Home Medications Medication Instructions Recorded Confirmed Type ALPRAZolam [Xanax] 0.5 mg PO DAILY 11/03/19 02/22/22 History Apixaban [Eliquis] 5 mg PO BID 11/03/19 02/22/22 History PARoxetine [Paxil] 20 mg PO DAILY 11/03/19 02/22/22 History Cholecalciferol [Vitamin D3 (25 50 mcg PO DAILY 09/20/20 02/22/22 History Mcg = 1000 Iu)] Aspirin 81 mg PO DAILY #30 tab 10/24/21 02/22/22 Rx Famotidine [Pepcid] 20 mg PO DAILY #30 tab 10/24/21 02/22/22 Rx ALPRAZolam [Xanax] 0.5 mg PO HS PRN 02/22/22 02/22/22 History Isosorbide Mononitrate ER [Imdur] 60 mg PO DAILY 02/22/22 02/22/22 History Metoprolol Succinate (ER) [Toprol 25 mg PO HS 02/22/22 02/22/22 History XL] Valsartan [Diovan] 80 mg PO HS 02/22/22 02/22/22 History Vit C/E/Zn/Coppr/Lutein/Zeaxan 2 cap PO DAILY 02/22/22 02/22/22 History [Preservision Areds 2 Softgel] Allergies Allergy/AdvReac Type Severity Reaction Status Date / Time cyclobenzaprine HCl Allergy Unknown Rash/Hives Verified 02/22/22 13:35 [From Flexeril] Iodinated Contrast Media Allergy Rash/Hives Verified 02/22/22 13:35 [Iodinated Contrast Media - IV Dye] Yjcctup-ZGA-JfV Reductase Allergy leg pain Verified 02/22/22 13:35 Inhibitor [Qpmgdut-Wmt-Zeb Reductase Inhibitor] TRIPLE DYE Allergy Unknown Rash/Hives Uncoded 02/22/22 13:35 NSAIDS AdvReac Unknown Uncoded 02/22/22 13:35 Physical Exam Vitals: Vital Signs Temp Pulse Pulse Resp BP BP Pulse Ox 02/23/22 13:28 98.4 F 74 16 116/62 100 02/23/22 13:04 98.1 F 75 16 111/64 99 02/23/22 12:44 98 F 74 16 127/67 100 02/23/22 12:35 98.2 F 63 16 116/58 96 02/23/22 06:36 98.4 F 75 18 131/70 98 02/23/22 01:28 98.0 F 75 16 113/65 97 02/22/22 18:58 98.4 F 79 17 93/46 99 02/22/22 15:30 97 F L 70 16 124/62 95 02/22/22 15:22 72 16 110/72 98 02/22/22 13:43 67 18 101/73 99 Intake and Output 02/22/22 02/23/22 02/23/22 22:59 06:59 14:59 Intake Total 360 0 Balance 360 0 Intake: Oral 360 Blood Product 0 Unit 0 Other: Voiding Method Toilet # Voids 1 0 General appearance: The patient is alert, oriented, appears in no acute distress. HET: Head is normocephalic and atraumatic. Conjunctiva pink. Sclera anicteric. Neck: Supple without lymphadenopathy. Trachea midline. Heart: S1 S2. Regular rate and rhythm. Lungs: Clear to auscultation. Abdomen: Soft, nontender, nondistended with bowel sounds. No guarding or rigidity. Skin: No rashes. No jaundice. Extremities: Normal skin color and turgor. No pedal edema. Neurological: No focal deficits. Alert and oriented x3. Results CBC & Chem 7: 02/23/22 05:43 02/23/22 05:43 Labs: Abnormal Lab Results - Last 24 Hours (Table) 02/23/22 02/23/22 02/23/22 Range/Units 05:43 05:43 05:43 WBC 4.01 L (4.50-10.00) X 10*3/uL RBC 2.94 L (4.10-5.20) X 10*6/uL Hgb 5.5 L* (12.0-15.0) g/dL Hct 20.1 L (37.2-46.3) % MCV 68.4 L (80.0-97.0) fL MCH 18.7 L (27.0-32.0) pg MCHC 27.4 L (32.0-37.0) g/dL RDW 21.2 H (11.5-14.5) % Anion Gap 8.90 L (10.00-18.00) mmol/L BUN/Creatinine Ratio 20.88 H (12.00-20.00) Ratio Calcium 8.6 L (8.7-10.3) mg/dL Iron 8 L (50-170) ug/dL % Saturation 1.88 L (12.00-45.00) Ferritin 6.5 L (10.0-291.0) ng/mL Total Bilirubin <0.15 L (0.30-1.20) mg/dL AST 12 L (13-35) U/L Lactate Dehydrogenase 117 L (120-246) U/L Total Protein 5.8 L (6.2-8.2) g/dL Total Protein (PEP) 5.4 L (6.2-8.2) g/dL Vitamin B12 166.0 L (200.0-944.0) pg/mL Crossmatch 02/23/22 Range/Units 10:39 WBC (4.50-10.00) X 10*3/uL RBC (4.10-5.20) X 10*6/uL Hgb (12.0-15.0) g/dL Hct (37.2-46.3) % MCV (80.0-97.0) fL MCH (27.0-32.0) pg MCHC (32.0-37.0) g/dL RDW (11.5-14.5) % Anion Gap (10.00-18.00) mmol/L BUN/Creatinine Ratio (12.00-20.00) Ratio Calcium (8.7-10.3) mg/dL Iron (50-170) ug/dL % Saturation (12.00-45.00) Ferritin (10.0-291.0) ng/mL Total Bilirubin (0.30-1.20) mg/dL AST (13-35) U/L Lactate Dehydrogenase (120-246) U/L Total Protein (6.2-8.2) g/dL Total Protein (PEP) (6.2-8.2) g/dL Vitamin B12 (200.0-944.0) pg/mL Crossmatch See Detail Assessment and Plan (1) Anemia Narrative/Plan: 81-year-old female who presented to the emergency department with rapid heartbeat, palpitations. I was found to be anemic with a hemoglobin of 7.2. Denies any overt signs of GI bleed. Denies any black stool or blood in her stool. She does take Eliquis for her atrial fibrillation and is also on a low- dose aspirin. Denies any NSAID use. Does have a history of dysphagia and underwent EGD in January 2020 with finding of mild gastritis, also underwent EGD colonoscopy in November 2017. EGD with mild gastritis and esophagitis, colonoscopy within normal limits. She had a drop in her hemoglobin of 5.5 today, patient agreeable to undergo EGD and colonoscopy tomorrow to evaluate for possible GI bleed. Current Visit: Yes Status: Acute Code(s): D64.9 - ANEMIA, UNSPECIFIED SNOMED Code(s): 519527593 (2) Atrial fibrillation Current Visit: No Status: Acute Code(s): I48.91 - UNSPECIFIED ATRIAL FIBRILLATION SNOMED Code(s): 71554267 Plan: 1. Continue symptomatic care 2. Clear liquid diet 3. Nothing by mouth after midnight 4. Continue to hold Eliquis and aspirin 4. Avoid NSAIDs 5. Protonix 40 mg daily 6. Bowel prep this afternoon 7. Plan for EGD and colonoscopy tomorrow Thank you for this consultation, we will continue to follow. Dr. Mauro Zhang I agree with the dictator's note, documented as a scribe by Peace Zuñiga.
[2022-02-23] MEDS: METOPROLOL SUCCINATE (ER) 25 MG TAB.ER.24H PO SCH (21:34)
[2022-02-24] MEDS: SODIUM CHLORIDE 0.9% 1,000 ML IV SCH (02:43)
[2022-02-24 08:59] LABS: African American GFR (CKD) 79.6 (60.0-200.0); Albumin 4.1 g/dL (3.8-4.9); Albumin/Globulin Ratio 1.95 (1.60-3.17); BUN/Creat Ratio 12.25 Ratio (12.00-20.00); Blood Urea Nitrogen 9.8 mg/dL (9.0-27.0); Calcium 9.3 mg/dL (8.7-10.3); Globulin 2.1 g/dL (1.6-3.3); Non-African American GFR(CKD) 68.7 (60.0-200.0); Total Bilirubin 0.9 mg/dL (0.30-1.20); Total Protein 6.2 g/dL (6.2-8.2)
[2022-02-24 09:48] LABS: HCT 32.3 % (37.2-46.3); HGB 9.7 g/dL (12.0-15.0); MCH 23.2 pg (27.0-32.0); MCV 77.3 fL (80.0-97.0); Mean Platelet Volume 9.6 fL (9.5-12.2); NRBC Per 100 WBC 0 /100 WBCS (0.0-0.0); Platelet Count 315 X 10*3/uL (140-440); RBC 4.18 X 10*6/uL (4.10-5.20); RDW 24.9 % (11.5-14.5); WBC 6.59 X 10*3/uL (4.50-10.00)
[2022-02-24 09:49] LABS: Hypochromasia (M) 2+
[2022-02-24] MEDS ORDERED: MIDAZOLAM 2 MG/2 ML VIAL ONE (12:42)
[2022-02-24] MEDS ORDERED: LIDOCAINE 2% INJ 20 MG/ML (2 ML VIAL) ONE (12:42)
[2022-02-24] MEDS ORDERED: PROPOFOL 10 MG/ML 20 ML VIAL IV ONE (12:42)
[2022-02-24] MEDS ORDERED: IV FLUID CONTINUATION 1,000 ML IV ONE (12:42)
--- NOTE | 2022-02-24 13:04 | P.PCN ---
Date of Procedure: 02/24/22 Procedure(s) Performed: Brief history: Patient is a pleasant 82-year-old white female admitted hospital with severe symptomatic anemia and hemoglobin of 5.4 g/dL. Iron indices consistent with iron deficiency anemia. She has been I'll request for A. fib which is currently on hold. She is scheduled for an upper endoscopy as well as colonoscopy as a part of evaluation of severe symptomatic iron deficiency Procedure performed: Esophagogastroduodenoscopy with biopsy Colonoscopy Preoperative diagnosis: Severe symptomatic iron deficiency anemia Anesthesia: MAC Procedure: After informed consent was obtained from the patient was brought into the endoscopy unit and IV sedation was administered by anesthesia under continuous monitoring. Initially upper endoscopy was done. The Olympus GF 160 video endoscope was inserted inserted into the mouth and esophagus intubated without any difficulty and was gradually advanced into the stomach and duodenum and carefully examined. The bulb and second part of the duodenum appeared normal except for the small lipoma. Biopsies were done from the duodenum to rule out celiac disease. The scope was then withdrawn into the stomach adequately insufflated with air and upon careful examination the antrum antrum mild gastritis and biopsies were done from this area. Mucosa of thedy, cardia and fundus appeared normal. The scope was then withdrawn into the esophagus. The GE junction was located at 40 cm to the incisors. It appeared regular with no erythema erosions or ulcerations. Rest of the esophagus appeared normal. Patient tolerated the procedure well. At this time the patient continued to remain sedation. Initial digital rectal examination was normal. Olympus CF 160 video colonoscope was then inserted into the rectum and gradually advanced to the cecum without any difficulty. Careful examination was performed as the scope was gradually being withdrawn. The prep was excellent. The cecum, ascending colon, transverse colon, descending colon, sigmoid colon and rectum appeared normal. Retroflexion was performed in the rectum mall internal hemorrhoid were noted. Patient tolerated the procedure well. Impression: 1. Upper endoscopy revealed mild antral gastritis and a small duodenal lipoma 2. Colonoscopy revealed small internal hemorrhoids but no evidence of colitis or colorectal neoplasia. No evidence of angiectasia Recommendations: Findings of this examination were discussed with the patient . She was advised to follow with the biopsy results. Continue with iron supplements and monitor CBC daily. Will discuss with the patient regarding small bowel capsule endoscopy which can be performed today to investigate for small bowel source of occult blood loss.
[2022-02-24] MEDS: ALPRAZolam 0.5 MG TAB PO SCH (13:34)
[2022-02-24] MEDS: PARoxetine 20 MG TAB PO SCH (13:35)
[2022-02-24] MEDS: CHOLECALCIFEROL 25 MCG (1000 IU) TABLET PO SCH (13:35)
[2022-02-24] MEDS: PANTOPRAZOLE 40 MG/10 ML VIAL IVP SCH (13:35)
[2022-02-24] MEDS: ISOSORBIDE MONONITRATE ER 60 MG TAB.ER.24H PO SCH (13:35)
[2022-02-24 13:47] LABS: Albumin 3.25 g/dL (3.80-4.90); Gamma Globulin 0.58 g/dL (0.70-1.50)
[2022-02-24] MEDS ORDERED: IPRATROPIUM-ALBUTEROL 3 ML NEB INHALATION PRN (13:53)
[2022-02-24] MEDS ORDERED: IPRATROPIUM-ALBUTEROL 3 ML NEB INHALATION STA (13:54)
[2022-02-24] MEDS ORDERED: FUROSEMIDE 10 MG/ML 4 ML VIAL IV STA (13:59)
[2022-02-24] MEDS ORDERED: SIMETHICONE 40 MG/0.6 ML DROPS 2,000 MG/30 ML BOTTLE PO ONE (15:00)
--- NOTE | 2022-02-24 15:08 | XR ---
EXAMINATION TYPE: XR chest 1V portable DATE OF EXAM: 02/24/2022 HISTORY: Shortness of breath. COMPARISON: 02/22/2022 TECHNIQUE: Single view of the chest is submitted. FINDINGS: Demonstrated are scattered senescent parenchymal change. There is no evidence for focal infiltrate. The heart is stable. Hilar and mediastinal structures are within normal limits. Degenerative changes are seen of the dorsal spine. IMPRESSION: 1. Chronic changes without evidence for acute pulmonary disease.
[2022-02-24] MEDS: IPRATROPIUM-ALBUTEROL 3 ML NEB INHALATION SCH ×2 (15:16→20:25)
[2022-02-24] MEDS ORDERED: CYANOCOBALAMIN 1,000 MCG/ML 1 ML VIAL IM SCH (16:15)
[2022-02-24] MEDS: CYANOCOBALAMIN 1,000 MCG/ML 1 ML VIAL IM SCH (16:47)
[2022-02-24] MEDS: METOPROLOL SUCCINATE (ER) 25 MG TAB.ER.24H PO SCH (20:27)
[2022-02-25] MEDS: IPRATROPIUM-ALBUTEROL 3 ML NEB INHALATION SCH ×4 (07:25→20:12)
--- NOTE | 2022-02-25 09:01 | P.PN ---
Subjective Progress Note Date: 02/25/22 Principal diagnosis: Anemia This is a pleasant 81-year-old female who presented to the emergency department yesterday with complaints of palpitations, racing heart which she states is related to her atrial fibrillation. She has past medical history including coronary artery disease, atrial fibrillationon Eliquis and hypertension. Patient came in and presented with a hemoglobin of 7.2 with an elevated BUN. Gastroenterology is consulted for anemia, possible GI bleed. Patient denies any black stool or blood in her stool. Denies any abdominal pain, nausea or vomiting. She denies any NSAID use, states only uses Tylenol. Patient has had some issues with dysphagia in the past and has undergone EGD on 01/30/[address] Shirley that showed mild gastritis. Previous to that she's had a EGD colonoscopy in November [address] Beckett. EGD showed mild gastritis and mi ld esophagitis, colonoscopy was normal. Patient had a negative stool for occult blood this admission. Eliquis is currently on hold. Patient had a drop in her hemoglobin today to 5.5, 2 units of blood have been ordered. 02/25/2022. Patient seen and examined as follows. Yesterday she underwent EGD and colonoscopy. EGD with findings of mild antral gastritis and small duodenal lipoma, colonoscopy revealed small internal hemorrhoids but no evidence of colitis or colorectal neoplasia. No evidence of angiectasia. To complete the GI workup patient was agreeable to undergo a small bowel video capsule endoscopy yesterday evening. Results are currently pending likely will not be completed by today. Patient denies any abdominal pain, nausea or vomiting. She's been afebrile. States she's feeling much better today, her breathing is better. Denies any shortness of breath at this time. Again patient denies any blood in her stool or black stool. No hematemesis. Today's labs are currently pending Objective - Vital Signs Vital signs: Vital Signs Temp 99.2 F 02/25/22 02:31 Pulse 72 02/25/22 07:39 Resp 16 02/25/22 02:31 BP 106/59 02/25/22 02:31 Pulse Ox 95 02/25/22 02:31 FiO2 Intake & Output 02/24/22 02/25/22 02/25/22 18:59 06:59 18:59 Intake Total 150 Balance 150 Intake: IV 150 Other: Voiding Method Toilet Toilet # Voids 1 2 - Exam General appearance: The patient is alert, oriented, appears in no acute di stress. HET: Head is normocephalic and atraumatic. Conjunctiva pink. Sclera anicteric. Neck: Supple without lymphadenopathy. Abdomen: Soft, nontender, nondistended with bowel sounds. No guarding or rigidity. Extremities: Normal skin color and turgor. No pedal edema Skin: No rashes, no jaundice Neurological: No focal deficits. Alert and oriented. - Labs CBC & Chem 7: 02/24/22 04:11 02/24/22 04:11 Labs: Abnormal Lab Results - Last 24 Hours (Table) 02/23/22 02/24/22 Range/Units 05:43 04:11 Hgb 9.7 L (12.0-15.0) g/dL Hct 32.3 L (37.2-46.3) % MCV 77.3 L (80.0-97.0) fL MCH 23.2 L (27.0-32.0) pg MCHC 30.0 L (32.0-37.0) g/dL RDW 24.9 H (11.5-14.5) % Albumin (PEP) 3.25 L (3.80-4.90) g/dL Gamma Globulins 0.58 L (0.70-1.50) g/dL Assessment and Plan (1) Anemia Narrative/Plan: 81-year-old female who presented to the emergency department with rapid heartbeat, palpitations. I was found to be anemic with a hemoglobin of 7.2. Denies any overt signs of GI bleed. Denies any black stool or blood in her stool. She does take Eliquis for her atrial fibrillation and is also on a low- dose aspirin. Denies any NSAID use. Does have a history of dysphagia and underwent EGD in January 2020 with finding of mild gastritis, also underwent EGD colonoscopy in November 2017. EGD with mild gastritis and esophagitis, colonoscopy within normal limits. She had a drop in her hemoglobin of 5.5 today, patient agreeable to undergo EGD and colonoscopy tomorrow to evaluate for possible GI bleed. Patient is status post EGD and colonoscopy without any signs of old blood were active bleeding. Underwent a small bowel capsule endoscopy yesterday evening, results are pending and likely will not be back until tomorrow. Patient is otherwise cleared for discharge from gastroenterology if hemoglobin stable. Discussed this with patient, can call office to follow-up for small bowel capsule study. Current Visit: Yes Status: Acute Code(s): D64.9 - ANEMIA, UNSPECIFIED SNOMED Code(s): 551354572 (2) Atrial fibrillation Current Visit: No Status: Acute Code(s): I48.91 - UNSPECIFIED ATRIAL FIBRILLATION SNOMED Code(s): 55608645 Plan: 1. Continue symptomatic care 2. Heart healthy diet 3. Continue to hold Eliquis, may resume aspirin 4. Avoid NSAIDs 5. Protonix 40 mg daily 6. Patient is status post EGD, colonoscopy and small bowel video capsule endoscopy. No findings of old blood or active bleeding on EGD or colonoscopy. Small bowel video capsule endoscopy results currently pending. 7. Patient is cleared from gastroenterology for discharge if hemoglobin stable. Patient may call office for small bowel capsule endoscopy results. Thank you for this consultation, we will continue to follow. Dr. Mauro Zhang I agree with the dictator's note, documented as a scribe by Peace Zuñiga.
[2022-02-25] MEDS: ALPRAZolam 0.5 MG TAB PO SCH (09:04)
[2022-02-25] MEDS: ISOSORBIDE MONONITRATE ER 60 MG TAB.ER.24H PO SCH (09:04)
[2022-02-25] MEDS: PANTOPRAZOLE 40 MG/10 ML VIAL IVP SCH (09:04)
[2022-02-25] MEDS: CHOLECALCIFEROL 25 MCG (1000 IU) TABLET PO SCH (09:04)
[2022-02-25] MEDS: PARoxetine 20 MG TAB PO SCH (09:04)
[2022-02-25] MEDS: CYANOCOBALAMIN 1,000 MCG/ML 1 ML VIAL IM SCH (11:20)
[2022-02-25 14:42] LABS: Anisocytosis Moderate; HCT 31.5 % (34.0-46.0); Hypochromasia Marked; MCHC 30.4 g/dL (31.0-37.0); Mean Platelet Volume 7.8; Microcytosis Marked; Platelet Count 283 k/uL (150-450); Poikilocytosis Marked; RBC 4.17 m/uL (3.80-5.40); RDW 23.1 % (11.5-15.5); WBC 7.2 k/uL (3.8-10.6)
[2022-02-25 14:43] LABS: HGB 9.6 gm/dL (11.4-16.0)
[2022-02-25 14:44] LABS: MCV 75.6 fL (80.0-100.0)
--- NOTE | 2022-02-25 19:11 | P.HPIM ---
History of Present Illness H&P Date: 02/23/22 Chief Complaint: iron deficiency anemia-symptomatic HISTORY OF PRESENT ILLNESS: This is an 81-year-old white female with a previous medical history significant for hypertension and hypertensive cardiovascular disease, hyperlipidemia, paroxysmal atrial fibrillation,CAD post left heart catherization last on 09/2021 that showed 50 % stenosis in the proximal LAD and 10-20 % stenosis in the LCX and RCA , anxiety disorder, severe osteoarthritis today she woke up in the morning and she was complaining of increased generalized fatigue with pressure like sensation in her back that resolved on its own, patient was intolerant for STATINS and PCSK-9 INB due to severe myopathy and weakness and she is currently in the process of getting approved for INCLISIRAN( LEQVIO) , patient denied any abdominal pain, nausea or vomiting she does have episodes of heart burn and intermittent dysphagia she was supposed to have a GI work up as outpatient, she presented herself to the ER for evaluation and she was found to have iron deficiency anemia with severe microcytosis and had negative stool for occult blood and denied recent GI bleed,patient was started on IVF and she was taken o ff ASA and Eliquis for EGD and colonoscopy we will consult GI/Lyricgry for GI work up REVIEW OF SYSTEMS: Constitutional: No documented fever, no chills, no night sweats. No weight change. positive for weakness, fatigue or lethargy. No daytime sleepiness. HEENT: No headache. positive for blurred vision or double vision, no loss of vision. No loss of Hearing, no ringing in the ears, no dizziness. No nasal drainage or congestion. No epistaxis. No sore throat. Lungs: No shortness of breath, no cough, no sputum production. No wheezing. Reports dyspnea with activity. Cardiovascular: No chest pain, no lower extremity edema. No palpitations. No paroxysmal nocturnal dyspnea. No orthopnea. No lightheadedness or dizziness. No syncopal episodes. Abdominal: Reports no abdominal pain. No nausea, vomiting. No diarrhea. No constipation. No bloody or tarry stools reports loss of appetite. Genitourinary: No dysuria, increased frequency, urgency. No urinary retention. Musculoskeletal: No myalgias. No muscle weakness, no gait dysfunction, no frequent falls. No back pain. No neck pain. Integumentary: No wounds, no lesions. No rash or pruritus. No unusual bruising. No change in hair or nails. Neurologic: No aphasia. No facial droop. No change in mentation. No head injury. No headache. No paralysis. No paresthesia. Psychiatric: No depression. positive for anxiety. No mood swings. Endocrine: No abnormal blood sugars. No weight change. PAST MEDICAL HISTORY: Hypertension and hypertensive cardiovascular disease. Hyperlipidemia. Paroxysmal atrial fibrillation. GERD. 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 Osteoarthritis. Osteoporosis. Anxiety. Macular degeneration. Coronary artery disease status post left heart catheterization in August 2021 with 50% eccentric lesion in proximal LAD, 10-20 % in LCx and RCA. Kidney stones. Iron deficiency anemia PAST SURGICAL HISTORY: Right total hip arthroplasty. Left total hip arthroplasty. Bilateral cataract surgery. EGD and colonoscopy. Epidural injection of the thoracic spine. [facility] 09/2021 SOCIAL HISTORY: Patient used to smoke about pack every day she started smoking about 61 years ago and she quit in 03/28/2018, she denies any alcohol ingestion, she denies any drug use or abuse, she currently staying with her daughter after surgery. FAMILY HISTORY: Father of leukemia, mother was pretty healthy, patient had a sister who from severe COPD, patient has a brother with CAD, and she has 2 daughters no major medical problems. PHYSICAL EXAMINATION: General: 81-year-old female sitting up in bed in no apparent distress. HEENT: Head is atraumatic, normocephalic, pupils were equal round reactive to light and recommendation, extraocular muscle movement were intact, sclera nonicteric, conjunctivae were pale, mucous membranes of the mouth are somewhat dry. Neck: Supple, no JVP, normal carotid upstroke bilaterally, no lymphadenopathy. Chest: Decreased breath sounds at the bases, few rhonchi, no expiratory wheezes, no chest wall tenderness, no intercostal retractions. Heart: First heart sound is normal, second heart sounds normal there is systolic ejection murmur 2/6. The left sternal border. Abdomen: Soft, nontender, nondistended, positive bowel sounds, there is no hepatomegaly. Extremities: There is no edema no calf tenderness DP +2 bilaterally. Neurologic examination: Patient is awake alert and oriented X 3, cranial nerves II-12 appear grossly intact, muscle power were 5 out of 5 in upper extremities and 5 out of 5 in bilateral lower extremities, deep tendon reflexes normal bilaterally. ASSESSMENT AND PLAN: 1. Generalized weakness with symptomatic iron deficiency anemia.we will check iron studies and retic count, we will hole Eliquis and ASA, we will consult GI/Surgery for EGD and Colonoscopy. 2. anemia due to chronic blood loss likely GI source. we will check iron indices and Retic count and will need GI work up. 3. Hypertension and hypertensive cardiovascular disease currently hypotensive. Discontinue valsartan, continue patient on metoprolol 12.5 mg orally at bedtime 4. Mixed hyperlipidemia. Patient is not able to take statins or PCSK 9 inhibitors.currentli is being approved for Inclisiran 5. Anxiety disorder. Continue patient on paroxetine 20 mg orally once every day and Xanax 0.5 mg po bid as needed. 6. Macular degeneration. Continue with current vitamins. 7. Paroxysmal atrial fibrillation currently in sinus rhythm. Continue patient on metoprolol 12.5 mg orally at bedtime and we will hold off Eliquis 8. Osteoarthritis. Continue current pain management. 9. DVT prophylaxis. bilateral knee-high ricky hose and hold off Eliquis for GI work up 10. GI prophylaxis. Protonix 40 mg IVP daily. 11. Admit to inpatient. Estimate a length of stay 2 midnights. 12. Patient is full code. Past Medical History Past Medical History: Atrial Fibrillation, Coronary Artery Disease (CAD), Chest Pain / Angina, COPD, Eye Disorder, Hypertension, Osteoarthritis (OA) Additional Past Medical History / Comment(s): KIDNEY STONES ,POLYPS, BACK PAIN, constipation,macular degeneration terence eyes History of Any Multi-Drug Resistant Organisms: None Reported Past Surgical History: Heart Catheterization, Orthopedic Surgery Additional Past Surgical History / Comment(s): TERENCE CATARACTS , COLONSCOPY, EGD, BREAST BX, LITHOTRIPSY, PAIN CLINIC PROCEDURES. Past Anesthesia/Blood Transfusion Reactions: No Reported Reaction Past Psychological History: Anxiety Smoking Status: Former smoker Past Alcohol Use History: None Reported Additional Past Alcohol Use History / Comment(s): started smoking 61 yrs ago 1ppd-QUIT SMOKING 03/28/18 Past Drug Use History: None Reported - Past Family History Mother Family Medical History: No Reported History Father Family Medical History: Cancer Additional Family Medical History / Comment(s): leukemia Brother(s) Family Medical History: Coronary Artery Disease (CAD) Sister(s) Family Medical History: COPD Daughter(s) Family Medical History: No Reported History Son(s) Family Medical History: No Reported History Medications and Allergies Home Medications Medication Instructions Recorded Confirmed Type ALPRAZolam [Xanax] 0.5 mg PO DAILY 11/03/19 02/22/22 History Apixaban [Eliquis] 5 mg PO BID 11/03/19 02/22/22 History PARoxetine [Paxil] 20 mg PO DAILY 11/03/19 02/22/22 History Cholecalciferol [Vitamin D3 (25 50 mcg PO DAILY 09/20/20 02/22/22 History Mcg = 1000 Iu)] Aspirin 81 mg PO DAILY #30 tab 10/24/21 02/22/22 Rx Famotidine [Pepcid] 20 mg PO DAILY #30 tab 10/24/21 02/22/22 Rx ALPRAZolam [Xanax] 0.5 mg PO HS PRN 02/22/22 02/22/22 History Isosorbide Mononitrate ER [Imdur] 60 mg PO DAILY 02/22/22 02/22/22 History Metoprolol Succinate (ER) [Toprol 25 mg PO HS 02/22/22 02/22/22 History XL] Valsartan [Diovan] 80 mg PO HS 02/22/22 02/22/22 History Vit C/E/Zn/Coppr/Lutein/Zeaxan 2 cap PO DAILY 02/22/22 02/22/22 History [Preservision Areds 2 Softgel] Allergies Allergy/AdvReac Type Severity Reaction Status Date / Time cyclobenzaprine HCl Allergy Unknown Rash/Hives Verified 02/22/22 13:35 [From Flexeril] Iodinated Contrast Media Allergy Rash/Hives Verified 02/22/22 13:35 [Iodinated Contrast Media - IV Dye] Mcnnobh-KEL-ByS Reductase Allergy leg pain Verified 02/22/22 13:35 Inhibitor [Avgbtuk-Cye-Ypi Reductase Inhibitor] TRIPLE DYE Allergy Unknown Rash/Hives Uncoded 02/22/22 13:35 NSAIDS AdvReac Unknown Uncoded 02/22/22 13:35 Physical Exam Vitals: Vital Signs Temp Pulse Pulse Resp BP BP Pulse Ox 02/22/22 18:58 98.4 F 79 17 93/46 99 02/22/22 15:30 97 F L 70 16 124/62 95 02/22/22 15:22 72 16 110/72 98 02/22/22 13:43 67 18 101/73 99 02/22/22 12:31 72 18 102/56 99 02/22/22 11:02 77 02/22/22 10:29 98 F 136 H 18 92/55 100 Intake and Output 02/22/22 02/22/22 02/23/22 14:59 22:59 06:59 Intake Total 360 Balance 360 Intake: Oral 360 Other: Voiding Method Toilet # Voids 1 Weight 55.338 kg Results CBC & Chem 7: 02/25/22 14:25 02/24/22 04:11 Labs: Abnormal Lab Results - Last 24 Hours (Table) 02/22/22 02/22/22 02/22/22 Range/Units 11:22 11:22 11:22 RBC 3.76 L (3.80-5.40) m/uL Hgb 7.2 L (11.4-16.0) gm/dL Hct 25.5 L (34.0-46.0) % MCV 67.7 L (80.0-100.0) fL MCH 19.2 L (25.0-35.0) pg MCHC 28.3 L (31.0-37.0) g/dL RDW 18.7 H (11.5-15.5) % BUN 24 H (7-17) mg/dL Glucose 104 H (74-99) mg/dL Plasma Lactic Acid Vijay 2.5 H* (0.7-2.0) mmol/L Thrombosis Risk Factor Assmnt - Choose All That Apply Each Risk Factor Represents 3 Points: Age 75 years or older Thrombosis Risk Factor Assessment Total Risk Factor Score: 3 Thrombosis Risk Factor Assessment Level: Moderate Risk
[2022-02-25] MEDS: METOPROLOL SUCCINATE (ER) 25 MG TAB.ER.24H PO SCH (20:53)
--- NOTE | 2022-02-25 22:39 | P.CONS ---
History of Present Illness - Reason for Consult Consult date: 02/25/22 Iron def anemia - History of Present Illness this is an 81-year-old female patient, with a prior history of intermittent anemia. The patient was admitted with progressive fatigue, and palpitations, and was found to have hemoglobin of 7.2 with further dropped to 5.5. Iron studies were consistent with an deficiency with ferritin less than 10 and saturation only 1.80%. The patient previously had had EGD and colonoscopy in 2018 which did not show any significant finding. She had another EGD in 02/14 showing mild gastritis. She has been anemic intermittently according to labs in the marked, going back to 2018 the previously low hemoglobins were in the 9-11 range. The patient does take eliquis for a fib, which is currently on hold. the patient states that she has also been on aspirin for possibly the past 1-2 years. The patient had an EGD and colonoscopy this admission with colonoscopy being negative. EGD again showed only mild gastritis. Review of Systems Constitutional: Reports fatigue Eyes: denies blurred vision, denies pain Ears: deny: decreased hearing, ear discharge, earache, tinnitus Ears, nose, mouth and throat: Denies headache, Denies sore throat Cardiovascular: Reports decreased exercise tolerance Respiratory: Denies cough Gastrointestinal: Denies abdominal pain, Denies diarrhea, Denies nausea, Denies vomiting Genitourinary: Reports as per HPI Menstruation: Reports postmenopausal Musculoskeletal: Reports muscle weakness Integumentary: Denies pruritus, Denies rash Neurological: Reports weakness Psychiatric: Denies anxiety, Denies depression Endocrine: Reports fatigue Hematologic/Lymphatic: Reports as per HPI Past Medical History Past Medical History: Atrial Fibrillation, Coronary Artery Disease (CAD), Chest Pain / Angina, COPD, Eye Disorder, Hypertension, Osteoarthritis (OA) Additional Past Medical History / Comment(s): KIDNEY STONES ,POLYPS, BACK PAIN, constipation,macular degeneration terence eyes History of Any Multi-Drug Resistant Organisms: None Reported Past Surgical History: Heart Catheterization, Orthopedic Surgery Additional Past Surgical History / Comment(s): TERENCE CATARACTS , COLONSCOPY, EGD, BREAST BX, LITHOTRIPSY, PAIN CLINIC PROCEDURES. Past Anesthesia/Blood Transfusion Reactions: No Reported Reaction Past Psychological History: Anxiety Smoking Status: Former smoker Past Alcohol Use History: None Reported Additional Past Alcohol Use History / Comment(s): started smoking 61 yrs ago 1ppd-QUIT SMOKING 03/28/18 Past Drug Use History: None Reported - Past Family History Mother Family Medical History: No Reported History Father Family Medical History: Cancer Additional Family Medical History / Comment(s): leukemia Brother(s) Family Medical History: Coronary Artery Disease (CAD) Sister(s) Family Medical History: COPD Daughter(s) Family Medical History: No Reported History Son(s) Family Medical History: No Reported History Medications and Allergies Home Medications Medication Instructions Recorded Confirmed Type ALPRAZolam [Xanax] 0.5 mg PO DAILY 11/03/19 02/22/22 History Apixaban [Eliquis] 5 mg PO BID 11/03/19 02/22/22 History PARoxetine [Paxil] 20 mg PO DAILY 11/03/19 02/22/22 History Cholecalciferol [Vitamin D3 (25 50 mcg PO DAILY 09/20/20 02/22/22 History Mcg = 1000 Iu)] Aspirin 81 mg PO DAILY #30 tab 10/24/21 02/22/22 Rx Famotidine [Pepcid] 20 mg PO DAILY #30 tab 10/24/21 02/22/22 Rx ALPRAZolam [Xanax] 0.5 mg PO HS PRN 02/22/22 02/22/22 History Isosorbide Mononitrate ER [Imdur] 60 mg PO DAILY 02/22/22 02/22/22 History Metoprolol Succinate (ER) [Toprol 25 mg PO HS 02/22/22 02/22/22 History XL] Valsartan [Diovan] 80 mg PO HS 02/22/22 02/22/22 History Vit C/E/Zn/Coppr/Lutein/Zeaxan 2 cap PO DAILY 02/22/22 02/22/22 History [Preservision Areds 2 Softgel] Allergies Allergy/AdvReac Type Severity Reaction Status Date / Time cyclobenzaprine HCl Allergy Unknown Rash/Hives Verified 02/22/22 13:35 [From Flexeril] Iodinated Contrast Media Allergy Rash/Hives Verified 02/22/22 13:35 [Iodinated Contrast Media - IV Dye] Ykyrbos-ZJX-KfY Reductase Allergy leg pain Verified 02/22/22 13:35 Inhibitor [Lszlqwt-Gut-Pmt Reductase Inhibitor] TRIPLE DYE Allergy Unknown Rash/Hives Uncoded 02/22/22 13:35 NSAIDS AdvReac Unknown Uncoded 02/22/22 13:35 Physical Exam Vitals: Vital Signs Temp Pulse Pulse Resp BP BP BP 02/24/22 15:45 97.6 F 78 18 118/73 02/24/22 14:15 95 83 22 148/77 02/24/22 14:07 02/24/22 14:06 95 24 02/24/22 14:00 93 163/91 02/24/22 13:45 102 H 171/94 02/24/22 13:30 96 161/90 02/24/22 13:15 97.8 F 94 20 160/83 02/24/22 07:00 97.8 F 83 18 148/72 02/24/22 01:56 98.7 F 75 17 125/81 02/23/22 23:25 97.9 F 71 121/55 02/23/22 22:55 70 128/72 02/23/22 22:25 76 124/59 Pulse Ox 02/24/22 15:45 98 02/24/22 14:15 02/24/22 14:07 94 L 02/24/22 14:06 02/24/22 14:00 100 02/24/22 13:45 94 L 02/24/22 13:30 92 L 02/24/22 13:15 96 02/24/22 07:00 95 02/24/22 01:56 93 L 02/23/22 23:25 97 02/23/22 22:55 98 02/23/22 22:25 97 Intake and Output 02/24/22 02/24/22 02/24/22 06:59 14:59 22:59 Intake Total 310 150 Balance 310 150 Intake: IV 150 Blood Product 310 Rc As-1 Unit 310 [id number] Other: Voiding Method Toilet # Voids 1 1 # Bowel Movements 4 - Constitutional General appearance: no acute distress - EENT Eyes: EOMI, PERRLA ENT: hearing grossly normal, normal oropharynx - Neck Neck: no lymphadenopathy Thyroid: bilateral: normal size - Respiratory Respiratory: bilateral: CTA - Cardiovascular Rhythm: irregularly irregular Heart sounds: normal: S1, S2 - Gastrointestinal General gastrointestinal: normal bowel sounds, soft - Integumentary Integumentary: flushed, normal - Neurologic Neurologic: CNII-XII intact - Musculoskeletal Musculoskeletal: generalized weakness, strength equal bilaterally - Psychiatric Psychiatric: A&O x's 3, appropriate affect Results CBC & Chem 7: 02/25/22 14:25 02/24/22 04:11 Labs: Abnormal Lab Results - Last 24 Hours (Table) 02/23/22 02/23/22 02/24/22 Range/Units 05:43 10:39 04:11 Hgb 9.7 L (12.0-15.0) g/dL Hct 32.3 L (37.2-46.3) % MCV 77.3 L (80.0-97.0) fL MCH 23.2 L (27.0-32.0) pg MCHC 30.0 L (32.0-37.0) g/dL RDW 24.9 H (11.5-14.5) % Albumin (PEP) 3.25 L (3.80-4.90) g/dL Gamma Globulins 0.58 L (0.70-1.50) g/dL Crossmatch See Detail Comments: EKG images reviewed. 1 EKG shows normal sinus rhythm, while the other shows atrial fibrillation her procedure notes and pathology reports reviewed Chest x-ray: report reviewed CT scan - abdomen: report reviewed CT scan - pelvis: report reviewed Assessment and Plan (1) Iron deficiency anemia Narrative/Plan: patient has a history of iron deficiency anemia that hasn't presented now for some years at least with multiple GI endoscopies that have been negative. The patient's CT scan of the abdomen and pelvis in 2019 was also negative for any specific pathology. It appears to be some worsening compared to her baseline more recently. 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 The patient has also had a capsule endoscopy, but the sensitivity of this is comparatively low, and the results do not change of address clerk from the hematology standpoint. - The management would be aggressive iron supplementation, and overt evidence of anticoagulation/antiplatelet therapy if possible. Given the patient's cardiac history, it would be preferable for her to continue on the anticoagulation at least, as long as hemoglobin can be maintained in an adequate range with aggressive iron supplementation - The patient will receive IV iron during this admission. She will receive additional doses as an outpatient and then be placed on a regular schedule with monitoring and ongoing parenteral supplementation as needed. - Discussed with cardiology about possibly discontinuing the aspirin which will reduce bleeding risk. From her history does not appear that she has a specific indication to take the same. Current Visit: Yes Status: Acute Code(s): D50.9 - IRON DEFICIENCY ANEMIA, UNSPECIFIED SNOMED Code(s): 78632442 Plan: therefore to the admitting service for management of her multiple other medical problems.
[2022-02-26] MEDS: DILTIAZEM 125 MG in SODIUM CHLORIDE 0.9% 100 ML IV SCH (06:27)
[2022-02-26] MEDS ORDERED: DILTIAZEM 125 MG in SODIUM CHLORIDE 0.9% 100 ML IV SCH (08:30)
[2022-02-26] MEDS ORDERED: DILTIAZEM DRIP BOLUS FROM BAG 1 MG SOLN IV ONE (08:30)
[2022-02-26] MEDS: IPRATROPIUM-ALBUTEROL 3 ML NEB INHALATION SCH ×4 (08:36→20:47)
[2022-02-26] MEDS ORDERED: METOPROLOL TARTRATE 50 MG TAB PO SCH (09:00)
[2022-02-26] MEDS: CYANOCOBALAMIN 1,000 MCG/ML 1 ML VIAL IM SCH (09:03)
--- NOTE | 2022-02-26 09:15 | P.CRDCN ---
History of Present Illness History of present illness: HISTORY OF PRESENTING ILLNESS This is a pleasant 81-year-old female past medical history significant for mild to moderate coronary artery disease (50% proximal LAD, 20% mid circumflex, 20% mid RCA, right dominant by cardiac catheterization on 09/2021), paroxysmal atrial fibrillation on Eliquis outpatient, hypertension, dyslipidemia, former tobacco use. She follows in the office with Dr. Olivares. We have been asked to see in consultation for atrial fibrillation with RVR. Patient presents to the emergency department with complaints of palpitations, back pain, generalized weakness. She was essentially an A. fib with RVR on admission to the emergency department and converted back to sinus mechanism. She was found to have hemoglobin of 5.5. GI evaluated the patient. Her anticoagulation was held. Patient underwent EGD and colonoscopy with Dr. Zhang on 02/24/2022 which revealed mild antral gastritis and a small duodenal lipoma, small internal hemorrhoids but no evidence of colitis or colorectal neoplasia. No evidence of active bleed. Patient also undergoing small bowel video capsule endoscopy. She denied any black or blood in her stool. Patient denies any chest pain or shortn ess of breath. Reports palpitations. At bedside patient in A. fib with RVR with heart rates in the [id number]. DIAGNOSTICS EKG reveals atrial fibrillation with rapid ventricular response. prior EKG patient in sinus mechanism Echocardiogram 12/28/2021 in the office revealed normal ejection fraction, mild mitral regurgitation, mild tricuspid regurgitation Telemetry tracings indicate atrial fibrillation with rapid ventricular response, heart rate [id number] Chest xray no acute heart failure or pulmonary process.. Laboratory reviewed, WBC 7.2, hemoglobin 9.6, platelets 283, sodium 143, potassium 4.0, BUN 9.8, serum creatinine 0.8 Current home medications include Proscar and 80 mg nightly, metoprolol 6025 mg nightly, Imdur 60 mg daily, aspirin 80 mg daily, Eliquis 5 mg twice a day, Pepcid, Xanax, Paxil, vitamin D REVIEW OF SYSTEMS At the time of my exam: CONSTITUTIONAL: Denies fever or chills. CARDIOVASCULAR: Denies chest pain, shortness of breath, orthopnea, PND. Reports palpitations. RESPIRATORY: Denies cough. GASTROINTESTINAL: Denies abdominal pain, diarrhea, constipation, nausea or vomiting. MUSCULOSKELETAL: Denies myalgias. NEUROLOGIC: Denies numbness, tingling, headacbe or weakness. ENDOCRINE: Denies fatigue, weight change, polydipsia or polyurina. GENITOURINARY: Denies burning, hematuria or urgency with micturation. HEMATOLOGIC: Denies bleeding. PHYSICAL EXAMINATION Vitals 119/81, heart rate 132, afebrile clock saturations 99% on 2L NC CONSTITUTIONAL: No apparent distress. HEENT: Head is normocephalic. Pupils are equal, round. Sclerae anicteric. Mucous membranes of the mouth are moist. No JVD. No carotid bruit. CHEST EXAMINATION: Lungs are clear to auscultation. No chest wall tenderness is noted on palpation or with deep breathing. HEART EXAMINATION: Irregular, tachycardic and rhythm. S1, S2 heard. No murmurs, gallops or rub. ABDOMEN: Soft, nontender. Positive bowel sounds. EXTREMITIES: 2+ peripheral pulses, no lower extremity edema and no calf tenderness. SKIN: warm, dry NEUROLOGIC EXAMINATION: Patient is awake, alert and oriented x3. ASSESSMENT Paroxysmal atrial fibrillation with RVR, anticoagulation on hold secondary to anemia CHADS2-VASc score 5 Anemia s/p EGD and colonoscopy on 02/24 with no signs of active bleed, Mild gastritis, small duodenal lipoma and small internal hemorrhoids Mild to moderate coronary artery disease (50% proximal LAD, 20% mid circumflex, 20% mid RCA, right dominant by cardiac catheterization on 09/2021) Hypertension Dyslipidemia Former tobacco use PLAN -Start IV Cardizem bolus 7.5mg and increased drip 10mg/hr -Change metoprolol tartrate 50mg BID -Hold Valsartan -Patient currently undergoing small bowel video capsule endoscopy -Anticoagulation on hold, per GI team continue hold anticoagulation for at least 2 more days -Recommend inpatient admission and 3S transfer for rate control -No need to repeat echocardiogram with recent in the office on 12/28/2021. -Further recommendations based on clinical course Nurse practitioner note has been reviewed by physician. Signing provider agrees with the documented findings, assessment, and plan of care. Past Medical History Past Medical History: Atrial Fibrillation, Coronary Artery Disease (CAD), Chest Pain / Angina, COPD, Eye Disorder, Hypertension, Osteoarthritis (OA) Additional Past Medical History / Comment(s): KIDNEY STONES ,POLYPS, BACK PAIN, constipation,macular degeneration terence eyes History of Any Multi-Drug Resistant Organisms: None Reported Past Surgical History: Heart Catheterization, Orthopedic Surgery Additional Past Surgical History / Comment(s): TERENCE CATARACTS , COLONSCOPY, EGD, BREAST BX, LITHOTRIPSY, PAIN CLINIC PROCEDURES. Past Anesthesia/Blood Transfusion Reactions: No Reported Reaction Past Psychological History: Anxiety Smoking Status: Former smoker Past Alcohol Use History: None Reported Additional Past Alcohol Use History / Comment(s): started smoking 61 yrs ago [id number] SMOKING 03/28/18 Past Drug Use History: None Reported - Past Family History Mother Family Medical History: No Reported History Father Family Medical History: Cancer Additional Family Medical History / Comment(s): leukemia Brother(s) Family Medical History: Coronary Artery Disease (CAD) Sister(s) Family Medical History: COPD Daughter(s) Family Medical History: No Reported History Son(s) Family Medical History: No Reported History Medications and Allergies Home Medications Medication Instructions Recorded Confirmed Type ALPRAZolam [Xanax] 0.5 mg PO DAILY 11/03/19 02/22/22 History Apixaban [Eliquis] 5 mg PO BID 11/03/19 02/22/22 History PARoxetine [Paxil] 20 mg PO DAILY 11/03/19 02/22/22 History Cholecalciferol [Vitamin D3 (25 50 mcg PO DAILY 09/20/20 02/22/22 History Mcg = 1000 Iu)] Aspirin 81 mg PO DAILY #30 tab 10/24/21 02/22/22 Rx Famotidine [Pepcid] 20 mg PO DAILY #30 tab 10/24/21 02/22/22 Rx ALPRAZolam [Xanax] 0.5 mg PO HS PRN 02/22/22 02/22/22 History Isosorbide Mononitrate ER [Imdur] 60 mg PO DAILY 02/22/22 02/22/22 History Metoprolol Succinate (ER) [Toprol 25 mg PO HS 02/22/22 02/22/22 History XL] Valsartan [Diovan] 80 mg PO HS 02/22/22 02/22/22 History Vit C/E/Zn/Coppr/Lutein/Zeaxan 2 cap PO DAILY 02/22/22 02/22/22 History [Preservision Areds 2 Softgel] Allergies Allergy/AdvReac Type Severity Reaction Status Date / Time cyclobenzaprine HCl Allergy Unknown Rash/Hives Verified 02/22/22 13:35 [From Flexeril] Iodinated Contrast Media Allergy Rash/Hives Verified 02/22/22 13:35 [Iodinated Contrast Media - IV Dye] Jjvjwdt-MUC-EcJ Reductase Allergy leg pain Verified 02/22/22 13:35 Inhibitor [Gzviynu-Zwv-Czu Reductase Inhibitor] TRIPLE DYE Allergy Unknown Rash/Hives Uncoded 02/22/22 13:35 NSAIDS AdvReac Unknown Uncoded 02/22/22 13:35 Physical Exam Vitals: Vital Signs Temp Pulse Pulse Pulse Resp BP Pulse Ox 02/26/22 07:16 98 F 132 H 16 119/81 99 02/26/22 02:24 98.9 F 73 18 107/61 100 02/25/22 19:30 99.7 F H 83 17 103/60 100 02/25/22 15:22 84 02/25/22 15:07 80 02/25/22 14:00 98.4 F 86 20 113/66 99 02/25/22 11:21 72 02/25/22 11:09 76 02/25/22 08:36 98.4 F 74 16 118/56 99 02/25/22 07:39 72 02/25/22 07:25 72 Intake and Output 02/25/22 02/26/22 02/26/22 22:59 06:59 14:59 Other: Voiding Method Toilet # Voids 3 Results 02/25/22 14:25 02/24/22 04:11 CBC 02/25/22 Range/Units 14:25 WBC 7.2 (3.8-10.6) k/uL RBC 4.17 (3.80-5.40) m/uL Hgb 9.6 L D (11.4-16.0) gm/dL Hct 31.5 L (34.0-46.0) % Plt Count 283 (150-450) k/uL Current Medications Generic Name Dose Route Start Last Admin Trade Name Freq PRN Reason Stop Dose Admin Albuterol/Ipratropium 3 ml 02/24/22 16:00 02/25/22 20:12 Ipratropium-Albuterol 3 Ml Neb INHALATION Not Given RT-QID ALIYAH Albuterol/Ipratropium 3 ml 02/24/22 13:53 Ipratropium-Albuterol 3 Ml Neb INHALATION RT-Q2H PRN Shortness Of Breath Or Wheezing Alprazolam 0.5 mg 02/23/22 09:00 02/25/22 09:04 Alprazolam 0.5 Mg Tab PO 0.5 mg DAILY ALIYAH Administration Alprazolam 0.5 mg 02/22/22 20:28 02/24/22 04:05 Alprazolam 0.5 Mg Tab PO 0.5 mg HS PRN Administration Anxiety Cholecalciferol 50 mcg 02/23/22 09:00 02/25/22 09:04 Cholecalciferol 25 Mcg (1000 Iu) Tablet PO 50 mcg DAILY ALIYAH Administration Cyanocobalamin 1,000 mcg 02/24/22 16:30 02/25/22 11:20 Cyanocobalamin 1,000 Mcg/Ml 1 Ml Vial IM 1,000 mcg DAILY ALIYAH Administration Ferric Sodium Gluconate 125 mg 110 mls @ 100 mls/hr 02/26/22 09:00 / Sodium Chloride IVPB 02/27/22 10:05 DAILY ALIYAH Diltiazem HCl 125 mg/ Sodium 125 mls @ 5 mls/hr 02/26/22 06:00 02/26/22 06:27 Chloride IV 5 mg/hr .Q24H ALIYAH 5 mls/hr Administration 5 MG/HR Isosorbide Mononitrate 60 mg 02/23/22 09:00 02/25/22 09:04 Isosorbide Mononitrate Er 60 Mg Tab.Er.24h PO 60 mg DAILY ALIYAH Administration Metoprolol Succinate 25 mg 02/22/22 21:00 02/25/22 20:53 Metoprolol Succinate (Er) 25 Mg Tab.Er.24h PO 25 mg HS ALIYAH Administration Naloxone HCl 0.2 mg 02/22/22 13:35 Naloxone 0.4 Mg/Ml 1 Ml Vial IV Q2M PRN Opioid Reversal Pantoprazole Sodium 40 mg 02/23/22 09:00 02/25/22 09:04 Pantoprazole 40 Mg/10 Ml Vial IVP 40 mg DAILY ALIYAH Administration Paroxetine HCl 20 mg 02/23/22 09:00 02/25/22 09:04 Paroxetine 20 Mg Tab PO 20 mg DAILY ALIYAH Administration Intake and Output 02/25/22 02/26/22 02/26/22 22:59 06:59 14:59 Other: Voiding Method Toilet # Voids 3 02/25/22 14:25 02/24/22 04:11
[2022-02-26] MEDS: ALPRAZolam 0.5 MG TAB PO SCH (10:15)
[2022-02-26] MEDS: CHOLECALCIFEROL 25 MCG (1000 IU) TABLET PO SCH (10:15)
[2022-02-26] MEDS: PANTOPRAZOLE 40 MG/10 ML VIAL IVP SCH ×2 (10:15→10:21)
[2022-02-26] MEDS: METOPROLOL TARTRATE 50 MG TAB PO SCH ×2 (10:15→20:36)
[2022-02-26] MEDS: PARoxetine 20 MG TAB PO SCH (10:16)
--- NOTE | 2022-02-26 10:27 | P.PN ---
Subjective Progress Note Date: 02/26/22 Principal diagnosis: Anemia This is a pleasant 81-year-old female who presented to the emergency department yesterday with complaints of palpitations, racing heart which she states is related to her atrial fibrillation. She has past medical history including coronary artery disease, atrial fibrillationon Eliquis and hypertension. Patient came in and presented with a hemoglobin of 7.2 with an elevated BUN. Gastroenterology is consulted for anemia, possible GI bleed. Patient denies any black stool or blood in her stool. Denies any abdominal pain, nausea or vomiting. She denies any NSAID use, states only uses Tylenol. Patient has had some issues with dysphagia in the past and has undergone EGD on 01/30/[address] Shirley that showed mild gastritis. Previous to that she's had a EGD colonoscopy in November [address] Beckett. EGD showed mild gastritis and mi ld esophagitis, colonoscopy was normal. Patient had a negative stool for occult blood this admission. Eliquis is currently on hold. Patient had a drop in her hemoglobin today to 5.5, 2 units of blood have been ordered. 02/25/2022. Patient seen and examined as follows. Yesterday she underwent EGD and colonoscopy. EGD with findings of mild antral gastritis and small duodenal lipoma, colonoscopy revealed small internal hemorrhoids but no evidence of colitis or colorectal neoplasia. No evidence of angiectasia. To complete the GI workup patient was agreeable to undergo a small bowel video capsule endoscopy yesterday evening. Results are currently pending likely will not be completed by today. Patient denies any abdominal pain, nausea or vomiting. She's been afebrile. States she's feeling much better today, her breathing is better. Denies any shortness of breath at this time. Again patient denies any blood in her stool or black stool. No hematemesis. Today's labs are currently pending 02/26/2022. Patient seen and examined as a follow-up for anemia. She is status post EGD colonoscopy without any evidence of old blood or new blood. No findings to account for patient's anemia. She underwent small bowel capsule endoscopy which was reviewed showing multiple nonbleeding AVMs. Patient currently denies any abdominal pain, nausea or vomiting. She reports no bowel movement since EGD and colonoscopy. Denies any rectal bleeding. She she complains of some shortness of breath and rapid heart rate. She is currently in atrial fibrillation Cardizem drip was started and cardiology is following closely. Objective - Vital Signs Vital signs: Vital Signs Temp 98 F 02/26/22 07:16 Pulse 132 H 02/26/22 09:57 Resp 16 02/26/22 08:20 BP 101/67 02/26/22 09:57 Pulse Ox 100 02/26/22 08:20 FiO2 Intake & Output 02/25/22 02/26/22 02/26/22 18:59 06:59 18:59 Other: Voiding Method Toilet # Voids 3 - Exam General appearance: The patient is alert, oriented, appears in no acute distress. HET: Head is normocephalic and atraumatic. Conjunctiva pink. Sclera anicteric. Neck: Supple without lymphadenopathy. Abdomen: Soft, nontender, nondistended with bowel sounds. No guarding or rigidity. Extremities: Normal skin color and turgor. No pedal edema Skin: No rashes, no jaundice Neurological: No focal deficits. Alert and oriented. - Labs CBC & Chem 7: 02/25/22 14:25 02/24/22 04:11 Labs: Abnormal Lab Results - Last 24 Hours (Table) 02/25/22 Range/Units 14:25 Hgb 9.6 L D (11.4-16.0) gm/dL Hct 31.5 L (34.0-46.0) % MCV 75.6 L D (80.0-100.0) fL MCH 23.0 L (25.0-35.0) pg MCHC 30.4 L (31.0-37.0) g/dL RDW 23.1 H (11.5-15.5) % Assessment and Plan (1) Anemia Narrative/Plan: 81-year-old female who presented to the emergency department with rapid heartbeat, palpitations. I was found to be anemic with a hemoglobin of 7.2. Denies any overt signs of GI bleed. Denies any black stool or blood in her stool. She does take Eliquis for her atrial fibrillation and is also on a low- dose aspirin. Denies any NSAID use. Does have a history of dysphagia and unde rwent EGD in January 2020 with finding of mild gastritis, also underwent EGD colonoscopy in November 2017. EGD with mild gastritis and esophagitis, colonoscopy within normal limits. She had a drop in her hemoglobin of 5.5 today, patient agreeable to undergo EGD and colonoscopy tomorrow to evaluate for possible GI bleed. Patient is status post EGD and colonoscopy without any signs of old blood were active bleeding. Underwent a small bowel capsule endoscopy yesterday evening, results are pending and likely will not be back until tomorrow. Patient is otherwise cleared for discharge from gastroenterology if hemoglobin stable. Discussed this with patient, can call office to follow-up for small bowel capsule study. Current Visit: Yes Status: Acute Code(s): D64.9 - ANEMIA, UNSPECIFIED SNOMED Code(s): 503775658 (2) GI AVM (gastrointestinal arteriovenous vascular malformation) Narrative/Plan: Small bowel video capsule endoscopy showed multiple nonbleeding AVMs. Recommend holding anticoagulation for another 2 days. Current Visit: Yes Status: Acute Code(s): K55.20 - ANGIODYSPLASIA OF COLON WITHOUT HEMORRHAGE SNOMED Code(s): 094330820 (3) Atrial fibrillation Current Visit: No Status: Acute Code(s): I48.91 - UNSPECIFIED ATRIAL FIBR ILLATION SNOMED Code(s): 83461756 Plan: 1. Continue symptomatic care 2. Heart healthy diet 3. Continue to hold Eliquis for another 2 days, may resume aspirin 4. Avoid NSAIDs 5. Protonix 40 mg daily 6. Patient is status post EGD, colonoscopy and small bowel video capsule endoscopy. No findings of old blood or active bleeding on EGD or colonoscopy. Small bowel video capsule endoscopy with multiple nonbleeding AVMs. 7. Patient may call office for small bowel capsule endoscopy results. Thank you for allowing us to participate in the care of the patient, the GI service will sign off, gastroenterology will not be available at the hospital this weekend and through next week. If further evaluation by gastroenterology is required the patient will need transfer as per the primary team's discretion. Dr. Mauro Zhang I agree with the dictator's note, documented as a scribe by Peace Zuñiga.
[2022-02-26] MEDS: ISOSORBIDE MONONITRATE ER 60 MG TAB.ER.24H PO SCH (11:15)
[2022-02-26] MEDS: SODIUM FERRIC GLUCONAT-SUCROSE 125 MG in SODIUM CHLORIDE 0.9% 100 ML IVPB SCH (13:19)
[2022-02-27] MEDS: DILTIAZEM 125 MG in SODIUM CHLORIDE 0.9% 100 ML IV SCH (01:43)
[2022-02-27] MEDS: PANTOPRAZOLE 40 MG TABLET PO SCH (06:24)
[2022-02-27] MEDS: METOPROLOL TARTRATE 50 MG TAB PO SCH ×2 (08:10→20:24)
[2022-02-27] MEDS: PARoxetine 20 MG TAB PO SCH (08:10)
[2022-02-27] MEDS: CHOLECALCIFEROL 25 MCG (1000 IU) TABLET PO SCH (08:10)
[2022-02-27] MEDS: ALPRAZolam 0.5 MG TAB PO SCH (08:11)
[2022-02-27] MEDS: CYANOCOBALAMIN 1,000 MCG/ML 1 ML VIAL IM SCH (08:11)
[2022-02-27] MEDS: IPRATROPIUM-ALBUTEROL 3 ML NEB INHALATION SCH ×4 (08:35→19:58)
[2022-02-27] MEDS: SODIUM FERRIC GLUCONAT-SUCROSE 125 MG in SODIUM CHLORIDE 0.9% 100 ML IVPB SCH (09:08)
--- NOTE | 2022-02-27 11:02 | P.PN ---
Subjective Progress Note Date: 02/24/22 HISTORY OF PRESENT ILLNESS: This is an 81-year-old white female with a previous medical history significant for hypertension and hypertensive cardiovascular disease, hyperlipidemia, paroxysmal atrial fibrillation,CAD post left heart catherization last on 09/2021 that showed 50 % stenosis in the proximal LAD and 10-20 % stenosis in the LCX and RCA , anxiety disorder, severe osteoarthritis today she woke up in the morning and she was complaining of increased generalized fatigue with pressure like sensation in her back that resolved on its own, patient was intolerant for STATINS and PCSK-9 INB due to severe myopathy and weakness and she is currently in the process of getting approved for INCLISIRAN( LEQVIO) , patient denied any abdominal pain, nausea or vomiting she does have episodes of heart burn and intermittent dysphagia she was supposed to have a GI work up as outpatient, she presented herself to the ER for evaluation and she was found to have iron deficiency anemia with severe microcytosis and had negative stool for occult blood and denied recent GI bleed,patient was started on IVF and she was taken off ASA and Eliquis for EGD and colonoscopy we will consult GI/Suregry for GI work up 02/24: Patient is laying down in bed in no apparent distress, her hemoglobin officially did drop to 5.6, type and cross and transfuse 2 units of packed red blood cells was obtained, patient was seen in consultation by gastrology, she is scheduled to go for EGD and colonoscopy tomorrow morning, as workup for iron deficiency anemia, even though the patient has not had any signs of GI bleed so far, if the EGD and colonoscopy is negative patient will need to have a capsule endoscopy as an inpatient, meanwhile we will ask hematology evaluation for possible myelodysplasia, laboratory evaluation was obtained including reticulocyte count, iron studies, including ferritin, B12 folic acid level hap toglobin as well as LDH. REVIEW OF SYSTEMS: Constitutional: No documented fever, no chills, no night sweats. No weight change. positive for weakness, fatigue or lethargy. No daytime sleepiness. HEENT: No headache. positive for blurred vision or double vision, no loss of vision. No loss of Hearing, no ringing in the ears, no dizziness. No nasal drainage or congestion. No epistaxis. No sore throat. Lungs: No shortness of breath, no cough, no sputum production. No wheezing. Reports dyspnea with activity. Cardiovascular: No chest pain, no lower extremity edema. No palpitations. No paroxysmal nocturnal dyspnea. No orthopnea. No lightheadedness or dizziness. No syncopal episodes. Abdominal: Reports no abdominal pain. No nausea, vomiting. No diarrhea. No constipation. No bloody or tarry stools reports loss of appetite. Genitourinary: No dysuria, increased frequency, urgency. No urinary retention. Musculoskeletal: No myalgias. No muscle weakness, no gait dysfunction, no frequent falls. No back pain. No neck pain. Integumentary: No wounds, no lesions. No rash or pruritus. No unusual bruising. No change in hair or nails. Neurologic: No aphasia. No facial droop. No change in mentation. No head injury. No headache. No paralysis. No paresthesia. Psychiatric: No depression. positive for anxiety. No mood swings. Endocrine: No abnormal blood sugars. No weight change. PHYSICAL EXAMINATION: General: 81-year-old female sitting up in bed in no apparent distress. HEENT: Head is atraumatic, normocephalic, pupils were equal round reactive to light and recommendation, extraocular muscle movement were intact, sclera nonicteric, conjunctivae were pale, mucous membranes of the mouth are somewhat dry. Neck: Supple, no JVP, normal carotid upstroke bilaterally, no lymphadenopathy. Chest: Decreased breath sounds at the bases, few rhonchi, no expiratory wheezes, no chest wall tenderness, no intercostal retractions. Heart: First heart sound is normal, second heart sounds normal there is systolic ejection murmur 2/6. The left sternal border. Abdomen: Soft, nontender, nondistended, positive bowel sounds, there is no hepatomegaly. Extremities: There is no edema no calf tenderness DP +2 bilaterally. Neurologic examination: Patient is awake alert and oriented X 3, cranial nerves II-12 appear grossly intact, muscle power were 5 out of 5 in upper extremities and 5 out of 5 in bilateral lower extremities, deep tendon reflexes normal bilaterally. ASSESSMENT AND PLAN: 1. Generalized weakness with symptomatic iron deficiency anemia.we will check iron studies and retic count, continue to hold Eliquis and aspirin for now, patient scheduled for EGD and colonoscopy tomorrow morning. 2. anemia due to chronic blood loss likely GI source. we will check iron indices and Retic count and will need GI work up along with hematology workup. 3. Hypertension and hypertensive cardiovascular disease currently hypotensive. continue metoprolol 12.5 mg po at bedtime 4. Mixed hyperlipidemia. Patient is not able to take statins or PCSK 9 i nhibitors.currentli is being approved for Inclisiran 5. Anxiety disorder. Continue patient on paroxetine 20 mg orally once every day and Xanax 0.5 mg po bid as needed. 6. Macular degeneration. Continue with current vitamins. 7. Paroxysmal atrial fibrillation currently in sinus rhythm. Continue patient on metoprolol 12.5 mg orally at bedtime and we will hold off Eliquis 8. Osteoarthritis. Continue current pain management. 9. DVT prophylaxis. bilateral knee-high ricky hose and hold off Eliquis for GI work up 10. GI prophylaxis. Protonix 40 mg IVP daily. 11. Prognosis is guarded. Objective - Vital Signs Vital signs: Vital Signs Temp 98.3 F 02/27/22 04:43 Pulse 77 02/27/22 08:00 Resp 16 02/27/22 08:00 BP 112/53 02/27/22 08:00 Pulse Ox 96 02/27/22 08:00 FiO2 Intake & Output 02/26/22 02/27/22 02/27/22 18:59 06:59 18:59 Intake Total 234 Balance 234 Intake: Intake, IV Titration 234 Amount Diltiazem 125 mg In 34 Sodium Chloride 0.9% 100 ml @ 10 MG/HR 10 mls/hr IV .[id number] [facility] Rx#: [id number] IV Fluid Continuation 1, 100 000 ml @ 0 mls/hr IV .[facility] Rx#:[id number] Sodium Ferric Gluconat- 100 Sucrose 125 mg In Sodium Chloride 0.9% 100 ml @ 100 mls/hr IVPB DAILY [facility] Rx#:[id number] Other: Voiding Method Toilet Toilet # Voids 1 - Labs CBC & Chem 7: 02/25/22 14:25 02/24/22 04:11
--- NOTE | 2022-02-27 11:11 | P.PN ---
Subjective Progress Note Date: 02/25/22 HISTORY OF PRESENT ILLNESS: This is an 81-year-old white female with a previous medical history significant for hypertension and hypertensive cardiovascular disease, hyperlipidemia, paroxysmal atrial fibrillation,CAD post left heart catherization last on 09/2021 that showed 50 % stenosis in the proximal LAD and 10-20 % stenosis in the LCX and RCA , anxiety disorder, severe osteoarthritis today she woke up in the morning and she was complaining of increased generalized fatigue with pressure like sensation in her back that resolved on its own, patient was intolerant for STATINS and PCSK-9 INB due to severe myopathy and weakness and she is currently in the process of getting approved for INCLISIRAN( LEQVIO) , patient denied any abdominal pain, nausea or vomiting she does have episodes of heart burn and intermittent dysphagia she was supposed to have a GI work up as outpatient, she presented herself to the ER for evaluation and she was found to have iron deficiency anemia with severe microcytosis and had negative stool for occult blood and denied recent GI bleed,patient was started on IVF and she was taken off ASA and Eliquis for EGD and colonoscopy we will consult GI/Suregry for GI work up 02/24: Patient is laying down in bed in no apparent distress, her hemoglobin officially did drop to 5.6, type and cross and transfuse 2 units of packed red blood cells was obtained, patient was seen in consultation by gastrology, she is scheduled to go for EGD and colonoscopy tomorrow morning, as workup for iron deficiency anemia, even though the patient has not had any signs of GI bleed so far, if the EGD and colonoscopy is negative patient will need to have a capsule endoscopy as an inpatient, meanwhile we will ask hematology evaluation for possible myelodysplasia, laboratory evaluation was obtained including reticulocyte count, iron studies, including ferritin, B12 folic acid level hap toglobin as well as LDH. 12.1: Patient is sitting up in bed is feeling a bit better today earlier today after she came back from the EGD and colonoscopy developed to have a significant acute respiratory failure due to possible fluid overload as the patient did receive 2 units of packed red blood cells, she did receive nebulized treatment one time, she was placed on oxygen, she did receive also 1 dose of Lasix, she is feeling a lot better now she can use to go in and out of atrial fibrillation with a heart rate ranging between 90 and 120, metoprolol was increased to 25 mg orally twice every day, will stay off this until the final result of the capsule endoscopy is back. REVIEW OF SYSTEMS: Constitutional: No documented fever, no chills, no night sweats. No weight change. positive for weakness, fatigue or lethargy. No daytime sleepiness. HEENT: No headache. positive for blurred vision or double vision, no loss of vision. No loss of Hearing, no ringing in the ears, no dizziness. No nasal drainage or congestion. No epistaxis. No sore throat. Lungs: No shortness of breath, no cough, no sputum production. No wheezing. Reports dyspnea with activity. Cardiovascular: No chest pain, no lower extremity edema. No palpitations. No paroxysmal nocturnal dyspnea. No orthopnea. No lightheadedness or dizziness. No syncopal episodes. Abdominal: Reports no abdominal pain. No nausea, vomiting. No diarrhea. No constipation. No bloody or tarry stools reports loss of appetite. Genitourinary: No dysuria, increased frequency, urgency. No urinary retention. Musculoskeletal: No myalgias. No muscle weakness, no gait dysfunction, no frequent falls. No back pain. No neck pain. Integumentary: No wounds, no lesions. No rash or pruritus. No unusual bruising. No change in hair or nails. Neurologic: No aphasia. No facial droop. No change in mentation. No head injury. No headache. No paralysis. No paresthesia. Psychiatric: No depression. positive for anxiety. No mood swings. Endocrine: No abnormal blood sugars. No weight change. PHYSICAL EXAMINATION: General: 81-year-old female sitting up in bed in no apparent distress. HEENT: Head is atraumatic, normocephalic, pupils were equal round reactive to light and recommendation, extraocular muscle movement were intact, sclera nonicteric, conjunctivae were pale, mucous membranes of the mouth are somewhat dry. Neck: Supple, no JVP, normal carotid upstroke bilaterally, no lymphadenopathy. Chest: Decreased breath sounds at the bases, few rhonchi, no expiratory wheezes, no chest wall tenderness, no intercostal retractions. Heart: First heart sound is normal, second heart sounds normal there is systolic ejection murmur 2/6. The left sternal border. Abdomen: Soft, nontender, nondistended, positive bowel sounds, there is no hepatomegaly. Extremities: There is no edema no calf tenderness DP +2 bilaterally. Neurologic examination: Patient is awake alert and oriented X 3, cranial nerves II-12 appear grossly intact, muscle power were 5 out of 5 in upper extremities and 5 out of 5 in bilateral lower extremities, deep tendon reflexes normal bilaterally. ASSESSMENT AND PLAN: 1. Severe iron deficiency anemia due to chronic blood loss exacerbated by the use of aspirin and Eliquis. Patient did have an EGD and colonoscopy that showed gastritis, biopsy did show evidence of blunting of the villous architecture of the small bowel raising the possibility of sick disease, chronic lymphocytic infiltrate, therefore the patient will have a celiac panel, patient did receive iron supplementation during the hospital stay and will follow-up with hematology as an outpatient. 2. anemia due to chronic blood loss likely GI with the final result of the capsule endoscopy, continue iron infusion while she is in the hospital. Rule out celiac disease. 3. Hypertension and hypertensive cardiovascular disease currently hypotensive. continue metoprolol 25 mg orally twice every day. 4. Mixed hyperlipidemia. Patient is not able to take statins or PCSK 9 inhibitors.currentli is being approved for Inclisiran 5. Anxiety disorder. Continue patient on paroxetine 20 mg orally once every da y and Xanax 0.5 mg po bid as needed. 6. Macular degeneration. Continue with current vitamins. 7. Paroxysmal atrial fibrillation currently in sinus rhythm. Continue patient on metoprolol 25 mg orally twice every day, continue to hold Eliquis till the final result of the capsule endoscopy his back. 8. Osteoarthritis. Continue current pain management. 9. DVT prophylaxis. bilateral knee-high ricky hose and hold off Eliquis for GI work up 10. GI prophylaxis. Protonix 40 mg IVP daily. 11. Prognosis is guarded. Objective - Vital Signs Vital signs: Vital Signs Temp 98.4 F 02/25/22 14:00 Pulse 84 02/25/22 15:22 Resp 20 02/25/22 14:00 BP 113/66 02/25/22 14:00 Pulse Ox 99 02/25/22 14:00 FiO2 Intake & Output 02/25/22 02/25/22 02/26/22 06:59 18:59 06:59 Other: Voiding Method Toilet # Voids 2 - Labs CBC & Chem 7: 02/25/22 14:25 02/24/22 04:11 Labs: Abnormal Lab Results - Last 24 Hours (Table) 02/25/22 Range/Units 14:25 Hgb 9.6 L D (11.4-16.0) gm/dL Hct 31.5 L (34.0-46.0) % MCV 75.6 L D (80.0-100.0) fL MCH 23.0 L (25.0-35.0) pg MCHC 30.4 L (31.0-37.0) g/dL RDW 23.1 H (11.5-15.5) %
--- NOTE | 2022-02-27 11:13 | P.PN ---
Subjective Progress Note Date: 02/26/22 HISTORY OF PRESENT ILLNESS: This is an 81-year-old white female with a previous medical history significant for hypertension and hypertensive cardiovascular disease, hyperlipidemia, paroxysmal atrial fibrillation,CAD post left heart catherization last on 09/2021 that showed 50 % stenosis in the proximal LAD and 10-20 % stenosis in the LCX and RCA , anxiety disorder, severe osteoarthritis today she woke up in the morning and she was complaining of increased generalized fatigue with pressure like sensation in her back that resolved on its own, patient was intolerant for STATINS and PCSK-9 INB due to severe myopathy and weakness and she is currently in the process of getting approved for INCLISIRAN( LEQVIO) , patient denied any abdominal pain, nausea or vomiting she does have episodes of heart burn and intermittent dysphagia she was supposed to have a GI work up as outpatient, she presented herself to the ER for evaluation and she was found to have iron deficiency anemia with severe microcytosis and had negative stool for occult blood and denied recent GI bleed,patient was started on IVF and she was taken off ASA and Eliquis for EGD and colonoscopy we will consult GI/Suregry for GI work up 02/24: Patient is laying down in bed in no apparent distress, her hemoglobin officially did drop to 5.6, type and cross and transfuse 2 units of packed red blood cells was obtained, patient was seen in consultation by gastrology, she is scheduled to go for EGD and colonoscopy tomorrow morning, as workup for iron deficiency anemia, even though the patient has not had any signs of GI bleed so far, if the EGD and colonoscopy is negative patient will need to have a capsule endoscopy as an inpatient, meanwhile we will ask hematology evaluation for possible myelodysplasia, laboratory evaluation was obtained including reticulocyte count, iron studies, including ferritin, B12 folic acid level hap toglobin as well as LDH. 12.1: Patient is sitting up in bed is feeling a bit better today earlier today after she came back from the EGD and colonoscopy developed to have a significant acute respiratory failure due to possible fluid overload as the patient did receive 2 units of packed red blood cells, she did receive nebulized treatment one time, she was placed on oxygen, she did receive also 1 dose of Lasix, she is feeling a lot better now she can use to go in and out of atrial fibrillation with a heart rate ranging between 90 and 120, metoprolol was increased to 25 mg orally twice every day, will stay off this until the final result of the capsule endoscopy is back. 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 REVIEW OF SYSTEMS: Constitutional: No documented fever, no chills, no night sweats. No weight change. positive for weakness, fatigue or lethargy. No daytime sleepiness. HEENT: No headache. positive for blurred vision or double vision, no loss of vision. No loss of Hearing, no ringing in the ears, no dizziness. No nasal drainage or congestion. No epistaxis. No sore throat. Lungs: No shortness of breath, no cough, no sputum production. No wheezing. Reports dyspnea with activity. Cardiovascular: No chest pain, no lower extremity edema. No palpitations. No paroxysmal nocturnal dyspnea. No orthopnea. No lightheadedness or dizziness. No syncopal episodes. Abdominal: Reports no abdominal pain. No nausea, vomiting. No diarrhea. No constipation. No bloody or tarry stools reports loss of appetite. Genitourinary: No dysuria, increased frequency, urgency. No urinary retention. Musculoskeletal: No myalgias. No muscle weakness, no gait dysfunction, no frequent falls. No back pain. No neck pain. Integumentary: No wounds, no lesions. No rash or pruritus. No unusual bruising. No change in hair or nails. Neurologic: No aphasia. No facial droop. No change in mentation. No head injury. No headache. No paralysis. No paresthesia. Psychiatric: No depression. positive for anxiety. No mood swings. Endocrine: No abnormal blood sugars. No weight change. PHYSICAL EXAMINATION: General: 81-year-old female sitting up in bed in no apparent distress. HEENT: Head is atraumatic, normocephalic, pupils were equal round reactive to light and recommendation, extraocular muscle movement were intact, sclera n onicteric, conjunctivae were pale, mucous membranes of the mouth are somewhat dry. Neck: Supple, no JVP, normal carotid upstroke bilaterally, no lymphadenopathy. Chest: Decreased breath sounds at the bases, few rhonchi, no expiratory wheezes, no chest wall tenderness, no intercostal retractions. Heart: First heart sound is normal, second heart sounds normal there is systolic ejection murmur 2/6. The left sternal border. Abdomen: Soft, nontender, nondistended, positive bowel sounds, there is no hepatomegaly. Extremities: There is no edema no calf tenderness DP +2 bilaterally. Neurologic examination: Patient is awake alert and oriented X 3, cranial nerves II-12 appear grossly intact, muscle power were 5 out of 5 in upper extremities and 5 out of 5 in bilateral lower extremities, deep tendon reflexes normal bilaterally. ASSESSMENT AND PLAN: 1. Severe iron deficiency anemia due to chronic blood loss exacerbated by the use of aspirin and Eliquis. Patient did have an EGD and colonoscopy that showed gastritis, biopsy did show evidence of blunting of the villous architecture of the small bowel raising the possibility of sick disease, chronic lymphocytic infiltrate, therefore the patient will have a celiac panel, patient did receive iron supplementation during the hospital stay and will follow-up with hematology as an outpatient. 2. anemia due to chronic blood loss likely GI with the final result of the capsule endoscopy, continue iron infusion while she is in the hospital. Rule out celiac disease. 3. Hypertension and hypertensive cardiovascular disease currently hypotensive. continue metoprolol 50 mg orally twice every day. 4. Mixed hyperlipidemia. Patient is not able to take statins or PCSK 9 inhibitors.currentli is being approved for Inclisiran 5. Anxiety disorder. Continue patient on paroxetine 20 mg orally once every day and Xanax 0.5 mg po bid as needed. 6. Macular degeneration. Continue with current vitamins. 7. Paroxysmal atrial fibrillation currently in sinus rhythm. Continue patient on metoprolol 50 mg orally twice every day, continue to hold Eliquis till the final result of the capsule endoscopy his back. 8. Osteoarthritis. Continue current pain management. 9. DVT prophylaxis. bilateral knee-high ricky hose and hold off Eliquis for GI work up 10. GI prophylaxis. Protonix 40 mg IVP daily. 11. Prognosis is guarded. 12. Repeat the patient blood work tomorrow morning, hopefully home in the next 1 or 2 days. Objective - Vital Signs Vital signs: Vital Signs Temp 97.7 F 02/26/22 12:00 Pulse 64 02/26/22 12:00 Resp 18 02/26/22 12:00 BP 107/72 02/26/22 12:00 Pulse Ox 96 02/26/22 12:00 FiO2 Intake & Output 02/25/22 02/26/22 02/26/22 18:59 06:59 18:59 Other: Voiding Method Toilet # Voids 3 - Labs CBC & Chem 7: 02/25/22 14:25 02/24/22 04:11 Labs: Abnormal Lab Results - Last 24 Hours (Table) 02/25/22 Range/Units 14:25 Hgb 9.6 L D (11.4-16.0) gm/dL Hct 31.5 L (34.0-46.0) % MCV 75.6 L D (80.0-100.0) fL MCH 23.0 L (25.0-35.0) pg MCHC 30.4 L (31.0-37.0) g/dL RDW 23.1 H (11.5-15.5) %
[2022-02-27 13:19] LABS: Albumin 3.5 g/dL (3.5-5.0); Calcium 8.3 mg/dL (8.4-10.2); Potassium 4.2 mmol/L (3.5-5.1); Total Bilirubin 0.5 mg/dL (0.2-1.3); Total Protein 5.8 g/dL (6.3-8.2)
[2022-02-27 13:31] LABS: Anisocytosis Marked; Basophils % (A) 0 %; Eosinophils # (A) 0.1 k/uL (0-0.7); Eosinophils % (A) 2 %; HGB 9.7 gm/dL (11.4-16.0); Hypochromasia Marked; Lymphocytes # (A) 1.4 k/uL (1.0-4.8); Lymphocytes % (A) 20 %; MCH 22.9 pg (25.0-35.0); MCHC 29.5 g/dL (31.0-37.0); MCV 77.7 fL (80.0-100.0); Mean Platelet Volume 8.1; Microcytosis Marked; Monocytes # (A) 0.6 k/uL (0-1.0); Monocytes % (A) 9 %; Neutrophils # (A) 4.5 k/uL (1.3-7.7); Neutrophils % (A) 66 %; Platelet Count 275 k/uL (150-450); Poikilocytosis Marked; RBC 4.25 m/uL (3.80-5.40); RDW 24.3 % (11.5-15.5); WBC 6.8 k/uL (3.8-10.6)
--- NOTE | 2022-02-27 14:20 | P.PN ---
Subjective Progress Note Date: 02/27/22 Patient seen today resting comfortably in bed in no signs of acute distress. Denies complaints of increased shortness of breath or chest pain. Cardizem drip has been discontinued. Heart rate is well-controlled. Patient is sinus rhythm on the monitor Will continue with Lopressor 50 mg twice a day. Anticoagulation remains on hold until cleared by GI Objective - Vital Signs Vital signs: Vital Signs Temp 98.3 F 02/27/22 04:43 Pulse 75 02/27/22 12:32 Resp 16 02/27/22 12:32 BP 131/61 02/27/22 12:32 Pulse Ox 97 02/27/22 12:32 FiO2 Intake & Output 02/26/22 02/27/22 02/27/22 18:59 06:59 18:59 Intake Total 234 Balance 234 Intake: Intake, IV Titration 234 Amount Diltiazem 125 mg In 34 Sodium Chloride 0.9% 100 ml @ 10 MG/HR 10 mls/hr IV .[id number] [facility], [facility] Rx#: [id number] IV Fluid Continuation 1, 100 000 ml @ 0 mls/hr IV .STK -MED ONE Rx#:[id number] Sodium Ferric Gluconat- 100 Sucrose 125 mg In Sodium Chloride 0.9% 100 ml @ 100 mls/hr IVPB DAILY [facility] Rx#:[id number] Other: Voiding Method Toilet Toilet Toilet # Voids 1 - Exam PHYSICAL EXAM: VITAL SIGNS: Reviewed. GENERAL: Well-developed in no acute distress. HEENT: Head is normocephalic. Pupils are equal, round. Sclerae anicteric. Mucous membranes of the mouth are moist. NECK: Supple. No JVD or thyromegaly RESPIRATORY: Respirations even and unlabored. Lungs diminished to auscultation bilaterally. CARDIO: Regular rate and rhythm. S1 and S2 heard. No murmur or gallops. EXTREMITIES: Normal range of motion. No clubbing or cyanosis. Peripheral pulses intact. Negative for bilateral lower extremity edema NEURO: Orientated to person, time, mood is appropriate - Labs CBC & Chem 7: 02/27/22 12:25 02/27/22 12:25 Labs: Abnormal Lab Results - Last 24 Hours (Table) 02/27/22 02/27/22 Range/Units 12:25 12:25 Hgb 9.7 L (11.4-16.0) gm/dL Hct 33.0 L (34.0-46.0) % MCV 77.7 L (80.0-100.0) fL MCH 22.9 L (25.0-35.0) pg MCHC 29.5 L (31.0-37.0) g/dL RDW 24.3 H (11.5-15.5) % Calcium 8.3 L (8.4-10.2) mg/dL Total Protein 5.8 L (6.3-8.2) g/dL Assessment and Plan Assessment: Paroxysmal atrial fibrillation with RVR, anticoagulation on hold secondary to anemia CHADS2-VASc score 5 Anemia s/p EGD and colonoscopy on 02/24 with no signs of active bleed, Mild gastritis, small duodenal lipoma and small internal hemorrhoids Mild to moderate coronary artery disease (50% proximal LAD, 20% mid circumflex, 20% mid RCA, right dominant by cardiac catheterization on 09/2021) Hypertension Dyslipidemia Former tobacco use Plan: Current dose of metoprolol Anticoagulation on hold, will restart when cleared by GI Further recommendations based on clinical course The above impression and plan of care have been discussed and directed by the signing physician. Stephanie Silver, nurse practitioner, acting as scribe for signing physician.
--- NOTE | 2022-02-27 15:02 | P.PN ---
Subjective Progress Note Date: 02/27/22 HISTORY OF PRESENT ILLNESS: This is an 81-year-old white female with a previous medical history significant for hypertension and hypertensive cardiovascular disease, hyperlipidemia, paroxysmal atrial fibrillation,CAD post left heart catherization last on 09/2021 that showed 50 % stenosis in the proximal LAD and 10-20 % stenosis in the LCX and RCA , anxiety disorder, severe osteoarthritis today she woke up in the morning and she was complaining of increased generalized fatigue with pressure like sensation in her back that resolved on its own, patient was intolerant for STATINS and PCSK-9 INB due to severe myopathy and weakness and she is currently in the process of getting approved for INCLISIRAN( LEQVIO) , patient denied any abdominal pain, nausea or vomiting she does have episodes of heart burn and intermittent dysphagia she was supposed to have a GI work up as outpatient, she presented herself to the ER for evaluation and she was found to have iron deficiency anemia with severe microcytosis and had negative stool for occult blood and denied recent GI bleed,patient was started on IVF and she was taken off ASA and Eliquis for EGD and colonoscopy we will consult GI/Suregry for GI work up 02/24: Patient is laying down in bed in no apparent distress, her hemoglobin officially did drop to 5.6, type and cross and transfuse 2 units of packed red blood cells was obtained, patient was seen in consultation by gastrology, she is scheduled to go for EGD and colonoscopy tomorrow morning, as workup for iron deficiency anemia, even though the patient has not had any signs of GI bleed so far, if the EGD and colonoscopy is negative patient will need to have a capsule endoscopy as an inpatient, meanwhile we will ask hematology evaluation for possible myelodysplasia, laboratory evaluation was obtained including reticulocyte count, iron studies, including ferritin, B12 folic acid level hap toglobin as well as LDH. 12.1: Patient is sitting up in bed is feeling a bit better today earlier today after she came back from the EGD and colonoscopy developed to have a significant acute respiratory failure due to possible fluid overload as the patient did receive 2 units of packed red blood cells, she did receive nebulized treatment one time, she was placed on oxygen, she did receive also 1 dose of Lasix, she is feeling a lot better now she can use to go in and out of atrial fibrillation with a heart rate ranging between 90 and 120, metoprolol was increased to 25 mg orally twice every day, will stay off this until the final result of the capsule endoscopy is back. 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 02/27: Patient is laying down in bed in no apparent distress, she denies any chest pain, shortness breath, she she did not have any acute GI bleed, her hemoglobin stable at 9.7, I spoke to the patient with the results of capsule endoscopy as well as biopsy report on the EGD, questionable celiac disease, patient is to stay off aspirin, keep Eliquis off for another 24 hours, patient will be discharged home tomorrow morning. REVIEW OF SYSTEMS: Constitutional: No documented fever, no chills, no night sweats. No weight change. positive for weakness, fatigue or lethargy. No daytime sleepiness. HEENT: No headache. positive for blurred vision or double vision, no loss of vision. No loss of Hearing, no ringing in the ears, no dizziness. No nasal drainage or congestion. No epistaxis. No sore throat. Lungs: No shortness of breath, no cough, no sputum production. No wheezing. Reports dyspnea with activity. Cardiovascular: No chest pain, no lower extremity edema. No palpitations. No paroxysmal nocturnal dyspnea. No orthopnea. No lightheadedness or dizziness. No syncopal episodes. Abdominal: Reports no abdominal pain. No nausea, vomiting. No diarrhea. No constipation. No bloody or tarry stools reports loss of appetite. Genitourinary: No dysuria, increased frequency, urgency. No urinary retention. Musculoskeletal: No myalgias. No muscle weakness, no gait dysfunction, no frequent falls. No back pain. No neck pain. Integumentary: No wounds, no lesions. No rash or pruritus. No unusual bruising. No change in hair or nails. Neurologic: No aphasia. No facial droop. No change in mentation. No head injury. No headache. No paralysis. No paresthesia. Psychiatric: No depression. positive for anxiety. No mood swings. Endocrine: No abnormal blood sugars. No weight change. PHYSICAL EXAMINATION: General: 81-year-old female sitting up in bed in no apparent distress. HEENT: Head is atraumatic, normocephalic, pupils were equal round reactive to light and recommendation, extraocular muscle movement were intact, sclera nonicteric, conjunctivae were pale, mucous membranes of the mouth are somewhat dry. Neck: Supple, no JVP, normal carotid upstroke bilaterally, no lymphadenopathy. Chest: Decreased breath sounds at the bases, few rhonchi, no expiratory wheezes, no chest wall results of pending, patient was stay off aspirin for now, keep OFF for another 24 hours, no intercostal retractions. Heart: First heart sound is normal, second heart sounds normal there is systolic ejection murmur 2/6. The left sternal border. Abdomen: Soft, nontender, nondistended, positive bowel sounds, there is no hepatomegaly. Extremities: There is no edema no calf tenderness DP +2 bilaterally. Neurologic examination: Patient is awake alert and oriented X 3, cranial nerves II-12 appear grossly intact, muscle power were 5 out of 5 in upper extremities and 5 out of 5 in bilateral lower extremities, deep tendon reflexes normal bilaterally. ASSESSMENT AND PLAN: 1. Severe iron deficiency anemia due to chronic blood loss exacerbated by the use of aspirin and Eliquis. Patient did have an EGD and colonoscopy that showed gastritis, biopsy did show evidence of blunting of the villous architecture of the small bowel raising the possibility of sick disease, chronic lymphocytic infiltrate, therefore the patient will have a celiac panel, patient did receive iron supplementation during the hospital stay and will follow-up with hematology as an outpatient. 2. anemia due to chronic blood loss likely GI with the final result of the capsule endoscopy, continue iron infusion while she is in the hospital. Rule out celiac disease. 3. Hypertension and hypertensive cardiovascular disease currently hypotensive. continue metoprolol 50 mg orally twice every day. 4. Mixed hyperlipidemia. Patient is not able to take statins or PCSK 9 inhibitors.currentli is being approved for Inclisiran 5. Anxiety disorder. Continue patient on paroxetine 20 mg orally once every day and Xanax 0.5 mg po bid as needed. 6. Macular degeneration. Continue with current vitamins. 7. Paroxysmal atrial fibrillation currently in sinus rhythm. Continue patient on metoprolol 50 mg orally twice every day, continue to hold Eliquis till the final result of the capsule endoscopy his back. 8. Osteoarthritis. Continue current pain management. 9. DVT prophylaxis. bilateral knee-high ricky hose and hold off Eliquis for GI work up 10. GI prophylaxis. Protonix 40 mg orally daily 11. Prognosis is guarded. 12. Home Tomorrow morning Objective - Vital Signs Vital signs: Vital Signs Temp 98.3 F 02/27/22 04:43 Pulse 77 02/27/22 08:00 Resp 16 02/27/22 08:00 BP 112/53 02/27/22 08:00 Pulse Ox 96 02/27/22 08:00 FiO2 Intake & Output 02/26/22 02/27/22 02/27/22 18:59 06:59 18:59 Intake Total 234 Balance 234 Intake: Intake, IV Titration 234 Amount Diltiazem 125 mg In 34 Sodium Chloride 0.9% 100 ml @ 10 MG/HR 10 mls/hr IV .[id number] [facility] Rx#: [id number] IV Fluid Continuation 1, 100 000 ml @ 0 mls/hr IV .STK -[facility] ONE Rx#:[id number] Sodium Ferric Gluconat- 100 Sucrose 125 mg In Sodium Chloride 0.9% 100 ml @ 100 mls/hr IVPB DAILY [facility] Rx#:[id number] Other: Voiding Method Toilet Toilet Toilet # Voids 1 - Labs CBC & Chem 7: 02/27/22 12:25 02/27/22 12:25
[2022-02-28 04:18] VITALS: TEMP 98.6
[2022-02-28] MEDS: PANTOPRAZOLE 40 MG TABLET PO SCH (06:38)
[2022-02-28] MEDS: IPRATROPIUM-ALBUTEROL 3 ML NEB INHALATION SCH ×2 (07:36→11:34)
[2022-02-28] MEDS: METOPROLOL TARTRATE 50 MG TAB PO SCH (09:14)
[2022-02-28] MEDS: CHOLECALCIFEROL 25 MCG (1000 IU) TABLET PO SCH (09:14)
[2022-02-28] MEDS: ALPRAZolam 0.5 MG TAB PO SCH (09:14)
[2022-02-28] MEDS: CYANOCOBALAMIN 1,000 MCG/ML 1 ML VIAL IM SCH (09:14)
[2022-02-28] MEDS: PARoxetine 20 MG TAB PO SCH (09:14)
[2022-02-28 11:12] VITALS: BP 119/60; PULSE 73; RESP 17
[2022-02-28] MEDS: DILTIAZEM 125 MG in SODIUM CHLORIDE 0.9% 100 ML IV SCH (11:23)
--- NOTE | 2022-02-28 12:34 | P.DS ---
Providers Date of admission: 02/24/22 09:41 Expected date of discharge: 02/28/22 Attending physician: Marcie Varma Consults: 02/22/22 13:35 Consult Physician Routine Consulting Provider: Nivia Zhang Consult Reason/Comments: per aki request. possible gi bleed Do you want consulting provider notified?: Yes 02/24/22 16:01 Consult Physician Routine Consulting Provider: Caio Davenport Consult Reason/Comments: fE DEF ANEMIA Do you want consulting provider notified?: Yes 02/26/22 05:56 Consult Physician Urgent Consulting Provider: Tyrel Read Consult Reason/Comments: afib rvr Do you want consulting provider notified?: Yes, Notify in am Primary care physician: Marcie Varma Hospital Course: HISTORY OF PRESENT ILLNESS: This is an 81-year-old white female with a previous medical history significant for hypertension and hypertensive cardiovascular disease, hyperlipidemia, paroxysmal atrial fibrillation,CAD post left heart catherization last on 09/2021 that showed 50 % stenosis in the proximal LAD and 10-20 % stenosis in the LCX and RCA , anxiety disorder, severe osteoarthritis today she woke up in the morning and she was complaining of increased generalized fatigue with pressure like sensation in her back that resolved on its own, patient was intolerant for STATINS and PCSK-9 INB due to severe myopathy and weakness and she is currently in the process of getting approved for INCLISIRAN( LEQVIO) , patient denied any abdominal pain, nausea or vomiting she does have episodes of heart burn and intermittent dysphagia she was supposed to have a GI work up as outpatient, she presented herself to the ER for evaluation and she was found to have iron deficiency anemia with severe microcytosis and had negative stool for occult blood and denied recent GI bleed,patient was started on IVF and she was taken off ASA and Eliquis for EGD and colonoscopy we will consult GI/Suregry for GI work up 02/24: Patient is laying down in bed in no apparent distress, her hemoglobin officially did drop to 5.6, type and cross and transfuse 2 units of packed red blood cells was obtained, patient was seen in consultation by gastrology, she is scheduled to go for EGD and colonoscopy tomorrow morning, as workup for iron deficiency anemia, even though the patient has not had any signs of GI bleed so far, if the EGD and colonoscopy is negative patient will need to have a capsule endoscopy as an inpatient, meanwhile we will ask hematology evaluation for possible myelodysplasia, laboratory evaluation was obtained including reticulocyte count, iron studies, including ferritin, B12 folic acid level haptoglobin as well as LDH. 12.1: Patient is sitting up in bed is feeling a bit better today earlier today after she came back from the EGD and colonoscopy developed to have a significant acute respiratory failure due to possible fluid overload as the patient did receive 2 units of packed red blood cells, she did receive nebulized treatment one time, she was placed on oxygen, she did receive also 1 dose of Lasix, she is feeling a lot better now she can use to go in and out of atrial fibrillation with a heart rate ranging between 90 and 120, metoprolol was increased to 25 mg orally twice every day, will stay off this until the final result of the capsule endoscopy is back. 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 12/3: Patient is laying down in bed in no apparent distress, she denies any chest pain, shortness breath, she she did not have any acute GI bleed, her hemoglobin stable at 9.7, I spoke to the patient with the results of capsule endoscopy as well as biopsy report on the EGD, questionable celiac disease, patient is to stay off aspirin, keep Eliquis off for another 24 hours, patient will be discharged home tomorrow morning. Discharge diagnoses: 1. Severe iron deficiency anemia due to chronic blood loss exacerbated by the use of aspirin and Eliquis. 2. anemia due to chronic blood loss likely GI with the final result of the capsule endoscopy, 3. Hypertension and hypertensive cardiovascular disease . 4. Mixed hyperlipidemia. 5. Anxiety disorder. 6. Macular degeneration. 7. Paroxysmal atrial fibrillation currently in sinus rhythm. 8. Osteoarthritis. Patient Condition at Discharge: Fair Plan - Discharge Summary Discharge Rx Participant: No New Discharge Prescriptions: No Action Apixaban [Eliquis] 5 mg PO BID PARoxetine [Paxil] 20 mg PO DAILY ALPRAZolam [Xanax] 0.5 mg PO DAILY Cholecalciferol [Vitamin D3 (25 Mcg = 1000 Iu)] 50 mcg PO DAILY Famotidine [Pepcid] 20 mg PO DAILY #30 tab Metoprolol Succinate (ER) [Toprol XL] 25 mg PO HS Vit C/E/Zn/Coppr/Lutein/Zeaxan [Preservision Areds 2 Softgel] 2 cap PO DAILY ALPRAZolam [Xanax] 0.5 mg PO HS PRN PRN Reason: Anxiety Aspirin 81 mg PO DAILY #30 tab Valsartan [Diovan] 80 mg PO HS Isosorbide Mononitrate ER [Imdur] 60 mg PO DAILY Discharge Medication List ALPRAZolam [Xanax] 0.5 mg PO DAILY 11/03/19 [History] Apixaban [Eliquis] 5 mg PO BID 11/03/19 [History] PARoxetine [Paxil] 20 mg PO DAILY 11/03/19 [History] Cholecalciferol [Vitamin D3 (25 Mcg = 1000 Iu)] 50 mcg PO DAILY 09/20/20 [History] Aspirin 81 mg PO DAILY #30 tab 10/24/21 [Rx] Famotidine [Pepcid] 20 mg PO DAILY #30 tab 10/24/21 [Rx] ALPRAZolam [Xanax] 0.5 mg PO HS PRN 02/22/22 [History] Isosorbide Mononitrate ER [Imdur] 60 mg PO DAILY 02/22/22 [History] Metoprolol Succinate (ER) [Toprol XL] 25 mg PO HS 02/22/22 [History] Valsartan [Diovan] 80 mg PO HS 02/22/22 [History] Vit C/E/Zn/Coppr/Lutein/Zeaxan [Preservision Areds 2 Softgel] 2 cap PO DAILY 02/22/22 [History] Follow up Appointment(s)/Referral(s): Casie Olivares MD [STAFF PHYSICIAN] - 1 Week Marcie Varma MD [Primary Care Provider] - 1-2 days
--- NOTE | 2022-02-28 13:31 | P.PN ---
Subjective Progress Note Date: 02/28/22 Patient seen resting comfortably with no signs of acute distress. She denies chest pain or increasing shortness of breath per GI Will hold Eliquis for another 24 hours. Heart rate remains well controlled and she continues to be sinus rhythm on the monitor. Anticipated discharge in the next 24 hours Objective - Vital Signs Vital signs: Vital Signs Temp 98.6 F 02/28/22 08:00 Pulse 73 02/28/22 08:00 Resp 17 02/28/22 08:00 BP 119/60 02/28/22 08:00 Pulse Ox 97 02/28/22 08:00 FiO2 21 02/27/22 20:01 Intake & Output 02/27/22 02/28/22 02/28/22 18:59 06:59 18:59 Other: Voiding Method Toilet Toilet # Voids 1 1 1 - Exam PHYSICAL EXAM: VITAL SIGNS: Reviewed. GENERAL: Well-developed in no acute distress. HEENT: Head is normocephalic. Pupils are equal, round. Sclerae anicteric. Mucous membranes of the mouth are moist. NECK: Supple. No JVD or thyromegaly RESPIRATORY: Respirations even and unlabored. Lungs diminished to auscultation bilaterally. CARDIO: Regular rate and rhythm. S1 and S2 heard. No murmur or gallops. EXTREMITIES: Normal range of motion. No clubbing or cyanosis. Peripheral pulses intact. Negative for bilateral lower extremity edema NEURO: Orientated to person, time, mood is appropriate - Labs CBC & Chem 7: 02/27/22 12:25 02/27/22 12:25 Labs: Abnormal Lab Results - Last 24 Hours (Table) 02/27/22 Range/Units 12:25 Hgb 9.7 L (11.4-16.0) gm/dL Hct 33.0 L (34.0-46.0) % MCV 77.7 L (80.0-100.0) fL MCH 22.9 L (25.0-35.0) pg MCHC 29.5 L (31.0-37.0) g/dL RDW 24.3 H (11.5-15.5) % Assessment and Plan Assessment: Paroxysmal atrial fibrillation with RVR, anticoagulation on hold secondary to anemia CHADS2-VASc score 5 Anemia s/p EGD and colonoscopy on 02/24 with no signs of active bleed, Mild gastritis, small duodenal lipoma and small internal hemorrhoids Mild to moderate coronary artery disease (50% proximal LAD, 20% mid circumflex, 20% mid RCA, right dominant by cardiac catheterization on 09/2021) Hypertension Dyslipidemia Former tobacco use Plan: Current dose of metoprolol Anticoagulation on hold, cleared by GI to restart anticoagulation tomorrow Anticipated discharge in the next 24 hours Further recommendations based on clinical course The above impression and plan of care have been discussed and directed by the signing physician. Stephanie Silver, nurse practitioner, acting as scribe for signing physician.
[2022-03-01 17:41] LABS: Gliadin AB IgA, Deaminated NEGATIVE (NEGATIVE); Gliadin AB IgA, Unit <0.2 U/mL
[2022-03-01 17:42] LABS: Gliadin AB IgG, Deaminated NEGATIVE (NEGATIVE); Gliadin AB IgG, Unit <0.4 U/mL
== END 2022-02-28 13:51 | disposition home or self-care (01) | DRG 377 ==
LOC: EC 10:22 → 6NMEDSUR 13:36 → OBSVTOIN 02-24 09:41 → 3SCARD 02-26 11:22
PROVIDERS: ADMIT Internal Medicine; ATTEND Internal Medicine
PROC: 30233N1 Transfusion of Nonautologous Red Blood Cells into Peripheral Vein, Percutaneous Approach (ICD-10-PCS; 2022-02-23)
PROC: 0DJ07ZZ Inspection of Upper Intestinal Tract, Via Natural or Artificial Opening (ICD-10-PCS; 2022-02-24)
PROC: 0DB98ZX Excision of Duodenum, Via Natural or Artificial Opening Endoscopic, Diagnostic (ICD-10-PCS; principal; 2022-02-24 10:35)
PROC: 0DJD8ZZ Inspection of Lower Intestinal Tract, Via Natural or Artificial Opening Endoscopic (ICD-10-PCS; principal; 2022-02-24 10:35)
PROC: 0DB78ZX Excision of Stomach, Pylorus, Via Natural or Artificial Opening Endoscopic, Diagnostic (ICD-10-PCS; principal; 2022-02-24 10:35)
DX: K55.21 Angiodysplasia of colon with hemorrhage (principal); J96.00 Acute respiratory failure, unspecified whether with hypoxia or hypercapnia; D68.32 Hemorrhagic disorder due to extrinsic circulating anticoagulants; I48.92 Unspecified atrial flutter; D50.0 Iron deficiency anemia secondary to blood loss (chronic); E78.2 Mixed hyperlipidemia; F41.9 Anxiety disorder, unspecified; H35.30 Unspecified macular degeneration; I11.9 Hypertensive heart disease without heart failure; I25.10 Atherosclerotic heart disease of native coronary artery without angina pectoris; I48.0 Paroxysmal atrial fibrillation; I08.1 Rheumatic disorders of both mitral and tricuspid valves; T45.515A Adverse effect of anticoagulants, initial encounter; T39.015A Adverse effect of aspirin, initial encounter; K21.00 Gastro-esophageal reflux disease with esophagitis, without bleeding; J44.9 Chronic obstructive pulmonary disease, unspecified; K29.70 Gastritis, unspecified, without bleeding; G72.9 Myopathy, unspecified; D17.5 Benign lipomatous neoplasm of intra-abdominal organs; K64.8 Other hemorrhoids; M19.90 Unspecified osteoarthritis, unspecified site; Z20.822 Contact with and (suspected) exposure to COVID-19; M81.0 Age-related osteoporosis without current pathological fracture; Z79.01 Long term (current) use of anticoagulants; Z79.02 Long term (current) use of antithrombotics/antiplatelets; Z79.82 Long term (current) use of aspirin; Z79.899 Other long term (current) drug therapy; Z82.49 Family history of ischemic heart disease and other diseases of the circulatory system; Z87.442 Personal history of urinary calculi; Z87.891 Personal history of nicotine dependence; Z96.643 Presence of artificial hip joint, bilateral; Z88.8 Allergy status to other drugs, medicaments and biological substances; Z88.6 Allergy status to analgesic agent; Z91.041 Radiographic dye allergy status
CPT/HCPCS: 36415; 43239; 45378; 71045; 80053; 82272; 82607; 82728; 82746; 83010; 83516; 83540; 83550; 83605; 83615; 83655; 83735; 83883; 84165; 84484; 85025; 85027; 85045; 85610; 85730; 86335; 86850; 86900; 86901; 86920; 87636; 88305; 91110; 93005; 94640; 94760; 96360; 99291

== ENCOUNTER → 2022-03-09 | Outpatient (CLI) | payer MEDICARE, BC | END | disposition home or self-care (01) | LOC: LABWHC1 13:09 | PROVIDERS: ATTEND Internal Medicine Gastroenterology | DX: R76.8 Other specified abnormal immunological findings in serum (principal) ==

== ENCOUNTER 2022-03-10 23:11 | Emergency (ER) | payer MEDICARE, BC ==
[2022-03-10 23:26] VITALS: RESP 16
--- NOTE | 2022-03-11 00:26 | ED ---
General Adult HPI - General Chief complaint: Recheck/Abnormal Lab/Rx Stated complaint: AFib, High Blood Pressure Time Seen by Provider: 03/11/22 00:12 Source: patient Mode of arrival: wheelchair Limitations: no limitations - History of Present Illness Initial comments: Dictation was produced using [employer] dictation software. please excuse any gramma tical, word or spelling errors. Chief Complaint: 81-year-old feel presents emergency part for hypertension History of Present Illness: Patient is a 81-year-old female presents emergency part for hypertension. Patient has a history of hypertension. She also has history of atrial fibrillation. She checks her blood pressure every single day multiple occasions. She noticed that over the last 48 hours her blood pressure has slowly gone up to a level of 160s over 100. She became alarmed tried to make an appointment with her primary care doctor however nobody contacted her. She did end up talking to her guide delegate told her to take some of her medications for blood pressure. Patient denies any chest pain. No shortness of breath no numbness and paresthesias to the arms or legs. Denies any headache. The ROS documented in this emergency department record has been reviewed and confirmed by me. Those systems with pertinent positive or negative responses have been documented in the HPI. All other systems are other negative and/or noncontributory. PHYSICAL EXAM: General Impression: Alert and oriented x3, not in acute distress HEENT: Normocephalic atraumatic, extra-ocular movements intact, pupils equal and reactive to light bilaterally, mucous membranes moist. Cardiovascular: Heart regular rate and rhythm Chest: Able to complete full sentences, no retractions, no tachypnea Abdomen: abdomen soft, non-tender, non-distended, no organomegaly Musculoskeletal: Pulses present and equal in all extremities, no peripheral edema Motor: no focal deficits noted Neurological: CN II-XII grossly intact, no focal motor or sensory deficits noted Skin: Intact with no visualized rashes Psych: Normal affect and mood ED course: 81-year-old female presents emergency department for a symptomatically hypertension. Vital signs upon arrival shows blood pressure 165/89, worse vital signs within acceptable limits. Physical examination is benign. Patient discharged advised follow-up with primary care doctor and/or guide delegate. Patient showing no signs of hypertensive emergency. No further workup indicated at this time. Nursing notes and chart review was performed - Related Data Home Medications Medication Instructions Recorded Confirmed ALPRAZolam [Xanax] 0.5 mg PO DAILY 11/03/19 02/22/22 Apixaban [Eliquis] 5 mg PO BID 11/03/19 02/22/22 PARoxetine [Paxil] 20 mg PO DAILY 11/03/19 02/22/22 Cholecalciferol [Vitamin D3 (25 50 mcg PO DAILY 09/20/20 02/22/22 Mcg = 1000 Iu)] ALPRAZolam [Xanax] 0.5 mg PO HS PRN 02/22/22 02/22/22 Isosorbide Mononitrate ER [Imdur] 60 mg PO DAILY 02/22/22 02/22/22 Vit C/E/Zn/Coppr/Lutein/Zeaxan 2 cap PO DAILY 02/22/22 02/22/22 [Preservision Areds 2 Softgel] Previous Rx's Medication Instructions Recorded Metoprolol Tartrate [Lopressor] 50 mg PO BID #60 tab 02/28/22 Pantoprazole [Protonix] 40 mg PO AC-[id number] #30 tab 02/28/22 Allergies Allergy/AdvReac Type Severity Reaction Status Date / Time cyclobenzaprine HCl Allergy Unknown Rash/Hives Verified 02/22/22 13:35 [From Flexeril] Iodinated Contrast Media Allergy Rash/Hives Verified 02/22/22 13:35 [Iodinated Contrast Media - IV Dye] Khfzkem-[id number] Reductase Allergy leg pain Verified 02/22/22 13:35 Inhibitor [Pflyufw-Lkn-Uqz Reductase Inhibitor] TRIPLE DYE Allergy Unknown Rash/Hives Uncoded 02/22/22 13:35 NSAIDS AdvReac Unknown Uncoded 02/22/22 13:35 Review of Systems ROS Statement: Those systems with pertinent positive or pertinent negative responses have been documented in the HPI. ROS Other: All systems not noted in ROS Statement are negative. Past Medical History Past Medical History: Atrial Fibrillation, Coronary Artery Disease (CAD), Chest Pain / Angina, COPD, Eye Disorder, Hypertension, Osteoarthritis (OA) Additional Past Medical History / Comment(s): KIDNEY STONES ,POLYPS, BACK PAIN, constipation,macular degeneration terence eyes History of Any Multi-Drug Resistant Organisms: None Reported Past Surgical History: Heart Catheterization, Orthopedic Surgery Additional Past Surgical History / Comment(s): TERENCE CATARACTS , COLONSCOPY, EGD, BREAST BX, LITHOTRIPSY, PAIN CLINIC PROCEDURES. Past Anesthesia/Blood Transfusion Reactions: No Reported Reaction Past Psychological History: Anxiety Smoking Status: Former smoker Past Alcohol Use History: None Reported Past Drug Use History: None Reported - Past Family History Mother Family Medical History: No Reported History Father Family Medical History: Cancer Additional Family Medical History / Comment(s): leukemia Brother(s) Family Medical History: Coronary Artery Disease (CAD) Sister(s) Family Medical History: COPD Daughter(s) Family Medical History: No Reported History Son(s) Family Medical History: No Reported History General Exam Limitations: no limitations Course Vital Signs 03/10/22 23:22 Temperature 98 F Pulse Rate 67 Respiratory 16 Rate Blood Pressure 165/89 O2 Sat by Pulse 97 Oximetry Disposition Clinical Impression: Asymptomatic hypertension Disposition: HOME SELF-CARE Condition: Good Instructions (If sedation given, give patient instructions): Hypertension (ED) Is patient prescribed a controlled substance at d/c from ED?: No Referrals: Marcie Varma MD [Primary Care Provider] - 1-2 days Time of Disposition: 00:26
[2022-03-11 00:38] VITALS: BP 162/76; PULSE 64; TEMP 97.8
== END 2022-03-11 00:38 | disposition home or self-care (01) ==
LOC: EC 23:11
DX: I10 Essential (primary) hypertension (principal); I48.91 Unspecified atrial fibrillation; I25.10 Atherosclerotic heart disease of native coronary artery without angina pectoris; J44.9 Chronic obstructive pulmonary disease, unspecified; M19.90 Unspecified osteoarthritis, unspecified site; F41.9 Anxiety disorder, unspecified; Z87.891 Personal history of nicotine dependence; Z79.01 Long term (current) use of anticoagulants; Z79.899 Other long term (current) drug therapy; Z91.041 Radiographic dye allergy status; Z88.8 Allergy status to other drugs, medicaments and biological substances; Z88.6 Allergy status to analgesic agent
CPT/HCPCS: 99282; 99284

== ENCOUNTER → 2022-09-09 | Outpatient (CLI) | payer MEDICARE, BC ==
[2022-09-09 16:23] LABS: HCT 39.4 % (37.2-46.3); HGB 11.8 d/dL (12.0-15.0); MCH 24.9 pg (27.0-32.0); MCHC 29.9 d/dL (32.0-37.0); MCV 83.1 FL (80.0-97.0); Mean Platelet Volume 9.7 FL (9.5-12.2); NRBC Per 100 WBC 0 X 10*3/uL (0.00-0.01); Platelet Count 310 X 10*3/uL (140-440); RBC 4.74 X 10*6/uL (4.10-5.20); RDW 16.4 % (11.5-14.5); WBC 5.86 X 10*3/uL (4.50-10.00)
[2022-09-09 16:37] LABS: ALT 12 U/L (8-44); AST 23 U/L (13-35); Albumin 4.3 d/dL (3.8-4.9); Albumin/Globulin Ratio 1.72 Ratio (1.60-3.17); Alkaline Phosphatase 99 U/L (41-126); BUN/Creat Ratio 17.78 Ratio (12.00-20.00); Calcium 9.8 mg/dL (8.7-10.3); Chloride 102 mmol/L (96-109); Chol/HDL Ratio 4.54 Ratio; Globulin 2.5 d/dL (1.6-3.3); Glucose 85 mg/dL (70-110); LDL Cholesterol,Calculated 201.9 mg/dL (0.0-131.0); Potassium 4.8 mmol/L (3.5-5.5); Sodium 143 mmol/L (135-145); Total Bilirubin 0.4 mg/dL (0.3-1.2); Total Protein 6.8 d/dL (6.2-8.2)
== END | disposition home or self-care (01) ==
LOC: LABWHC1 10:11
PROVIDERS: ATTEND Nurse Practitioner Adult Health
DX: I48.0 Paroxysmal atrial fibrillation (principal); E78.2 Mixed hyperlipidemia
CPT/HCPCS: 36415; 80053; 80061; 85027

== ENCOUNTER → 2023-03-10 | Outpatient (CLI) | payer MEDICARE, BC ==
[2023-03-11 02:29] LABS: ALT 10 U/L (8-44); AST 21 U/L (13-35); Chol/HDL Ratio 2.59 Ratio; LDL Cholesterol,Calculated 65.8 mg/dL (0.0-131.0)
== END | disposition home or self-care (01) ==
LOC: LABWHC1 13:45
PROVIDERS: ATTEND Internal Medicine Interventional Cardiology
DX: E78.2 Mixed hyperlipidemia (principal)
CPT/HCPCS: 36415; 80061; 84450; 84460

== ENCOUNTER → 2023-07-22 | Outpatient (CLI) | payer MEDICARE, BC ==
--- NOTE | 2023-07-29 22:36 | CT ---
EXAMINATION TYPE: CT iac wo con CT DLP: mGycm, Automated exposure control for dose reduction was used. DATE OF EXAM: 07/22/2023 1:09 PM INDICATION: Patient age:Female; 82 years old; Reason for study: H93.11 TINNITUS, RIGHT EAR; PHH. COMPARISON: CT brain 09/20/2020. TECHNIQUE: Multiple thin axial images were obtained through the temporal bones and internal auditory canals. Additional coronal reformatted images were obtained. No IV contrast was utilized. STENVER a nd POSCHL views were created on a separate work station. CT Contrast: Contrast used: mL of , none. FINDINGS: Right Temporal Bone: External Ear: The external auditory canal is unremarkable, The tympanic membrane is present and unrem arkable. Middle Ear: The ossicles demonstrate a normal appearance. Prussak's space is clear and the scutum i s intact. There is no evidence of osseous erosion and the tegmen tympani is intact. Inner Ear: Cochlea, vestibule and semi circular canals are unremarkable. No evidence of carotid neil l dehiscence. Two and a half turns of the cochlea are identified. The vestibular aqueduct is not enl arged. Mastoid Air Cells: The mastoid air cells are clear. The tegmen mastoideum is intact. The aditus ad an trum is clear. Internal Auditory Canal: The internal auditory canal is unremarkable. Left Temporal Bone: External Ear: The external auditory canal is unremarkable, The tympanic membrane is present and unrem arkable. Middle Ear: The ossicles demonstrate a normal appearance. Prussak's space is clear and the scutum i s intact. There is no evidence of osseous erosion and the tegmen tympani is intact. Inner Ear: Cochlea, vestibule and semi circular canals are unremarkable. No evidence of carotid neil l dehiscence. Two and a half turns of the cochlea are identified. The vestibular aqueduct is not enl arged. Mastoid Air Cells: A single left mastoid air cells fluid or perhaps granulation tissue. The mastoid air cells are otherwise clear. The tegmen mastoideum is intact. The aditus ad antrum is clear. Internal Auditory Canal: The internal auditory canal is unremarkable. IMPRESSION: A single left mastoid air cells fluid or perhaps granulation tissue. The mastoid air cells are other chen clear. Normal internal auditory canal study otherwise.
== END | disposition home or self-care (01) ==
LOC: RADCTMAIN 11:55
PROVIDERS: ATTEND Internal Medicine
DX: H93.11 Tinnitus, right ear (principal)
CPT/HCPCS: 70480

== ENCOUNTER 2023-12-10 19:14 | Emergency (ER) | payer MEDICARE, BC ==
[2023-12-10 19:28] VITALS: TEMP 98.2
--- NOTE | 2023-12-10 20:25 | XR ---
EXAMINATION TYPE: XR wrist complete LT DATE OF EXAM: 12/10/2023 COMPARISON: NONE HISTORY: 83-year-old female pain and swelling TECHNIQUE: 4 views FINDINGS: There is circumferential soft tissue swelling especially radial and ulnar aspects of the wr ist. There is moderate degenerative change first CMC and triscaphe joints. TFCC calcifications. No er osive change. No acute fracture, dislocation, dislocation. Osteopenia does cause limitation in assess ment. IMPRESSION: 1. TFC calcification may be idiopathic or could be seen with CPPD. 2. Circumferential soft tissue swelling at the breast. 3. Osteopenia limits the assessment but no definite acute osseous abnormality is seen. 4. Moderate OA at the base of the thumb. [facility], , 12/10/2023 8:22 PM
--- NOTE | 2023-12-10 20:48 | ED ---
General Adult HPI - General Chief complaint: Skin/Abscess/Foreign Body Stated complaint: Rash, L wrist pain Time Seen by Provider: 12/10/23 19:29 Source: patient Mode of arrival: ambulatory Limitations: no limitations - History of Present Illness Initial comments: 83-year-old female presented chief complaint of bilateral arm rash and left wrist pain. Patient states that she has been picking the skin on her arms for several days. She now has numerous red romero to the forearms. She was prescribed a steroid cream on 11/28 which she states made her skin red and painful. She is having no erythema or fevers. No discharge or swelling. She does not know why she picks her skin, denies any itching. She is also complaining of left wrist pain. No injury or trauma. There is some swelling and some mild redness surrounding the wrist. No effusion. No numbness tingling or weakness. She does have history of arthritis. - Related Data Home Medications Medication Instructions Recorded Confirmed ALPRAZolam [Xanax] 0.5 mg PO DAILY 11/03/19 02/22/22 Apixaban [Eliquis] 5 mg PO BID 11/03/19 02/22/22 PARoxetine [Paxil] 20 mg PO DAILY 11/03/19 02/22/22 Cholecalciferol [Vitamin D3 (25 50 mcg PO DAILY 09/20/20 02/22/22 Mcg = 1000 Iu)] ALPRAZolam [Xanax] 0.5 mg PO HS PRN 02/22/22 02/22/22 Isosorbide Mononitrate ER [Imdur] 60 mg PO DAILY 02/22/22 02/22/22 Vit C/E/Zn/Coppr/Lutein/Zeaxan 2 cap PO DAILY 02/22/22 02/22/22 [Preservision Areds 2 Softgel] Previous Rx's Medication Instructions Recorded Metoprolol Tartrate [Lopressor] 50 mg PO BID #60 tab 02/28/22 Pantoprazole [Protonix] 40 mg PO AC-BRKFST #30 tab 02/28/22 methylPREDNISolone Dose Pack 4 mg PO DIRECTED #1 packet 12/10/23 [Medrol Dose Pack] Allergies Allergy/AdvReac Type Severity Reaction Status Date / Time cyclobenzaprine HCl Allergy Unknown Rash/Hives Verified 09/14/24 19:25 [From Flexeril] Iodinated Contrast Media Allergy Rash/Hives Verified 12/10/23 19:25 [Iodinated Contrast Media - IV Dye] Vrfqqyt-WSF-SzW Reductase Allergy leg pain Verified 12/10/23 19:25 Inhibitor [Lfanooi-Asm-Vhp Reductase Inhibitor] TRIPLE DYE Allergy Unknown Rash/Hives Uncoded 12/10/23 19:25 NSAIDS AdvReac Unknown Uncoded 12/10/23 19:25 Review of Systems ROS Statement: Those systems with pertinent positive or pertinent negative responses have been documented in the HPI. ROS Other: All systems not noted in ROS Statement are negative. Past Medical History Past Medical History: Atrial Fibrillation, Coronary Artery Disease (CAD), Chest Pain / Angina, COPD, Eye Disorder, Hypertension, Osteoarthritis (OA) Additional Past Medical History / Comment(s): KIDNEY STONES ,POLYPS, BACK PAIN, constipation,macular degeneration terence eyes History of Any Multi-Drug Resistant Organisms: None Reported Past Surgical History: Heart Catheterization, Joint Replacement, Orthopedic Surgery Additional Past Surgical History / Comment(s): TERENCE CATARACTS , COLONSCOPY, EGD, BREAST BX, LITHOTRIPSY, PAIN CLINIC PROCEDURES. bialteral hips Past Anesthesia/Blood Transfusion Reactions: No Reported Reaction Past Psychological History: Anxiety Smoking Status: Former smoker Past Alcohol Use History: None Reported Past Drug Use History: None Reported - Past Family History Mother Family Medical History: No Reported History Father Family Medical History: Cancer Additional Family Medical History / Comment(s): leukemia Brother(s) Family Medical History: Coronary Artery Disease (CAD) Sister(s) Family Medical History: COPD Daughter(s) Family Medical History: No Reported History Son(s) Family Medical History: No Reported History General Exam Limitations: no limitations General appearance: alert, in no apparent distress Head exam: Present: atraumatic, normocephalic, normal inspection Eye exam: Present: normal appearance, EOMI Neck exam: Present: normal inspection. Absent: meningismus Respiratory exam: Absent: respiratory distress Cardiovascular Exam: Present: regular rate Left Hand Wrist exam: Present: full ROM, tenderness, swelling, erythema Neurological exam: Present: alert, oriented X3 Psychiatric exam: Present: normal affect, normal mood Skin exam: Present: rash (There are romero on the bilateral forearms from the patient picking her skin) Course Vital Signs 12/10/23 12/10/23 19:25 21:00 Temperature 98.2 F Pulse Rate 76 72 Respiratory 16 17 Rate Blood Pressure 146/79 134/79 O2 Sat by Pulse 97 98 Oximetry Medical Decision Making - Medical Decision Making Was pt. sent in by a medical professional or institution (, AMA, [employer] SUPPORT WORKER, urgent care, hospital, or [facility]...) When possible be specific @ -No Did you speak to anyone other than the patient for history (EMS, parent, family, police, friend...)? What history was obtained from this source @ -No Did you review nursing and triage notes (agree or disagree)? Why? @ -I reviewed and agree with nursing and triage notes Were old charts reviewed (outside hosp., previous admission, EMS record, old EKG, old radiological studies, urgent care reports/EKG's, [facility] records)? Report findings @ -No old charts were reviewed Differential Diagnosis (chest pain, altered mental status, abdominal pain women, abdominal pain men, vaginal bleeding, weakness, fever, dyspnea, syncope, headache, dizziness, GI bleed, back pain, seizure, CVA, palpatations, mental health, musculoskeletal)? @ -Differential Musculoskeletal Muscular strain, contusion, ligament sprain, fracture, arthritis, septic arthritis, bursitis, cellulitis, muscle spasm, nerve compression, DVT, arterial occlusion, herpes zoster, electrolyte abnormality, tumor.... This is not meant to be in all inclusive list EKG interpreted by me (3pts min.). @ -As above X-rays interpreted by me (1pt min.). @ -X-ray shows TFC calcification may be idiopathic or could be seen with CPPD. Circumferential soft tissue swelling at the wrist. Osteopenia limits the assessment but no definite acute numerous abnormalities seen. Moderate OA at the base of the thumb CT interpreted by me (1pt min.). @ -None done U/S interpreted by me (1pt. min.). @ -None done What testing was considered but not performed or refused? (CT, X-rays, U/S, labs)? Why? @ -None What meds were considered but not given or refused? Why? @ -None Did you discuss the management of the patient with other professionals (professionals i.e. , AMA, [employer] SUPPORT WORKER, lab, RT, psych nurse, psych social worker, medical coding instructor, teacher, articulation officer, housing case manager)? Give summary @ -No Was smoking cessation discussed for >3mins.? @ -No Was critical care preformed (if so, how long)? @ -No Were there social determinants of health that impacted care today? How? (Homelessness, low income, unemployed, alcoholism, drug addiction, transportation, low edu. Level, literacy, decrease access to med. care, [facility], rehab)? @ -No Was there de-escalation of care discussed even if they declined (Discuss DNR or withdrawal of care, Hospice)? DNR status @ -No What co-morbidities impacted this encounter? (DM, HTN, Smoking, COPD, CAD, Cancer, CVA, ARF, Chemo, Hep., AIDS, mental health diagnosis, sleep apnea, morbid obesity)? @ -None Was patient admitted / discharged? Hospital course, mention meds given and route, prescriptions, significant lab abnormalities, going to OR and other pertinent info. @ -83-year-old female presenting with chief complaint of left wrist pain and rash to the forearms. Patient has romero covering the forearms due to picking at her skin. She did try a steroid cream recently which did not help. Denies any itching. Also having left wrist pain without injury or trauma. On exam there are multiple red romero from the patient picking at her skin. No cellulitic changes. The left wrist is swollen and mildly red. No joint effusion. X-ray shows evidence of possible pseudogout. Patient will be treated with Medrol Dosepak. Also provided with bacitracin ointment due to the breaks in her skin. Instructed to stop picking at her skin. She will follow-up with dermatology. Discharged. Follow-up with PCP. Report back to ER with any new or worsening symptoms. Discussed return parameters and answered all questions. Patient conveyed verbal understanding and agreed to the plan. I discussed this case in detail with my attending Dr. Ryder Undiagnosed new problem with uncertain prognosis? @ -No Drug Therapy requiring intensive monitoring for toxicity (Heparin, Nitro, Insulin, Cardizem)? @ -No Were any procedures done? @ -No Diagnosis/symptom? @ -Pseudogout, skin picking Acute, or Chronic, or Acute on Chronic? @ -Acute Uncomplicated (without systemic symptoms) or Complicated (systemic symptoms)? @ -Uncomplicated Side effects of treatment? @ -No Exacerbation, Progression, or Severe Exacerbation? @ -No Poses a threat to life or bodily function? How? (Chest pain, [place], [place], pneumonia, PE, COPD, DKA, ARF, appy, cholecystitis, CVA, Diverticulitis, Homicidal, Suicidal, threat to staff... and all critical care pts) @ -No Disposition Clinical Impression: Pseudogout Disposition: HOME SELF-CARE Condition: Good Instructions (If sedation given, give patient instructions): Gout (ED) Additional Instructions: Follow up with PCP. Report back to ER with any new or worsening symptoms. take medication as prescribed. Use the bacitracin ointment on your skin as needed stop picking at your skin. Prescriptions: methylPREDNISolone Dose Pack [Medrol Dose Pack] 4 mg PO DIRECTED #1 packet Is patient prescribed a controlled substance at d/c from ED?: No Referrals: Marcie Varma MD [Primary Care Provider] - 1-2 days Time of Disposition: 20:48
[2023-12-10] MEDS: BACITRACIN ZINC 500 UNIT/GM OINT 28.4 GM TUBE TOPICAL ONE (20:58)
[2023-12-10 21:01] VITALS: BP 134/79; PULSE 72; RESP 17
== END 2023-12-10 21:01 | disposition home or self-care (01) ==
LOC: EC 19:14
CPT/HCPCS: 99283

== ENCOUNTER 2023-12-20 01:35 | Inpatient (IN) | payer MEDICARE, BC ==
[2023-12-20 01:50] VITALS: RESP 18
--- NOTE | 2023-12-20 02:11 | XR ---
EXAMINATION TYPE: XR chest 2V DATE OF EXAM: 12/20/2023 COMPARISON: Chest x-ray February 24, 2022 HISTORY: Chest pain. TECHNIQUE: Frontal and lateral views of the chest are obtained. FINDINGS: There is no suspicious new focal air space opacity, pleural effusion, or pneumothorax seen . The cardiac silhouette size is stable and within normal limits with atherosclerotic thoracic aorta redemonstrated. The osseous structures are intact. IMPRESSION: No acute process. [facility], , 12/20/2023 2:09 AM
[2023-12-20] MEDS: SODIUM CHLORIDE 0.9% 500 ML 500 ML IV ONE (02:22)
[2023-12-20 02:24] LABS: Basophils # (A) 0.1 k/uL (0-0.2); Basophils % (A) 1 %; Eosinophils # (A) 0.1 k/uL (0-0.7); Eosinophils % (A) 1 %; HCT 38.3 % (34.0-46.0); HGB 12.3 gm/dL (11.4-16.0); Lymphocytes # (A) 3.3 k/uL (1.0-4.8); Lymphocytes % (A) 33 %; MCH 25.6 pg (25.0-35.0); MCV 79.9 fL (80.0-100.0); Mean Platelet Volume 7.1; Monocytes # (A) 0.7 k/uL (0-1.0); Monocytes % (A) 7 %; Neutrophils # (A) 5.8 k/uL (1.3-7.7); Neutrophils % (A) 58 %; Platelet Count 325 k/uL (150-450); RBC 4.79 m/uL (3.80-5.40); WBC 9.9 k/uL (3.8-10.6)
[2023-12-20] MEDS: DILTIAZEM DRIP BOLUS FROM BAG 1 MG SOLN IV ONE (02:24)
[2023-12-20] MEDS: DILTIAZEM 125 MG in SODIUM CHLORIDE 0.9% 100 ML IV SCH (02:26)
[2023-12-20 02:33] LABS: Partial Thromboplastin Time 22.5 sec (22.0-30.0)
--- NOTE | 2023-12-20 02:38 | ED ---
Arrhythmia/Palpitations HPI - General Chief Complaint: Arrhythmia/Palpitations Stated Complaint: Heart palpitations Time Seen by Provider: 12/20/23 01:37 Source: patient, EMS, RN notes reviewed Mode of arrival: EMS Limitations: no limitations - History of Present Illness Initial Comments: 84-year-old female presents emergency department with chief complaint of palpitations. Patient presented via EMS she does have a history of A-fib's and is on blood thinners. Patient states she is taking all medications yesterday morning. Patient states has been on prednisone for a rash. She states that she was laying down and felt some palpitations. Patient has no chest pain or shortness of breath no other associated symptoms. - Related Data Home Medications Medication Instructions Recorded Confirmed ALPRAZolam [Xanax] 0.5 mg PO DAILY 11/03/19 02/22/22 Apixaban [Eliquis] 5 mg PO BID 11/03/19 02/22/22 PARoxetine [Paxil] 20 mg PO DAILY 11/03/19 02/22/22 Cholecalciferol [Vitamin D3 (25 50 mcg PO DAILY 09/20/20 02/22/22 Mcg = 1000 Iu)] ALPRAZolam [Xanax] 0.5 mg PO HS PRN 02/22/22 02/22/22 Isosorbide Mononitrate ER [Imdur] 60 mg PO DAILY 02/22/22 02/22/22 Vit C/E/Zn/Coppr/Lutein/Zeaxan 2 cap PO DAILY 02/22/22 02/22/22 [Preservision Areds 2 Softgel] Previous Rx's Medication Instructions Recorded Metoprolol Tartrate [Lopressor] 50 mg PO BID #60 tab 02/28/22 Pantoprazole [Protonix] 40 mg PO AC-BRKFST #30 tab 02/28/22 methylPREDNISolone Dose Pack 4 mg PO DIRECTED #1 packet 12/10/23 [Medrol Dose Pack] Allergies Allergy/AdvReac Type Severity Reaction Status Date / Time cyclobenzaprine HCl Allergy Unknown Rash/Hives Verified 12/20/23 01:42 [From Flexeril] Iodinated Contrast Media Allergy Rash/Hives Verified 12/20/23 01:42 [Iodinated Contrast Media - IV Dye] Qecpcqz-OWE-WvN Reductase Allergy leg pain Verified 12/20/23 01:42 Inhibitor [Gniuwua-Mzt-Ptl Reductase Inhibitor] TRIPLE DYE Allergy Unknown Rash/Hives Uncoded 12/20/23 01:42 NSAIDS AdvReac Unknown Uncoded 12/20/23 01:42 Review of Systems ROS Statement: Those systems with pertinent positive or pertinent negative responses have been documented in the HPI. ROS Other: All systems not noted in ROS Statement are negative. Past Medical History Past Medical History: Atrial Fibrillation, Coronary Artery Disease (CAD), Chest Pain / Angina, COPD, Eye Disorder, Hypertension, Osteoarthritis (OA) Additional Past Medical History / Comment(s): KIDNEY STONES ,POLYPS, BACK PAIN, constipation,macular degeneration terence eyes History of Any Multi-Drug Resistant Organisms: None Reported Past Surgical History: Heart Catheterization, Joint Replacement, Orthopedic Surgery Additional Past Surgical History / Comment(s): TERENCE CATARACTS , COLONSCOPY, EGD, BREAST BX, LITHOTRIPSY, PAIN CLINIC PROCEDURES. bialteral hips Past Anesthesia/Blood Transfusion Reactions: No Reported Reaction Past Psychological History: Anxiety Smoking Status: Former smoker Past Alcohol Use History: None Reported Past Drug Use History: None Reported - Past Family History Mother Family Medical History: No Reported History Father Family Medical History: Cancer Additional Family Medical History / Comment(s): leukemia Brother(s) Family Medical History: Coronary Artery Disease (CAD) Sister(s) Family Medical History: COPD Daughter(s) Family Medical History: No Reported History Son(s) Family Medical History: No Reported History General Exam Limitations: no limitations General appearance: alert, in no apparent distress Head exam: Present: atraumatic, normocephalic, normal inspection Eye exam: Present: normal appearance, PERRL, EOMI. Absent: scleral icterus, conjunctival injection, periorbital swelling ENT exam: Present: normal exam, normal oropharynx, mucous membranes moist Neck exam: Present: normal inspection, full ROM. Absent: tenderness, meningismus, lymphadenopathy Respiratory exam: Present: normal lung sounds bilaterally. Absent: respiratory distress, wheezes, rales, rhonchi, stridor Cardiovascular Exam: Present: tachycardia, irregular rhythm, normal heart sounds. Absent: systolic murmur, diastolic murmur, rubs, gallop, clicks GI/Abdominal exam: Present: soft, normal bowel sounds. Absent: distended, tenderness, guarding, rebound, rigid Course Vital Signs 12/20/23 12/20/23 01:37 01:42 Temperature 97.8 F Pulse Rate 128 H Pulse Rate [ 123 H Left Sitting Radial] Respiratory 18 Rate Blood Pressure 111/74 O2 Sat by Pulse 97 Oximetry EKG Findings - EKG Comments: EKG Findings:: EKG performed at 1: 38 A-fib with RVR rate of 119 QRS 96 QT/QTc 245/315 - EKG Results: EKG: interpreted by CODIE Medical Decision Making - Medical Decision Making Was pt. sent in by a medical professional or institution (, PA, HEMATOLOGY TECHNOLOGIST, urgent care, hospital, or correction...) When possible be specific @ -No Did you speak to anyone other than the patient for history (EMS, parent, family, police, friend...)? What history was obtained from this source @ -No Did you review nursing and triage notes (agree or disagree)? Why? @ -I reviewed and agree with nursing and triage notes Were old charts reviewed (outside hosp., previous admission, EMS record, old EKG, old radiological studies, urgent care reports/EKG's, correction records)? Report findings @ -Reviewed past medical history, prior labs CBC, CMP Differential Diagnosis (chest pain, altered mental status, abdominal pain women, abdominal pain men, vaginal bleeding, weakness, fever, dyspnea, syncope, headache, dizziness, GI bleed, back pain, seizure, CVA, palpatations, mental health, musculoskeletal)? @ -Differential Palpitations Ventricular arrhythmias, atrial arrhythmias, myocardial infarction, anemia, thyrotoxicosis, electrolyte imbalance, hypokalemia, pulmonary embolism, pulmonary disease, drugs, alcohol, anxiety, stress.... This is not meant to be an all-inclusive list. EKG interpreted by me (3pts min.). @ -As above X-rays interpreted by me (1pt min.). @ -Chest x-ray shows no acute cardiopulmonary process. CT interpreted by me (1pt min.). @ -None done U/S interpreted by me (1pt. min.). @ -None done What testing was considered but not performed or refused? (CT, X-rays, U/S, labs)? Why? @ -None What meds were considered but not given or refused? Why? @ -None Did you discuss the management of the patient with other professionals (professionals i.e. , PA, HEMATOLOGY TECHNOLOGIST, lab, RT, psych nurse, perinatal social worker, return checker, t eacher, chief environmental commitment officer, case work aide)? Give summary @ -Dr. Varma for admission Was smoking cessation discussed for >3mins.? @ -No Was critical care preformed (if so, how long)? @ -35 minutes Were there social determinants of health that impacted care today? How? (Homelessness, low income, unemployed, alcoholism, drug addiction, transportation, low edu. Level, literacy, decrease access to med. care, halfway, rehab)? @ -No Was there de-escalation of care discussed even if they declined (Discuss DNR or withdrawal of care, Hospice)? DNR status @ -No What co-morbidities impacted this encounter? (DM, HTN, Smoking, COPD, CAD, Cancer, CVA, ARF, Chemo, Hep., AIDS, mental health diagnosis, sleep apnea, m orbid obesity)? @ -A-fib Was patient admitted / discharged? Hospital course, mention meds given and route, prescriptions, significant lab abnormalities, going to OR and other pertinent info. @ -Admitted patient found to be in A-fib RVR. Patient was given fluid bolus, started on Cardizem patient had lab laboratory studies including troponin is unremarkable. Chest x-ray did not show any acute process. Undiagnosed new problem with uncertain prognosis? @ -No Drug Therapy requiring intensive monitoring for toxicity (Heparin, Nitro, Insulin, Cardizem)? @ -No Were any procedures done? @ -No Diagnosis/symptom? @ -A-fib RVR Acute, or Chronic, or Acute on Chronic? @ -Acute Uncomplicated (without systemic symptoms) or Complicated (systemic symptoms)? @ -Complicated Side effects of treatment? @ -No Exacerbation, Progression, or Severe Exacerbation? @ -No Poses a threat to life or bodily function? How? (Chest pain, [place], CO, pneumonia, PE, COPD, DKA, ARF, appy, cholecystitis, CVA, Diverticulitis, Homicidal, Suicidal, threat to staff... and all critical care pts) @ -Yes arrhythmia causing cardiac arrest - Lab Data Result diagrams: 12/20/23 01:45 12/20/23 01:45 Lab Results 12/20/23 12/20/23 12/20/23 Range/Units 01:45 01:45 01:45 WBC 9.9 (3.8-10.6) k/uL RBC 4.79 (3.80-5.40) m/uL Hgb 12.3 (11.4-16.0) gm/dL Hct 38.3 (34.0-46.0) % MCV 79.9 L (80.0-100.0) fL MCH 25.6 (25.0-35.0) pg MCHC 32.0 (31.0-37.0) g/dL RDW 16.0 H (11.5-15.5) % Plt Count 325 (150-450) k/uL MPV 7.1 Neutrophils % 58 % Lymphocytes % 33 % Monocytes % 7 % Eosinophils % 1 % Basophils % 1 % Neutrophils # 5.8 (1.3-7.7) k/uL Lymphocytes # 3.3 (1.0-4.8) k/uL Monocytes # 0.7 (0-1.0) k/uL Eosinophils # 0.1 (0-0.7) k/uL Basophils # 0.1 (0-0.2) k/uL PT 11.0 (10.0-12.5) sec INR 1.0 (<1.2) APTT 22.5 (22.0-30.0) sec Sodium 141 (137-145) mmol/L Potassium 4.6 (3.5-5.1) mmol/L Chloride 106 (98-107) mmol/L Carbon Dioxide 27 (22-30) mmol/L Anion Gap 8 mmol/L BUN 36 H (7-17) mg/dL Creatinine 0.87 (0.52-1.04) mg/dL Est GFR (CKD-EPI)AfAm 71 (>60 ml/min/1.73 sqM) Est GFR (CKD-EPI)NonAf 62 (>60 ml/min/1.73 sqM) Glucose 104 H (74-99) mg/dL Calcium 9.6 (8.4-10.2) mg/dL Magnesium 1.9 (1.6-2.3) mg/dL Total Bilirubin 0.4 (0.2-1.3) mg/dL AST 25 (14-36) U/L ALT 13 (4-34) U/L Alkaline Phosphatase 69 (38-126) U/L Troponin I (0.000-0.034) ng/mL Total Protein 6.3 (6.3-8.2) g/dL Albumin 3.9 (3.5-5.0) g/dL 12/20/23 Range/Units 01:45 WBC (3.8-10.6) k/uL RBC (3.80-5.40) m/uL Hgb (11.4-16.0) gm/dL Hct (34.0-46.0) % MCV (80.0-100.0) fL MCH (25.0-35.0) pg MCHC (31.0-37.0) g/dL RDW (11.5-15.5) % Plt Count (150-450) k/uL MPV Neutrophils % % Lymphocytes % % Monocytes % % Eosinophils % % Basophils % % Neutrophils # (1.3-7.7) k/uL Lymphocytes # (1.0-4.8) k/uL Monocytes # (0-1.0) k/uL Eosinophils # (0-0.7) k/uL Basophils # (0-0.2) k/uL PT (10.0-12.5) sec INR (<1.2) APTT (22.0-30.0) sec Sodium (137-145) mmol/L Potassium (3.5-5.1) mmol/L Chloride (98-107) mmol/L Carbon Dioxide (22-30) mmol/L Anion Gap mmol/L BUN (7-17) mg/dL Creatinine (0.52-1.04) mg/dL Est GFR (CKD-EPI)AfAm (>60 ml/min/1.73 sqM) Est GFR (CKD-EPI)NonAf (>60 ml/min/1.73 sqM) Glucose (74-99) mg/dL Calcium (8.4-10.2) mg/dL Magnesium (1.6-2.3) mg/dL Total Bilirubin (0.2-1.3) mg/dL AST (14-36) U/L ALT (4-34) U/L Alkaline Phosphatase (38-126) U/L Troponin I <0.012 (0.000-0.034) ng/mL Total Protein (6.3-8.2) g/dL Albumin (3.5-5.0) g/dL Critical Care Time Critical Care Time: Yes Total Critical Care Time: 35 Disposition Clinical Impression: Atrial fibrillation with rapid ventricular response Disposition: ADMITTED IP TO THIS HOSP Condition: Fair Referrals: Marcie Varma MD [Primary Care Provider] - 1-2 days Time of Disposition: 03:05
[2023-12-20 02:45] LABS: ALT 13 U/L (4-34); AST 25 U/L (14-36); African American GFR (CKD) 71 (>60 ml/min/1.73 sqM); Albumin 3.9 g/dL (3.5-5.0); Alkaline Phosphatase 69 U/L (38-126); Anion Gap 8 mmol/L; Blood Urea Nitrogen 36 mg/dL (7-17); Calcium 9.6 mg/dL (8.4-10.2); Carbon Dioxide 27 mmol/L (22-30); Chloride 106 mmol/L (98-107); Glucose 104 mg/dL (74-99); Magnesium 1.9 mg/dL (1.6-2.3); Non-African American GFR(CKD) 62 (>60 ml/min/1.73 sqM); Potassium 4.6 mmol/L (3.5-5.1); Sodium 141 mmol/L (137-145); Total Bilirubin 0.4 mg/dL (0.2-1.3); Total Protein 6.3 g/dL (6.3-8.2)
[2023-12-20] MEDS ORDERED: NITROGLYCERIN SL TABS 0.4 MG TAB SUBLINGUAL PRN (03:05)
[2023-12-20] MEDS ORDERED: ALPRAZolam 0.5 MG TAB PO PRN ×2 (03:06→08:07)
[2023-12-20 08:46] VITALS: TEMP 97.9
[2023-12-20] MEDS ORDERED: PARoxetine 20 MG TAB PO SCH (09:00)
[2023-12-20] MEDS ORDERED: ALPRAZolam 0.5 MG TAB PO SCH (09:00)
[2023-12-20] MEDS ORDERED: METOPROLOL TARTRATE 50 MG TAB PO SCH (09:00)
[2023-12-20 10:04] VITALS: BP 106/52; PULSE 68
[2023-12-20] MEDS: PANTOPRAZOLE 40 MG TABLET PO SCH (10:04)
[2023-12-20] MEDS: APIXABAN 5 MG TAB PO SCH (10:05)
[2023-12-20] MEDS: METOPROLOL SUCCINATE (ER) 50 MG TAB.ER.24H PO SCH (10:05)
[2023-12-20] MEDS: ISOSORBIDE MONONITRATE ER 60 MG TAB.ER.24H PO SCH (10:05)
--- NOTE | 2023-12-21 07:25 | P.CRDCN ---
History of Present Illness Consult date: 12/20/23 Reason for Consult (text): Atrial fibrillation History of present illness: This is an 83-year-old female patient of Dr. Olivares with past medical history of paroxysmal atrial fibrillation treatment strategy of rhythm control, coronary artery disease, Takotsubo cardiomyopathy recovered, hyperlipidemia, hypertension. We have been asked to evaluate the patient for atrial fibrillation. Patient states that she had sudden onset of palpitations yesterday while she was at rest. She denies having any shortness of breath, no chest pain. She denies having any cough and no fever. Patient was initially in A-fib with RVR and was started on Cardizem drip, converted to sinus rhythm. Blood pressure 105/63, heart rate 72, pulse ox 96% on room air. Patient gives history that she has been taking steroids for rash. She has been taking all of her cardiac medications as prescribed. EKG: #1 atrial fibrillation at 119 bpm, #2 sinus rhythm Chest x-ray: No acute process Laboratory studies: WBC 99, hemoglobin 12.3, platelet count 325. Sodium 141, potassium 4.6, BUN 36 and creatinine 0.87. Troponin negative x 2. Home cardiac medications: Eliquis 5 mg twice daily, Repatha 140 mg subcu every 14 days, Imdur 60 mg daily, Toprol XL 50 mg daily, valsartan 160 mg daily Echocardiogram performed 12/28/2021 in the office revealed normal EF, mild MR, m ild TR. Cardiac catheterization history 10/20/2021 revealed 50% proximal LAD, 20% mid circumflex, 20% mid RCA, right dominant. Lexiscan stress test performed in the office on 09/08/2020 revealed EF of 65%, partially reversible apical defect. Review Of Systems: At the time of my exam: CONSTITUTIONAL: Denies fever or chills. HEENT: Denies blurred vision, vision changes, or eye pain. Denies hemoptysis CARDIOVASCULAR: Denies chest pain. Denies orthopnea. Denies PND. Denies palpitations RESPIRATORY: Denies shortness of breath. GASTROINTESTINAL: Denies abdominal pain. Denies nausea or vomiting. HEMATOLOGIC: Denies bleeding disorders. GENITOURINARY: Denies any blood in urine. SKIN: Denies puritis. Denies rash. Physical examination: Gen: This is an 83-year-old female in no acute distress VS: reviewed HEENT: Head is atraumatic, normocephalic. Pupils equal, round. Sclerae is anicteric. NECK: Supple. No JVD. LUNGS: Clear to auscultation. No wheezes or rhonchi. No intercostal retractions. HEART: Regular rate and rhythm. 1/6 systolic ejection murmur. ABDOMEN: Soft No tenderness. EXTREMITIES: No pedal edema. No calf tenderness. NEUROLOGICAL: Patient is awake, alert and oriented x3. Assessment: Paroxysmal atrial fibrillation presenting with RVR and converted to sinus rhythm Coronary artery disease History of Takotsubo cardiomyopathy recovered Hyperlipidemia Hypertension Plan: Resume patient's home cardiac medications Discontinue Cardizem drip and aspirin No need to repeat echocardiogram Patient is cleared for discharge from cardiology May follow-up with Dr. Olivares in 1 week. Thank you kindly for this consultation. Nurse practitioner note has been reviewed, I agree with documented findings and plan of care. Patient was seen and examined. Past Medical History Past Medical History: Atrial Fibrillation, Coronary Artery Disease (CAD), Chest Pain / Angina, COPD, Eye Disorder, Hypertension, Osteoarthritis (OA) Additional Past Medical History / Comment(s): KIDNEY STONES ,POLYPS, BACK PAIN, constipation,macular degeneration terence eyes History of Any Multi-Drug Resistant Organisms: None Reported Past Surgical History: Heart Catheterization, Joint Replacement, Orthopedic Surgery Additional Past Surgical History / Comment(s): TERENCE CATARACTS , COLONSCOPY, EGD, BREAST BX, LITHOTRIPSY, PAIN CLINIC PROCEDURES. bialteral hips Past Anesthesia/Blood Transfusion Reactions: No Reported Reaction Past Psychological History: Anxiety Smoking Status: Former smoker Past Alcohol Use History: None Reported Past Drug Use History: None Reported - Past Family History Mother Family Medical History: No Reported History Father Family Medical History: Cancer Additional Family Medical History / Comment(s): leukemia Brother(s) Family Medical History: Coronary Artery Disease (CAD) Sister(s) Family Medical History: COPD Daughter(s) Family Medical History: No Reported History Son(s) Family Medical History: No Reported History Medications and Allergies Home Medications Medication Instructions Recorded Confirmed Type Apixaban [Eliquis] 5 mg PO BID 11/03/19 12/20/23 History Cholecalciferol [Vitamin D3 (25 50 mcg PO DAILY 09/20/20 12/20/23 History Mcg = 1000 Iu)] ALPRAZolam [Xanax] 0.5 mg PO BID PRN 02/22/22 12/20/23 History Isosorbide Mononitrate ER [Imdur] 60 mg PO DAILY 02/22/22 12/20/23 History Vit C/E/Zn/Coppr/Lutein/Zeaxan 1 cap PO BID 02/22/22 12/20/23 History [Preservision Areds 2 Softgel] Pantoprazole [Protonix] 40 mg PO AC-BRKFST #30 tab 02/28/22 12/20/23 Rx Evolocumab [Repatha Sureclick] 140 mg SQ Q14D 12/20/23 12/20/23 History Metoprolol Succinate (ER) [Toprol 50 mg PO DAILY 12/20/23 12/20/23 History XL] Valsartan [Diovan] 160 mg PO DAILY 12/20/23 12/20/23 History Allergies Allergy/AdvReac Type Severity Reaction Status Date / Time cyclobenzaprine HCl Allergy Unknown Rash/Hives Verified 12/20/23 08:13 [From Flexeril] Iodinated Contrast Media Allergy Rash/Hives Verified 12/20/23 08:13 [Iodinated Contrast Media - IV Dye] NSAIDS (Non-Steroidal Allergy Dr told Verified 12/20/23 08:13 Anti-Inflamma not to take due to Eliquis Vuzsfaw-DDS-PbR Reductase Allergy leg pain Verified 12/20/23 08:13 Inhibitor [Temndbt-Jvg-Ipj Reductase Inhibitor] TRIPLE DYE Allergy Unknown Rash/Hives Uncoded 12/20/23 08:13 NSAIDS Allergy Unknown Uncoded 12/20/23 08:13 Physical Exam Vitals: Vital Signs Temp Pulse Pulse Resp BP Pulse Ox 12/20/23 06:50 72 18 105/63 96 12/20/23 04:08 118 H 18 99/74 96 12/20/23 01:42 123 H 12/20/23 01:37 97.8 F 128 H 18 111/74 97 Intake and Output 12/19/23 12/20/23 12/20/23 22:59 06:59 14:59 Other: Weight 58.06 kg Results 12/20/23 01:45 12/20/23 01:45 Cardiac Enzymes 12/20/23 12/20/2324 Range/Units 01:45 01:45 06:12 AST 25 (14-36) U/L Troponin I <0.012 <0.012 (0.000-0.034) ng/mL Coagulation 12/20/23 Range/Units 01:45 PT 11.0 (10.0-12.5) sec APTT 22.5 (22.0-30.0) sec CBC 12/20/23 Range/Units 01:45 WBC 9.9 (3.8-10.6) k/uL RBC 4.79 (3.80-5.40) m/uL Hgb 12.3 (11.4-16.0) gm/dL Hct 38.3 (34.0-46.0) % Plt Count 325 (150-450) k/uL Comprehensive Metabolic Panel 12/20/23 Range/Units 01:45 Sodium 141 (137-145) mmol/L Potassium 4.6 (3.5-5.1) mmol/L Chloride 106 (98-107) mmol/L Carbon Dioxide 27 (22-30) mmol/L BUN 36 H (7-17) mg/dL Creatinine 0.87 (0.52-1.04) mg/dL Glucose 104 H (74-99) mg/dL Calcium 9.6 (8.4-10.2) mg/dL AST 25 (14-36) U/L ALT 13 (4-34) U/L Alkaline Phosphatase 69 (38-126) U/L Total Protein 6.3 (6.3-8.2) g/dL Albumin 3.9 (3.5-5.0) g/dL Current Medications Generic Name Dose Route Start Last Admin Trade Name Freq PRN Reason Stop Dose Admin Alprazolam 0.5 mg 12/20/23 03:06 Alprazolam 0.5 Mg Tab PO HS PRN Anxiety Alprazolam 0.5 mg 12/20/23 09:00 Alprazolam 0.5 Mg Tab PO DAILY [facility] Apixaban 5 mg 12/20/23 09:00 Apixaban 5 Mg Tab PO BID [facility] Protocol Aspirin 325 mg 12/21/23 09:00 Aspirin 325 Mg Tab PO DAILY [facility] Diltiazem HCl 125 mg/ Sodium 125 mls @ 5 mls/hr 12/20/23 01:45 12/20/23 02:26 Chloride IV 5 mg/hr .Q24H [facility] 5 mls/hr Administration 5 MG/HR Isosorbide Mononitrate 60 mg 12/20/23 09:00 Isosorbide Mononitrate Er 60 Mg Tab.Er.24h PO DAILY [facility] Metoprolol Tartrate 50 mg 12/20/23 09:00 Metoprolol Tartrate 50 Mg Tab PO BID [facility] Nitroglycerin 0.4 mg 12/20/23 03:05 Nitroglycerin Sl Tabs 0.4 Mg Tab SUBLINGUAL Q5M PRN Chest Pain Pantoprazole Sodium 40 mg 12/20/23 07:30 Pantoprazole 40 Mg Tablet PO AC-BRKFST [facility] Paroxetine HCl 20 mg 12/20/23 09:00 Paroxetine 20 Mg Tab PO DAILY [facility] Intake and Output 12/19/23 12/20/23 12/20/23 22:59 06:59 14:59 Other: Weight 58.06 kg 12/20/23 01:45 12/20/23 01:45
[2023-12-21] MEDS ORDERED: ASPIRIN 325 MG TAB PO SCH (09:00)
--- NOTE | 2023-12-31 14:46 | P.HPIM ---
History of Present Illness H&P Date: 12/20/23 Chief Complaint: A-fib with RVR. This is history and physical and discharge summary. HISTORY OF PRESENT ILLNESS: This is an 83-year-old white female with a previous medical history significant for hypertension and hypertensive cardiovascular disease, hyperlipidemia, paroxy smal atrial fibrillation,CAD post left heart catherization last on 09/2021 that showed 50 % stenosis in the proximal LAD and 10-20 % stenosis in the LCX and RCA , anxiety disorder, severe osteoarthritis today she woke up in the morning and she was complaining of increased generalized fatigue with pressure like sensation in her back that resolved on its own, patient was intolerant for STATINS therefore she was started on Repatha 140 mg subcutaneously every 2 weeks, and she has been tolerating that very well, patient apparently presented to the emergency department at [facility] because of increased shortness of breath as well as palpitation, she was found to have an atrial fibrillation with rapid ventricular response, initially she was started on Cardizem drip, and while she is in the ER, she converted back to sinus rhythm, she was seen in consultation by cardiology it was recommended by cardiology for the patient to be taken off of Cardizem drip continue her metoprolol, follow-up with them as an outpatient, hence the patient was cleared for discharge from the emergency department and patient was never admitted. REVIEW OF SYSTEMS: Constitutional: No documented fever, no chills, no night sweats. No weight change. positive for weakness, fatigue or lethargy. No daytime sleepiness. HEENT: No headache. positive for blurred vision or double vision, no loss of vision. No loss of Hearing, no ringing in the ears, no dizziness. No nasal drainage or congestion. No epistaxis. No sore throat. Lungs: No shortness of breath, no cough, no sputum production. No wheezing. R eports dyspnea with activity. Cardiovascular: No chest pain, no lower extremity edema. No palpitations. No paroxysmal nocturnal dyspnea. No orthopnea. No lightheadedness or dizziness. No syncopal episodes. Abdominal: Reports no abdominal pain. No nausea, vomiting. No diarrhea. No constipation. No bloody or tarry stools reports loss of appetite. Genitourinary: No dysuria, increased frequency, urgency. No urinary retention. Musculoskeletal: No myalgias. No muscle weakness, no gait dysfunction, no frequent falls. No back pain. No neck pain. Integumentary: No wounds, no lesions. No rash or pruritus. No unusual bruising. No change in hair or nails. Neurologic: No aphasia. No facial droop. No change in mentation. No head injury. No headache. No paralysis. No paresthesia. Psychiatric: No depression. positive for anxiety. No mood swings. Endocrine: No abnormal blood sugars. No weight change. PAST MEDICAL HISTORY: Hypertension and hypertensive cardiovascular disease. Hyperlipidemia. Paroxysmal atrial fibrillation. GERD. 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 Osteoarthritis. Osteoporosis. Anxiety. Macular degeneration. Coronary artery disease status post left heart catheterization in August 2021 with 50% eccentric lesion in proximal LAD, 10-20 % in LCx and RCA. Kidney stones. Iron deficiency anemia PAST SURGICAL HISTORY: Right total hip arthroplasty. Left total hip arthroplasty. Bilateral cataract surgery. EGD and colonoscopy. Epidural injection of the thoracic spine. [facility] 09/2021 SOCIAL HISTORY: Patient used to smoke about pack every day she started smoking about 61 years ago and she quit in 03/28/2018, she denies any alcohol ingestion, she denies any drug use or abuse, she currently staying with her daughter after surgery. FAMILY HISTORY: Father of leukemia, mother was pretty healthy, patient had a sister who from severe COPD, patient has a brother with CAD, and she has 2 daughters no major medical problems. PHYSICAL EXAMINATION: General: 83-year-old female sitting up in bed in no apparent distress. HEENT: Head is atraumatic, normocephalic, pupils were equal round reactive to light and recommendation, extraocular muscle movement were intact, sclera nonicteric, conjunctivae were pale, mucous membranes of the mouth are somewhat dry. Neck: Supple, no JVP, normal carotid upstroke bilaterally, no lymphadenopathy. Chest: Decreased breath sounds at the bases, few rhonchi, no expiratory wheezes, no chest wall tenderness, no intercostal retractions. Heart: First heart sound is normal, second heart sounds normal there is systolic ejection murmur 2/6. The left sternal border. Abdomen: Soft, nontender, nondistended, positive bowel sounds, there is no hepatomegaly. Extremities: There is no edema no calf tenderness DP +2 bilaterally. Neurologic examination: Patient is awake alert and oriented X 3, cranial nerves II-12 appear grossly intact, muscle power were 5 out of 5 in upper extremities and 5 out of 5 in bilateral lower extremities, deep tendon reflexes normal bilaterally. ASSESSMENT AND PLAN: 1. Atrial fibrillation with rapid variable response just converted to sinus rhythm continue with metoprolol 50 mg orally once every day, continue patient on Eliquis 5 mg orally twice every day, monitor the patient very closely, follow-up with Dr. Vincent as an outpatient. 2. Hypertension and hypertensive cardiovascular disease . Continue metoprolol ER 50 mg once every day, continue valsartan 160 mg once every day, monitor the patient blood pressure very closely. 3. Mixed hyperlipidemia. Patient is not able to take statins continue Repatha 140 mg subcutaneously every 14 days. 4. Anxiety disorder. Continue patient on Xanax 0.5 mg po bid as needed. 5. Macular degeneration. Continue with current vitamins. 6. Paroxysmal atrial fibrillation currently in sinus rhythm. Continue patient on metoprolol ER 50 mg once every day, continue Eliquis 5 mg orally twice every day follow-up with cardiology. 7. Osteoarthritis. Continue current pain management. 8. Patient is medically stable to be discharged home. Past Medical History Past Medical History: Atrial Fibrillation, Coronary Artery Disease (CAD), Chest Pain / Angina, COPD, Eye Disorder, Hypertension, Osteoarthritis (OA) Additional Past Medical History / Comment(s): KIDNEY STONES ,POLYPS, BACK PAIN, constipation,macular degeneration terence eyes History of Any Multi-Drug Resistant Organisms: None Reported Past Surgical History: Heart Catheterization, Joint Replacement, Orthopedic Surgery Additional Past Surgical History / Comment(s): TERENCE CATARACTS , COLONSCOPY, EGD, BREAST BX, LITHOTRIPSY, PAIN CLINIC PROCEDURES. bialteral hips Past Anesthesia/Blood Transfusion Reactions: No Reported Reaction Past Psychological History: Anxiety Smoking Status: Former smoker Past Alcohol Use History: None Reported Past Drug Use History: None Reported - Past Family History Mother Family Medical History: No Reported History Father Family Medical History: Cancer Additional Family Medical History / Comment(s): leukemia Brother(s) Family Medical History: Coronary Artery Disease (CAD) Sister(s) Family Medical History: COPD Daughter(s) Family Medical History: No Reported History Son(s) Family Medical History: No Reported History Medications and Allergies Home Medications Medication Instructions Recorded Confirmed Type Apixaban [Eliquis] 5 mg PO BID 11/03/19 12/20/23 History Cholecalciferol [Vitamin D3 (25 50 mcg PO DAILY 09/20/20 12/20/23 History Mcg = 1000 Iu)] ALPRAZolam [Xanax] 0.5 mg PO BID PRN 02/22/22 12/20/23 History Isosorbide Mononitrate ER [Imdur] 60 mg PO DAILY 02/22/22 12/20/23 History Vit C/E/Zn/Coppr/Lutein/Zeaxan 1 cap PO BID 02/22/22 12/20/23 History [Preservision Areds 2 Softgel] Pantoprazole [Protonix] 40 mg PO AC-BRKFST #30 tab 02/28/22 12/20/23 Rx Evolocumab [Repatha Sureclick] 140 mg SQ Q14D 12/20/23 12/20/23 History Metoprolol Succinate (ER) [Toprol 50 mg PO DAILY 12/20/23 12/20/23 History XL] Valsartan [Diovan] 160 mg PO DAILY 12/20/23 12/20/23 History Allergies Allergy/AdvReac Type Severity Reaction Status Date / Time cyclobenzaprine HCl Allergy Unknown Rash/Hives Verified 12/20/23 08:13 [From Flexeril] Iodinated Contrast Media Allergy Rash/Hives Verified 12/20/23 08:13 [Iodinated Contrast Media - IV Dye] NSAIDS (Non-Steroidal Allergy Dr told Verified 12/20/23 08:13 Anti-Inflamma not to take due to Eliquis Erngdzo-UYW-TpA Reductase Allergy leg pain Verified 12/20/23 08:13 Inhibitor [Qghwkbm-Kif-Emv Reductase Inhibitor] TRIPLE DYE Allergy Unknown Rash/Hives Uncoded 12/20/23 08:13 NSAIDS Allergy Unknown Uncoded 12/20/23 08:13 Results CBC & Chem 7: 12/20/23 01:45 12/20/23 01:45
== END 2023-12-20 10:52 | disposition home or self-care (01) | DRG 310 ==
LOC: EC 01:35 → 3SCARD 03:06
PROVIDERS: ADMIT Internal Medicine; ATTEND Internal Medicine
DX: I48.0 Paroxysmal atrial fibrillation (principal); I25.10 Atherosclerotic heart disease of native coronary artery without angina pectoris; I11.9 Hypertensive heart disease without heart failure; H35.30 Unspecified macular degeneration; J44.9 Chronic obstructive pulmonary disease, unspecified; F41.9 Anxiety disorder, unspecified; E78.2 Mixed hyperlipidemia; M19.90 Unspecified osteoarthritis, unspecified site; M81.0 Age-related osteoporosis without current pathological fracture; D50.9 Iron deficiency anemia, unspecified; K21.9 Gastro-esophageal reflux disease without esophagitis; M47.816 Spondylosis without myelopathy or radiculopathy, lumbar region; M47.814 Spondylosis without myelopathy or radiculopathy, thoracic region; R21 Rash and other nonspecific skin eruption; Z79.01 Long term (current) use of anticoagulants; Z87.442 Personal history of urinary calculi; Z79.899 Other long term (current) drug therapy; Z96.643 Presence of artificial hip joint, bilateral; Z86.010 Personal history of colon polyps; Z87.891 Personal history of nicotine dependence; Z79.52 Long term (current) use of systemic steroids
CPT/HCPCS: 36415; 71046; 80053; 83735; 84484; 85025; 85610; 85730; 93005; 96365; 96366; 99291

== ENCOUNTER 2024-03-26 06:47 | Day surgery (SDC) | payer MEDICARE, BC ==
[~2024-03-26 06:47] MED LIST changes: -ACETAMINOPHEN TAB 500 MG TAB PO PRN; -DEXAMETHASONE SOD PHOSPHATE 4 MG/ML 1 ML VIAL IV ONE; -GABAPENTIN 300 MG CAP PO PRN; +LIDOCAINE 1% (10MG/ML) FOR IV START INTRADERMA PRN; -MELOXICAM 7.5 MG TAB PO PRN; -MIDAZOLAM 2 MG/2 ML VIAL IV PRN; -ONDANSETRON 4 MG/2 ML VIAL IVP ONE; -TRANEXAMIC ACID 1,000 MG in SODIUM CHLORIDE 0.9% 100 ML IVPB PRN; -VANCOMYCIN 1,000 MG in SODIUM CHLORIDE 0.9% 250 ML IVPB PRN
[2024-03-26] MEDS: LACTATED RINGERS 1,000 ML IV ONE ×2 (07:11→07:54)
[2024-03-26 07:34] VITALS: TEMP 97.3
[2024-03-26] MEDS ORDERED: LIDOCAINE 1% INJ 10MG/ML (20 ML MDV) ONE (07:55)
[2024-03-26] MEDS ORDERED: PROPOFOL 10 MG/ML 20 ML VIAL IV ONE (07:55)
--- NOTE | 2024-03-26 08:16 | P.PCN ---
Date of Procedure: 03/26/24 Procedure(s) Performed: Brief history: Patient is a pleasant 83 white female scheduled for an elective upper endoscopy as well as colonoscopy as a part of evaluation of iron deficiency anemia. She has history of A-fib and has been on Eliquis. She denies any rectal bleeding or melena. Procedure performed: Esophagogastroduodenoscopy with biopsy Colonoscopy with snare polypectomy Preoperative diagnosis: Iron deficiency anemia Anesthesia: MAC Procedure: After informed consent was obtained from the patient was brought into the endoscopy unit and IV sedation was administered by anesthesia under continuous monitoring. Initially upper endoscopy was done. The Olympus GF 160 video endoscope was inserted inserted into the mouth and esophagus intubated without any difficulty and was gradually advanced into the stomach and duodenum and carefully examined. The bulb and second part of the duodenum appeared normal. Biopsies were done from the duodenum to evaluate for celiac disease. The scope was then withdrawn into the stomach adequately insufflated with air and upon careful examination the antrum had mild gastritis and biopsies were done of this area. Mucosa of the body, cardia and fundus appeared normal. The scope was then withdrawn into the esophagus. The GE junction was located at 40 cm to the incisors. It appeared regular with no erythema erosions or ulcerations. Rest of the esophagus appeared normal. Patient tolerated the procedure well. At this time the patient continued to remain sedation. Initial digital rectal examination was normal. Olympus CF 190 video colonoscope was then inserted into the rectum and gradually advanced to the cecum without any difficulty. Careful examination was performed as the scope was gradually being withdrawn. The prep was excellent. The cecum, ascending colon, normal. The transverse colon there were 2 small polyps measuring 4 mm and 5 mm in size both of which were removed by cold snare polypectomy. In the sigmoid colon there was a 5 mm polyp removed by cold snare polypectomy. Scattered left-sided diverticulosis seen. Rest of the transverse colon, descending colon, sigmoid colon and rectum appeared normal. Sigmoid diverticulosis. Retroflexion was performed in the rectum and small internal hemorrhoids were noted. Patient tolerated the procedure well. Impression: 1. Upper endoscopy revealed mild antral gastritis but no evidence of esophagitis, peptic ulcer disease or angiectasia 2. Colonoscopy revealed: a) 4 mm and 5 mm transverse colon polyp status post cold snare polypectomy b) 5 mm sigmoid colon polyp status post cold snare polypectomy c) scattered sigmoid diverticulosis and small internal hemorrhoids Recommendations: Findings of this examination were discussed with the patient as well as her family. She was advised to follow-up with the biopsy results. Continue with iron supplements. Resume Eliquis today. She still has persistent iron deficiency anemia, consider small bowel capsule endoscopy in the future.
[2024-03-26 08:37] VITALS: BP 128/61; PULSE 61; RESP 16
== END 2024-03-26 09:15 | disposition home or self-care (01) ==
LOC: ORWHC2ENDO 06:47
PROVIDERS: ATTEND Internal Medicine Gastroenterology
DX: K29.50 Unspecified chronic gastritis without bleeding (principal); D12.3 Benign neoplasm of transverse colon; D12.5 Benign neoplasm of sigmoid colon; D50.9 Iron deficiency anemia, unspecified; K57.30 Diverticulosis of large intestine without perforation or abscess without bleeding; K21.9 Gastro-esophageal reflux disease without esophagitis; K64.8 Other hemorrhoids; I10 Essential (primary) hypertension; F41.9 Anxiety disorder, unspecified; I48.91 Unspecified atrial fibrillation; N20.0 Calculus of kidney; E78.5 Hyperlipidemia, unspecified; Z87.891 Personal history of nicotine dependence; Z91.041 Radiographic dye allergy status; Z88.8 Allergy status to other drugs, medicaments and biological substances; Z88.6 Allergy status to analgesic agent; Z79.01 Long term (current) use of anticoagulants; Z79.899 Other long term (current) drug therapy
CPT/HCPCS: 45385; 43239; J2003; J2704; 88305

== ENCOUNTER 2024-07-17 13:46 | Emergency (ER) | payer MEDICARE, BC ==
[2024-07-17 13:51] VITALS: RESP 18
--- NOTE | 2024-07-17 14:21 | ED ---
Back Pain HPI - General Chief Complaint: Back Pain/Injury Stated Complaint: Lower L Back Pain/Fall Time Seen by Provider: 07/17/24 13:52 Source: patient, RN notes reviewed Mode of arrival: ambulatory Limitations: no limitations - History of Present Illness Initial Comments: This is an 83-year-old female who presents to the emergency department for lower back pain. States that a month ago she slipped in her bathroom and fell, landing on her lower back. She did not have pain initially, but states that it slowly developed. She continues to have pain over the left lower back/buttocks area. She is taking Tylenol without much relief in pain. States that she is unable to take NSAIDs. Denies any loss of bowel/bladder control or saddle anesthesia. MD Complaint: back pain - Related Data Home Medications Medication Instructions Recorded Confirmed Apixaban [Eliquis] 5 mg PO BID 11/03/19 03/26/24 Cholecalciferol [Vitamin D3 (25 25 mcg PO DAILY 09/20/20 03/26/24 Mcg = 1000 Iu)] ALPRAZolam [Xanax] 0.5 mg PO BID PRN 02/22/22 03/26/24 Isosorbide Mononitrate ER [Imdur] 60 mg PO DAILY 02/22/22 03/26/24 Vit C/E/Zn/Coppr/Lutein/Zeaxan 1 cap PO BID 02/22/22 03/26/24 [Preservision Areds 2 Softgel] Evolocumab [Repatha Sureclick] 140 mg SQ Q14D 12/20/23 03/26/24 Valsartan [Diovan] 160 mg PO DAILY 12/20/23 03/26/24 Metoprolol Tartrate [Lopressor] 25 mg PO HS 03/22/24 03/26/24 Metoprolol Tartrate [Lopressor] 50 mg PO QAM 03/22/24 03/26/24 PARoxetine HCL [Paxil] 15 mg PO DAILY 03/22/24 03/26/24 Previous Rx's Medication Instructions Recorded Pantoprazole [Protonix] 40 mg PO AC-BRKFST #30 tab 02/28/22 Lidocaine 5% Patch [Lidoderm 5% 1 patch TOPICAL DAILY PRN #30 patch 07/17/24 Patch] predniSONE 50 mg PO DAILY 5 Days #5 tab 07/17/24 Allergies Allergy/AdvReac Type Severity Reaction Status Date / Time cyclobenzaprine HCl Allergy Unknown Rash/Hives Verified 07/17/24 13:51 [From Flexeril] Iodinated Contrast Media Allergy Rash/Hives Verified 07/17/24 13:51 [Iodinated Contrast Media - IV Dye] NSAIDS (Non-Steroidal Allergy Dr told Verified 07/17/24 13:51 Anti-Inflamma not to take due to Eliquis Oatektq-APH-AvK Reductase Allergy leg pain Verified 07/17/24 13:51 Inhibitor [Jjbwpwq-Ubi-Dur Reductase Inhibitor] TRIPLE DYE Allergy Unknown Rash/Hives Uncoded 07/17/24 13:51 NSAIDS Allergy Unknown Uncoded 07/17/24 13:51 Review of Systems ROS Statement: Those systems with pertinent positive or pertinent negative responses have been documented in the HPI. ROS Other: All systems not noted in ROS Statement are negative. Past Medical History Past Medical History: Atrial Fibrillation, Coronary Artery Disease (CAD), Chest Pain / Angina, Eye Disorder, GERD/Reflux, Hyperlipidemia, Hypertension, Osteoarthritis (OA), Skin Disorder Additional Past Medical History / Comment(s): KIDNEY STONES ,POLYPS, BACK PAIN, constipation, dysphagia @times, macular degeneration terenec eyes, hiatal hernia, little sore side nose, & right arm History of Any Multi-Drug Resistant Organisms: None Reported Past Surgical History: Breast Surgery, Heart Catheterization, Joint Replacement, Orthopedic Surgery Additional Past Surgical History / Comment(s): TERENCE CATARACTS , COLONOSCOPY, EGD, BREAST BX, LITHOTRIPSY, PAIN CLINIC PROCEDURES. bilateral hips replaced Past Anesthesia/Blood Transfusion Reactions: No Reported Reaction Past Psychological History: Anxiety Smoking Status: Former smoker - Past Family History Mother Family Medical History: Cancer Father Family Medical History: Cancer Additional Family Medical History / Comment(s): leukemia Brother(s) Family Medical History: Coronary Artery Disease (CAD) Sister(s) Family Medical History: COPD Daughter(s) Family Medical History: No Reported History Son(s) Family Medical History: No Reported History General Exam Limitations: no limitations General appearance: alert, in no apparent distress Head exam: Present: atraumatic, normocephalic, normal inspection Respiratory exam: Present: normal lung sounds bilaterally. Absent: respiratory distress, wheezes, rales, rhonchi, stridor Cardiovascular Exam: Present: regular rate, normal rhythm Back exam: Present: other (Tenderness to palpation over the left lower back) Neurological exam: Present: alert, oriented X3, CN II-XII intact Psychiatric exam: Present: normal affect, normal mood Skin exam: Present: warm, dry, intact, normal color. Absent: rash Course Vital Signs 07/17/24 07/17/24 07/17/24 13:47 14:58 16:08 Temperature 98.1 F 98.1 F 98 F Pulse Rate 83 73 75 Respiratory 18 18 18 Rate Blood Pressure 158/80 144/84 138/82 O2 Sat by Pulse 96 95 96 Oximetry Medical Decision Making - Medical Decision Making This is an 83-year-old female who presents to the emergency department for back pain. Was pt. sent in by a medical professional or institution? @ -No Did you speak to anyone other than the patient for history? @ -No Did you review nursing and triage notes? @ -Yes, and I agree, it is accurate with regards to the patient's symptoms. Were old charts reviewed? @ -No Differential Diagnosis? @ -Differential Back Pain: Strain, zoster, cauda equina syndrome, epidural abscess, vertebral osteomyelitis, discitis, fracture, subluxation, disc herniation, DJD, spinal stenosis, dissection, AAA, pancreatitis, peptic ulcer disease, pyelonephritis, kidney stone, this is not meant to be an all-inclusive list. EKG interpreted by me (3pts min.)? @ -Not obtained X-rays interpreted by me (1pt min.)? @ -X-ray of the lumbar spine and sacrum/coccyx obtained. My interpretation identifies no acute fractures. CT interpreted by me (1pt min.)? @ -Not obtained U/S interpreted by me (1pt. min.)? @ -Not obtained What testing was considered but not performed? (CT, X-rays, U/S, labs)? Why? @ -None What meds were considered but not given? Why? @ -None Did you discuss the management of the patient with other professionals? @ -No Did you reconcile home meds? @ -No Was smoking cessation discussed for >3mins.? @ -No Was critical care preformed (if so, how long)? @ -No Were there social determinants of health that impacted care today? How? (Homelessness, low income, unemployed, alcoholism, drug addiction, transportation, low edu. Level, literacy, decrease access to med. care, intermediate, rehab)? @ -No Was there de-escalation of care discussed even if they declined? (Discuss DNR or withdrawal of care, Hospice)? @ -No What co-morbidities impacted this encounter? (DM, HTN, Smoking, COPD, CAD, Cancer, CVA, Hep., AIDS, mental health diagnosis, sleep apnea, morbid obesity)? @ -Osteoarthritis Was patient admitted / discharged? @ -Discharged. X-ray of the lumbar spine and sacrum/coccyx obtained revealing no acute process. Her symptoms were treated in the emergency department. She did have pain in the buttocks similar to a sciatica pain. Given that she cannot take NSAIDs we discussed treatment with steroids. She was in agreement with this. Prescription for prednisone and lidocaine patches provided. Advised follow-up with her PCP for reevaluation. Patient discharged home in stable condition. Case discussed with ED attending Dr. John. Return precautions reviewed in depth, the patient is instructed to return to the emergency department with any new, worsening, or concerning symptoms. Patient verbalized understanding. Undiagnosed new problem with uncertain prognosis? @ -None Drug Therapy requiring intensive monitoring for toxicity (Heparin, Nitro, Insulin, Cardizem)? @ -None Were any procedures done? @ -None Diagnosis/symptom? @ -Low back pain, fall Acute, or Chronic, or Acute on Chronic? @ -Acute Uncomplicated (without systemic symptoms) or Complicated (systemic symptoms)? @ -Uncomplicated Side effects of treatment? @ -None Exacerbation, Progression, or Severe Exacerbation] @ -Not applicable Poses a threat to life or bodily function? @ -No - Radiology Data Radiology results: report reviewed, image reviewed Disposition Clinical Impression: Low back pain, Fall Disposition: HOME SELF-CARE Instructions (If sedation given, give patient instructions): Acute Low Back Pain (ED) Additional Instructions: Return to the emergency department with any new, worsening, or concerning symptoms. Take the prednisone daily for 5 days. You can also apply the lidocaine patches daily. Follow up with your primary care provider in 1-2 days. Prescriptions: Lidocaine 5% Patch [Lidoderm 5% Patch] 1 patch TOPICAL DAILY PRN #30 patch PRN Reason: Pain predniSONE 50 mg PO DAILY 5 Days #5 tab Is patient prescribed a controlled substance at d/c from ED?: No Referrals: Avani,Emad, MD [Primary Care Provider] - 1-2 days Time of Disposition: 15:38
[2024-07-17] MEDS: HYDROcodone/APAP 5-325MG 1 EACH TAB PO STA (14:25)
[2024-07-17] MEDS: LIDOCAINE 4% PATCH TOPICAL ONE (14:26)
--- NOTE | 2024-07-17 15:24 | XR ---
EXAMINATION TYPE: XR lumbar spine 2 or 3V DATE OF EXAM: 07/17/2024 2:56 PM COMPARISON: None CLINICAL INDICATION: Female, 83 years old with history of Fall; PHH, pain TECHNIQUE: XR lumbar spine 2 or 3V - Frontal, lateral and coned in L5-S1 lateral views of the spine. FINDINGS: No evidence of any acute osseous pathology. No evidence of loss of vertebral body height i s seen. There is normal alignment of the lumbar vertebral bodies. Scattered disc space narrowing. Mul tilevel marginal osteophyte formation throughout the visualized spine. There is facet joint arthropat hy throughout the spine. Scattered at least mild neural foraminal stenosis. Atherosclerosis of the ar terial vasculature. Hip arthroplasty partially visualized. IMPRESSION: 1. No acute fracture. 2. Moderate multilevel disc degeneration. [facility], , 07/17/2024 3:22 PM
--- NOTE | 2024-07-17 15:26 | XR ---
EXAMINATION TYPE: XR sacrum coccyx DATE OF EXAM: 07/17/2024 2:56 PM COMPARISON: Hip arthroplasties bilaterally. CLINICAL INDICATION: Female, 83 years old with history of Fall, pain TECHNIQUE: XR sacrum coccyx, examined in frontal and lateral projections. FINDINGS: There is no evidence of fracture or dislocation. There is no soft tissue abnormality. No a bnormal calcifications are present. Multilevel degenerative changes of the lower spine. Hip arthropla sties appear intact. Degeneration changes sacroiliac joints with small osteophytes present. IMPRESSION: 1. No acute osseous pathology. 2. Mild degeneration changes of the sacroiliac joints. [facility], , 07/17/2024 3:23 PM
[2024-07-17] MEDS: traMADol 50 MG STARTER PACK 3 TAB BTL PO STA (16:03)
[2024-07-17 16:09] VITALS: BP 138/82; PULSE 75; TEMP 98
== END 2024-07-17 16:09 | disposition home or self-care (01) ==
LOC: EC 13:46
DX: M54.50 Low back pain, unspecified (principal); M19.90 Unspecified osteoarthritis, unspecified site; Z87.891 Personal history of nicotine dependence; Z88.6 Allergy status to analgesic agent; Z88.8 Allergy status to other drugs, medicaments and biological substances; Z91.041 Radiographic dye allergy status
CPT/HCPCS: 72100; 72220; 99283

== ENCOUNTER → 2024-09-05 | Outpatient (CLI) | payer MEDICARE, BC ==
--- NOTE | 2024-09-05 12:55 | CT ---
EXAMINATION TYPE: CT lumbar spine wo con DATE OF EXAM: 09/05/2024 12:47 PM COMPARISON: 01/25/2020. CLINICAL INDICATION: Female, 83 years old with history of M48.062 Spinal Stenosis; PHH, LOWER BACK PA IN TECHNIQUE: Multiple axial images were obtained from the midportion of T11 through the sacroiliac russ nts. Soft tissue and bone windows in coronal and sagittal planes were obtained and reviewed. Contrast used: mL of , (None, if empty). Oral contrast used: (None, if empty). CT DLP: 481.2 mGycm, Automated exposure control for dose reduction was used. FINDINGS: Alignment: There are 5 lumbar type vertebral bodies within normal alignment. Bone: No evidence of fracture is identified. Multilevel degeneration changes with osteophyte formati on, disc space narrowing, facet joint arthropathy. Pseudoarthrosis of the spinous processes througho ut the lumbar spine. Discs: T12-L1: No spinal canal or neural foraminal stenosis is identified. L1-L2: Facet joint arthropathy and disc bulging result in mild spinal canal stenosis and mild bilater al neural foraminal stenosis. L2-L3: Facet joint arthropathy and disc bulging result in mild spinal canal stenosis and mild bilater al neural foraminal stenosis. L3-L4: Facet joint arthropathy and disc bulging result in mild spinal canal stenosis and mild bilater al neural foraminal stenosis. L4-L5: Facet joint arthropathy and disc bulging result in mild spinal canal stenosis and mild bilater al neural foraminal stenosis. L5-S1: No spinal canal or neural foraminal stenosis is identified. Other: Nonobstructing left renal tightness or specificity desiccation measuring 5 m This course of the arterial vasculature. IMPRESSION: 1. No evidence for spinal fracture. 2. Mild to moderate degeneration changes of the spine. For Baastrup's disease. 3. Pseudoarthrosis of the spinous processes, [facility], , 09/05/2024 12:53 PM
== END | disposition home or self-care (01) ==
LOC: RADCTMAIN 11:59
PROVIDERS: ATTEND Physical Medicine & Rehabilitation
DX: M48.062 Spinal stenosis, lumbar region with neurogenic claudication (principal); M47.816 Spondylosis without myelopathy or radiculopathy, lumbar region; M48.26 Kissing spine, lumbar region; M96.0 Pseudarthrosis after fusion or arthrodesis
CPT/HCPCS: 72131

== ENCOUNTER → 2024-10-08 | Outpatient (CLI) | payer MEDICARE, BC ==
--- NOTE | 2024-10-08 22:03 | XR ---
EXAMINATION TYPE: XR KUB DATE OF EXAM: 10/08/2024 4:36 PM COMPARISON: 07/10/2018 CLINICAL INDICATION: Female, 83 years old with history of R10.9 UNSPECIFIED ABDOMINAL PAIN; PHH, pain TECHNIQUE: One radiographic view of the abdomen was obtained. FINDINGS: Partially visualized bilateral total hip arthroplasties. Nonobstructive bowel gas pattern. Minimal sc attered stool with air extending distally to the rectum. No definite suspicious calcifications are se en. Lung bases are clear. IMPRESSION: Nonobstructive bowel gas pattern. Minimal scattered stool. [facility], Workstation: [facility], 10/08/2024 10:01 PM
== END | disposition home or self-care (01) ==
LOC: RADXRMAIN 16:18
DX: R10.9 Unspecified abdominal pain (principal); R14.0 Abdominal distension (gaseous)
CPT/HCPCS: 74018

== ENCOUNTER 2024-10-14 16:04 | Emergency (ER) | payer MEDICARE, BC ==
[2024-10-14 17:04] LABS: Bilirubin,Urine Negative (Negative); Blood,Urine Negative (Negative); Color,Urine Light Yellow; Glucose,Urine (UA) Negative (Negative); Hyaline Casts,Urine 7 /lpf (0-2); Ketones,Urine Negative (Negative); Leukocyte Esterase,Urine Moderate (Negative); Mucus,Urine Few /hpf; Nitrite,Urine Negative (Negative); PH, Urine 5.5 (5.0-8.0); Protein,Urine Negative (Negative); RBC,Urine <1 /hpf (0-5); Specific Gravity,Urine 1.021 (1.001-1.035); Squamous Epithelial Cell,Urine 2 /hpf (0-4); Urobilinogen,Urine <2.0 mg/dL (<2.0); WBC,Urine 2 /hpf (0-5)
[2024-10-14] MEDS: SODIUM CHLORIDE 0.9% 1,000 ML IV ONE (17:06)
--- NOTE | 2024-10-14 17:08 | ED ---
Abdominal Pain HPI - General Chief Complaint: Abdominal Pain Stated Complaint: back pain Time Seen by Provider: 10/14/24 16:14 Source: patient, RN notes reviewed Mode of arrival: ambulatory Limitations: no limitations - History of Present Illness Initial Comments: 83-year-old female presents emergency department complaint of abdominal pain, right flank pain. Patient states she has been dealing with this she states that she saw her primary care physician was told that she had a UTI and constipation. She took a whole bottle of magnesium citrate states that she had a bowel movement states that she has extreme bloating, abdominal distention and pain from that. Patient states she has no dysuria no fevers no chest pain or shortness of breath. - Related Data Home Medications Medication Instructions Recorded Confirmed Apixaban [Eliquis] 5 mg PO BID 11/03/19 03/26/24 Cholecalciferol [Vitamin D3 (25 25 mcg PO DAILY 09/20/20 03/26/24 Mcg = 1000 Iu)] ALPRAZolam [Xanax] 0.5 mg PO BID PRN 02/22/22 03/26/24 Isosorbide Mononitrate ER [Imdur] 60 mg PO DAILY 02/22/22 03/26/24 Vit C/E/Zn/Coppr/Lutein/Zeaxan 1 cap PO BID 02/22/22 03/26/24 [Preservision Areds 2 Softgel] Evolocumab [Repatha Sureclick] 140 mg SQ Q14D 12/20/23 03/26/24 Valsartan [Diovan] 160 mg PO DAILY 12/20/23 03/26/24 Metoprolol Tartrate [Lopressor] 25 mg PO HS 03/22/24 03/26/24 Metoprolol Tartrate [Lopressor] 50 mg PO QAM 03/22/24 03/26/24 PARoxetine HCL [Paxil] 15 mg PO DAILY 03/22/24 03/26/24 Previous Rx's Medication Instructions Recorded Pantoprazole [Protonix] 40 mg PO AC-BRKFST #30 tab 02/28/22 Lidocaine 5% Patch [Lidoderm 5% 1 patch TOPICAL DAILY PRN #30 patch 07/17/24 Patch] predniSONE 50 mg PO DAILY 5 Days #5 tab 07/17/24 Allergies Allergy/AdvReac Type Severity Reaction Status Date / Time cyclobenzaprine HCl Allergy Unknown Rash/Hives Verified 10/14/24 16:08 [From Flexeril] Iodinated Contrast Media Allergy Rash/Hives Verified 10/14/24 16:08 [Iodinated Contrast Media - IV Dye] NSAIDS (Non-Steroidal Allergy Dr told Verified 10/14/24 16:08 Anti-Inflamma not to take due to Eliquis Snjkdrp-RBN-EgL Reductase Allergy leg pain Verified 10/14/24 16:08 Inhibitor [Jymfzjj-Otu-Rwe Reductase Inhibitor] TRIPLE DYE Allergy Unknown Rash/Hives Uncoded 10/14/24 16:08 NSAIDS Allergy Unknown Uncoded 10/14/24 16:08 Review of Systems ROS Statement: Those systems with pertinent positive or pertinent negative responses have been documented in the HPI. ROS Other: All systems not noted in ROS Statement are negative. Past Medical History Past Medical History: Atrial Fibrillation, Coronary Artery Disease (CAD), Chest Pain / Angina, Eye Disorder, GERD/Reflux, Hyperlipidemia, Hypertension, Osteoarthritis (OA), Skin Disorder Additional Past Medical History / Comment(s): KIDNEY STONES ,POLYPS, BACK PAIN, constipation, dysphagia @times, macular degeneration terence eyes, hiatal hernia, little sore side nose, & right arm History of Any Multi-Drug Resistant Organisms: None Reported Past Surgical History: Breast Surgery, Heart Catheterization, Joint Replacement, Orthopedic Surgery Additional Past Surgical History / Comment(s): TERENCE CATARACTS , COLONOSCOPY, EGD, BREAST BX, LITHOTRIPSY, PAIN CLINIC PROCEDURES. bilateral hips replaced Past Anesthesia/Blood Transfusion Reactions: No Reported Reaction Past Psychological History: Anxiety Smoking Status: Former smoker - Past Family History Mother Family Medical History: Cancer Father Family Medical History: Cancer Additional Family Medical History / Comment(s): leukemia Brother(s) Family Medical History: Coronary Artery Disease (CAD) Sister(s) Family Medical History: COPD Daughter(s) Family Medical History: No Reported History Son(s) Family Medical History: No Reported History General Exam Limitations: no limitations General appearance: alert, in no apparent distress Head exam: Present: atraumatic, normocephalic, normal inspection Eye exam: Present: normal appearance, PERRL, EOMI. Absent: scleral icterus, conjunctival injection, periorbital swelling ENT exam: Present: normal exam, normal oropharynx, mucous membranes moist Neck exam: Present: normal inspection, full ROM. Absent: tenderness, meningismus, lymphadenopathy Respiratory exam: Present: normal lung sounds bilaterally. Absent: respiratory distress, wheezes, rales, rhonchi, stridor Cardiovascular Exam: Present: regular rate, normal rhythm, normal heart sounds. Absent: systolic murmur, diastolic murmur, rubs, gallop, clicks GI/Abdominal exam: Present: soft, normal bowel sounds. Absent: distended, tenderness, guarding, rebound, rigid Back exam: Absent: CVA tenderness (R), CVA tenderness (L) Neurological exam: Present: alert, oriented X3 Course Vital Signs 10/14/24 16:08 Temperature 98.1 F Pulse Rate 79 Respiratory 18 Rate Blood Pressure 138/75 O2 Sat by Pulse 97 Oximetry Medical Decision Making - Medical Decision Making Was pt. sent in by a medical professional or institution (, PA, REGISTERED NURSE MATERNAL CHILD, urgent care, hospital, or [facility]...) When possible be specific @ -No Did you speak to anyone other than the patient for history (EMS, parent, family, police, friend...)? What history was obtained from this source @ -No Did you review nursing and triage notes (agree or disagree)? Why? @ -I reviewed and agree with nursing and triage notes Were old charts reviewed (outside hosp., previous admission, EMS record, old EKG, old radiological studies, urgent care reports/EKG's, [facility] records)? Report findings @ -No old charts were reviewed Differential Diagnosis (chest pain, altered mental status, abdominal pain women, abdominal pain men, vaginal bleeding, weakness, fever, dyspnea, syncope, headache, dizziness, GI bleed, back pain, seizure, CVA, palpatations, mental health, musculoskeletal)? @Differential Abdominal Pain Women: Appendicitis, Cholecystitis, diverticulosis, ischemic bowel, pancreatitis, hepatitis, UTI, gastroenteritis, AAA, incarcerated hernia, bowel obstruction, constipation, inflammatory bowel, hepatitis, peptic ulcer disease, splenic infarction, perforated viscus, vulvitis, ovarian torsion, PID, kidney stone, placenta abruption, this is not meant to be an all-inclusive list EKG interpreted by me (3pts min.). @ -None X-rays interpreted by me (1pt min.). @ -None done CT interpreted by me (1pt min.). @ -CT pelvis without contrast showing no acute intra-abdominal process no evidence of obstruction U/S interpreted by me (1pt. min.). @ -None done What testing was considered but not performed or refused? (CT, X-rays, U/S, labs)? Why? @ -None What meds were considered but not given or refused? Why? @ -None Did you discuss the management of the patient with other professionals (professionals i.e. DrSerg, PA, REGISTERED NURSE MATERNAL CHILD, lab, RT, psych nurse, marriage and family social worker, pan devulcanizer helper, teacher, security flex utility officer, family independence case manager)? Give summary @ -No Was smoking cessation discussed for >3mins.? @ -No Was critical care preformed (if so, how long)? @ -No Were there social determinants of health that impacted care today? How? (Homelessness, low income, unemployed, alcoholism, drug addiction, transportation, low edu. Level, literacy, decrease access to med. care, half-way, rehab)? @ -No Was there de-escalation of care discussed even if they declined (Discuss DNR or withdrawal of care, Hospice)? DNR status @ -No What co-morbidities impacted this encounter? (DM, HTN, Smoking, COPD, CAD, Cancer, CVA, ARF, Chemo, Hep., AIDS, mental health diagnosis, sleep apnea, morbid obesity)? @ -None Was patient admitted / discharged? Hospital course, mention meds given and route, prescriptions, significant lab abnormalities, going to OR and other pertinent info. @ -Discharge patient complained of abdominal pain. Patient's labs, CT unremarkable. Patient states magnesium citrate. Patient advised clear liquid diet. Return parameters discussed. Undiagnosed new problem with uncertain prognosis? @ -No Drug Therapy requiring intensive monitoring for toxicity (Heparin, Nitro, Insulin, Cardizem)? @ -No Were any procedures done? @ -No Diagnosis/symptom? @ -Abdominal pain Acute, or Chronic, or Acute on Chronic? @ -Acute Uncomplicated (without systemic symptoms) or Complicated (systemic symptoms)? @ -Complicated Side effects of treatment? @ -No Exacerbation, Progression, or Severe Exacerbation? @ -No Poses a threat to life or bodily function? How? (Chest pain, [place], [place], pneumonia, PE, COPD, DKA, ARF, appy, cholecystitis, CVA, Diverticulitis, Homicidal, Suicidal, threat to staff... and all critical care pts) @ -No - Lab Data Result diagrams: 10/14/24 17:05 10/14/24 17:05 Lab Results 10/14/24 10/14/24 10/14/24 Range/Units 16:56 17:05 17:05 WBC 6.72 (4.50-10.00) 10*3/uL RBC 5.03 (4.10-5.20) 10*6/uL Hgb 15.0 (12.0-15.0) g/dL Hct 44.4 (37.2-46.3) % MCV 88.3 (80.0-97.0) fL MCH 29.8 (27.0-32.0) pg MCHC 33.8 (32.0-37.0) g/dL Plt Count 285 (140-440) 10*3/uL MPV 9.5 (9.5-12.2) fL Immature Gran % (Auto) 0.1 % Neutrophils % 67.7 % Lymphocytes % 21.6 % Monocytes % 9.7 % Eosinophils % 0.6 % Basophils % 0.3 % Immature Gran # 0.01 (0.00-0.04) 10*3/uL Neutrophils # 4.55 (1.80-7.70) 10*3/uL Lymphocytes # 1.45 (0.90-5.00) 10*3/uL Monocytes # 0.65 (0.20-1.00) 10*3/uL Eosinophils # 0.04 (0.04-0.35) 10*3/uL Basophils # 0.02 (0.00-0.10) 10*3/uL Sodium 139 (137-145) mmol/L Potassium 4.9 (3.5-5.1) mmol/L Chloride 99 (98-107) mmol/L Carbon Dioxide 28 (22-30) mmol/L Anion Gap 12 mmol/L BUN 19 H (7-17) mg/dL Creatinine 0.85 (0.52-1.04) mg/dL Est GFR (CKD-EPI)AfAm 73 (>60 ml/min/1.73 sqM) Est GFR (CKD-EPI)NonAf 63 (>60 ml/min/1.73 sqM) Glucose 94 (74-99) mg/dL Calcium 10.2 (8.4-10.2) mg/dL Total Bilirubin 0.6 (0.2-1.3) mg/dL AST 30 (14-36) U/L ALT 16 (4-34) U/L Alkaline Phosphatase 87 (38-126) U/L Total Protein 7.4 (6.3-8.2) g/dL Albumin 4.6 (3.5-5.0) g/dL Lipase 243 (23-300) U/L Urine Color Light Yellow Urine Appearance Clear (Clear) Urine pH 5.5 (5.0-8.0) Ur Specific [place] 1.021 (1.001-1.035) Urine Protein Negative (Negative) Urine Glucose (UA) Negative (Negative) Urine Ketones Negative (Negative) Urine Blood Negative (Negative) Urine Nitrite Negative (Negative) Urine Bilirubin Negative (Negative) Urine Urobilinogen <2.0 (<2.0) mg/dL Ur Leukocyte Esterase Moderate H (Negative) Urine RBC <1 (0-5) /hpf Urine WBC 2 (0-5) /hpf Ur Squamous Epith Cells 2 (0-4) /hpf Hyaline Casts 7 H (0-2) /lpf Urine Mucus Few H (None) /hpf Disposition Clinical Impression: Abdominal pain Disposition: HOME SELF-CARE Condition: Stable Instructions (If sedation given, give patient instructions): Abdominal Pain (ED) Additional Instructions: Please return to the Emergency Department if symptoms worsen or any other concerns. Is patient prescribed a controlled substance at d/c from ED?: No Referrals: Marcie Varma MD [Primary Care Provider] - 1-2 days Time of Disposition: 18:10
[2024-10-14 17:11] LABS: Basophils # (A) 0.02 10*3/uL (0.00-0.10); Basophils % (A) 0.3 %; Eosinophils # (A) 0.04 10*3/uL (0.04-0.35); Eosinophils % (A) 0.6 %; HCT 44.4 % (37.2-46.3); HGB 15.0 g/dL (12.0-15.0); Lymphocytes # (A) 1.45 10*3/uL (0.90-5.00); Lymphocytes % (A) 21.6 %; MCH 29.8 pg (27.0-32.0); MCHC 33.8 g/dL (32.0-37.0); MCV 88.3 fL (80.0-97.0); Monocytes # (A) 0.65 10*3/uL (0.20-1.00); Monocytes % (A) 9.7 %; Neutrophils # (A) 4.55 10*3/uL (1.80-7.70); Neutrophils % (A) 67.7 %; Platelet Count 285 10*3/uL (140-440); RBC 5.03 10*6/uL (4.10-5.20); RDW 13.1 % (11.5-14.5); WBC 6.72 10*3/uL (4.50-10.00)
[2024-10-14 17:26] LABS: ALT 16 U/L (4-34); AST 30 U/L (14-36); African American GFR (CKD) 73 (>60 ml/min/1.73 sqM); Albumin 4.6 g/dL (3.5-5.0); Alkaline Phosphatase 87 U/L (38-126); Anion Gap 12 mmol/L; Blood Urea Nitrogen 19 mg/dL (7-17); Calcium 10.2 mg/dL (8.4-10.2); Carbon Dioxide 28 mmol/L (22-30); Chloride 99 mmol/L (98-107); Glucose 94 mg/dL (74-99); Lipase 243 U/L (23-300); Non-African American GFR(CKD) 63 (>60 ml/min/1.73 sqM); Potassium 4.9 mmol/L (3.5-5.1); Sodium 139 mmol/L (137-145); Total Protein 7.4 g/dL (6.3-8.2)
--- NOTE | 2024-10-14 18:04 | CT ---
EXAMINATION TYPE: CT abdomen pelvis wo con DATE OF EXAM: 10/14/2024 5:37 PM COMPARISON: CT abdomen/pelvis 01/25/2020. CLINICAL INDICATION: Female, 83 years old with history of abdominal pain; flank pain, h/o kidney ston es TECHNIQUE: Axial CT abdomen pelvis wo con;Sagittal and coronal reformats were created on a separate workstation. Oral contrast used: without Oral Contrast (none if empty) CT DLP: 444 mGycm, Automated exposure control for dose reduction was used. FINDINGS: LOWER CHEST: Unremarkable ABDOMEN LIVER: Multiple subcentimeter hypoattenuating structures are demonstrated throughout the liver, which are too small to accurately characterize but statistically likely to represent simple hepatic cysts GALLBLADDER AND BILE DUCTS: Unremarkable. PANCREAS: Unremarkable. SPLEEN: Unremarkable. ADRENAL GLANDS: Unremarkable. KIDNEYS AND URETERS: Nonobstructing left renal calculus. No evidence of hydronephrosis or hydroureter . PELVIS BLADDER: No evidence for wall thickening or mass given limitations of exam. REPRODUCTIVE: Unremarkable. ABDOMEN & PELVIS STOMACH AND BOWEL: Stomach and duodenum are unremarkable. Scattered diverticula are noted throughout the colon. No evidence of bowel obstruction. PERITONEUM/RETROPERITONEUM: No evidence of pneumoperitoneum or free fluid. VASCULATURE: No evidence of aortic aneurysm. MUSCULOSKELETAL: No acute osseous abnormalities. Bilateral hip arthroplasty devices. LYMPH NODES: No gross evidence for lymphadenopathy. SOFT TISSUE/ABDOMINAL WALL: Unremarkable IMPRESSION: 1. No acute abnormality in the abdomen/pelvis. Specifically, no evidence of acute obstructive uropat hy. 2. Small nonobstructing left renal calculus. [facility], , 10/14/2024 6:02 PM
[2024-10-14] MEDS: ONDANSETRON 4 MG/2 ML VIAL IVP STA (18:23)
[2024-10-14 18:28] VITALS: BP 121/67; PULSE 72; RESP 16; TEMP 98
== END 2024-10-14 18:30 | disposition home or self-care (01) ==
LOC: EC 16:04
DX: N20.0 Calculus of kidney (principal); Z87.891 Personal history of nicotine dependence; Z88.6 Allergy status to analgesic agent; Z88.8 Allergy status to other drugs, medicaments and biological substances
CPT/HCPCS: 36415; 80053; 83605; 83690; 85025; 81001; 74176; 99284; 96374; 96361; J2405

== ENCOUNTER 2024-10-21 04:40 | Observation (INO) | payer MEDICARE, BC ==
[2024-10-21] MEDS: SODIUM CHLORIDE 0.9% 1,000 ML IV STA (05:10)
--- NOTE | 2024-10-21 05:26 | ED ---
General Adult HPI - General Chief complaint: Arrhythmia/Palpitations Stated complaint: Chest Pain Time Seen by Provider: 10/21/24 04:47 Source: patient, EMS Mode of arrival: EMS Limitations: no limitations - History of Present Illness Initial comments: Patient is a pleasant 83-year-old female past medical history of atrial fibrillation currently on metoprolol and Eliquis presenting today for palpitations. Patient states she woke up this morning to use the bathroom and felt like her heart was racing. She did notice some discomfort towards her right shoulder blade that has since resolved. She denies associated dizziness, numbness, weakness, chest pain, difficulty in breathing, cough, hemoptysis or sputum production. Denies lower extremity swelling. Denies abdominal pain though states she has felt bloated for the last 2 weeks. She was here on Tuesday and had a CT of her abdomen done which did not show acute process, she was given nausea medications and ultimately discharged home. Denies missed dosages of her medications. - Related Data Home Medications Medication Instructions Recorded Confirmed Apixaban [Eliquis] 5 mg PO BID 11/03/19 03/26/24 Cholecalciferol [Vitamin D3 (25 25 mcg PO DAILY 09/20/20 03/26/24 Mcg = 1000 Iu)] ALPRAZolam [Xanax] 0.5 mg PO BID PRN 02/22/22 03/26/24 Isosorbide Mononitrate ER [Imdur] 60 mg PO DAILY 02/22/22 03/26/24 Vit C/E/Zn/Coppr/Lutein/Zeaxan 1 cap PO BID 02/22/22 03/26/24 [Preservision Areds 2 Softgel] Evolocumab [Repatha Sureclick] 140 mg SQ Q14D 12/20/23 03/26/24 Valsartan [Diovan] 160 mg PO DAILY 12/20/23 03/26/24 Metoprolol Tartrate [Lopressor] 25 mg PO HS 03/22/24 03/26/24 Metoprolol Tartrate [Lopressor] 50 mg PO QAM 03/22/24 03/26/24 PARoxetine HCL [Paxil] 15 mg PO DAILY 03/22/24 03/26/24 Previous Rx's Medication Instructions Recorded Pantoprazole [Protonix] 40 mg PO AC-BRKFST #30 tab 02/28/22 Lidocaine 5% Patch [Lidoderm 5% 1 patch TOPICAL DAILY PRN #30 patch 07/17/24 Patch] predniSONE 50 mg PO DAILY 5 Days #5 tab 07/17/24 Allergies Allergy/AdvReac Type Severity Reaction Status Date / Time cyclobenzaprine HCl Allergy Unknown Rash/Hives Verified 10/14/24 16:08 [From Flexeril] Iodinated Contrast Media Allergy Rash/Hives Verified 10/14/24 16:08 [Iodinated Contrast Media - IV Dye] NSAIDS (Non-Steroidal Allergy Dr told Verified 10/14/24 16:08 Anti-Inflamma not to take due to Eliquis Vthmfdo-KMP-FpX Reductase Allergy leg pain Verified 10/14/24 16:08 Inhibitor [Aekwapf-Gos-Suh Reductase Inhibitor] TRIPLE DYE Allergy Unknown Rash/Hives Uncoded 10/14/24 16:08 NSAIDS Allergy Unknown Uncoded 10/14/24 16:08 Review of Systems ROS Statement: Those systems with pertinent positive or pertinent negative responses have been documented in the HPI. ROS Other: All systems not noted in ROS Statement are negative. Past Medical History Past Medical History: Atrial Fibrillation, Coronary Artery Disease (CAD), Chest Pain / Angina, Eye Disorder, GERD/Reflux, Hyperlipidemia, Hypertension, Osteoarthritis (OA), Skin Disorder Additional Past Medical History / Comment(s): KIDNEY STONES ,POLYPS, BACK PAIN, constipation, dysphagia @times, macular degeneration terence eyes, hiatal hernia, little sore side nose, & right arm History of Any Multi-Drug Resistant Organisms: None Reported Past Surgical History: Breast Surgery, Heart Catheterization, Joint Replacement, Orthopedic Surgery Additional Past Surgical History / Comment(s): TERENCE CATARACTS , COLONOSCOPY, EGD, BREAST BX, LITHOTRIPSY, PAIN CLINIC PROCEDURES. bilateral hips replaced Past Anesthesia/Blood Transfusion Reactions: No Reported Reaction Past Psychological History: Anxiety Smoking Status: Former smoker - Past Family History Mother Family Medical History: Cancer Father Family Medical History: Cancer Additional Family Medical History / Comment(s): leukemia Brother(s) Family Medical History: Coronary Artery Disease (CAD) Sister(s) Family Medical History: COPD Daughter(s) Family Medical History: No Reported History Son(s) Family Medical History: No Reported History General Exam - General Exam Comments Initial Comments: PE: CONSTITUTIONAL: No apparent distress, well appearing SKIN: Warm, dry, no jaundice, hives or petechiae EYES: Pupils are equally round, extraocular movements intact without nystagmus, clear conjunctiva, non-icteric sclera HENT: Normocephalic, atraumatic, moist mucus membranes, oropharynx clear without exudates NECK: , Full range of motion, normal appearance PULMONARY: Clear to auscultation without wheezes, rhonchi, or rales, normal excursion, no accessory muscle use and no stridor CARDIOVASCULAR: Tachycardia, irregularly irregular rate and rhythm, normal S1 and S2. No appreciated murmurs, rubs or gallops. Strong radial pulses with intact distal perfusion. No lower extremity edema GASTROINTESTINAL: Soft, active bowel sounds throughout, non-tender, non- distended, no palpable masses, no rebound or guarding. No hepatosplenomegaly MUSCULOSKELETAL: Extremities have no gross deformity, no edema, redness, or swelling. No calf swelling NEUROLOGIC:_a/o x 3, GCS 15, normal mentation and speech. 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 sent in by a medical professional or institution (, PA, GAS METER INSTALLER HELPER, urgent care, hospital, or fdc...) When possible be specific @ -No Did you speak to anyone other than the patient for history (EMS, parent, family, police, friend...)? What history was obtained from this source @ -No Did you review nursing and triage notes (agree or disagree)? Why? @ -I reviewed nursing and triage notes agree with triage notes Were old charts reviewed (outside hosp., previous admission, EMS record, old EKG, old radiological studies, urgent care reports/EKG's, fdc records)? Report findings @ -Medical records reviewed-reviewed CT abdomen pelvis without contrast done at this facility on 10/14/2024, at that time showed no acute process Differential Diagnosis (chest pain, altered mental status, abdominal pain women, abdominal pain men, vaginal bleeding, weakness, fever, dyspnea, syncope, headache, dizziness, GI bleed, back pain, seizure, CVA, palpatations, mental health, musculoskeletal)? @Differential Palpitations Ventricular arrhythmias, atrial arrhythmias, myocardial infarction, anemia, thyrotoxicosis, electrolyte imbalance, hypokalemia, pulmonary embolism, pulmonary disease, drugs, alcohol, anxiety, stress.... This is not meant to be an all-inclusive list. EKG interpreted by me (3pts min.). @ -As above X-rays interpreted by me (1pt min.). @ Reviewed chest x-ray, shows no cardiomegaly, consolidations pleural effusions or pneumothorax CT interpreted by me (1pt min.). @ -None done U/S interpreted by me (1pt. min.). @ -None done What testing was considered but not performed or refused? (CT, X-rays, U/S, labs)? Why? @ -None What meds were considered but not given or refused? Why? @IV labetalol was considered however patient's rate was gradually coming controlled with Cardizem, patient was given her oral metoprolol for further rate control Did you discuss the management of the patient with other professionals (yenifer horta i.e. , PA, GAS METER INSTALLER HELPER, lab, RT, psych nurse, delinquency prevention social worker, concrete gun operator, teacher, deputy juvenile officer, counter caser)? Give summary @ -No Was smoking cessation discussed for >3mins.? @ -No Was critical care preformed (if so, how long)? @Yes, 35 minutes Were there social determinants of health that impacted care today? How? (Homelessness, low income, unemployed, alcoholism, drug addiction, transportat ion, low edu. Level, literacy, decrease access to med. care, long-term, rehab)? @ -No Was there de-escalation of care discussed even if they declined (Discuss DNR or withdrawal of care, Hospice)? @ -No What co-morbidities impacted this encounter? (DM, HTN, Smoking, COPD, CAD, Cancer, CVA, ARF, Chemo, Hep., AIDS, mental health diagnosis, sleep apnea, morbid obesity)? @Atrial fibrillation Was patient admitted / discharged? Hospital course, mention meds given and route, prescriptions, significant lab abnormalities, going to OR and other pertinent info. @Admission- this is a pleasant 83-year-old female past medical history as above presenting today for palpitations. Patient is in A-fib with RVR on arrival. Currently denies chest pain or shoulder blade pain. Afebrile. Plan for CBC, CMP, troponin, EKG, BNP, magnesium level, chest x-ray. Patient given 0.25 mg/kg Cardizem bolus and started on Cardizem infusion. Notified by RN that after initial Cardizem bolus patient's heart rate down to the 120s. She will be given next Cardizem bolus at 0.35 mg/kg. After receiving this, heart rate remained in the 110s, patient only maintained on Cardizem infusion, blood pressure stable, will give patient her morning dose of metoprolol and plan for admission. Labs and imaging reviewed. Grossly within normal limits. Abnormal values not concerning for acute pathology related to presenting complaint. Case discussed with Dr. Varma who kindly accepted patient for admission. Undiagnosed new problem with uncertain prognosis? @ -No Drug Therapy requiring intensive monitoring for toxicity (Heparin, Nitro, Insulin, Cardizem)? @Cardizem Were any procedures done? @ -No Diagnosis/symptom? @ -Atrial fibrillation with RVR Acute, or Chronic, or Acute on Chronic? @ -Acute Uncomplicated (without systemic symptoms) or Complicated (systemic symptoms)? @ -Complicated Side effects of treatment? @ -No Exacerbation, Progression, or Severe Exacerbation? @ -No Poses a threat to life or bodily function? How? (Chest pain, [place], [place], pneumonia, PE, COPD, DKA, ARF, appy, cholecystitis, CVA, Diverticulitis, Homicidal, Suicidal, threat to staff... and all critical care pts) @ -Yes - Lab Data Result diagrams: 10/21/24 05:05 10/21/24 05:05 Lab Results 10/21/24 10/21/24 10/21/24 Range/Units 05:05 05:05 05:05 WBC 4.69 (4.50-10.00) 10*3/uL RBC 5.04 (4.10-5.20) 10*6/uL Hgb 14.6 (12.0-15.0) g/dL Hct 43.4 (37.2-46.3) % MCV 86.1 (80.0-97.0) fL MCH 29.0 (27.0-32.0) pg MCHC 33.6 (32.0-37.0) g/dL Plt Count 230 (140-440) 10*3/uL MPV 9.5 (9.5-12.2) fL Immature Gran % (Auto) 0.2 % Neutrophils % 46.9 % Lymphocytes % 41.2 % Monocytes % 9.4 % Eosinophils % 1.9 % Basophils % 0.4 % Immature Gran # 0.01 (0.00-0.04) 10*3/uL Neutrophils # 2.20 (1.80-7.70) 10*3/uL Lymphocytes # 1.93 (0.90-5.00) 10*3/uL Monocytes # 0.44 (0.20-1.00) 10*3/uL Eosinophils # 0.09 (0.04-0.35) 10*3/uL Basophils # 0.02 (0.00-0.10) 10*3/uL PT 11.4 (10.0-12.5) sec INR 1.0 (<1.2) APTT 26.0 (22.0-30.0) sec Sodium 138 (137-145) mmol/L Potassium 4.3 (3.5-5.1) mmol/L Chloride 103 (98-107) mmol/L Carbon Dioxide 27 (22-30) mmol/L Anion Gap 8 mmol/L BUN 11 (7-17) mg/dL Creatinine 0.63 (0.52-1.04) mg/dL Est GFR (CKD-EPI)AfAm >90 (>60 ml/min/1.73 sqM) Est GFR (CKD-EPI)NonAf 83 (>60 ml/min/1.73 sqM) Glucose 91 (74-99) mg/dL Calcium 9.3 (8.4-10.2) mg/dL Magnesium 1.7 (1.6-2.3) mg/dL Total Bilirubin 0.8 (0.2-1.3) mg/dL AST 32 (14-36) U/L ALT 13 (4-34) U/L Alkaline Phosphatase 70 (38-126) U/L Troponin I (0.000-0.034) ng/mL NT-Pro-B Natriuret Pep pg/mL Total Protein 7.1 (6.3-8.2) g/dL Albumin 4.3 (3.5-5.0) g/dL 10/21/24 10/21/24 Range/Units 05:05 05:05 WBC (4.50-10.00) 10*3/uL RBC (4.10-5.20) 10*6/uL Hgb (12.0-15.0) g/dL Hct (37.2-46.3) % MCV (80.0-97.0) fL MCH (27.0-32.0) pg MCHC (32.0-37.0) g/dL Plt Count (140-440) 10*3/uL MPV (9.5-12.2) fL Immature Gran % (Auto) % Neutrophils % % Lymphocytes % % Monocytes % % Eosinophils % % Basophils % % Immature Gran # (0.00-0.04) 10*3/uL Neutrophils # (1.80-7.70) 10*3/uL Lymphocytes # (0.90-5.00) 10*3/uL Monocytes # (0.20-1.00) 10*3/uL Eosinophils # (0.04-0.35) 10*3/uL Basophils # (0.00-0.10) 10*3/uL PT (10.0-12.5) sec INR (<1.2) APTT (22.0-30.0) sec Sodium (137-145) mmol/L Potassium (3.5-5.1) mmol/L Chloride (98-107) mmol/L Carbon Dioxide (22-30) mmol/L Anion Gap mmol/L BUN (7-17) mg/dL Creatinine (0.52-1.04) mg/dL Est GFR (CKD-EPI)AfAm (>60 ml/min/1.73 sqM) Est GFR (CKD-EPI)NonAf (>60 ml/min/1.73 sqM) Glucose (74-99) mg/dL Calcium (8.4-10.2) mg/dL Magnesium (1.6-2.3) mg/dL Total Bilirubin (0.2-1.3) mg/dL AST (14-36) U/L ALT (4-34) U/L Alkaline Phosphatase (38-126) U/L Troponin I <0.012 (0.000-0.034) ng/mL NT-Pro-B Natriuret Pep 744 pg/mL Total Protein (6.3-8.2) g/dL Albumin (3.5-5.0) g/dL Disposition Clinical Impression: Atrial fibrillation with RVR Disposition: ADMITTED IP TO THIS HOSP Condition: Stable
[2024-10-21 05:36] LABS: Basophils # (A) 0.02 10*3/uL (0.00-0.10); Basophils % (A) 0.4 %; Eosinophils # (A) 0.09 10*3/uL (0.04-0.35); Eosinophils % (A) 1.9 %; HCT 43.4 % (37.2-46.3); HGB 14.6 g/dL (12.0-15.0); Lymphocytes # (A) 1.93 10*3/uL (0.90-5.00); Lymphocytes % (A) 41.2 %; MCH 29.0 pg (27.0-32.0); MCHC 33.6 g/dL (32.0-37.0); MCV 86.1 fL (80.0-97.0); Monocytes # (A) 0.44 10*3/uL (0.20-1.00); Monocytes % (A) 9.4 %; Neutrophils # (A) 2.20 10*3/uL (1.80-7.70); Neutrophils % (A) 46.9 %; Platelet Count 230 10*3/uL (140-440); RBC 5.04 10*6/uL (4.10-5.20); RDW 13.0 % (11.5-14.5); WBC 4.69 10*3/uL (4.50-10.00)
[2024-10-21] MEDS: DILTIAZEM 5 MG/ML 5 ML VIAL IVP STA ×2 (05:44→06:21)
[2024-10-21 05:46] LABS: INR 1.0 (<1.2); Partial Thromboplastin Time 26.0 sec (22.0-30.0); Prothrombin Time 11.4 sec (10.0-12.5)
[2024-10-21] MEDS: DILTIAZEM 125 MG in DEXTROSE 5% IN WATER 100 ML IV SCH (05:47)
[2024-10-21] MEDS: ASPIRIN 81 MG PO STA (05:53)
[2024-10-21 05:54] LABS: ALT 13 U/L (4-34); African American GFR (CKD) >90 (>60 ml/min/1.73 sqM); Anion Gap 8 mmol/L; Blood Urea Nitrogen 11 mg/dL (7-17); Calcium 9.3 mg/dL (8.4-10.2); Carbon Dioxide 27 mmol/L (22-30); Chloride 103 mmol/L (98-107); Glucose 91 mg/dL (74-99); Non-African American GFR(CKD) 83 (>60 ml/min/1.73 sqM); Sodium 138 mmol/L (137-145)
[2024-10-21 05:57] LABS: AST 32 U/L (14-36); Albumin 4.3 g/dL (3.5-5.0); Alkaline Phosphatase 70 U/L (38-126); Magnesium 1.7 mg/dL (1.6-2.3); Potassium 4.3 mmol/L (3.5-5.1); Total Protein 7.1 g/dL (6.3-8.2)
[2024-10-21] MEDS: METOPROLOL SUCCINATE (ER) 25 MG TAB.ER.24H PO STA (07:03)
--- NOTE | 2024-10-21 07:05 | XR ---
EXAM: XR Chest, 2 Views CLINICAL HISTORY: ITS.REASON XR Reason: dysrhythmia TECHNIQUE: Frontal and lateral views of the chest. COMPARISON: X-ray dated 12/20/2023. FINDINGS: Lungs: Unremarkable. No consolidation. Pleural space: Unremarkable. No pneumothorax. Heart: Unremarkable. No cardiomegaly. Mediastinum: Unremarkable. Normal mediastinal contour. Bones/joints: Degenerative changes are seen in the spine and shoulders. No acute fracture. Vasculature: Calcifications overlie the aorta. IMPRESSION: No acute findings in the chest.
[2024-10-21] MEDS ORDERED: ACETAMINOPHEN TAB 325 MG TAB PO PRN (07:08)
[2024-10-21] MEDS ORDERED: NALOXONE 0.4 MG/ML 1 ML VIAL IV PRN (07:08)
[2024-10-21] MEDS ORDERED: LIDOCAINE 4% PATCH TOPICAL PRN (07:46)
[2024-10-21] MEDS ORDERED: NON FORMULARY DRUG (Evolocumab [Repatha Sureclick] 140 MG/ML Each) SQ SCH (08:00)
[2024-10-21] MEDS: SODIUM CHLORIDE 0.9% 1,000 ML IV SCH (08:08)
[2024-10-21] MEDS: METOPROLOL TARTRATE 50 MG TAB PO SCH ×2 (08:54→19:50)
[2024-10-21] MEDS: PARoxetine 10 MG TAB PO SCH (09:02)
[2024-10-21] MEDS: CHOLECALCIFEROL 25 MCG (1000 IU) TABLET PO SCH (09:02)
[2024-10-21] MEDS: FAMOTIDINE 20 MG TAB PO SCH (09:02)
[2024-10-21] MEDS: VIT A,C & E-LUTEIN-MINERALS 1 EACH TAB PO SCH (09:03)
[2024-10-21] MEDS: VALSARTAN 160 MG TAB PO SCH (09:03)
[2024-10-21] MEDS: APIXABAN 2.5 MG TABLET PO SCH (09:03)
[2024-10-21] MEDS: ISOSORBIDE MONONITRATE ER 60 MG TAB.ER.24H PO SCH (09:05)
--- NOTE | 2024-10-21 10:32 | P.CRDCN ---
History of Present Illness Consult date: 10/21/24 History of present illness: HISTORY OF PRESENTING ILLNESS: 83-year-old known to Dr. Olivares Prior history of atrial fibrillation unknown if persistent or paroxysmal as I do not have office note to review Comes in the hospital because of symptoms of palpitations when she woke up in the morning and sense of skipping heartbeat. She is also concerned about the back pain some appetite issues and some concerns of possible kidney infection told her to her by her PCP Cardiology was consulted for atrial fibrillation evaluation and management .............................. ................................................................................ ................................ Pertient Vitals: BP on admission 99/61, repeat 129/83 Pertient Labs: Labs including hemoglobin BUN/creatinine were WNL EKG: Admission ECG showed A-fib RVR. Repeat EKG shows atrial fibrillation but rate controlled heart rate 69 bpm after she was started on Cardizem drip. Normal axis nonspecific ST changes. Pertient Imaging: Chest x-ray does not show signs of consolidation congestion. ................................................................................ .............................................................. Prior cardiac testing: [ ] ........................... ................................................................................ ................................... REVIEW OF SYSTEMS: 14 point review of system is negative except what is mentioned above in HPI. ................................................................................ .............................................................. PHYSICAL EXAMINATION: Neck: Brisk carotid upstroke, no jugular venous distention. Lungs: Clear to auscultation. Heart: Irregular rate and rhythm, S1-S2, mild systolic murmur audible Abdomen: Soft nontender, positive bowel sounds. Extremities: No edema, intact distal pulses. Neuro: Alert, oritented, no focal deficits. Detailed neuro exam was not performed. ................................................................................ .............................................................. ASSESSMENT: # Palpitations due to atrial fibrillation with RVR # Prior history of atrial fibrillation # Essential hypertension # Back pain PLAN: Discontinue Cardizem drip. Discontinue IV fluids Increase metoprolol to 50 twice daily, continue other medications which includes valsartan 160 mg daily, Eliquis 2.5 mg twice daily. Will cut her Imdur from 60- to 30 because of borderline low blood pressure. Warren Bella MD, FAC, RPVI Past Medical History Past Medical History: Atrial Fibrillation, Coronary Artery Disease (CAD), Chest Pain / Angina, Eye Disorder, GERD/Reflux, Hyperlipidemia, Hypertension, Osteoarthritis (OA), Skin Disorder Additional Past Medical History / Comment(s): KIDNEY STONES ,POLYPS, BACK PAIN, constipation, dysphagia @times, macular degeneration terence eyes, hiatal hernia, little sore side nose, & right arm History of Any Multi-Drug Resistant Organisms: None Reported Past Surgical History: Breast Surgery, Heart Catheterization, Joint Replacement, Orthopedic Surgery Additional Past Surgical History / Comment(s): TERENCE CATARACTS , COLONOSCOPY, EGD, BREAST BX, LITHOTRIPSY, PAIN CLINIC PROCEDURES. bilateral hips replaced Past Anesthesia/Blood Transfusion Reactions: No Reported Reaction Past Psychological History: Anxiety Smoking Status: Former smoker - Past Family History Mother Family Medical History: Cancer Father Family Medical History: Cancer Additional Family Medical History / Comment(s): leukemia Brother(s) Family Medical History: Coronary Artery Disease (CAD) Sister(s) Family Medical History: COPD Daughter(s) Family Medical History: No Reported History Son(s) Family Medical History: No Reported History Medications and Allergies Home Medications Medication Instructions Recorded Confirmed Type Apixaban [Eliquis] 5 mg PO BID 11/03/19 10/21/24 History Cholecalciferol [Vitamin D3 (25 25 mcg PO DAILY 09/20/20 10/21/24 History Mcg = 1000 Iu)] ALPRAZolam [Xanax] 0.5 mg PO BID PRN 02/22/22 10/21/24 History Isosorbide Mononitrate ER [Imdur] 60 mg PO DAILY 02/22/22 10/21/24 History Vit C/E/Zn/Coppr/Lutein/Zeaxan 1 cap PO BID 02/22/22 10/21/24 History [Preservision Areds 2 Softgel] Pantoprazole [Protonix] 40 mg PO AC-BRKFST #30 tab 02/28/22 10/21/24 Rx Evolocumab [Repatha Sureclick] 140 mg SQ Q14D 12/20/23 10/21/24 History Valsartan [Diovan] 160 mg PO DAILY 12/20/23 10/21/24 History Cyanocobalamin (Vitamin B-12) 1,000 mcg PO DAILY 10/21/24 10/21/24 History [Vitamin B-12] Folic Acid 0.4 mg PO DAILY 10/21/24 10/21/24 History Metoprolol Tartrate [Lopressor] 25 mg PO BID 10/21/24 10/21/24 History Mupirocin 2% Oint [Bactroban 2% 1 applic TOPICAL BID PRN 10/21/24 10/21/24 History Oint] Tacrolimus [Protoptic 0.1%] 1 applic TOPICAL BID PRN 10/21/24 10/21/24 History Allergies Allergy/AdvReac Type Severity Reaction Status Date / Time cyclobenzaprine HCl Allergy Unknown Rash/Hives Verified 10/21/24 09:41 [From Flexeril] Iodinated Contrast Media Allergy Rash/Hives Verified 10/21/24 09:41 [Iodinated Contrast Media - IV Dye] NSAIDS (Non-Steroidal Allergy Dr told Verified 10/21/24 09:41 Anti-Inflamma not to take due to Eliquis Jrzycwl-BXG-HqJ Reductase Allergy leg pain Verified 10/21/24 09:41 Inhibitor [Dsqqjvp-Mrf-Aio Reductase Inhibitor] TRIPLE DYE Allergy Unknown Rash/Hives Uncoded 10/14/24 16:08 NSAIDS Allergy Unknown Uncoded 10/14/24 16:08 Physical Exam Vitals: Vital Signs Temp Pulse Pulse Resp BP Pulse Ox 10/21/24 09:00 82 20 129/83 95 10/21/24 07:59 70 20 116/84 97 10/21/24 07:04 123 H 17 116/84 96 10/21/24 06:24 109 H 17 118/75 97 10/21/24 05:53 122 H 17 99/61 96 10/21/24 05:19 144 H 10/21/24 04:41 97.7 F 122 H 18 131/105 97 Intake and Output 10/20/24 10/21/24 10/21/24 22:59 06:59 14:59 Intake Total 19.417 Balance 19.417 Intake: Intake, IV Titration 19.417 Amount Diltiazem 125 mg In 19.417 Dextrose 5% in Water 100 ml @ 5 MG/HR 5 mls/hr IV .Q24H [facility] Rx#:[id number] Other: Weight 54.431 kg Results 10/21/24 05:05 10/21/24 05:05 Cardiac Enzymes 10/21/24 10/21/24 Range/Units 05:05 05:05 AST 32 (14-36) U/L Troponin I <0.012 (0.000-0.034) ng/mL Coagulation 10/21/24 Range/Units 05:05 PT 11.4 (10.0-12.5) sec APTT 26.0 (22.0-30.0) sec CBC 10/21/24 Range/Units 05:05 WBC 4.69 (4.50-10.00) 10*3/uL RBC 5.04 (4.10-5.20) 10*6/uL Hgb 14.6 (12.0-15.0) g/dL Hct 43.4 (37.2-46.3) % Plt Count 230 (140-440) 10*3/uL Comprehensive Metabolic Panel 10/21/24 Range/Units 05:05 Sodium 138 (137-145) mmol/L Potassium 4.3 (3.5-5.1) mmol/L Chloride 103 (98-107) mmol/L Carbon Dioxide 27 (22-30) mmol/L BUN 11 (7-17) mg/dL Creatinine 0.63 (0.52-1.04) mg/dL Glucose 91 (74-99) mg/dL Calcium 9.3 (8.4-10.2) mg/dL AST 32 (14-36) U/L ALT 13 (4-34) U/L Alkaline Phosphatase 70 (38-126) U/L Total Protein 7.1 (6.3-8.2) g/dL Albumin 4.3 (3.5-5.0) g/dL Current Medications Generic Name Dose Route Start Last Admin Trade Name Freq PRN Reason Stop Dose Admin Acetaminophen 650 mg 10/21/24 07:08 Acetaminophen Tab 325 Mg Tab PO Q6HR PRN Mild Pain or Fever > 100.5 Alprazolam 0.5 mg 10/21/24 07:15 Alprazolam 0.5 Mg Tab PO BID PRN Anxiety Apixaban 2.5 mg 10/21/24 09:00 10/21/24 09:03 Apixaban 2.5 Mg Tablet PO 2.5 mg BID ALIYAH Administration Protocol Cholecalciferol 25 mcg 10/21/24 09:00 10/21/24 09:02 Cholecalciferol 25 Mcg (1000 Iu) Tablet PO 25 mcg DAILY ALIYAH Administration Famotidine 20 mg 10/21/24 09:00 10/21/24 09:02 Famotidine 20 Mg Tab PO 20 mg BID ALIYAH Administration Diltiazem HCl 125 mg/ Dextrose 125 mls @ 5 mls/hr 10/21/24 05:30 10/21/24 09:40 /Water IV 0 mg/hr .Q24H ALIYAH 0 mls/hr Titration Protocol 5 MG/HR Sodium Chloride 1,000 mls @ 75 mls/hr 10/21/24 07:15 10/21/24 08:08 Saline 0.9% IV 75 mls/hr .[id number] ALIYAH Administration Isosorbide Mononitrate 60 mg 10/21/24 09:00 10/21/24 09:05 Isosorbide Mononitrate Er 60 Mg Tab.Er.24h PO 60 mg DAILY ALIYAH Administration Lidocaine 1 patch 10/21/24 07:46 Lidocaine 4% Patch TOPICAL DAILY PRN Pain Metoprolol Tartrate 25 mg 10/21/24 21:00 Metoprolol Tartrate 25 Mg Tab PO HS [facility] Metoprolol Tartrate 50 mg 10/21/24 09:00 10/21/24 08:54 Metoprolol Tartrate 50 Mg Tab PO Not Given QAM ALIYAH Multivitamins/Minerals 1 each 10/21/24 09:00 10/21/24 09:03 Vit A,C & U-Dqlvct-Nvjhvezg 1 Each Tab PO 1 each BID ALIYAH Administration Naloxone HCl 0.2 mg 10/21/24 07:08 Naloxone 0.4 Mg/Ml 1 Ml Vial IV Q2M PRN Opioid Reversal Ondansetron HCl 4 mg 10/21/24 07:08 Ondansetron 4 Mg/2 Ml Vial IVP Q8HR PRN Nausea And Vomiting Pantoprazole Sodium 40 mg 10/22/24 07:30 Pantoprazole 40 Mg Tablet PO AC-BRKFST [facility] Paroxetine HCl 15 mg 10/21/24 09:00 10/21/24 09:02 Paroxetine 10 Mg Tab PO 15 mg DAILY ALIYAH Administration Valsartan 160 mg 10/21/24 09:00 10/21/24 09:03 Valsartan 160 Mg Tab PO 160 mg DAILY ALIYAH Administration Intake and Output 10/20/24 10/21/24 10/21/24 22:59 06:59 14:59 Intake Total 19.417 Balance 19.417 Intake: Intake, IV Titration 19.417 Amount Diltiazem 125 mg In 19.417 Dextrose 5% in Water 100 ml @ 5 MG/HR 5 mls/hr IV .Q24H [facility] Rx#:[id number] Other: Weight 54.431 kg 10/21/24 05:05 10/21/24 05:05
[2024-10-21] MEDS: ONDANSETRON 4 MG/2 ML VIAL IVP PRN ×2 (11:51→19:50)
--- NOTE | 2024-10-21 13:22 | P.HPIM ---
History of Present Illness H&P Date: 10/21/24 Chief Complaint: Atrial fibrillation with RVR HISTORY OF PRESENT ILLNESS: This is an 83-year-old white female with a previous medical history significant for hypertension and hypertensive cardiovascular disease, hyperlipidemia, paroxysmal atrial fibrillation,CAD post left heart catherization last on 09/2021 that showed 50 % stenosis in the proximal LAD and 10-20 % stenosis in the LCX and RCA , anxiety disorder, severe osteoarthritis patient presented to the emergency department at [facility] today with increased palpitation associated with increased chest pain minimal shortness of breath, she was found to be in atrial fibrillation with rapid ventricular response, she was started on Cardizem drip, her heart rate is in 115 -220 at this point in time, better, she was admitted to the hospital for evaluation by cardiology she is already anticoagulated with Eliquis, she was given her first dose of metoprolol that she takes at home, patient was placed in the hospital for rate control and cardiology evaluation and possible adjustment of her cardiac medications. Laboratory evaluation were within normal limit, cardiac enzymes are negative, chest x-ray did not show evidence of acute abnormalities, BNP level is not quite elevated. REVIEW OF SYSTEMS: Constitutional: No documented fever, no chills, no night sweats. No weight change. positive for weakness, fatigue or lethargy. No daytime sleepiness. HEENT: No headache. positive for blurred vision or double vision, no loss of vision. No loss of Hearing, no ringing in the ears, no dizziness. No nasal drainage or congestion. No epistaxis. No sore throat. Lungs: No shortness of breath, no cough, no sputum production. No wheezing. Reports dyspnea with activity. Cardiovascular: Positive chest pain, no lower extremity edema. Positive for palpitations. No paroxysmal nocturnal dyspnea. No orthopnea. No lightheadedness or dizziness. No syncopal episodes. Abdominal: Reports no abdominal pain. Positive for nausea, no vomiting. Positive for diarrhea. No constipation. No bloody or tarry stools reports loss of appetite. Genitourinary: No dysuria, increased frequency, urgency. No urinary retention. Musculoskeletal: No myalgias. No muscle weakness, no gait dysfunction, no frequent falls. No back pain. No neck pain. Integumentary: No wounds, no lesions. No rash or pruritus. No unusual bruising. No change in hair or nails. Neurologic: No aphasia. No facial droop. No change in mentation. No head injury. No headache. No paralysis. No paresthesia. Psychiatric: No depression. positive for anxiety. No mood swings. Endocrine: No abnormal blood sugars. No weight change. PAST MEDICAL HISTORY: Hypertension and hypertensive cardiovascular disease. Hyperlipidemia. Paroxysmal atrial fibrillation. GERD. 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 Osteoarthritis. Osteoporosis. Anxiety. Macular degeneration. Coronary artery disease status post left heart catheterization in August 2021 with 50% eccentric lesion in proximal LAD, 10-20 % in LCx and RCA. Kidney stones. Iron deficiency anemia PAST SURGICAL HISTORY: Right total hip arthroplasty. Left total hip arthroplasty. Bilateral cataract surgery. EGD and colonoscopy. Epidural injection of the thoracic spine. [facility] 09/2021 SOCIAL HISTORY: Patient used to smoke about pack every day she started smoking about 61 years ago and she quit in 03/28/2018, she denies any alcohol ingestion, she denies any drug use or abuse, she currently staying with her daughter after surgery. FAMILY HISTORY: Father of leukemia, mother was pretty healthy, patient had a sister who from severe COPD, patient has a brother with CAD, and she has 2 daughters no major medical problems. PHYSICAL EXAMINATION: General: 83-year-old female sitting up in bed in no apparent distress. HEENT: Head is atraumatic, normocephalic, pupils were equal round reactive to light and recommendation, extraocular muscle movement were intact, sclera nonicteric, conjunctivae were pale, mucous membranes of the mouth are somewhat dry. Neck: Supple, no JVP, normal carotid upstroke bilaterally, no lymphadenopathy. Chest: Decreased breath sounds at the bases, few rhonchi, no expiratory wheezes, no chest wall tenderness, no intercostal retractions. Heart: First heart sound is normal, second heart sounds normal there is systolic ejection murmur 2/6 located at the left sternal border Abdomen: Soft, nontender, nondistended, positive bowel sounds, there is no hepatomegaly. Extremities: There is no edema no calf tenderness DP +2 bilaterally. Neurologic examination: Patient is awake alert and oriented X 3, cranial nerves II-12 appear grossly intact, muscle power were 5 out of 5 in upper extremities and 5 out of 5 in bilateral lower extremities, deep tendon reflexes normal bilaterally. ASSESSMENT AND PLAN: 1. Atrial fibrillation with rapid variable response just converted to sinus rhythm continue with metoprolol 50 mg orally twice every day, continue patient on Eliquis 2.5 mg orally twice every day, Cardizem drip was discontinued, continue to follow-up with the patient very closely, cardiology consultation will be obtained patient follows with cardiology on a regular basis. 2. Hypertension and hypertensive cardiovascular disease . Continue metoprolol tartarate 50 mg orally twice every day, continue valsartan 160 mg once every day, monitor the patient blood pressure very closely isosorbide mononitrate was decreased to 30 mg once every day, 3. Mixed hyperlipidemia. Patient is not able to take statins continue Repatha 140 mg subcutaneously every 14 days. 4. Anxiety disorder. Continue patient on Xanax 0.5 mg po bid as needed, continue with Paxil 10 mg orally once every day. 5. Macular degeneration. Continue with current vitamins. 6. Paroxysmal atrial fibrillation currently in sinus rhythm. Continue patient on metoprolol tartarate 50 mg twice every day, continue Eliquis 2.5 mg orally twice every day follow-up with cardiology. 7. Osteoarthritis. Continue current pain management. 8. DVT prophylaxis. Continue Eliquis 2.5 mg orally twice every day. 9. GI prophylaxis. Continue patient on Protonix 40 mg once every day along with famotidine 40 mg at bedtime 10. Intractable nausea with diarrhea rule out gastroenteritis. Continue with Zofran 4 mg IV push every 6 hours as needed, add famotidine 20 mg orally bid, continue pantoprazole 40 mg once every day 11. Observation. 12. Full code Past Medical History Past Medical History: Atrial Fibrillation, Coronary Artery Disease (CAD), Chest Pain / Angina, Eye Disorder, GERD/Reflux, Hyperlipidemia, Hypertension, Osteoarthritis (OA), Skin Disorder Additional Past Medical History / Comment(s): KIDNEY STONES ,POLYPS, BACK PAIN, constipation, dysphagia @times, macular degeneration terence eyes, hiatal hernia, little sore side nose, & right arm History of Any Multi-Drug Resistant Organisms: None Reported Past Surgical History: Breast Surgery, Heart Catheterization, Joint Replacement, Orthopedic Surgery Additional Past Surgical History / Comment(s): TERENCE CATARACTS , COLONOSCOPY, EGD, BREAST BX, LITHOTRIPSY, PAIN CLINIC PROCEDURES. bilateral hips replaced Past Anesthesia/Blood Transfusion Reactions: No Reported Reaction Past Psychological History: Anxiety Smoking Status: Former smoker - Past Family History Mother Family Medical History: Cancer Father Family Medical History: Cancer Additional Family Medical History / Comment(s): leukemia Brother(s) Family Medical History: Coronary Artery Disease (CAD) Sister(s) Family Medical History: COPD Daughter(s) Family Medical History: No Reported History Son(s) Family Medical History: No Reported History Medications and Allergies Home Medications Medication Instructions Recorded Confirmed Type Apixaban [Eliquis] 5 mg PO BID 11/03/19 10/21/24 History Cholecalciferol [Vitamin D3 (25 25 mcg PO DAILY 09/20/20 10/21/24 History Mcg = 1000 Iu)] ALPRAZolam [Xanax] 0.5 mg PO BID PRN 02/22/22 10/21/24 History Isosorbide Mononitrate ER [Imdur] 60 mg PO DAILY 02/22/22 10/21/24 History Vit C/E/Zn/Coppr/Lutein/Zeaxan 1 cap PO BID 02/22/22 10/21/24 History [Preservision Areds 2 Softgel] Pantoprazole [Protonix] 40 mg PO AC-BRKFST #30 tab 02/28/22 10/21/24 Rx Evolocumab [Repatha Sureclick] 140 mg SQ Q14D 12/20/23 10/21/24 History Valsartan [Diovan] 160 mg PO DAILY 12/20/23 10/21/24 History Cyanocobalamin (Vitamin B-12) 1,000 mcg PO DAILY 10/21/24 10/21/24 History [Vitamin B-12] Folic Acid 0.4 mg PO DAILY 10/21/24 10/21/24 History Metoprolol Tartrate [Lopressor] 25 mg PO BID 10/21/24 10/21/24 History Mupirocin 2% Oint [Bactroban 2% 1 applic TOPICAL BID PRN 10/21/24 10/21/24 History Oint] Tacrolimus [Protoptic 0.1%] 1 applic TOPICAL BID PRN 10/21/24 10/21/24 History Allergies Allergy/AdvReac Type Severity Reaction Status Date / Time cyclobenzaprine HCl Allergy Unknown Rash/Hives Verified 10/21/24 09:41 [From Flexeril] Iodinated Contrast Media Allergy Rash/Hives Verified 10/21/24 09:41 [Iodinated Contrast Media - IV Dye] NSAIDS (Non-Steroidal Allergy Dr told Verified 10/21/24 09:41 Anti-Inflamma not to take due to Eliquis Dbncasa-WAZ-FtK Reductase Allergy leg pain Verified 10/21/24 09:41 Inhibitor [Fibdcbi-Bzr-Zbt Reductase Inhibitor] TRIPLE DYE Allergy Unknown Rash/Hives Uncoded 10/14/24 16:08 NSAIDS Allergy Unknown Uncoded 10/14/24 16:08 Physical Exam Vitals: Vital Signs Temp Pulse Pulse Resp BP Pulse Ox 10/21/24 07:04 123 H 17 116/84 96 10/21/24 06:24 109 H 17 118/75 97 10/21/24 05:53 122 H 17 99/61 96 10/21/24 05:19 144 H 10/21/24 04:41 97.7 F 122 H 18 131/105 97 Intake and Output 10/20/24 10/21/24 10/21/24 22:59 06:59 14:59 Other: Weight 54.431 kg Results CBC & Chem 7: 10/21/24 05:05 10/21/24 05:05
[2024-10-21] MEDS: NYSTATIN 100,000 UNIT/GM POWD 15 GM TOPICAL PRN (20:14)
[2024-10-21] MEDS ORDERED: METOPROLOL TARTRATE 25 MG TAB PO SCH (21:00)
[2024-10-21] MEDS: ALPRAZolam 0.5 MG TAB PO PRN (23:05)
[2024-10-22] MEDS: PANTOPRAZOLE 40 MG TABLET PO SCH (06:29)
[2024-10-22 08:15] VITALS: BP 147/75; PULSE 63; RESP 20; TEMP 98
[2024-10-22 08:31] LABS: ALT 11 U/L (4-34); AST 25 U/L (14-36); African American GFR (CKD) >90 (>60 ml/min/1.73 sqM); Albumin 3.5 g/dL (3.5-5.0); Alkaline Phosphatase 61 U/L (38-126); Anion Gap 9 mmol/L; Blood Urea Nitrogen 11 mg/dL (7-17); Calcium 9.2 mg/dL (8.4-10.2); Carbon Dioxide 26 mmol/L (22-30); Chloride 102 mmol/L (98-107); Glucose 74 mg/dL (74-99); Magnesium 1.8 mg/dL (1.6-2.3); Non-African American GFR(CKD) 83 (>60 ml/min/1.73 sqM); Potassium 4.1 mmol/L (3.5-5.1); Sodium 137 mmol/L (137-145); Total Protein 5.8 g/dL (6.3-8.2)
[2024-10-22 08:33] LABS: Basophils # (A) 0.02 10*3/uL (0.00-0.10); Basophils % (A) 0.5 %; Eosinophils # (A) 0.07 10*3/uL (0.04-0.35); Eosinophils % (A) 1.8 %; HCT 38.4 % (37.2-46.3); HGB 12.6 g/dL (12.0-15.0); Lymphocytes # (A) 1.45 10*3/uL (0.90-5.00); Lymphocytes % (A) 36.8 %; MCH 29.3 pg (27.0-32.0); MCHC 32.8 g/dL (32.0-37.0); MCV 89.3 fL (80.0-97.0); Monocytes # (A) 0.34 10*3/uL (0.20-1.00); Monocytes % (A) 8.6 %; Neutrophils # (A) 2.05 10*3/uL (1.80-7.70); Neutrophils % (A) 52.0 %; Platelet Count 210 10*3/uL (140-440); RBC 4.30 10*6/uL (4.10-5.20); RDW 13.2 % (11.5-14.5); WBC 3.94 10*3/uL (4.50-10.00)
[2024-10-22] MEDS: ISOSORBIDE MONONITRATE ER 30 MG TAB.ER.24H PO SCH (08:45)
[2024-10-22] MEDS: PARoxetine 10 MG TAB PO SCH (08:46)
--- NOTE | 2024-10-22 09:08 | P.PN ---
Subjective Progress Note Date: 10/22/24 HISTORY OF PRESENT ILLNESS: This is an 83-year-old white female with a previous medical history significant for hypertension and hypertensive cardiovascular disease, hyperlipidemia, paroxysmal atrial fibrillation,CAD post left heart catherization last on 09/2021 that showed 50 % stenosis in the proximal LAD and 10-20 % stenosis in the LCX and RCA , anxiety disorder, severe osteoarthritis patient presented to the emergency department at [facility] today with increased palpitation associated with increased chest pain minimal shortness of breath, she was found to be in atrial fibrillation with rapid ventricular response, she was started on Cardizem drip, her heart rate is in 115 -220 at this point in time, better, she was admitted to the hospital for evaluation by cardiology she is already anticoagulated with Eliquis, she was given her first dose of metoprolol that she takes at home, patient was placed in the hospital for rate control and cardiology evaluation and possible adjustment of her cardiac medications. Laboratory evaluation were within normal limit, cardiac enzymes are negative, chest x-ray did not show evidence of acute abnormalities, BNP level is not quite elevated. 10/22: Patient is doing better today, she continues to be slightly nauseated, no vomiting, she ate her breakfast today, her blood pressure stable, she is cleared to be discharged home, follow-up with me as an outpatient next week REVIEW OF SYSTEMS: Constitutional: No documented fever, no chills, no night sweats. No weight change. positive for weakness, fatigue or lethargy. No daytime sleepiness. HEENT: No headache. positive for blurred vision or double vision, no loss of vision. No loss of Hearing, no ringing in the ears, no dizziness. No nasal drainage or congestion. No epistaxis. No sore throat. Lungs: No shortness of breath, no cough, no sputum production. No wheezing. Reports dyspnea with activity. Cardiovascular: Positive chest pain, no lower extremity edema. Positive for p alpitations. No paroxysmal nocturnal dyspnea. No orthopnea. No lightheadedness or dizziness. No syncopal episodes. Abdominal: Reports no abdominal pain. Positive for nausea, no vomiting. Positive for diarrhea. No constipation. No bloody or tarry stools reports loss of appetite. Genitourinary: No dysuria, increased frequency, urgency. No urinary retention. Musculoskeletal: No myalgias. No muscle weakness, no gait dysfunction, no frequent falls. No back pain. No neck pain. Integumentary: No wounds, no lesions. No rash or pruritus. No unusual bruising. No change in hair or nails. Neurologic: No aphasia. No facial droop. No change in mentation. No head injury. No headache. No paralysis. No paresthesia. Psychiatric: No depression. positive for anxiety. No mood swings. Endocrine: No abnormal blood sugars. No weight change. PHYSICAL EXAMINATION: General: 83-year-old female sitting up in bed in no apparent distress. HEENT: Head is atraumatic, normocephalic, pupils were equal round reactive to light and recommendation, extraocular muscle movement were intact, sclera nonicteric, conjunctivae were pale, mucous membranes of the mouth are somewhat dry. Neck: Supple, no JVP, normal carotid upstroke bilaterally, no lymphadenopathy. Chest: Decreased breath sounds at the bases, few rhonchi, no expiratory wheezes, no chest wall tenderness, no intercostal retractions. Heart: First heart sound is normal, second heart sounds normal there is systolic ejection murmur 2/6 located at the left sternal border Abdomen: Soft, nontender, nondistended, positive bowel sounds, there is no hepatomegaly. Extremities: There is no edema no calf tenderness DP +2 bilaterally. Neurologic examination: Patient is awake alert and oriented X 3, cranial nerves II-12 appear grossly intact, muscle power were 5 out of 5 in upper extremities and 5 out of 5 in bilateral lower extremities, deep tendon reflexes normal bilaterally. ASSESSMENT AND PLAN: 1. Atrial fibrillation with rapid variable response just converted to sinus rhythm continue with metoprolol 50 mg orally twice every day, continue patient on Eliquis 2.5 mg orally twice every day, Cardizem drip was discontinued, continue to follow-up with the patient very closely, cardiology consultation will be obtained patient follows with cardiology on a regular basis. 2. Hypertension and hypertensive cardiovascular disease . Continue metoprolol tartarate 50 mg orally twice every day, continue valsartan 160 mg once every day, monitor the patient blood pressure very closely isosorbide mononitrate was decreased to 30 mg once every day, 3. Mixed hyperlipidemia. Patient is not able to take statins continue Repatha 140 mg subcutaneously every 14 days. 4. Anxiety disorder. Continue patient on Xanax 0.5 mg po bid as needed, continue with Paxil 10 mg orally once every day. 5. Macular degeneration. Continue with current vitamins. 6. Paroxysmal atrial fibrillation currently in sinus rhythm. Continue patient on metoprolol tartarate 50 mg twice every day, continue Eliquis 2.5 mg orally twice every day follow-up with cardiology. 7. Osteoarthritis. Continue current pain management. 8. DVT prophylaxis. Continue Eliquis 2.5 mg orally twice every day. 9. GI prophylaxis. Continue patient on Protonix 40 mg once every day along with famotidine 40 mg at bedtime 10. Intractable nausea with diarrhea rule out gastroenteritis. Continue with Zofran 4 mg IV push every 6 hours as needed, add famotidine 20 mg orally bid, continue pantoprazole 40 mg once every day 11. Medically stable for discharge home today. Objective - Vital Signs Vital signs: Vital Signs Temp 96.2 F L 10/22/24 03:35 Pulse 72 10/22/24 03:35 Resp 18 10/22/24 03:35 BP 140/68 10/22/24 03:35 Pulse Ox 97 10/22/24 03:35 FiO2 Intake & Output 10/21/24 10/22/24 10/22/24 18:59 06:59 18:59 Intake Total 1174.417 Output Total 1 Balance 1173.417 Weight 54.431 kg 55.7 kg Intake: Intake, IV Titration 94.417 Amount Diltiazem 125 mg In 19.417 Dextrose 5% in Water 100 ml @ 5 MG/HR 5 mls/hr IV .Q24H ALIYAH Rx#:[id number] Sodium Chloride 0.9% 1, 75 000 ml @ 75 mls/hr IV . [id number] ALIYAH Rx#:[id number] Oral 1080 Output: Stool 1 Other: Voiding Method Toilet Toilet # Voids 1 - Labs CBC & Chem 7: 10/22/24 07:25 10/22/24 07:25
--- NOTE | 2024-10-22 09:10 | P.DS ---
Providers Date of admission: 10/21/24 07:08 Expected date of discharge: 10/22/24 Attending physician: Marcie Varma Consults: 10/21/24 07:08 Consult Physician Urgent Consulting Provider: [facility] Consult Reason/Comments: a fib with rvr Do you want consulting provider notified?: Yes, Notify in am Primary care physician: Marcie Varma Hospital Course: HISTORY OF PRESENT ILLNESS: This is an 83-year-old white female with a previous medical history significant for hypertension and hypertensive cardiovascular disease, hyperlipidemia, paroxysmal atrial fibrillation,CAD post left heart catherization last on 09/2021 that showed 50 % stenosis in the proximal LAD and 10-20 % stenosis in the LCX and RCA , anxiety disorder, severe osteoarthritis patient presented to the e mergency department at [facility] today with increased palpitation associated with increased chest pain minimal shortness of breath, she was found to be in atrial fibrillation with rapid ventricular response, she was started on Cardizem drip, her heart rate is in 115 -220 at this point in time, better, she was admitted to the hospital for evaluation by cardiology she is already anticoagulated with Eliquis, she was given her first dose of metoprolol that she takes at home, patient was placed in the hospital for rate control and cardiology evaluation and possible adjustment of her cardiac medications. Laboratory evaluation were within normal limit, cardiac enzymes are negative, chest x-ray did not show evidence of acute abnormalities, BNP level is not quite elevated. 10/22: Patient is doing better today, she continues to be slightly nauseated, no vomiting, she ate her breakfast today, her blood pressure stable, she is cleared to be discharged home, follow-up with me as an outpatient next week Discharge diagnoses: 1. Atrial fibrillation with rapid variable response just converted to sinus rhythm 2. Hypertension and hypertensive cardiovascular disease . 3. Mixed hyperlipidemia. 4. Anxiety disorder. 5. Macular degeneration. 6. Paroxysmal atrial fibrillation currently in sinus rhythm. 7. Osteoarthritis. Patient Condition at Discharge: Stable Plan - Discharge Summary Discharge Rx Participant: No New Discharge Prescriptions: No Action Apixaban [Eliquis] 5 mg PO BID Cholecalciferol [Vitamin D3 (25 Mcg = 1000 Iu)] 25 mcg PO DAILY Vit C/E/Zn/Coppr/Lutein/Zeaxan [Preservision Areds 2 Softgel] 1 cap PO BID ALPRAZolam [Xanax] 0.5 mg PO BID PRN PRN Reason: Anxiety Pantoprazole [Protonix] 40 mg PO AC-BRKFST #30 tab Valsartan [Diovan] 160 mg PO DAILY Tacrolimus [Protoptic 0.1%] 1 applic TOPICAL BID PRN PRN Reason: SORES Folic Acid 0.4 mg PO DAILY Isosorbide Mononitrate ER [Imdur] 60 mg PO DAILY Evolocumab [Repatha Sureclick] 140 mg SQ Q14D Metoprolol Tartrate [Lopressor] 25 mg PO BID Mupirocin 2% Oint [Bactroban 2% Oint] 1 applic TOPICAL BID PRN PRN Reason: sores Cyanocobalamin (Vitamin B-12) [Vitamin B-12] 1,000 mcg PO DAILY Discharge Medication List Apixaban [Eliquis] 5 mg PO BID 11/03/19 [History] Cholecalciferol [Vitamin D3 (25 Mcg = 1000 Iu)] 25 mcg PO DAILY 09/20/20 [History] ALPRAZolam [Xanax] 0.5 mg PO BID PRN 02/22/22 [History] Isosorbide Mononitrate ER [Imdur] 60 mg PO DAILY 02/22/22 [History] Vit C/E/Zn/Coppr/Lutein/Zeaxan [Preservision Areds 2 Softgel] 1 cap PO BID 02/22/22 [History] Pantoprazole [Protonix] 40 mg PO AC-BRKFST #30 tab 02/28/22 [Rx] Evolocumab [Repatha Sureclick] 140 mg SQ Q14D 12/20/23 [History] Valsartan [Diovan] 160 mg PO DAILY 12/20/23 [History] Cyanocobalamin (Vitamin B-12) [Vitamin B-12] 1,000 mcg PO DAILY 10/21/24 [History] Folic Acid 0.4 mg PO DAILY 10/21/24 [History] Metoprolol Tartrate [Lopressor] 25 mg PO BID 10/21/24 [History] Mupirocin 2% Oint [Bactroban 2% Oint] 1 applic TOPICAL BID PRN 10/21/24 [History] Tacrolimus [Protoptic 0.1%] 1 applic TOPICAL BID PRN 10/21/24 [History] Follow up Appointment(s)/Referral(s): Casie Olivares MD [STAFF PHYSICIAN] - 1 Week Marcie Varma MD [Primary Care Provider] - 1-2 days
--- NOTE | 2024-10-22 14:22 | P.PN ---
Subjective Progress Note Date: 10/22/24 HISTORY OF PRESENTING ILLNESS: 83-year-old known to Dr. Olivares Prior history of atrial fibrillation unknown if persistent or paroxysmal as I do not have office note to review Comes in the hospital because of symptoms of palpitations when she woke up in the morning and sense of skipping heartbeat. She is also concerned about the back pain some appetite issues and some concerns of possible kidney infection told her to her by her PCP Cardiology was consulted for atrial fibrillation evaluation and management ................................................................................ .............................................................. Pertient Vitals: BP on admission 99/61, repeat 129/83 Pertient Labs: Labs including hemoglobin BUN/creatinine were WNL EKG: Admission ECG showed A-fib RVR. Repeat EKG shows atrial fibrillation but rate controlled heart rate 69 bpm after she was started on Cardizem drip. Normal axis nonspecific ST changes. Pertient Imaging: Chest x-ray does not show signs of consolidation congestion. ............................................................. ................................................................................ . 10/22/2024 Patient seen and examined. Patient states that the symptoms with left-sided numbness has resolved. Patient has been in a sinus rhythm, heart rate running between 58 and 72. Blood pressure 147/75, pulse ox 96% on room air. Repeat blood work reveals CBC and CMP unremarkable. ............................. ................................................................................ ................................. PHYSICAL EXAMINATION: Neck: Brisk carotid upstroke, no jugular venous distention. Lungs: Clear to auscultation. Heart: Irregular rate and rhythm, S1-S2, mild systolic murmur audible Abdomen: Soft nontender, positive bowel sounds. Extremities: No edema, intact distal pulses. Neuro: Alert, oritented, no focal deficits. Detailed neuro exam was not performed. .......................... ................................................................................ .................................... ASSESSMENT: # Palpitations due to atrial fibrillation with RVR, converted to sinus rhythm # Prior history of paroxysmal atrial fibrillation # Essential hypertension # Back pain PLAN: Continue increased metoprolol to 50 twice daily, continue other medications which includes valsartan 160 mg daily, Eliquis 2.5 mg twice daily. Will cut her Imdur from 60-to 30 because of borderline low blood pressure. Patient is cleared for discharge from cardiology and will follow-up with Dr. Jorge staples and have possible echocardiogram and Holter monitor done from the office Nurse practitioner note has been reviewed, I agree with documented findings and plan of care. Patient was seen and examined. Objective - Vital Signs Vital signs: Vital Signs Temp 96.2 F L 10/22/24 03:35 Pulse 72 10/22/24 03:35 Resp 18 10/22/24 03:35 BP 140/68 10/22/24 03:35 Pulse Ox 97 10/22/24 03:35 FiO2 Intake & Output 10/21/24 10/22/24 10/22/24 18:59 06:59 18:59 Intake Total 1174.417 Output Total 1 Balance 1173.417 Weight 54.431 kg 55.7 kg Intake: Intake, IV Titration 94.417 Amount Diltiazem 125 mg In 19.417 Dextrose 5% in Water 100 ml @ 5 MG/HR 5 mls/hr IV .Q24H ALIYAH Rx#:[id number] Sodium Chloride 0.9% 1, 75 000 ml @ 75 mls/hr IV . [id number] ALIYAH Rx#:[id number] Oral 1080 Output: Stool 1 Other: Voiding Method Toilet Toilet # Voids 1 - Labs CBC & Chem 7: 10/22/24 07:25 10/22/24 07:25
== END 2024-10-22 10:13 | disposition home or self-care (01) ==
LOC: EC 04:40 → 3SCARD 07:08
PROVIDERS: ADMIT Internal Medicine; ATTEND Internal Medicine
DX: I48.0 Paroxysmal atrial fibrillation (principal); I25.10 Atherosclerotic heart disease of native coronary artery without angina pectoris; K21.9 Gastro-esophageal reflux disease without esophagitis; I11.9 Hypertensive heart disease without heart failure; M54.9 Dorsalgia, unspecified; F41.9 Anxiety disorder, unspecified; M47.816 Spondylosis without myelopathy or radiculopathy, lumbar region; M47.814 Spondylosis without myelopathy or radiculopathy, thoracic region; M81.0 Age-related osteoporosis without current pathological fracture; H35.30 Unspecified macular degeneration; D50.9 Iron deficiency anemia, unspecified; E78.2 Mixed hyperlipidemia; R11.0 Nausea; R19.7 Diarrhea, unspecified; Z87.442 Personal history of urinary calculi; Z87.891 Personal history of nicotine dependence; Z79.01 Long term (current) use of anticoagulants; Z79.899 Other long term (current) drug therapy; Z88.6 Allergy status to analgesic agent; M19.90 Unspecified osteoarthritis, unspecified site
CPT/HCPCS: 96376 ×2; 96365; 96366; 96375; 99291; 36415; 93005; 83880; 80053 ×2; 83735 ×2; 84484; 85025 ×2; 85610; 85730; 71046; G0378 ×2; J2405; J1163 ×2